=== PATIENT | male | born 1940 | race Caucasian/White ===

== ENCOUNTER → 2017-05-09 | Outpatient (CLI) | payer MEDICARE ==
--- NOTE | 2017-05-09 14:34 | US ---
EXAMINATION TYPE: US duplex aorta DATE OF EXAM: 05/09/2017 COMPARISON: NONE CLINICAL HISTORY: I70.0 Atherosclerosis of aorta. Pt states told him he has atherosclerosis of hi s aorta/ no other complaints at this time EXAM MEASUREMENTS: Abdominal Aorta: Proximal: 2.5 x 2.4 cm Mid: 2.2 x 1.5 cm Distal: 2.1 x 2.2 cm Bifurcation: JULIAN: 1.3 x 1.1 cm PAVEL: 1.5 x 1.2 cm Ectatic aorta without evidence of AAA IMPRESSION: 1. Distal abdominal aorta appears mildly ectatic with a maximum AP diameter 2.1 cm.
== END | disposition home or self-care (01) ==
LOC: RADUSWWP 07:52
PROVIDERS: ATTEND Family Medicine
DX: I70.0 Atherosclerosis of aorta (principal)
CPT/HCPCS: 93979

== ENCOUNTER → 2017-05-15 | Outpatient (CLI) | payer MEDICARE ==
--- NOTE | 2017-05-15 15:37 | XR ---
EXAMINATION TYPE: XR chest 2V DATE OF EXAM: 05/15/2017 COMPARISON: 07/13/2009 HISTORY: Shortness of breath TECHNIQUE: Frontal and lateral views of the chest are obtained. FINDINGS: Scattered senescent parenchymal changes noted. No evidence for infiltrate. No evidence for atelectasis. Heart size is stable. Mediastinal structures are stable and grossly unremarkable. No evidence for hilar prominence. Degenerative changes dorsal spine. IMPRESSION: 1. No evidence for acute pulmonary disease.
== END | disposition home or self-care (01) ==
LOC: RADXRMAIN 15:19
PROVIDERS: ATTEND Physician Assistant
DX: J20.9 Acute bronchitis, unspecified (principal)
CPT/HCPCS: 71046

== ENCOUNTER 2017-09-21 12:11 | Inpatient (IN) | payer MEDICARE ==
--- NOTE | 2017-09-21 13:08 | ED ---
General Adult HPI - General Chief complaint: Shortness of Breath Stated complaint: SOB Source: patient Mode of arrival: ambulatory Limitations: no limitations - History of Present Illness Initial comments: Dictation was produced using [employer] dictation software. please excuse any grammatical, word or spelling errors. Chief Complaint: 77-year-old male with past medical history of insulin -dependent diabetes mellitus, hyperlipidemia presents with shortness of breath for 5 weeks. History of Present Illness: Patient states that he isn't having these symptoms for several weeks now. Today they had just arrived back from driving up [place] 2 hours away. He has been having exertional shortness of breath. He does also report symptoms are orthopnea. States that he's been sleeping with 2 pillows having difficulty with lying flat. Denies any lower extremity symptoms. No history of blood clots or other thromboembolic disease. It has any cardiac history. The ROS documented in this emergency department record has been reviewed and confirmed by me. Those systems with pertinent positive or negative responses have been documented in the HPI. All other systems are other negative and/or noncontributory. - Related Data Home Medications Medication Instructions Recorded Confirmed Atorvastatin Calcium [Lipitor] 10 mg PO DAILY 09/21/17 09/21/17 Gabapentin 800 mg PO QID 09/21/17 09/21/17 Glimepiride [Amaryl] 2 mg PO BID 09/21/17 09/21/17 Insulin Glargine,Hum.rec.anlog 70 unit SQ DAILY 09/21/17 09/21/17 [Lantus Solostar] Insulin Lispro [humaLOG Kwikpen] 20 units SQ DAILY PRN 09/21/17 09/21/17 Lansoprazole 30 mg PO DAILY 09/21/17 09/21/17 Naproxen Sodium [Aleve] 440 mg PO Q12HR PRN 09/21/17 09/21/17 Pioglitazone [Actos] 30 mg PO DAILY 09/21/17 09/21/17 Ramipril 2.5 mg PO DAILY 09/21/17 09/21/17 metFORMIN HCL [Glucophage] 850 mg PO TID 09/21/17 09/21/17 Allergies Allergy/AdvReac Type Severity Reaction Status Date / Time Sulfa (Sulfonamide Allergy Unknown Verified 09/21/17 13:13 Antibiotics) Childhood Review of Systems ROS Statement: Those systems with pertinent positive or pertinent negative responses have been documented in the HPI. ROS Other: All systems not noted in ROS Statement are negative. Past Medical History Past Medical History: Diabetes Mellitus History of Any Multi-Drug Resistant Organisms: None Reported Past Surgical History: Appendectomy, Joint Replacement Additional Past Surgical History / Comment(s): shoulder replaced, sinus surgery Past Psychological History: No Psychological Hx Reported Smoking Status: Never smoker Past Alcohol Use History: None Reported Past Drug Use History: None Reported General Exam - General Exam Comments Initial Comments: PHYSICAL EXAM: General Impression: Alert and oriented x3, not in acute distress HEENT: Normocephalic atraumatic, extra-ocular movements intact, pupils equal and reactive to light bilaterally, mucous membranes moist. Cardiovascular: Heart regular rate and rhythm, S1&S2 audible, no murmurs, rubs or gallops Chest: Diminished lung sounds in the right lung base, rest of lung lynn are clear Abdomen: Bowel sounds present, abdomen soft, non-tender, non-distended, no organomegaly Musculoskeletal: Pulses present and equal in all extremities, no peripheral edema Motor: Power 5/5 bilaterally, no focal deficits noted Neurological: CN II-XII grossly intact, no focal motor or sensory deficits noted Skin: Intact with no visualized rashes Psych: Normal affect and mood Limitations: no limitations Course Vital Signs 09/21/17 12:14 Temperature 98.1 F Pulse Rate 88 Respiratory 18 Rate Blood Pressure 145/74 O2 Sat by Pulse 98 Oximetry Medical Decision Making - Medical Decision Making ED course: 77-year-old male presents with acute onset shortness of breath. Vital signs upon arrival are within acceptable limits. Patient is insulin- dependent diabetic. Low clinical suspicion of pulmonary emboli at this time given no risk factors and benign lower extremity physical exam. Patient's symptoms are more concerning for congestive heart failureLaboratory evaluation obtained. Hemoglobin is 11.8 no old hemoglobin for comparison. Cardiac panel is unremarkable. Metabolic panel shows mild hyperglycemia 179. He does have history of diabetes. Chest x-ray obtained showing moderate right pleural effusion with right basilar airspace disease likely atelectasis. Patient has been having these symptoms for several weeks now. Doubt that his symptoms reflect pneumonia however we will give him one dose of antibiotics today. We will have patient admitted to observation. We will put pulmonology on consult. At this point it is unclear what produced patient's pleural effusion EKG interpretation: Ventricular rate 83, normal sinus rhythm, TN interval 140, care is 86, QTC 451. No TN prolongation, no QTC prolongation, no ST or T-wave changes noted. EKG compared to 2009 showing no changes. Overall, this EKG is unremarkable - Lab Data Result diagrams: 09/21/17 13:20 09/21/17 13:20 Lab Results 09/21/17 09/21/17 09/21/17 Range/Units 13:20 13:20 13:20 WBC 7.0 (3.8-10.6) k/uL RBC 4.15 L (4.30-5.90) m/uL Hgb 11.8 L (13.0-17.5) gm/dL Hct 35.8 L (39.0-53.0) % MCV 86.4 (80.0-100.0) fL MCH 28.4 (25.0-35.0) pg MCHC 32.9 (31.0-37.0) g/dL RDW 14.0 (11.5-15.5) % Plt Count 322 (150-450) k/uL Neutrophils % 75 % Lymphocytes % 12 % Monocytes % 6 % Eosinophils % 4 % Basophils % 0 % Neutrophils # 5.3 (1.3-7.7) k/uL Lymphocytes # 0.9 L (1.0-4.8) k/uL Monocytes # 0.5 (0-1.0) k/uL Eosinophils # 0.3 (0-0.7) k/uL Basophils # 0.0 (0-0.2) k/uL PT (9.0-12.0) sec INR (<1.2) APTT (22.0-30.0) sec Sodium 140 (137-145) mmol/L Potassium 5.0 (3.5-5.1) mmol/L Chloride 104 (98-107) mmol/L Carbon Dioxide 25 (22-30) mmol/L Anion Gap 11 mmol/L BUN 30 H (9-20) mg/dL Creatinine 1.16 (0.66-1.25) mg/dL Est GFR (CKD-EPI)AfAm 71 (>60 ml/min/1.73 sqM) Est GFR (CKD-EPI)NonAf 62 (>60 ml/min/1.73 sqM) Glucose 179 H (74-99) mg/dL Calcium 8.8 (8.4-10.2) mg/dL Total Bilirubin 0.5 (0.2-1.3) mg/dL AST 21 (17-59) U/L ALT 22 (21-72) U/L Alkaline Phosphatase 103 (38-126) U/L Total Creatine Kinase 60 (55-170) U/L CK-MB (CK-2) 0.7 (0.0-2.4) ng/mL CK-MB (CK-2) Rel Index 1.2 Troponin I <0.012 (0.000-0.034) ng/mL NT-Pro-B Natriuret Pep pg/mL Total Protein 7.3 (6.3-8.2) g/dL Albumin 4.2 (3.5-5.0) g/dL 09/21/17 09/21/17 Range/Units 13:20 13:20 WBC (3.8-10.6) k/uL RBC (4.30-5.90) m/uL Hgb (13.0-17.5) gm/dL Hct (39.0-53.0) % MCV (80.0-100.0) fL MCH (25.0-35.0) pg MCHC (31.0-37.0) g/dL RDW (11.5-15.5) % Plt Count (150-450) k/uL Neutrophils % % Lymphocytes % % Monocytes % % Eosinophils % % Basophils % % Neutrophils # (1.3-7.7) k/uL Lymphocytes # (1.0-4.8) k/uL Monocytes # (0-1.0) k/uL Eosinophils # (0-0.7) k/uL Basophils # (0-0.2) k/uL PT 9.4 (9.0-12.0) sec INR 0.9 (<1.2) APTT 31.0 H (22.0-30.0) sec Sodium (137-145) mmol/L Potassium (3.5-5.1) mmol/L Chloride (98-107) mmol/L Carbon Dioxide (22-30) mmol/L Anion Gap mmol/L BUN (9-20) mg/dL Creatinine (0.66-1.25) mg/dL Est GFR (CKD-EPI)AfAm (>60 ml/min/1.73 sqM) Est GFR (CKD-EPI)NonAf (>60 ml/min/1.73 sqM) Glucose (74-99) mg/dL Calcium (8.4-10.2) mg/dL Total Bilirubin (0.2-1.3) mg/dL AST (17-59) U/L ALT (21-72) U/L Alkaline Phosphatase (38-126) U/L Total Creatine Kinase (55-170) U/L CK-MB (CK-2) (0.0-2.4) ng/mL CK-MB (CK-2) Rel Index Troponin I (0.000-0.034) ng/mL NT-Pro-B Natriuret Pep 304 pg/mL Total Protein (6.3-8.2) g/dL Albumin (3.5-5.0) g/dL Disposition Clinical Impression: Pleural effusion Disposition: ADMITTED IP TO THIS HOSP Is patient prescribed a controlled substance at d/c from ED?: No Referrals: Devin Ruiz MD [Primary Care Provider] - 1-2 days Time of Disposition: 14:19
[2017-09-21 13:29] LABS: Basophils % (A) 0 %; Eosinophils # (A) 0.3 k/uL (0-0.7); Eosinophils % (A) 4 %; HCT 35.8 % (39.0-53.0); HGB 11.8 gm/dL (13.0-17.5); Lymphocytes # (A) 0.9 k/uL (1.0-4.8); Lymphocytes % (A) 12 %; MCH 28.4 pg (25.0-35.0); MCHC 32.9 g/dL (31.0-37.0); MCV 86.4 fL (80.0-100.0); Monocytes # (A) 0.5 k/uL (0-1.0); Monocytes % (A) 6 %; Neutrophils # (A) 5.3 k/uL (1.3-7.7); Neutrophils % (A) 75 %; Platelet Count 322 k/uL (150-450); RBC 4.15 m/uL (4.30-5.90)
[2017-09-21 13:41] LABS: Albumin 4.2 g/dL (3.5-5.0); Calcium 8.8 mg/dL (8.4-10.2); Total Bilirubin 0.5 mg/dL (0.2-1.3); Total Protein 7.3 g/dL (6.3-8.2)
[2017-09-21 13:44] LABS: INR 0.9 (<1.2); Prothrombin Time 9.4 sec (9.0-12.0)
--- NOTE | 2017-09-21 13:47 | XR ---
EXAMINATION TYPE: XR chest 2V DATE OF EXAM: 09/21/2017 COMPARISON: 05/15/2017 HISTORY: Shortness of breath TECHNIQUE: Frontal and lateral views of the chest are obtained. FINDINGS: There is a new moderate layering right pleural effusion with associated right basilar airs pace disease. Remainder the lungs are clear. Cardiomediastinal silhouette is within normal limits. Os seous structures are demineralized with chronic fracture deformity of the right midhumerus again note d and mild multilevel degenerative changes of the thoracic spine. IMPRESSION: New moderate right pleural effusion and right basilar airspace disease, likely atelectas is.
[2017-09-21 13:54] LABS: Creatine Kinase 60 U/L (55-170)
[2017-09-21 14:06] LABS: Creatine Kinase MB 0.7 ng/mL (0.0-2.4); Troponin I <0.012 ng/mL (0.000-0.034)
[2017-09-21] MEDS ORDERED: AZITHROMYCIN 500 MG in SODIUM CHLORIDE 0.9% 250 ML IVPB STA (14:20)
[2017-09-21] MEDS ORDERED: NALOXONE 0.4 MG/ML 1 ML VIAL IV PRN (14:21)
[2017-09-21] MEDS ORDERED: cefTRIAXone IN SWFI 1,000 MG/10 ML SYRINGE IVP STA (14:34)
[2017-09-21 14:44] LABS: Glucose,Whole Blood 141 mg/dL (75-99)
[2017-09-21 17:28] LABS: Glucose,Whole Blood 158 mg/dL (75-99)
[2017-09-21 20:35] LABS: Glucose,Whole Blood 172 mg/dL (75-99)
[2017-09-21] MEDS ORDERED: NAPROXEN 250 MG TAB PO PRN (23:04)
--- NOTE | 2017-09-21 23:09 | P.HPIM ---
History of Present Illness H&P Date: 09/21/17 Chief Complaint: Shortness of breath Patient is a 77-year-old male with a known history of hyperlipidemia and diabetes type 2 came to ER with complaints of worsening shortness of breath for the past 4-5 weeks. Patient says that [place] and has been having exertional shortness of breath. Otherwise no complaints of chest pain. No fever no chills. No cough or sputum production. No recent illnesses or sick contacts at home. Patient does have orthopnea. No complaints of dizziness or lightheadedness. Patient otherwise denied any leg swelling. No nausea vomiting or diarrhea. Denied any weight loss or loss of appetite. No history of cardiac problems in the past. Chest x-ray showed new moderate right pleural effusion and right basilar airspace disease. Likely atelectasis BNP not elevated. Troponin 1 negative. Other laboratory data reviewed Review of Systems Constitutional: Patient denies any fever or chills . No generalized weakness or weight loss. Abdomen: Patient denied nausea vomiting and diarrhea and abdominal pain. Cardiovascular: Patient denies any chest pain no palpitations. Patient does have exertional short of breath Respiratory: patient denied any cough is from production. No shortness of breath Neurologic: Patient denied any numbness or tingling headache. Musculoskeletal: Patient denies any complaints of joint swelling or deformity. Skin: Negative Psychiatric: Negative Endocrine: No heat or cold intolerance. No recent weight gain. Genitourinary: No dysuria or hematuria. All other 14 point ROS negative except the above Past Medical History Past Medical History: Diabetes Mellitus, GERD/Reflux, Hyperlipidemia, Hypertension Additional Past Medical History / Comment(s): neuropathy, past gout, lt knee bruise from past fall, "see's a retina specialist" History of Any Multi-Drug Resistant Organisms: None Reported Past Surgical History: Ablation, Adenoidectomy, Appendectomy, Joint Replacement , Tonsillectomy Additional Past Surgical History / Comment(s): rt shoulder replaced, sinus surgery, lt hand finger sx d/t work injury, cataracts Past Anesthesia/Blood Transfusion Reactions: No Reported Reaction Smoking Status: Never smoker - Past Family History Mother Family Medical History: No Reported History Additional Family Medical History / Comment(s): from natural causes Father Family Medical History: Cancer Additional Family Medical History / Comment(s): pancreatic cancer Medications and Allergies Home Medications Medication Instructions Recorded Confirmed Type Atorvastatin Calcium [Lipitor] 10 mg PO DAILY 09/21/17 09/21/17 History Gabapentin 800 mg PO QID 09/21/17 09/21/17 History Glimepiride [Amaryl] 2 mg PO BID 09/21/17 09/21/17 History Insulin Glargine,Hum.rec.anlog 70 unit SQ DAILY 09/21/17 09/21/17 History [Lantus Solostar] Insulin Lispro [humaLOG Kwikpen] 0 units SQ ACHS PRN 09/21/17 09/21/17 History Lansoprazole 30 mg PO DAILY 09/21/17 09/21/17 History Naproxen Sodium [Aleve] 440 mg PO Q12HR PRN 09/21/17 09/21/17 History Pioglitazone [Actos] 30 mg PO DAILY 09/21/17 09/21/17 History Ramipril 2.5 mg PO DAILY 09/21/17 09/21/17 History metFORMIN HCL [Glucophage] 850 mg PO TID 09/21/17 09/21/17 History Allergies Allergy/AdvReac Type Severity Reaction Status Date / Time Sulfa (Sulfonamide Allergy Unknown Verified 09/21/17 13:13 Antibiotics) Childhood Physical Exam Vitals: Vital Signs Temp Pulse Resp BP Pulse Ox 09/21/17 14:44 81 16 154/76 97 09/21/17 12:14 98.1 F 88 18 145/74 98 Intake and Output 09/21/17 09/21/17 09/21/17 06:59 14:59 22:59 Other: Weight 95.254 kg PHYSICAL EXAMINATION: Patient is lying in the bed comfortably, no acute distress, awake alert and oriented.. HEENT: Normocephalic. Neck is supple. Pupils reactive. Nostrils clear. Oral cavity is moist. Ears reveal no drainage. Neck reveals no JVD, carotid bruits, or thyromegaly. CHEST EXAMINATION: Trachea is central. Symmetrical expansion. Basilar diminished air entry and otherwise no wheezing or labored breathing. CARDIAC: Normal S1, S2 with no gallops. No murmurs ABDOMEN: Soft. Bowel sounds normal. No organomegaly. No abdominal bruits. Extremities: reveal no edema. No clubbing or cyanosis Neurologically awake, alert, oriented x3 with well-coordinated movements. No focal deficits noted Skin: No rash or skin lesions. Psychiatric: Coperative. Nonsuicidal Musculoskeletal: No joint swelling or deformity. Normal range of motion. Results CBC & Chem 7: 09/21/17 13:20 09/21/17 13:20 Labs: Abnormal Lab Results - Last 24 Hours (Table) 09/21/17 09/21/17 09/21/17 Range/Units 13:20 13:20 13:20 RBC 4.15 L (4.30-5.90) m/uL Hgb 11.8 L (13.0-17.5) gm/dL Hct 35.8 L (39.0-53.0) % Lymphocytes # 0.9 L (1.0-4.8) k/uL APTT 31.0 H (22.0-30.0) sec BUN 30 H (9-20) mg/dL Glucose 179 H (74-99) mg/dL POC Glucose (mg/dL) (75-99) mg/dL 09/21/17 Range/Units 14:43 RBC (4.30-5.90) m/uL Hgb (13.0-17.5) gm/dL Hct (39.0-53.0) % Lymphocytes # (1.0-4.8) k/uL APTT (22.0-30.0) sec BUN (9-20) mg/dL Glucose (74-99) mg/dL POC Glucose (mg/dL) 141 H (75-99) mg/dL Thrombosis Risk Factor Assmnt - DVT/VTE Prophylaxis DVT/VTE Prophylaxis: Pharmacologic Prophylaxis ordered - Choose All That Apply Each Factor Represents 1 point: Obesity (BMI >25) Other Risk Factors: No Each Risk Factor Represents 3 Points: Age 75 years or older Other congenital or acquired thrombophilia - If yes, enter type in comment: No Thrombosis Risk Factor Assessment Total Risk Factor Score: 4 Thrombosis Risk Factor Assessment Level: Moderate Risk Assessment and Plan Assessment: Exertional shortness of breath due to moderate right pleural effusion. Etiology unknown at this time. Diabetes type 2 Hyperlipidemia DVT prophylaxis Plan: Patient had chest x-ray showed moderate right pleural effusion and atelectasis. Patient was given a dose of antibiotics in the ER. will get US-CHEST AND pulmonary was consulted. Patient will need thoracentesis and fluid analysis. Further recommendations based on the clinical course. Continue with home insulin dose along with sliding scale and follow up closely. Time with Patient: Greater than 30
[2017-09-22 06:57] LABS: Glucose,Whole Blood 73 mg/dL (75-99)
[2017-09-22] MEDS: INSULIN DETEMIR 100 UNIT/ML 10 ML VIAL SQ SCH ×2 (08:39→13:37)
[2017-09-22] MEDS: LISINOPRIL 10 MG TAB PO SCH (08:43)
[2017-09-22] MEDS: ATORVASTATIN 10 MG TAB PO SCH (08:43)
[2017-09-22] MEDS: PANTOPRAZOLE 40 MG TABLET PO SCH (08:43)
[2017-09-22] MEDS: GABAPENTIN 400 MG CAP PO SCH ×4 (08:43→21:43)
--- NOTE | 2017-09-22 09:00 | US ---
EXAMINATION TYPE: US chest DATE OF EXAM: 09/22/2017 COMPARISON: NONE CLINICAL HISTORY: Pleural effusion right. right pleural effusion TECHNIQUE: Targeted ultrasound of the posterior lower right hemithorax EXAM MEASUREMENTS: Right Pleural Effusion pocket size: 10.1 cm Right skin surface to fluid distance: 3.3 cm Right side marked for possible thoracentesis outside the dept. Pulmonologists are able to review the images in the patient?s EMR. IMPRESSIONS: RIGHT-SIDED PLEURAL EFFUSION.
[2017-09-22] MEDS ORDERED: RX INFO: IV CONTRAST WAS GIVEN 1 EACH MISC MISCELLANE PRN (10:15)
--- NOTE | 2017-09-22 10:51 | P.CNPUL ---
History of Present Illness Consult date: 09/22/17 Reason for consult: dyspnea, pneumonia, pleural effusion, abnormal CXR/CT Chief complaint: Shortness of breath History of present illness: Pulmonary consult dated 09/22/2017 77-year-old male who presents to the emergency department on September 21 with complaints of shortness of breath for 5 weeks. The patient does have a history of diabetes mellitus and hyperlipidemia and recently had a "lung infection" that was treated by his family doctor. The patient apparently received antibiotics and steroids at that time but really has not improved. The patient states that he has shortness of breath particularly with exertion. He does have chronic cough. He's been having difficulty laying flat at nighttime sleeping and does require 2 pillows to sleep comfortably. The patient is coughing but not producing any phlegm. There are no fevers or chills. He just never has completely recovered from the infection 5-6 weeks ago. He came into the emergency department and was evaluated and was found to have a right-sided pleural effusion. We attempted thoracentesis but were not able to significantly remove any fluid. We question whether or not the fluid is complex with loculations or septations. We did remove a small amount of fluid which was sent to laboratory for analysis. He may need a surgical procedure if the fluid is more organized. It may suggest a parapneumonic effusion from a recent pneumonia. The patient is a nonsmoker. His medical problems include hyperlipidemia and diabetes as well as hypertension. Review of Systems A 14 point review of system is positive for shortness of breath chest congestion cough minimal phlegm production and just not feeling back to normal. He denies any chest pain or chest discomfort. Not coughing up any blood. Past Medical History Past Medical History: Diabetes Mellitus, GERD/Reflux, Hyperlipidemia, Hypertension Additional Past Medical History / Comment(s): neuropathy, past gout, lt knee bruise from past fall, "see's a retina specialist" History of Any Multi-Drug Resistant Organisms: None Reported Past Surgical History: Ablation, Adenoidectomy, Appendectomy, Joint Replacement , Tonsillectomy Additional Past Surgical History / Comment(s): rt shoulder replaced, sinus surgery, lt hand finger sx d/t work injury, cataracts Past Anesthesia/Blood Transfusion Reactions: No Reported Reaction Smoking Status: Never smoker - Past Family History Mother Family Medical History: No Reported History Additional Family Medical History / Comment(s): from natural causes Father Family Medical History: Cancer Additional Family Medical History / Comment(s): pancreatic cancer Medications and Allergies Home Medications Medication Instructions Recorded Confirmed Type Atorvastatin Calcium [Lipitor] 10 mg PO DAILY 09/21/17 09/21/17 History Gabapentin 800 mg PO QID 09/21/17 09/21/17 History Glimepiride [Amaryl] 2 mg PO BID 09/21/17 09/21/17 History Insulin Glargine,Hum.rec.anlog 70 unit SQ DAILY 09/21/17 09/21/17 History [Lantus Solostar] Insulin Lispro [humaLOG Kwikpen] 0 units SQ ACHS PRN 09/21/17 09/21/17 History Lansoprazole 30 mg PO DAILY 09/21/17 09/21/17 History Naproxen Sodium [Aleve] 440 mg PO Q12HR PRN 09/21/17 09/21/17 History Pioglitazone [Actos] 30 mg PO DAILY 09/21/17 09/21/17 History Ramipril 2.5 mg PO DAILY 09/21/17 09/21/17 History metFORMIN HCL [Glucophage] 850 mg PO TID 09/21/17 09/21/17 History Allergies Allergy/AdvReac Type Severity Reaction Status Date / Time Sulfa (Sulfonamide Allergy Unknown Verified 09/21/17 13:13 Antibiotics) Childhood Physical Exam Osteopathic Statement: *. No significant issues noted on an osteopathic structural exam other than those noted in the History and Physical/Consult. Vitals: Vital Signs Temp Pulse Pulse Resp BP BP Pulse Ox 09/22/17 05:00 97.8 F 85 16 140/75 91 L 09/22/17 00:00 16 09/21/17 22:25 97.8 F 73 16 141/72 93 L 09/21/17 16:00 97.6 F 84 18 154/93 96 09/21/17 14:44 81 16 154/76 97 09/21/17 12:14 98.1 F 88 18 145/74 98 Intake and Output 09/21/17 09/22/17 09/22/17 22:59 06:59 14:59 Intake Total 1770 590 Balance 1770 590 Intake: Oral 1770 590 Other: # Voids 2 2 No acute distress, oriented 3. HEENT examination is grossly unremarkable. Mucous membranes are moist. No oral lesions. Neck supple. Full range of motion. No adenopathy thyromegaly or neck vein distention. Cardiovascular examination reveals regular rhythm rate. S1-S2 normal. No S3 or S4. No discernible murmur noted. Lungs reveal diminished breath sounds on the right. Dullness on percussion on the right side. No wheezes or crackles. Abdomen soft bowel sounds are heard. No masses or tenderness. Extremities are intact. No cyanosis clubbing or edema. Skin is without rash or lesion. Neurologic examination is brief but nonfocal. Results - Laboratory Findings CBC and BMP: 09/21/17 13:20 09/21/17 13:20 PT/INR, D-dimer PT 9.4 sec (9.0-12.0) 09/21/17 13:20 INR 0.9 (<1.2) 09/21/17 13:20 Abnormal lab findings: Abnormal Labs 09/21/17 09/21/17 09/21/17 13:20 13:20 13:20 RBC 4.15 L Hgb 11.8 L Hct 35.8 L Lymphocytes # 0.9 L APTT 31.0 H BUN 30 H Glucose 179 H POC Glucose (mg/dL) 09/21/17 09/21/17 09/21/17 14:43 17:20 20:33 RBC Hgb Hct Lymphocytes # APTT BUN Glucose POC Glucose (mg/dL) 141 H 158 H 172 H 09/22/17 06:56 RBC Hgb Hct Lymphocytes # APTT BUN Glucose POC Glucose (mg/dL) 73 L - Diagnostic Findings Chest x-ray: report reviewed, image reviewed (Chest x-ray, labs and medications are reviewed.) Assessment and Plan Assessment: Assessment Right-sided pleural effusion, new onset, which may relate to recent pulmonary infection or something more ominous such as malignancy. Attempted thoracentesis , was not successful and a computed tomography scan of the chest was ordered with contrast. History of diabetes mellitus History of hypertension History of hyperlipidemia Lifelong nonsmoking Plan: Plan dated 09/22/2017 The patient will have a CAT scan of the chest with contrast ordered. Pending that, additional recommendations and suggestions are forthcoming. The patient may have a complex pleural effusion on the right which may benefit from video- assisted thoracoscopic treatment. Some fluid was sent for analysis to laboratory. It was sent for cytology and some microbiology. Pending the CAT scan, additional recommendations and suggestions will be made. Time with Patient: Greater than 30
--- NOTE | 2017-09-22 11:01 | XR ---
EXAMINATION TYPE: XR chest 1V portable DATE OF EXAM: 09/22/2017 HISTORY: post thoracentesis right. REFERENCE: Previous study dated 09/21/2017. FINDINGS: There is a moderate right-sided pleural effusion, unchanged from previous. There is a quest ionable small pneumothorax on the right. There is pleural scarring in the right apex. Heart size is o bscured. IMPRESSION: 1. MODERATE RIGHT-SIDED PLEURAL EFFUSION. 2. I CANNOT EXCLUDE A TINY RIGHT APICAL PNEUMOTHORAX.
[2017-09-22 11:16] LABS: Basophils % (A) 0 %; Eosinophils # (A) 0.2 k/uL (0-0.7); Eosinophils % (A) 3 %; HCT 35.7 % (39.0-53.0); HGB 11.6 gm/dL (13.0-17.5); Lymphocytes # (A) 0.7 k/uL (1.0-4.8); Lymphocytes % (A) 10 %; MCH 28.2 pg (25.0-35.0); MCHC 32.5 g/dL (31.0-37.0); MCV 86.6 fL (80.0-100.0); Mean Platelet Volume 6.8; Monocytes # (A) 0.4 k/uL (0-1.0); Monocytes % (A) 5 %; Neutrophils # (A) 5.7 k/uL (1.3-7.7); Neutrophils % (A) 81 %; Platelet Count 339 k/uL (150-450); RBC 4.12 m/uL (4.30-5.90); RDW 13.9 % (11.5-15.5)
[2017-09-22 11:19] LABS: Albumin 3.9 g/dL (3.5-5.0); Total Bilirubin 0.5 mg/dL (0.2-1.3); Total Protein 7.1 g/dL (6.3-8.2)
[2017-09-22 11:33] LABS: Glucose,Whole Blood 264 mg/dL (75-99)
--- NOTE | 2017-09-22 12:17 | PN ---
PROGRESS NOTE PROCEDURE: Right-sided thoracentesis. PREOP DIAGNOSIS: Right pleural effusion. POSTOP DIAGNOSIS: Right pleural effusion. DESCRIPTION OF PROCEDURE: There was informed consent. There was universal timeout. The operators were Dr. Montejo and Dr. Johnson. The right posterior chest was marked by ultrasound. INDICATION: Pleural effusion. A time-out was completed verifying correct patient, procedure, site, positioning , and implant (s) or special equipment if applicable. Ultrasound guidance was used and appropriate fluid pocket was identified and marked. Patient was positioned, prepped and draped in usual sterile fashion. Lidocaine was used to anesthetize the area. A Thoracentesis catheter was introduced into the pleural space and fluid was removed. Blood loss was none. A chest x-ray was ordered to evaluate for pneumothorax. Total Fluid Removed: Small amount. Color of Fluid: Bloody. Maybe purulent. Fluid was sent for appropriate laboratory tests. Patient tolerated the procedure well and there were no complications. A small amount of fluid was removed from the right pleural space. It was mostly bloody and maybe purulent. It appeared free flow initially but then became very slow and its ability to come out of the pleural space. We only got a small amount out which will be sent to the laboratory for analysis. The patient tolerated the procedure well. We did order a chest x-ray to rule out pneumothorax and also ordered a CT scan to determine whether not the fluid was more complex septated and/or loculated. There was no immediate complication. MMODL / IJN: [id number] /
--- NOTE | 2017-09-22 12:19 | CT ---
EXAMINATION TYPE: CT chest w con DATE OF EXAM: 09/22/2017 COMPARISON: None. HISTORY: Shortness of breath and cough CT DLP: 577.5 mGycm Automated exposure control for dose reduction was used. CONTRAST: CT scan of the chest is performed with IV Contrast, patient injected with 100 mL of Isovue 300. FINDINGS: There is a large right-sided pleural effusion with concomitant atelectasis of the right beau g. There is apical scarring present bilaterally. There is no significant axillary, mediastinal or hilar adenopathy. There is no pericardial fluid. The heart is not enlarged. Within the abdomen, the liver and spleen are normal. The gallbladder is contracted. Both adrenal glands are normal. There is a nonobstructing 1.2 cm calculus in the lower pole of the left kidney. Visualized portions o f the right kidney are unremarkable. There is a tiny focus of calcification in the tail of pancreas. The pancreas is otherwise unremarkabl e. There is hypertrophic spondylosis within the spine. IMPRESSION: 1. LARGE RIGHT-SIDED EFFUSION WITH CONCOMITANT ATELECTASIS OF THE RIGHT LUNG. 2. NONOBSTRUCTING LEFT-SIDED NEPHROLITHIASIS. 3. TINY FOCUS OF CALCIFICATION WITHIN THE TAIL OF PANCREAS IS NONSPECIFIC AND MAY BE SECONDARY TO CHR ONIC CALCIFIC PANCREATITIS.
[2017-09-22 12:50] LABS: Appearance,BF Bloody; Color,BF Red
[2017-09-22 13:07] LABS: Nucleated Cells, Body Fluid 640 /uL; RBC, Body Fluid 82400 /uL
[2017-09-22 13:10] LABS: Mononuclear WBC,Body Fluid 71 %; Polynuclear WBC,Body Fluid 27 %; Total Cells Counted,Body Fluid 100
[2017-09-22 17:00] LABS: Total Protein, Body Fluid 4900 mg/dL
[2017-09-22 17:13] LABS: Glucose,Whole Blood 241 mg/dL (75-99)
[2017-09-22] MEDS: INSULIN ASPART 100 UNIT/ML 1 ML 10 ML VIAL SQ SCH (17:42)
[2017-09-22 20:19] LABS: Glucose,Whole Blood 198 mg/dL (75-99)
[2017-09-22] MEDS: MELATONIN 5 MG TABLET PO SCH (22:20)
[2017-09-23 06:54] LABS: Glucose,Whole Blood 128 mg/dL (75-99)
[2017-09-23] MEDS: INSULIN ASPART 100 UNIT/ML 1 ML 10 ML VIAL SQ SCH ×3 (07:54→17:35)
[2017-09-23] MEDS: GABAPENTIN 400 MG CAP PO SCH ×4 (07:56→21:10)
[2017-09-23] MEDS: PANTOPRAZOLE 40 MG TABLET PO SCH (07:56)
[2017-09-23] MEDS: LISINOPRIL 10 MG TAB PO SCH (07:56)
[2017-09-23] MEDS: INSULIN DETEMIR 100 UNIT/ML 10 ML VIAL SQ SCH (07:57)
[2017-09-23] MEDS: ATORVASTATIN 10 MG TAB PO SCH (07:57)
[2017-09-23 11:14] LABS: Glucose,Whole Blood 269 mg/dL (75-99)
--- NOTE | 2017-09-23 11:34 | P.PN ---
Subjective Progress Note Date: 09/23/17 Principal diagnosis: Right-sided pleural effusion Progress note dated 09/23/2017 77-year-old male seen yesterday for right-sided pleural effusion which is new onset. The patient had a recent pulmonary infection and we think that maybe this relates to that issue. He also could have something much more ominous such as malignancy. I attempted twice to drain the right chest. Unfortunately although I can get into the pleural fluid, I could only withdraws small amount of material. This was sent to laboratory for analysis. I did ask interventional radiology to do do an ultrasound-guided thoracentesis. The patient also has a history of diabetes mellitus hypertension hyperlipidemia and is a lifelong nonsmoker. Not critically short of breath. Not requiring any supplemental oxygen. No chest pain or chest discomfort. Objective - Vital Signs Vital signs: Vital Signs Temp 97.8 F 09/23/17 05:00 Pulse 78 09/23/17 05:00 Resp 16 09/23/17 05:00 BP 112/63 09/23/17 05:00 Pulse Ox 93 L 09/23/17 05:00 Intake & Output 09/22/17 09/23/17 09/23/17 18:59 06:59 18:59 Intake Total 500 1540 Balance 500 1540 Intake: Oral 500 1540 Other: Voiding Method Toilet Toilet # Voids 1 - Exam No acute distress, oriented 3. No supplemental oxygen noted. HEENT examination is grossly unremarkable. Mucous membranes are moist. No oral lesions. Neck supple. Full range of motion. No adenopathy thyromegaly or neck vein distention. Cardiovascular examination reveals regular rhythm rate. S1-S2 normal. No S3 or S4. No discernible murmur noted. Lungs reveal severely diminished breath sounds at the right base. There is some dullness at the right base. A few scattered rhonchi noted throughout both lungs. No crackles or wheezes. Abdomen soft bowel sounds are heard. No masses or tenderness. Extremities are intact. No cyanosis clubbing or edema. Skin is without rash or lesion. Neurologic examination is brief but nonfocal. - Labs CBC & Chem 7: 09/22/17 10:38 09/22/17 10:38 Labs: Abnormal Lab Results - Last 24 Hours (Table) 09/22/17 09/22/17 09/22/17 Range/Units 11:32 17:11 20:17 POC Glucose (mg/dL) 264 H 241 H 198 H (75-99) mg/dL 09/23/17 09/23/17 Range/Units 06:53 11:13 POC Glucose (mg/dL) 128 H 269 H (75-99) mg/dL Microbiology - Last 24 Hours (Table) 09/22/17 10:15 Gram Stain - Preliminary Pleural Fluid Body Fluid Culture - Preliminary Assessment and Plan Assessment: Assessment Right-sided pleural effusion, new onset, which may relate to recent pulmonary infection or something more ominous such as malignancy. Attempted thoracentesis , was not successful and a computed tomography scan of the chest was ordered with contrast. History of diabetes mellitus History of hypertension History of hyperlipidemia Lifelong nonsmoking Plan: Plan dated 09/22/2017 The patient will have a CAT scan of the chest with contrast ordered. Pending that, additional recommendations and suggestions are forthcoming. The patient may have a complex pleural effusion on the right which may benefit from video- assisted thoracoscopic treatment. Some fluid was sent for analysis to laboratory. It was sent for cytology and some microbiology. Pending the CAT scan, additional recommendations and suggestions will be made. Plan dated 09/23/2017 I've asked interventional radiology to do an ultrasound-guided thoracentesis. I attempted to thoracentesis yesterday and although I couldn't get into the fluid I could not withdrawal very much at all. The fluid that was sent for analysis was red and bloody. It had 82,000 red blood cells. Most of the cells were mononuclear cells. It was a exudate. The LDH was 361 and the protein was 4.9 g. Additional recommendations and suggestions are forthcoming. Prognosis is guarded. The patient is not having any respiratory distress at this time. Time with Patient: Less than 30
[2017-09-23 16:41] LABS: Glucose,Whole Blood 249 mg/dL (75-99)
[2017-09-23 19:53] LABS: Glucose,Whole Blood 234 mg/dL (75-99)
[2017-09-23] MEDS: MELATONIN 5 MG TABLET PO SCH (21:10)
--- NOTE | 2017-09-24 01:46 | P.PN ---
Subjective Progress Note Date: 09/22/17 Principal diagnosis: Right-sided new onset pleural effusion Patient is a 77-year-old male with a known history of hyperlipidemia and diabetes type 2 came to ER with complaints of worsening shortness of breath for the past 4-5 weeks. Patient says that he [place] and has been having exertional shortness of breath. Otherwise no complaints of chest pain. No fever no chills. No cough or sputum production. No recent illnesses or sick contacts at home. Patient does have orthopnea. No complaints of dizziness or lightheadedness. Patient otherwise denied any leg swelling. No nausea vomiting or diarrhea. Denied any weight loss or loss of appetite. No history of cardiac problems in the past. Chest x-ray showed new moderate right pleural effusion and right basilar airspace disease. Likely atelectasis BNP not elevated. Troponin 1 negative. Other laboratory data reviewed 09/22/2017 Patient denied any complains of chest pain or worsening shortness of breath. Patient was seen by pulmonary and bedside thoracentesis was attempted and small amount of fluid was aspirated. Patient most likely has loculated effusion. Recommends CT-guided thoracentesis. Fluid analysis was sent. No other acute overnight issues. All other review of systems negative except the above Current medications reviewed( Objective - Vital Signs Vital signs: Vital Signs Temp 97.8 F 09/22/17 05:00 Pulse 85 09/22/17 05:00 Resp 16 09/22/17 05:00 BP 140/75 09/22/17 05:00 Pulse Ox 91 L 09/22/17 05:00 Intake & Output 09/21/17 09/22/17 09/22/17 18:59 06:59 18:59 Intake Total 2360 Balance 2360 Weight 95.254 kg Intake: Oral 2360 Other: # Voids 2 - Exam PHYSICAL EXAMINATION: Patient is lying in the bed comfortably, no acute distress, awake alert and oriented.. HEENT: Normocephalic. Neck is supple. Pupils reactive. Nostrils clear. Oral cavity is moist. Ears reveal no drainage. Neck reveals no JVD, carotid bruits, or thyromegaly. CHEST EXAMINATION: Trachea is central. Symmetrical expansion. Basilar diminished air entry and otherwise no wheezing or labored breathing. CARDIAC: Normal S1, S2 with no gallops. No murmurs ABDOMEN: Soft. Bowel sounds normal. No organomegaly. No abdominal bruits. Extremities: reveal no edema. No clubbing or cyanosis Neurologically awake, alert, oriented x3 with well-coordinated movements. No focal deficits noted Skin: No rash or skin lesions. Psychiatric: Coperative. Nonsuicidal Musculoskeletal: No joint swelling or deformity. Normal range of motion. - Labs CBC & Chem 7: 09/22/17 10:38 09/22/17 10:38 Labs: Abnormal Lab Results - Last 24 Hours (Table) 09/21/17 09/21/17 09/21/17 Range/Units 13:20 13:20 13:20 RBC 4.15 L (4.30-5.90) m/uL Hgb 11.8 L (13.0-17.5) gm/dL Hct 35.8 L (39.0-53.0) % Lymphocytes # 0.9 L (1.0-4.8) k/uL APTT 31.0 H (22.0-30.0) sec BUN 30 H (9-20) mg/dL Glucose 179 H (74-99) mg/dL POC Glucose (mg/dL) (75-99) mg/dL 09/21/17 09/21/17 09/21/17 Range/Units 14:43 17:20 20:33 RBC (4.30-5.90) m/uL Hgb (13.0-17.5) gm/dL Hct (39.0-53.0) % Lymphocytes # (1.0-4.8) k/uL APTT (22.0-30.0) sec BUN (9-20) mg/dL Glucose (74-99) mg/dL POC Glucose (mg/dL) 141 H 158 H 172 H (75-99) mg/dL 09/22/17 09/22/17 09/22/17 Range/Units 06:56 10:38 10:38 RBC 4.12 L (4.30-5.90) m/uL Hgb 11.6 L (13.0-17.5) gm/dL Hct 35.7 L (39.0-53.0) % Lymphocytes # 0.7 L (1.0-4.8) k/uL APTT (22.0-30.0) sec BUN 25 H (9-20) mg/dL Glucose 267 H (74-99) mg/dL POC Glucose (mg/dL) 73 L (75-99) mg/dL 09/22/17 Range/Units 11:32 RBC (4.30-5.90) m/uL Hgb (13.0-17.5) gm/dL Hct (39.0-53.0) % Lymphocytes # (1.0-4.8) k/uL APTT (22.0-30.0) sec BUN (9-20) mg/dL Glucose (74-99) mg/dL POC Glucose (mg/dL) 264 H (75-99) mg/dL Assessment and Plan Assessment: Exertional shortness of breath due to moderate right pleural effusion. Etiology unknown at this time. Diabetes type 2 Hyperlipidemia DVT prophylaxis Plan: Patient had chest x-ray showed moderate right pleural effusion and atelectasis. Patient was given a dose of antibiotics in the ER. US-CHEST was done AND pulmonary was consulted. Patient will need thoracentesis and fluid analysis. Further recommendations based on the clinical course. Continue with home insulin dose along with sliding scale and follow up closely.
--- NOTE | 2017-09-24 01:47 | P.PN ---
Subjective Progress Note Date: 09/23/17 Principal diagnosis: Right-sided new onset pleural effusion Patient is a 77-year-old male with a known history of hyperlipidemia and diabetes type 2 came to ER with complaints of worsening shortness of breath for the past 4-5 weeks. Patient says that he arrived back from driving up [place] 2 hours away and has been having exertional shortness of breath. Otherwise no complaints of chest pain. No fever no chills. No cough or sputum production. No recent illnesses or sick contacts at home. Patient does have orthopnea. No complaints of dizziness or lightheadedness. Patient otherwise denied any leg swelling. No nausea vomiting or diarrhea. Denied any weight loss or loss of appetite. No history of cardiac problems in the past. Chest x-ray showed new moderate right pleural effusion and right basilar airspace disease. Likely atelectasis BNP not elevated. Troponin 1 negative. Other laboratory data reviewed 09/22/2017 Patient denied any complains of chest pain or worsening shortness of breath. Patient was seen by pulmonary and bedside thoracentesis was attempted and small amount of fluid was aspirated. Patient most likely has loculated effusion. Recommends CT-guided thoracentesis. Fluid analysis was sent. No other acute overnight issues. 09/23/2017 Patient is scheduled for CT-guided thoracentesis tomorrow. Otherwise no acute overnight issues. No chest pain no worsening shortness of breath. No nausea vomiting or abdominal pain. All other review of systems negative except the above Current medications reviewed( Objective - Vital Signs Vital signs: Vital Signs Temp 98.4 F 09/23/17 14:25 Pulse 89 09/23/17 16:00 Resp 20 09/23/17 16:00 BP 115/66 09/23/17 14:25 Pulse Ox 92 L 09/23/17 14:25 Intake & Output 09/23/17 09/23/17 09/24/17 06:59 18:59 06:59 Intake Total 1540 500 Balance 1540 500 Intake: Oral 1540 500 Other: Voiding Method Toilet Toilet # Voids 1 - Exam PHYSICAL EXAMINATION: Patient is lying in the bed comfortably, no acute distress, awake alert and oriented.. HEENT: Normocephalic. Neck is supple. Pupils reactive. Nostrils clear. Oral cavity is moist. Ears reveal no drainage. Neck reveals no JVD, carotid bruits, or thyromegaly. CHEST EXAMINATION: Trachea is central. Symmetrical expansion. Basilar diminished air entry and otherwise no wheezing or labored breathing. CARDIAC: Normal S1, S2 with no gallops. No murmurs ABDOMEN: Soft. Bowel sounds normal. No organomegaly. No abdominal bruits. Extremities: reveal no edema. No clubbing or cyanosis Neurologically awake, alert, oriented x3 with well-coordinated movements. No focal deficits noted Skin: No rash or skin lesions. Psychiatric: Coperative. Nonsuicidal Musculoskeletal: No joint swelling or deformity. Normal range of motion. - Labs CBC & Chem 7: 09/22/17 10:38 09/22/17 10:38 Labs: Abnormal Lab Results - Last 24 Hours (Table) 09/22/17 09/23/17 09/23/17 Range/Units 20:17 06:53 11:13 POC Glucose (mg/dL) 198 H 128 H 269 H (75-99) mg/dL 09/23/17 Range/Units 16:40 POC Glucose (mg/dL) 249 H (75-99) mg/dL Microbiology - Last 24 Hours (Table) 09/22/17 10:15 Gram Stain - Preliminary Pleural Fluid Body Fluid Culture - Preliminary Assessment and Plan Assessment: Exertional shortness of breath due to moderate right pleural effusion. Etiology unknown at this time. Diabetes type 2 Hyperlipidemia DVT prophylaxis Plan: Patient had chest x-ray showed moderate right pleural effusion and atelectasis. Patient was given a dose of antibiotics in the ER. US-CHEST was done AND pulmonary was consulted. Patient will need thoracentesis and fluid analysis. Further recommendations based on the clinical course. Continue with home insulin dose along with sliding scale and follow up closely. Time with Patient: Greater than 30
[2017-09-24 06:54] LABS: Glucose,Whole Blood 161 mg/dL (75-99)
[2017-09-24] MEDS: INSULIN ASPART 100 UNIT/ML 1 ML 10 ML VIAL SQ SCH ×2 (07:36→12:29)
[2017-09-24] MEDS: GABAPENTIN 400 MG CAP PO SCH ×2 (07:50→12:31)
[2017-09-24] MEDS: ATORVASTATIN 10 MG TAB PO SCH (07:51)
[2017-09-24] MEDS: PANTOPRAZOLE 40 MG TABLET PO SCH (07:51)
[2017-09-24] MEDS: LISINOPRIL 10 MG TAB PO SCH (07:51)
--- NOTE | 2017-09-24 11:55 | US ---
EXAMINATION TYPE: US thoracentesis DATE OF EXAM: 09/24/2017 COMPARISON: NONE HISTORY: Pleural effusion. FINDINGS: Maximal barrier technique was utilized. The skin overlying a suitable pocket of fluid was localized and the overlying skin prepped and draped. Lidocaine was used for local anesthesia. Ultras ound was used with sterile technique. A 5 [place] catheter over guide needle was advanced into the pl eural fluid collection using ultrasound guidance and the catheter advanced, needle removed. Approxim ately 1.5 liter(s) of serous sanguinous fluid was removed. Catheter was withdrawn and hemostasis ach ieved. There is no immediate complication. The patient discharged in stable condition without compl ication. IMPRESSION: STATUS POST ULTRASOUND GUIDED THORACENTESIS, POST PROCEDURE CHEST X-RAY PENDING. THIS CT OCEDURE WAS PERFORMED BY THE UNDERSIGNED. Specimen obtained for laboratory analysis.
--- NOTE | 2017-09-24 11:57 | XR ---
EXAMINATION TYPE: XR chest 1V DATE OF EXAM: 09/24/2017 COMPARISON: Prior chest x-ray 09/22/2017 HISTORY: Status post right thoracentesis TECHNIQUE: Single frontal view of the chest is obtained. FINDINGS: There is persistent blunting of the right costophrenic angle, obscured right hemidiaphragm . No evident pneumothorax. Heart size is stable. IMPRESSION: No evident complication status post thoracentesis.
[2017-09-24 12:38] LABS: Glucose,Whole Blood 138 mg/dL (75-99)
--- NOTE | 2017-09-24 13:04 | P.PN ---
Subjective Patient resting in bed family at bedside. Patient is post thoracentesis 1.5 L. Chest x-ray showing no pneumothorax Objective - Vital Signs Vital signs: Vital Signs Temp 97.3 F L 09/24/17 07:00 Pulse 86 09/24/17 11:30 Resp 20 09/24/17 11:30 BP 122/69 09/24/17 11:30 Pulse Ox 95 09/24/17 11:30 Intake & Output 09/23/17 09/24/17 09/24/17 18:59 06:59 18:59 Intake Total 500 590 Balance 500 590 Intake: Oral 500 590 Other: Voiding Method Toilet Toilet Toilet # Voids 1 - Constitutional General appearance: Present: mild distress - EENT Eyes: Present: PERRLA Ears: bilateral: normal - Neck Neck: Present: normal ROM - Respiratory Respiratory: right: diminished - Cardiovascular Rhythm: regular - Gastrointestinal General gastrointestinal: Present: soft - Integumentary Integumentary: Present: normal - Neurologic Neurologic: Present: CNII-XII intact - Musculoskeletal Musculoskeletal: Present: gait normal - Psychiatric Psychiatric: Present: A&O x's 3, appropriate affect, intact judgment & insight - Labs CBC & Chem 7: 09/22/17 10:38 09/22/17 10:38 Labs: Abnormal Lab Results - Last 24 Hours (Table) 09/23/17 09/23/17 09/24/17 Range/Units 16:40 19:51 06:51 POC Glucose (mg/dL) 249 H 234 H 161 H (75-99) mg/dL 09/24/17 Range/Units 12:26 POC Glucose (mg/dL) 138 H (75-99) mg/dL - Imaging and Cardiology Chest x-ray: report reviewed CT scan - chest: report reviewed Assessment and Plan Plan: Assessment Right pleural effusion etiology unknown Diabetes type 2 Hyperlipidemia Post thoracentesis 1.5 L Plan Continue consultation with Dr. Montejo
[2017-09-24 15:39] VITALS: BP 124/60; PULSE 80; RESP 16; TEMP 98.9
--- NOTE | 2017-09-25 12:14 | P.DS ---
Providers Date of admission: 09/23/17 20:39 Expected date of discharge: 09/24/17 Attending physician: Devin Ruiz Consults: 09/21/17 14:22 Consult Physician Routine Consulting Provider: Jose Montejo Consult Reason/Comments: pleural effusion Do you want consulting provider notified?: Yes Primary care physician: Devin Ruiz Hospital Course: 77-year-old male was admitted to the emergency room with complaints of increasing shortness breath. Patient had been treated with family physician in outpatient setting for bronchitis. Patient found a right pleural effusion. Patient had thoracentesis with 1.5 L of fluid. Pathology is pending patient is improved and released for discharge per pulmonology Assessment Right pleural effusion etiology unknown pending pathology Diabetes type 2 Hyperlipidemia Post thoracentesis 1.5 L Plan Follow-up with family physician and pulmonology Plan - Discharge Summary Discharge Rx Participant: No New Discharge Prescriptions: New Melatonin 5 mg PO HS tablet Continue Naproxen Sodium [Aleve] 440 mg PO Q12HR PRN PRN Reason: Pain Gabapentin 800 mg PO QID Atorvastatin Calcium [Lipitor] 10 mg PO DAILY metFORMIN HCL [Glucophage] 850 mg PO TID Pioglitazone [Actos] 30 mg PO DAILY Glimepiride [Amaryl] 2 mg PO BID Ramipril 2.5 mg PO DAILY Lansoprazole 30 mg PO DAILY Insulin Glargine,Hum.rec.anlog [Lantus Solostar] 70 unit SQ DAILY Insulin Lispro [humaLOG Kwikpen] 0 units SQ ACHS PRN PRN Reason: HYPERGLYCEMIA Discharge Medication List Atorvastatin Calcium [Lipitor] 10 mg PO DAILY 09/21/17 [History] Gabapentin 800 mg PO QID 09/21/17 [History] Glimepiride [Amaryl] 2 mg PO BID 09/21/17 [History] Insulin Glargine,Hum.rec.anlog [Lantus Solostar] 70 unit SQ DAILY 09/21/17 [ History] Insulin Lispro [humaLOG Kwikpen] 0 units SQ ACHS PRN 09/21/17 [History] Lansoprazole 30 mg PO DAILY 09/21/17 [History] Naproxen Sodium [Aleve] 440 mg PO Q12HR PRN 09/21/17 [History] Pioglitazone [Actos] 30 mg PO DAILY 09/21/17 [History] Ramipril 2.5 mg PO DAILY 09/21/17 [History] metFORMIN HCL [Glucophage] 850 mg PO TID 09/21/17 [History] Melatonin 5 mg PO HS tablet 09/24/17 [Rx] Follow up Appointment(s)/Referral(s): Devin Ruiz MD [Primary Care Provider] - 10/01/17 9:00 am Jose Montejo DO [Doctor of Osteopathic Medicine] - 1 Week (office is closed , patient will have to call and schedule appt.) Patient Instructions/Handouts: Thoracentesis (DC), Pleural Effusion (DC) Discharge Disposition: HOME SELF-CARE
== END 2017-09-24 16:59 | disposition home or self-care (01) | DRG 187 ==
LOC: EC 12:11 → 5MS5E 14:21 → OBSVTOIN 09-23 20:39
PROVIDERS: ADMIT Family Medicine; ATTEND Family Medicine
PROC: 0W993ZX Drainage of Right Pleural Cavity, Percutaneous Approach, Diagnostic (ICD-10-PCS; 2017-09-22)
PROC: 0W993ZX Drainage of Right Pleural Cavity, Percutaneous Approach, Diagnostic (ICD-10-PCS; principal; 2017-09-24)
DX: J90 Pleural effusion, not elsewhere classified (principal); J98.11 Atelectasis; E11.40 Type 2 diabetes mellitus with diabetic neuropathy, unspecified; E11.65 Type 2 diabetes mellitus with hyperglycemia; E78.5 Hyperlipidemia, unspecified; K21.9 Gastro-esophageal reflux disease without esophagitis; I10 Essential (primary) hypertension; Z79.4 Long term (current) use of insulin; Z79.899 Other long term (current) drug therapy; Z96.611 Presence of right artificial shoulder joint; Z87.39 Personal history of other diseases of the musculoskeletal system and connective tissue; Z90.49 Acquired absence of other specified parts of digestive tract; Z87.01 Personal history of pneumonia (recurrent); Z98.42 Cataract extraction status, left eye; Z98.41 Cataract extraction status, right eye; Z88.2 Allergy status to sulfonamides; Z80.0 Family history of malignant neoplasm of digestive organs
CPT/HCPCS: 32555; 36415; 71045; 71046; 71260; 76604; 80053; 82550; 82553; 83615; 83880; 84157; 84484; 85025; 85610; 85730; 87070; 87205; 88108; 88305; 89050; 93005; 96374; 99285

== ENCOUNTER 2017-10-03 11:07 | Inpatient (IN) | payer MEDICARE ==
[2017-10-03] MEDS ORDERED: NAPROXEN 250 MG TAB PO PRN (13:07)
[2017-10-03 13:30] LABS: Basophils % (A) 0 %; Eosinophils # (A) 0.2 k/uL (0-0.7); Eosinophils % (A) 2 %; HGB 10.9 gm/dL (13.0-17.5); Hypochromasia Slight; Lymphocytes # (A) 0.8 k/uL (1.0-4.8); Lymphocytes % (A) 10 %; MCH 27.7 pg (25.0-35.0); MCV 89.2 fL (80.0-100.0); Mean Platelet Volume 6.5; Monocytes # (A) 0.5 k/uL (0-1.0); Monocytes % (A) 6 %; Neutrophils # (A) 6.3 k/uL (1.3-7.7); Neutrophils % (A) 80 %; Platelet Count 342 k/uL (150-450); RBC 3.93 m/uL (4.30-5.90); RDW 13.8 % (11.5-15.5); WBC 7.9 k/uL (3.8-10.6)
[2017-10-03 13:44] LABS: Calcium 9.1 mg/dL (8.4-10.2); Potassium 5.5 mmol/L (3.5-5.1); Total Bilirubin 0.4 mg/dL (0.2-1.3); Total Protein 7.2 g/dL (6.3-8.2)
--- NOTE | 2017-10-03 14:16 | XR ---
EXAMINATION TYPE: XR chest 2V DATE OF EXAM: 10/03/2017 COMPARISON: 09/24/2017 INDICATION: 09/24/2017 TECHNIQUE: Frontal and lateral views of the chest are obtained. FINDINGS: The heart size is normal. The pulmonary vasculature is normal. Small to moderate right pleural effusion is present.. IMPRESSION: 1. Stable small to moderate right pleural effusion
--- NOTE | 2017-10-03 14:54 | P.GSCN ---
<Elizabeth Miller - Last Filed: 10/03/17 14:32> History of Present Illness Consult date: 10/03/17 Reason for Consult: Elevated CA 19 History of present illness: 77-year-old male was a direct admission from PCPs office. Patient stated that he was being seen in the office follow-up visit for persistent shortness of breath patient stated his symptoms initially started 2 weeks ago when he noted that he was experiencing increased shortness of breath with activity or at rest. Chest x-ray was obtained pleural effusions were noted he was admitted to the hospital at that time did undergo a thoracentesis on the right which removed 1.5 L of fluid by interventional radiology patient was discharged on September 24 patient stated he continues to be persistently short of breath feels like there is more fluid on the right lung. Did review the pathology report from the pleural effusion was negative for cells diagnostic of malignancy Additionally patient reports about 6 weeks ago he was treated by the PCP for what they thought was bronchitis was given an antibiotic and oral steroids that there was still no significant improvement in how he felt . Patient is adamant that he has not been experiencing any abdominal pain no unintentional weight loss no nausea no vomiting and no decrease in appetite did note the patient's CA 199 was elevated 2360. CA AG 6.1. Patient is verbalizing being concerned that he has pancreatic cancer his father from pancreatic cancer even though he had "no symptoms" Past medical history diabetes, hyperlipidemia hypertension esophageal reflux Past surgical history cataract, appendectomy as a child no other surgical procedures Patient states he is a lifelong nonsmoker rare use of alcohol Review of Systems Essentially unremarkable except as mentioned in the present illness Past Medical History Past Medical History: Diabetes Mellitus, GERD/Reflux, Hyperlipidemia, Hypertension Additional Past Medical History / Comment(s): neuropathy, past gout, lt knee bruise from past fall, "see's a retina specialist" History of Any Multi-Drug Resistant Organisms: None Reported Past Surgical History: Ablation, Adenoidectomy, Appendectomy, Joint Replacement , Tonsillectomy Additional Past Surgical History / Comment(s): rt shoulder replaced, sinus surgery, lt hand finger sx d/t work injury, cataracts Past Anesthesia/Blood Transfusion Reactions: No Reported Reaction Smoking Status: Never smoker - Past Family History Mother Family Medical History: No Reported History Additional Family Medical History / Comment(s): from natural causes Father Family Medical History: Cancer Additional Family Medical History / Comment(s): pancreatic cancer Medications and Allergies Home Medications Medication Instructions Recorded Confirmed Type Atorvastatin Calcium [Lipitor] 10 mg PO DAILY 09/21/17 10/03/17 History Gabapentin 800 mg PO TID 09/21/17 10/03/17 History Glimepiride [Amaryl] 2 mg PO BID 09/21/17 10/03/17 History Insulin Glargine,Hum.rec.anlog 70 unit SQ DAILY 09/21/17 10/03/17 History [Lantus Solostar] Insulin Lispro [humaLOG Kwikpen] See Protocol SQ ACHS 09/21/17 10/03/17 History Lansoprazole 30 mg PO DAILY 09/21/17 10/03/17 History Naproxen Sodium [Aleve] 440 mg PO Q12HR PRN 09/21/17 10/03/17 History Pioglitazone [Actos] 30 mg PO DAILY 09/21/17 10/03/17 History Ramipril 2.5 mg PO DAILY 09/21/17 10/03/17 History metFORMIN HCL [Glucophage] 850 mg PO TID 09/21/17 10/03/17 History Melatonin 5 mg PO HS tablet 09/24/17 10/03/17 Rx Latanoprost [Xalatan 0.005%] 1 drop BOTH EYES HS 10/03/17 10/03/17 History Allergies Allergy/AdvReac Type Severity Reaction Status Date / Time Sulfa (Sulfonamide Allergy Unknown Verified 10/03/17 12:51 Antibiotics) Childhood Surgical - Exam GENERAL APPEARANCE: 77-year-old male patient is alert, oriented, in no acute distress. VITAL SIGNS: Reviewed HEENT: Head is normocephalic and atraumatic. Pupils are equal and reactive. The nares are patent. Oropharynx is clear without lesions. NECK: Supple without lymphadenopathy. Traches midline. HEART: S1, S2. Regular rate and rhythm. Denying chest pain no murmur LUNGS: No crackles or wheezes are heard. Posterior diminished at the bases right greater than the left ABDOMEN: Soft, nontender, nondistended with good bowel sounds. No peritoneal signs. No palpable organomegaly or masses. Reports no nausea no vomiting no abdominal pain EXTREMITIES: Normal skin color and turgor. No cyanosis, rash, ulceration, clubbing or edema. Radial pedal pulses are 2/4 bilaterally. NEUROLOGICAL: No focal deficits. Strength and sensation are grossly intact. Results - Labs 10/03/17 13:10 10/03/17 13:10 Abnormal Lab Results - Last 24 Hours (Table) 10/03/17 10/03/17 Range/Units 13:10 13:10 RBC 3.93 L (4.30-5.90) m/uL Hgb 10.9 L (13.0-17.5) gm/dL Hct 35.0 L (39.0-53.0) % Lymphocytes # 0.8 L (1.0-4.8) k/uL Potassium 5.5 H (3.5-5.1) mmol/L BUN 29 H (9-20) mg/dL Glucose 66 L (74-99) mg/dL Diabetes panel 10/03/17 Range/Units 13:10 Sodium 137 (137-145) mmol/L Potassium 5.5 H (3.5-5.1) mmol/L Chloride 101 (98-107) mmol/L Carbon Dioxide 26 (22-30) mmol/L BUN 29 H (9-20) mg/dL Creatinine 1.20 (0.66-1.25) mg/dL Glucose 66 L (74-99) mg/dL Calcium 9.1 (8.4-10.2) mg/dL AST 19 (17-59) U/L ALT 25 (21-72) U/L Alkaline Phosphatase 87 (38-126) U/L Total Protein 7.2 (6.3-8.2) g/dL Albumin 4.0 (3.5-5.0) g/dL Calcium panel 10/03/17 Range/Units 13:10 Calcium 9.1 (8.4-10.2) mg/dL Albumin 4.0 (3.5-5.0) g/dL Pituitary panel 10/03/17 Range/Units 13:10 Sodium 137 (137-145) mmol/L Potassium 5.5 H (3.5-5.1) mmol/L Chloride 101 (98-107) mmol/L Carbon Dioxide 26 (22-30) mmol/L BUN 29 H (9-20) mg/dL Creatinine 1.20 (0.66-1.25) mg/dL Glucose 66 L (74-99) mg/dL Calcium 9.1 (8.4-10.2) mg/dL Adrenal panel 10/03/17 Range/Units 13:10 Sodium 137 (137-145) mmol/L Potassium 5.5 H (3.5-5.1) mmol/L Chloride 101 (98-107) mmol/L Carbon Dioxide 26 (22-30) mmol/L BUN 29 H (9-20) mg/dL Creatinine 1.20 (0.66-1.25) mg/dL Glucose 66 L (74-99) mg/dL Calcium 9.1 (8.4-10.2) mg/dL Total Bilirubin 0.4 (0.2-1.3) mg/dL AST 19 (17-59) U/L ALT 25 (21-72) U/L Alkaline Phosphatase 87 (38-126) U/L Total Protein 7.2 (6.3-8.2) g/dL Albumin 4.0 (3.5-5.0) g/dL Assessment and Plan Assessment: Impression Shortness of breath present on admission suspect due to right pleural effusion Present on admission elevated CA 199 2360 Type 2 diabetes insulin requiring Lifelong nonsmoker Hypertension Hyperlipidemia Thoracentesis 09/24/2017 1.5 L removed pathology report indicates cells not diagnostic for malignancy Chest x-ray on admission [id number] right pleural effusion Plan Follow up on the MRI of the abdomen currently pending No evidence of an acute surgical abdomen at this time We'll follow with you with further recommendations Defer to the attending for further workup Right pleural effusion to be followed by pulmonary Echocardiogram pending Surgical consultation note dictated for Dr. Walton The above impression and plan of care have been discussed and directed by signing physician. Elizabeth Miller nurse practitioner acting as scribe for signing physician. <Pauline Walton - Last Filed: 10/03/17 20:38> Surgical - Exam Vital Signs Temp Pulse Resp BP Pulse Ox 97.8 F 88 16 125/64 93 L 10/03/17 13:00 10/03/17 13:00 10/03/17 13:00 10/03/17 13:00 10/03/17 13:00 Results - Labs 10/03/17 13:10 10/03/17 13:10 Abnormal Lab Results - Last 24 Hours (Table) 10/03/17 10/03/1710/03/18 Range/Units 13:10 13:10 17:06 RBC 3.93 L (4.30-5.90) m/uL Hgb 10.9 L (13.0-17.5) gm/dL Hct 35.0 L (39.0-53.0) % Lymphocytes # 0.8 L (1.0-4.8) k/uL Potassium 5.5 H (3.5-5.1) mmol/L BUN 29 H (9-20) mg/dL Glucose 66 L (74-99) mg/dL POC Glucose (mg/dL) 109 H (75-99) mg/dL 10/03/17 Range/Units 20:29 RBC (4.30-5.90) m/uL Hgb (13.0-17.5) gm/dL Hct (39.0-53.0) % Lymphocytes # (1.0-4.8) k/uL Potassium (3.5-5.1) mmol/L BUN (9-20) mg/dL Glucose (74-99) mg/dL POC Glucose (mg/dL) 109 H (75-99) mg/dL Diabetes panel 10/03/17 10/03/17 Range/Units 13:07 13:10 Sodium 137 (137-145) mmol/L Potassium 5.5 H (3.5-5.1) mmol/L Chloride 101 (98-107) mmol/L Carbon Dioxide 26 (22-30) mmol/L BUN 29 H (9-20) mg/dL Creatinine 1.20 (0.66-1.25) mg/dL Glucose 66 L (74-99) mg/dL Calcium 9.1 (8.4-10.2) mg/dL AST 19 (17-59) U/L ALT 25 (21-72) U/L Alkaline Phosphatase 87 (38-126) U/L Total Protein 7.2 (6.3-8.2) g/dL Albumin 4.0 (3.5-5.0) g/dL Triglycerides 123 (<150) mg/dL HDL Cholesterol 40 (40-60) mg/dL Calcium panel 10/03/17 Range/Units 13:10 Calcium 9.1 (8.4-10.2) mg/dL Albumin 4.0 (3.5-5.0) g/dL Pituitary panel 10/03/17 Range/Units 13:10 Sodium 137 (137-145) mmol/L Potassium 5.5 H (3.5-5.1) mmol/L Chloride 101 (98-107) mmol/L Carbon Dioxide 26 (22-30) mmol/L BUN 29 H (9-20) mg/dL Creatinine 1.20 (0.66-1.25) mg/dL Glucose 66 L (74-99) mg/dL Calcium 9.1 (8.4-10.2) mg/dL Adrenal panel 10/03/17 Range/Units 13:10 Sodium 137 (137-145) mmol/L Potassium 5.5 H (3.5-5.1) mmol/L Chloride 101 (98-107) mmol/L Carbon Dioxide 26 (22-30) mmol/L BUN 29 H (9-20) mg/dL Creatinine 1.20 (0.66-1.25) mg/dL Glucose 66 L (74-99) mg/dL Calcium 9.1 (8.4-10.2) mg/dL Total Bilirubin 0.4 (0.2-1.3) mg/dL AST 19 (17-59) U/L ALT 25 (21-72) U/L Alkaline Phosphatase 87 (38-126) U/L Total Protein 7.2 (6.3-8.2) g/dL Albumin 4.0 (3.5-5.0) g/dL
[2017-10-03 15:02] LABS: Amylase 53 U/L (30-110); Cholesterol 133 mg/dL (<200); HDL Cholesterol 40 mg/dL (40-60); LDL Cholesterol,Calculated 68 mg/dL (0-99); Lipase 52 U/L (23-300); Triglycerides 123 mg/dL (<150)
--- NOTE | 2017-10-03 15:09 | US ---
EXAMINATION TYPE: US chest DATE OF EXAM: 10/03/2017 COMPARISON: US 09/24/17, XRay 10/03/17 CLINICAL HISTORY: Markings for thoracentesis by pulmonary staff. TECHNIQUE: Targeted ultrasound of the posterior lower EXAM MEASUREMENTS: Right Pleural Effusion pocket size: 7.4 cm Right skin surface to fluid distance: 2.4 cm Right side marked for possible thoracentesis outside the dept. Pulmonologists are able to review the images in the patient?s EMR. IMPRESSIONS: Pleural effusion as noted.
--- NOTE | 2017-10-03 15:41 | XR ---
EXAMINATION TYPE: XR chest 1V portable DATE OF EXAM: 10/03/2017 HISTORY: Status post right-sided thoracentesis. COMPARISON: 10/03/2017 TECHNIQUE: Single view of the chest is submitted. FINDINGS: There is right-sided pneumothorax noted estimated at 20%. No evidence for mediastinal shift at this t annita. Diminution in right basilar effusion. Demonstrated are scattered senescent parenchymal change. There is no evidence for focal infiltrate. The heart is stable. Hilar and mediastinal structures are within normal limits. Degenerative changes are seen of the dorsal spine. IMPRESSION: 1. Right-sided pneumothorax estimated at 20%. A [place] critical message alert has been initiated for Louann Lenz via the [employer] Results System on 10/03/2017 3:39 PM. This message alert has been sent to Louann Lenz via the prefe rences provided by the clinician for the receipt of Radiology Critical Findings. Message ID [id number].
--- NOTE | 2017-10-03 15:57 | P.CNPUL ---
History of Present Illness Consult date: 10/03/17 Requesting physician: Devin Ruiz Reason for consult: pleural effusion Chief complaint: Shortness of breath History of present illness: This is a 77-year-old white male with history of hypertension, hyperlipidemia, type 2 diabetes, patient was admitted to the hospital about 2 weeks ago with right-sided pleural effusion, underwent diagnostic right-sided thoracentesis by interventional radiology, the fluid was exudative in nature, and was negative for malignancy. The differential diagnoses for his fluid was either malignant pleural effusion or possibly parapneumonic pleural effusion. Patient was supposed to have follow-up with Dr. Montejo tomorrow, however the patient has been complaining of increased shortness of breath since he left the hospital. Symptoms of dyspnea on exertion. Intermittent episodes of cough, but no fever, no chills, no hemoptysis, and no chest pain. Patient was seen by his primary care physician, and follow-up chest x-ray today showed moderate right-sided pleural effusion basically the same size as it was on his last admission. Considering the effusion, I was asked to see him on consultation. Since then the patient had abnormal pancreatic cancer marker, his CA 199 was elevated. And MRI of the abdomen was ordered. Results of which are pending. Patient describes some weight loss, slightly poor appetite, no nausea no vomiting no abdominal pain, no melena, no hematemesis, no dysuria and no frequency no urgency. After I evaluated the patient, I performed a ultrasound-guided right- sided thoracentesis, I was able to drain over 1600 mL of serosanguineous fluid, the fluid was sent for different diagnostic studies. Follow-up chest x-ray showed what looked like pneumothorax but I believe it is mostly a trapped lung, and failure of the lung to fully expand after the fluid removed. Hence I chose to observe the patient, and repeat chest x-ray later this evening and tomorrow. No need to dorado for chest tube insertion at this point. Patient felt better after the thoracentesis, he had some vague chest pain immediately after the thoracentesis, but he settled down and his O2 saturation was 94% on room air his blood pressure was stable, and the patient was noted to be in no form of distress. The fluid which I drained was sent again for cytology and different diagnostic studies. Considering the fluid is serosanguineous, the differential diagnoses is again malignancy and/or parapneumonic effusion secondary to recent pneumonia. However considering his elevated marker for pancreatic cancer, malignancy is considered very likely in the differential diagnosis. And the fact that the pleural effusion reaccumulated within a short period of time, malignancy is more likely in the differential. Review of Systems 14 point review of systems were obtained, please refer to pertinent positives in HPI otherwise remaining systems are negative. Past Medical History Past Medical History: Diabetes Mellitus, GERD/Reflux, Hyperlipidemia, Hypertension Additional Past Medical History / Comment(s): neuropathy, past gout, lt knee bruise from past fall, "see's a retina specialist" History of Any Multi-Drug Resistant Organisms: None Reported Past Surgical History: Ablation, Adenoidectomy, Appendectomy, Joint Replacement , Tonsillectomy Additional Past Surgical History / Comment(s): rt shoulder replaced, sinus surgery, lt hand finger sx d/t work injury, cataracts Past Anesthesia/Blood Transfusion Reactions: No Reported Reaction Smoking Status: Never smoker - Past Family History Mother Family Medical History: No Reported History Additional Family Medical History / Comment(s): from natural causes Father Family Medical History: Cancer Additional Family Medical History / Comment(s): pancreatic cancer Medications and Allergies Home Medications Medication Instructions Recorded Confirmed Type Atorvastatin Calcium [Lipitor] 10 mg PO DAILY 09/21/17 10/03/17 History Gabapentin 800 mg PO TID 09/21/17 10/03/17 History Glimepiride [Amaryl] 2 mg PO BID 09/21/17 10/03/17 History Insulin Glargine,Hum.rec.anlog 70 unit SQ DAILY 09/21/17 10/03/17 History [Lantus Solostar] Insulin Lispro [humaLOG Kwikpen] See Protocol SQ ACHS 09/21/17 10/03/17 History Lansoprazole 30 mg PO DAILY 09/21/17 10/03/17 History Naproxen Sodium [Aleve] 440 mg PO Q12HR PRN 09/21/17 10/03/17 History Pioglitazone [Actos] 30 mg PO DAILY 09/21/17 10/03/17 History Ramipril 2.5 mg PO DAILY 09/21/17 10/03/17 History metFORMIN HCL [Glucophage] 850 mg PO TID 09/21/17 10/03/17 History Melatonin 5 mg PO HS tablet 09/24/17 10/03/17 Rx Latanoprost [Xalatan 0.005%] 1 drop BOTH EYES HS 10/03/17 10/03/17 History Allergies Allergy/AdvReac Type Severity Reaction Status Date / Time Sulfa (Sulfonamide Allergy Unknown Verified 10/03/17 12:51 Antibiotics) Childhood Physical Exam Vitals: Intake and Output 10/03/17 10/03/17 10/03/17 06:59 14:59 22:59 Other: Voiding Method Toilet # Voids 2 Weight 93.44 kg Physical Exam: Revealed a 77-year-old white male in no distress. However he looks chronically ill. Head: Atraumatic normocephalic. HEENT:[Neck is supple.] [No neck masses.] [No thyromegaly.] [No JVD.] Chest: [Diminished breath sounds and dullness at the right base, no crackles, no rhonchi, no wheezes.] Cardiac Exam: [Normal S1 and S2, no S3 gallop, no murmur.] Abdomen: [Soft, nontender, no megaly, no rebound, no guarding, normal bowel sounds.] Extremities: [No clubbing, no edema, no cyanosis.] Neurological Exam: [No focal neurologic deficit.] Lymphatics: No lymphadenopathy. Psychiatric: Normal mood affect and mental status examination. Results - Laboratory Findings CBC and BMP: 10/03/17 13:10 10/03/17 13:10 Abnormal lab findings: Abnormal Labs 10/03/17 10/03/17 13:10 13:10 RBC 3.93 L Hgb 10.9 L Hct 35.0 L Lymphocytes # 0.8 L Potassium 5.5 H BUN 29 H Glucose 66 L - Diagnostic Findings Chest x-ray: image reviewed (Chest x-ray showed moderate right-sided pleural effusion similar to the appearance of the chest x-ray on the last presentation.) Additional studies: Ultrasound of the chest was reviewed good sized right-sided pleural effusion was noted. Assessment and Plan Assessment: Impression: 1 recurrent right-sided exudative serosanguineous right-sided pleural effusion, differential diagnoses includes malignant pleural effusion and parapneumonic pleural effusion. However considering the elevated marker for pancreatic cancer , this is most likely malignant however tissue diagnosis is pending. 2 Status post right sided thoracentesis, postoperative day #0 3 postoperative small pneumothorax most likely secondary to trapped lung and failure of the right lung to expand. 4 elevated CA 199, suspicious for pancreatic cancer, workup is pending. 5 multiple comorbidities including type 2 diabetes, hypertension, hyperlipidemia , and history of thoracentesis done on 09/24/2017. Recommendation: Continue present treatment plan, repeat chest x-ray in the next a few hours, repeat chest x-ray in a.m. Await the report on the MRI of the abdomen, await the cytology from the pleural effusion which was drained today, if nondiagnostic and we have no clear-cut explanation of his pleural effusion, may have to consider pleural biopsy./Thoracoscopy. We'll continue to follow. Time with Patient: Greater than 30
[2017-10-03 16:21] LABS: Appearance,BF Bloody; Color,BF Red; Nucleated Cells, Body Fluid 500 /uL; RBC, Body Fluid 93000 /uL
[2017-10-03 16:33] LABS: Mononuclear WBC,Body Fluid 64 %; Polynuclear WBC,Body Fluid 35 %; Total Cells Counted,Body Fluid 100
--- NOTE | 2017-10-03 16:39 | PCN ---
PROCEDURE NOTE OPERATIVE REPORT: Right-sided thoracentesis. PREOPERATIVE DIAGNOSIS: Recurrent right pleural effusion. POSTOPERATIVE DIAGNOSIS: Recurrent right pleural effusion. ANESTHESIA: Used 4 mL of 1% lidocaine. PROCEDURE: Patient was placed at a sitting upright position, the area below the right scapula was prepared in a sterile fashion and drapes were applied. The area localized with ultrasound guidance and it correlated to the level of the 9th intercostal space and tip of the scapula. The area was locally anesthetized with lidocaine. Then, a 26-gauge needle was inserted at the same site, advanced into the pleural space until the fluid was localized with the needle. Then a small tiny incision was made, and a 8-Turkmen catheter with the needle were inserted into the same site and advanced into the pleural space and fluid was obtained. Then the needle was pulled out of the catheter, and the catheter was advanced into the pleural space. The freely flowing fluid was removed, roughly 1600 mL of serosanguineous fluid was removed from the right pleural space. At the end of the procedure, the patient was complaining of significant pain and discomfort. Hence the catheter was pulled out of the pleural space, and there was evidence of loculated air noted in the right the posterior aspect of the lung, and I felt this was either pneumothorax or a trapped lung. I felt this was mostly a trapped lung, post thoracentesis of a complicated pleural effusion. The procedure was well tolerated, and the plan is to monitor his trapped lung with followup chest x-ray in the next couple of hours, and repeat chest x-ray in a.m. JOMAR / BHARGAVIN: [id number] /
[2017-10-03 17:08] LABS: Glucose,Whole Blood 109 mg/dL (75-99)
[2017-10-03] MEDS: GABAPENTIN 400 MG CAP PO SCH ×2 (17:37→20:38)
[2017-10-03] MEDS: metFORMIN 850 MG TAB PO SCH ×2 (17:37→20:39)
[2017-10-03] MEDS: INSULIN ASPART 100 UNIT/ML 1 ML 10 ML VIAL SQ SCH ×2 (17:37→20:39)
[2017-10-03] MEDS: GLIMEPIRIDE 2 MG TAB PO SCH (17:39)
--- NOTE | 2017-10-03 18:16 | XR ---
EXAMINATION TYPE: XR chest 1V portable DATE OF EXAM: 10/03/2017 COMPARISON: Today at 3:00 PM HISTORY: Follow-up pneumothorax TECHNIQUE: Single frontal view of the chest is obtained. FINDINGS: There is an approximate 50% right pneumothorax. This appears increased slightly compared t o exam earlier today 3 hours ago. Trachea is midline. There is no heart failure. Heart size is normal. IMPRESSION: Increased right pneumothorax and atelectasis on the right side compared to last exam. No evidence of tension.
[2017-10-03 20:30] LABS: Glucose,Whole Blood 109 mg/dL (75-99)
[2017-10-03] MEDS: MELATONIN 5 MG TABLET PO SCH (20:39)
--- NOTE | 2017-10-03 20:40 | P.PN ---
Progress Note - Text Progress Note Date: 10/03/17 Patient seen and evaluated. He reports spontaneous abdominal site ascites 2 weeks ago. He's had at least 2 separate paracentesis. He denies any abdominal pain and my assessment. Clinical records demonstrate elevated markers for possible pancreatic neoplasm. Final report of abdominal MRI not available. PLAN: 1. Consultation to gastroenterology recommended for further workup. 2. No acute surgical intervention at this time.
[2017-10-03 20:57] LABS: Hepatitis A Antibody IgM Non-Reactive (Non-Reactive); Hepatitis B Core IgM Non-Reactive (Non-Reactive)
[2017-10-03] MEDS: LATANOPROST 0.005% OPHTH DROPS 2.5 ML BTL BOTH EYES SCH (21:08)
[2017-10-03] MEDS: LORATADINE 10 MG TAB PO SCH (21:34)
--- NOTE | 2017-10-03 23:07 | MR ---
MR abdomen HISTORY: Mass and pancreas, calcium deposits Multiplanar multisequence pre and postcontrast imaging obtained through the abdomen, patient received 9 cc Gadavist IV Correlation to CT chest 09/22/[address] are not seen definitively on MR within the pancreas. Pancreas appears somewh at atrophic. There is no evident pancreatic mass. No dilated pancreatic or biliary ducts. The liver shows no mass. Gallbladder, adrenal glands, spleen are normal. There is no hydronephrosis w ithin the kidneys. There is a sizable right pleural effusion and associated atelectasis. There may be a duodenal diverticulum. Cystic signal is present at the head of the pancreas within the duodenum as well as a punctate calcification at the head of the pancreas seen on CT. Following contrast administration no abnormal enhancement within the pancreas. 2 enhancing foci are p resent within the lateral aspect of the inferior right lobe of the liver peripherally and immediately following contrast administration, there is early washout. Lesions measure only approximately 9 mm o n axial image 63 of series 701, 8 mm on axial image 54 and possibly on axial image 76 within the righ t lobe measuring 1 cm. There is a large amount of motion on the exam. IMPRESSION: Indeterminate enhancing foci within the liver, findings could be vascular however entitie s such as a site of carcinoma not excluded, short interval follow-up and correlation recommended. Nick cifications associated with the pancreas are minimal as seen on CT, consider chronic pancreatitis. La rge right pleural effusion and associated atelectasis, follow-up is recommended.
[2017-10-03 23:43] LABS: Hemoglobin A1C 7.7 % (4.0-6.0)
--- NOTE | 2017-10-03 23:55 | P.CONS ---
History of Present Illness - Reason for Consult Consult date: 10/03/17 Pancreatic mass Requesting physician: Pauline Walton - Chief Complaint Shortness of breath - History of Present Illness The patient is a 77-year-old male with a past medical history of diabetes mellitus, hypertension and alcohol abuse who presents from his primary care physician's office with complaints of shortness of breath. The patient reports worsening shortness of breath both at rest and on exertion prior to presentation. In addition he notes worsening lower knee extremity edema. On admission to the hospital the patient had a thoracentesis with 1.5 L of fluid removed. He otherwise denies any nausea vomiting chills or fevers. He denies any past history of tobacco abuse or prior pancreatitis. He has a significant history of alcohol abuse with over 10 years consumed per day for over 15 years. The patient had a hemoglobin of 10.9 on presentation. He denies any prior endoscopic evaluation with EGD or colonoscopy. He denies being told of scarring of his liver or cirrhosis previously. He had an elevated CA 19 9 on admission of 2360. He denies any hematemesis, melena or hematochezia and reports no change in his bowel habits with one bowel movement every other day. Past endoscopic history: Denies any prior endoscopic history. Review of Systems REVIEW OF SYSTEMS: CARDIOPULMONARY: Denies chest pain but did note shortness of breath on presentation. GENITOURINARY: No dysuria or hematuria. MUSCULOSKELETAL: No weakness reported. SKIN: Denies any new rashes or lesions, jaundice or pallor. PSYCHIATRIC: Denies any depression or anxiety. NEUROLOGY: Denies headache, denies any new focal deficits. EARS: No tinnitus, discharge or new hearing loss. NOSE: No discharge or congestion. EYES: No pain in eyes or change in vision. CONSTITUTIONAL: No recent weight loss. No fever, chills, night sweats. Past Medical History Past Medical History: Diabetes Mellitus, GERD/Reflux, Hyperlipidemia, Hypertension Additional Past Medical History / Comment(s): neuropathy, past gout, lt knee bruise from past fall, "see's a retina specialist" History of Any Multi-Drug Resistant Organisms: None Reported Past Surgical History: Ablation, Adenoidectomy, Appendectomy, Joint Replacement , Tonsillectomy Additional Past Surgical History / Comment(s): rt shoulder replaced, sinus surgery, lt hand finger sx d/t work injury, cataracts Past Anesthesia/Blood Transfusion Reactions: No Reported Reaction Smoking Status: Never smoker - Past Family History Mother Family Medical History: No Reported History Additional Family Medical History / Comment(s): from natural causes Father Family Medical History: Cancer Additional Family Medical History / Comment(s): pancreatic cancer Medications and Allergies Home Medications Medication Instructions Recorded Confirmed Type Atorvastatin Calcium [Lipitor] 10 mg PO DAILY 09/21/17 10/03/17 History Gabapentin 800 mg PO TID 09/21/17 10/03/17 History Glimepiride [Amaryl] 2 mg PO BID 09/21/17 10/03/17 History Insulin Glargine,Hum.rec.anlog 70 unit SQ DAILY 09/21/17 10/03/17 History [Lantus Solostar] Insulin Lispro [humaLOG Kwikpen] See Protocol SQ ACHS 09/21/17 10/03/17 History Lansoprazole 30 mg PO DAILY 09/21/17 10/03/17 History Naproxen Sodium [Aleve] 440 mg PO Q12HR PRN 09/21/17 10/03/17 History Pioglitazone [Actos] 30 mg PO DAILY 09/21/17 10/03/17 History Ramipril 2.5 mg PO DAILY 09/21/17 10/03/17 History metFORMIN HCL [Glucophage] 850 mg PO TID 09/21/17 10/03/17 History Melatonin 5 mg PO HS tablet 09/24/17 10/03/17 Rx Latanoprost [Xalatan 0.005%] 1 drop BOTH EYES HS 10/03/17 10/03/17 History Allergies Allergy/AdvReac Type Severity Reaction Status Date / Time Sulfa (Sulfonamide Allergy Unknown Verified 10/03/17 12:51 Antibiotics) Childhood Physical Exam Vitals: Vital Signs Temp Pulse Resp BP Pulse Ox 10/03/17 20:50 98.8 F 95 18 142/67 92 L 10/03/17 13:00 97.8 F 88 16 125/64 93 L Intake and Output 10/03/17 10/03/17 10/04/17 14:59 22:59 06:59 Output Total 1650 Balance -1650 Output: Other 1650 Other: Voiding Method Toilet Toilet # Voids 2 Weight 93.44 kg On physical examination, patient appears comfortable in no apparent distress. HEAD: Normocephalic, atraumatic. EYES: No scleral icterus. No conjunctival injection. MOUTH: No lesions, tongue midline. NECK: Trachea midline, no gross abnormalities. CHEST: Clear to auscultation with no wheezing or rhonchi appreciated. HEART: Regular rate and rhythm. ABDOMEN: Soft, obese. Bowel sounds are positive. No organomegaly. No guarding or rigidity. The patient does have a slightly distended abdomen with a positive fluid wave. EXTREMITIES: Significant for 1+ bilateral lower extremity edema. SKIN: No rashes, no jaundice. NEUROLOGIC: Alert and oriented x3. No focal deficits. Results CBC & Chem 7: 10/03/17 13:10 10/03/17 13:10 Labs: Abnormal Lab Results - Last 24 Hours (Table) 10/03/17 10/03/17 10/03/17 Range/Units 13:10 13:10 17:06 RBC 3.93 L (4.30-5.90) m/uL Hgb 10.9 L (13.0-17.5) gm/dL Hct 35.0 L (39.0-53.0) % Lymphocytes # 0.8 L (1.0-4.8) k/uL Potassium 5.5 H (3.5-5.1) mmol/L BUN 29 H (9-20) mg/dL Glucose 66 L (74-99) mg/dL POC Glucose (mg/dL) 109 H (75-99) mg/dL 10/03/17 Range/Units 20:29 RBC (4.30-5.90) m/uL Hgb (13.0-17.5) gm/dL Hct (39.0-53.0) % Lymphocytes # (1.0-4.8) k/uL Potassium (3.5-5.1) mmol/L BUN (9-20) mg/dL Glucose (74-99) mg/dL POC Glucose (mg/dL) 109 H (75-99) mg/dL MRI - abdomen: report reviewed (The patient had 2 indeterminant foci of the right lobe of the liver noted on MRI with short follow-up of these foci recommended. Changes suggestive of chronic pancreatitis also noted.) Assessment and Plan (1) Alcohol abuse Narrative/Plan: Long-standing history of alcohol abuse. Current Visit: Yes Status: Acute Code(s): F10.10 - ALCOHOL ABUSE, UNCOMPLICATED SNOMED Code(s): 54837887 (2) Pleural effusion Narrative/Plan: Pleural effusion setting of foci seen in the liver and atrophic illness with concern for underlying malignancy. Await studies from thoracentesis. Current Visit: No Status: Acute Code(s): J90 - PLEURAL EFFUSION, NOT ELSEWHERE CLASSIFIED SNOMED Code(s): 26894944 Plan: Supportive care Low-sodium diet Monitor liver enzymes Alcohol abstinence Will start Lasix for diuresis Given findings of MRI repeat scan in short-term follow-up with repeat imaging or targeted biopsy is recommended Evidence of chronic pancreatitis with atrophy of the pancreas seen on MRI without discrete mass noted, concern is for pancreatic malignancy EUS as an outpatient can be considered Thank you for allowing us to participate in the care of this patient we will continue to follow.
[2017-10-04 02:45] LABS: Total Protein, Body Fluid 4370 mg/dL
[2017-10-04 07:01] LABS: Glucose,Whole Blood 64 mg/dL (75-99)
[2017-10-04 07:20] LABS: Glucose,Whole Blood 70 mg/dL (75-99)
[2017-10-04] MEDS: ATORVASTATIN 10 MG TAB PO SCH (07:55)
[2017-10-04] MEDS: GABAPENTIN 400 MG CAP PO SCH ×3 (07:55→21:56)
[2017-10-04] MEDS: PIOGLITAZONE 30 MG TAB PO SCH (07:55)
[2017-10-04] MEDS: PANTOPRAZOLE 40 MG TABLET PO SCH (07:55)
[2017-10-04] MEDS: GLIMEPIRIDE 2 MG TAB PO SCH ×2 (07:55→18:14)
[2017-10-04] MEDS: metFORMIN 850 MG TAB PO SCH ×3 (07:55→21:56)
[2017-10-04] MEDS: FUROSEMIDE 40 MG TAB PO SCH (07:55)
[2017-10-04] MEDS: INSULIN ASPART 100 UNIT/ML 1 ML 10 ML VIAL SQ SCH ×4 (07:56→21:51)
--- NOTE | 2017-10-04 09:28 | XR ---
EXAMINATION TYPE: XR chest 1V portable DATE OF EXAM: 10/04/2017 Comparison: 10/03/2017 Clinical History: 77-year-old male Follow-up on pleural effusion and trapped lung Findings: Heart normal size. Aorta and pulmonary vasculature within normal limits. Mild interstitial prominence . Redemonstrated right-sided hydropneumothorax. The pneumothorax is moderate and increased slightly i n size with the pleural margin measuring 3.5 cm at the base versus 2.6 cm, previously, and 2.0 cm per ipherally versus 1.1 cm, previously. Impression: 1. Right-sided hydropneumothorax redemonstrated. 2. The pneumothorax is moderate in size estimated at 40% and increased slightly in the interval. No r adiographic signs of tension at this time.
--- NOTE | 2017-10-04 10:41 | P.GSCN ---
<Jacki Granado - Last Filed: 10/04/17 10:33> History of Present Illness Consult date: 10/04/17 Reason for Consult: . Pneumothorax, pleural effusion, surgical management Requesting physician: Louann Lenz History of present illness: This is a 77-year-old gentleman who follows with Dr. Devin Ruiz on an outpatient basis. He is a previous medical history of hypertension, hyperlipidemia, diabetes, and neuropathy. He was admitted to the hospital a couple of weeks ago with significant shortness of breath, was discovered to have a right-sided pleural effusion, and had a thoracentesis completed by interventional radiology with drainage of 1500 mL bloody fluid which was exudative in nature and negative for malignancy. He returned home and felt better for a short amount of time but when he followed up with his primary care physician he was noted to have increased shortness of breath again. Chest x- ray completed demonstrated recurrent right sided pleural effusion. Of note he has an elevated CA 1919. Dr. Lenz performed a thoracentesis yesterday with removal of 1600 mL bloody fluid. Post procedure the patient did have a basilar pneumothorax, on chest x-ray this morning the pneumothorax has extended into the lateral wall. Dr. Hoang from cardiothoracic surgery was consulted for surgical management. Review of Systems Review of systems was completed and is negative except as noted. - Constitutional Reports poor appetite, Reports weight loss - Respiratory Reports dyspnea Past Medical History Past Medical History: Diabetes Mellitus, GERD/Reflux, Hyperlipidemia, Hypertension Additional Past Medical History / Comment(s): neuropathy, past gout, lt knee bruise from past fall, "see's a retina specialist" History of Any Multi-Drug Resistant Organisms: None Reported Past Surgical History: Ablation, Adenoidectomy, Appendectomy, Joint Replacement , Tonsillectomy Additional Past Surgical History / Comment(s): rt shoulder replaced, sinus surgery, lt hand finger sx d/t work injury, cataracts Past Anesthesia/Blood Transfusion Reactions: No Reported Reaction Past Psychological History: No Psychological Hx Reported Smoking Status: Never smoker Past Alcohol Use History: Rare Past Drug Use History: None Reported - Past Family History Mother Family Medical History: No Reported History Additional Family Medical History / Comment(s): from natural causes Father Family Medical History: Cancer Additional Family Medical History / Comment(s): pancreatic cancer Medications and Allergies Home Medications Medication Instructions Recorded Confirmed Type Atorvastatin Calcium [Lipitor] 10 mg PO DAILY 09/21/17 10/03/17 History Gabapentin 800 mg PO TID 09/21/17 10/03/17 History Glimepiride [Amaryl] 2 mg PO BID 09/21/17 10/03/17 History Insulin Glargine,Hum.rec.anlog 70 unit SQ DAILY 09/21/17 10/03/17 History [Lantus Solostar] Insulin Lispro [humaLOG Kwikpen] See Protocol SQ ACHS 09/21/17 10/03/17 History Lansoprazole 30 mg PO DAILY 09/21/17 10/03/17 History Naproxen Sodium [Aleve] 440 mg PO Q12HR PRN 09/21/17 10/03/17 History Pioglitazone [Actos] 30 mg PO DAILY 09/21/17 10/03/17 History Ramipril 2.5 mg PO DAILY 09/21/17 10/03/17 History metFORMIN HCL [Glucophage] 850 mg PO TID 09/21/17 10/03/17 History Melatonin 5 mg PO HS tablet 09/24/17 10/03/17 Rx Latanoprost [Xalatan 0.005%] 1 drop BOTH EYES HS 10/03/17 10/03/17 History Allergies Allergy/AdvReac Type Severity Reaction Status Date / Time Sulfa (Sulfonamide Allergy Unknown Verified 10/03/17 12:51 Antibiotics) Childhood Surgical - Exam Vital Signs Temp Pulse Resp BP Pulse Ox 97.8 F 88 16 125/64 93 L 10/03/17 13:00 10/03/17 13:00 10/03/17 13:00 10/03/17 13:00 10/03/17 13:00 - General well developed, well nourished, no distress, no pain, chronically ill - Eyes PERRL, normal ocular movement - ENT no hearing loss - Neck no masses, no bruits, trachea midline - Respiratory Lungs sounds diminished bilaterally, right greater than left. Respirations even , nonlabored. Currently on room air with oxygen saturation 97%. - Cardiovascular S1, S2 present. Regular rate and rhythm. Palpable peripheral pulses bilaterally. No edema present. No calf pain or tenderness noted. - Abdomen Abdomen: soft, non tender, bowel sounds - Genitourinary Deferred - Rectum Deferred - Integumentary no rash, no growths - Neurologic normal coordination, normal sensation - Musculoskeletal normal gait, normal posture - Psychiatric oriented to time, oriented to person, oriented to place, speech is normal, memory intact Results - Labs 10/03/17 13:10 10/03/17 13:10 Abnormal Lab Results - Last 24 Hours (Table) 10/03/17 10/03/17 10/03/17 Range/Units 13:10 13:10 13:50 RBC 3.93 L (4.30-5.90) m/uL Hgb 10.9 L (13.0-17.5) gm/dL Hct 35.0 L (39.0-53.0) % Lymphocytes # 0.8 L (1.0-4.8) k/uL Potassium 5.5 H (3.5-5.1) mmol/L BUN 29 H (9-20) mg/dL Glucose 66 L (74-99) mg/dL POC Glucose (mg/dL) (75-99) mg/dL Hemoglobin A1c 7.7 H (4.0-6.0) % 10/03/17 10/03/17 10/04/17 Range/Units 17:06 20:29 07:00 RBC (4.30-5.90) m/uL Hgb (13.0-17.5) gm/dL Hct (39.0-53.0) % Lymphocytes # (1.0-4.8) k/uL Potassium (3.5-5.1) mmol/L BUN (9-20) mg/dL Glucose (74-99) mg/dL POC Glucose (mg/dL) 109 H 109 H 64 L (75-99) mg/dL Hemoglobin A1c (4.0-6.0) % 10/04/17 Range/Units 07:19 RBC (4.30-5.90) m/uL Hgb (13.0-17.5) gm/dL Hct (39.0-53.0) % Lymphocytes # (1.0-4.8) k/uL Potassium (3.5-5.1) mmol/L BUN (9-20) mg/dL Glucose (74-99) mg/dL POC Glucose (mg/dL) 70 L (75-99) mg/dL Hemoglobin A1c (4.0-6.0) % Diabetes panel 10/03/17 10/03/17 10/03/17 Range/Units 13:07 13:10 13:50 Sodium 137 (137-145) mmol/L Potassium 5.5 H (3.5-5.1) mmol/L Chloride 101 (98-107) mmol/L Carbon Dioxide 26 (22-30) mmol/L BUN 29 H (9-20) mg/dL Creatinine 1.20 (0.66-1.25) mg/dL Glucose 66 L (74-99) mg/dL Hemoglobin A1c 7.7 H (4.0-6.0) % Calcium 9.1 (8.4-10.2) mg/dL AST 19 (17-59) U/L ALT 25 (21-72) U/L Alkaline Phosphatase 87 (38-126) U/L Total Protein 7.2 (6.3-8.2) g/dL Albumin 4.0 (3.5-5.0) g/dL Triglycerides 123 (<150) mg/dL HDL Cholesterol 40 (40-60) mg/dL Calcium panel 10/03/17 Range/Units 13:10 Calcium 9.1 (8.4-10.2) mg/dL Albumin 4.0 (3.5-5.0) g/dL Pituitary panel 10/03/17 Range/Units 13:10 Sodium 137 (137-145) mmol/L Potassium 5.5 H (3.5-5.1) mmol/L Chloride 101 (98-107) mmol/L Carbon Dioxide 26 (22-30) mmol/L BUN 29 H (9-20) mg/dL Creatinine 1.20 (0.66-1.25) mg/dL Glucose 66 L (74-99) mg/dL Calcium 9.1 (8.4-10.2) mg/dL Adrenal panel 10/03/17 Range/Units 13:10 Sodium 137 (137-145) mmol/L Potassium 5.5 H (3.5-5.1) mmol/L Chloride 101 (98-107) mmol/L Carbon Dioxide 26 (22-30) mmol/L BUN 29 H (9-20) mg/dL Creatinine 1.20 (0.66-1.25) mg/dL Glucose 66 L (74-99) mg/dL Calcium 9.1 (8.4-10.2) mg/dL Total Bilirubin 0.4 (0.2-1.3) mg/dL AST 19 (17-59) U/L ALT 25 (21-72) U/L Alkaline Phosphatase 87 (38-126) U/L Total Protein 7.2 (6.3-8.2) g/dL Albumin 4.0 (3.5-5.0) g/dL - Imaging Chest x-ray: report reviewed, image reviewed CT scan - chest: report reviewed, image reviewed Assessment and Plan (1) Hypertension Current Visit: Yes Status: Chronic Code(s): I10 - ESSENTIAL (PRIMARY) HYPERTENSION SNOMED Code(s): 41747288 (2) Hyperlipidemia Current Visit: Yes Status: Chronic Code(s): E78.5 - HYPERLIPIDEMIA, UNSPECIFIED SNOMED Code(s): 10070347 (3) Diabetes Current Visit: Yes Status: Chronic Code(s): E11.9 - TYPE 2 DIABETES MELLITUS WITHOUT COMPLICATIONS SNOMED Code(s): 19780815 (4) Neuropathy Current Visit: Yes Status: Chronic Code(s): G62.9 - POLYNEUROPATHY, UNSPECIFIED SNOMED Code(s): 398215574 (5) Pleural effusion Current Visit: Yes Status: Acute Code(s): J90 - PLEURAL EFFUSION, NOT ELSEWHERE CLASSIFIED SNOMED Code(s): 93602505 Plan: The patient was seen and examined at the bedside with Dr. Hoang. Chart/ diagnostics including computed tomography scan and chest x-ray were reviewed with Dr. Hoang and Dr. Lenz. Our recommendation is for right video-assisted thoracoscopy with placement of Pleurx catheter. This was discussed at length with the patient and his , all risks and benefits were explained, and the patient and his are agreeable to surgery. The patient was placed on the OR schedule for this afternoon at 3 PM as the patient did have breakfast and needs to be nothing by mouth for 6 hours. Medical management per primary care services. More recommendations to follow. Thank you Dr. Lenz for this consult. We look forward to working with you in the care of your patient. Time with Patient: Greater than 30 <Maximus Hoang - Last Filed: 10/04/17 16:52> Surgical - Exam Vital Signs Temp Pulse Resp BP Pulse Ox 97.8 F 88 16 125/64 93 L 10/03/17 13:00 10/03/17 13:00 10/03/17 13:00 10/03/17 13:00 10/03/17 13:00 Results - Labs 10/03/17 13:10 10/04/17 13:57 Abnormal Lab Results - Last 24 Hours (Table) 10/03/17 10/03/17 10/03/17 Range/Units 13:50 17:06 20:29 POC Glucose (mg/dL) 109 H 109 H (75-99) mg/dL Hemoglobin A1c 7.7 H (4.0-6.0) % 10/04/17 10/04/17 10/04/17 Range/Units 07:00 07:19 11:47 POC Glucose (mg/dL) 64 L 70 L 143 H (75-99) mg/dL Hemoglobin A1c (4.0-6.0) % Diabetes panel 10/03/17 10/04/17 Range/Units 13:50 13:57 Potassium 5.0 (3.5-5.1) mmol/L Hemoglobin A1c 7.7 H (4.0-6.0) % Pituitary panel 10/04/17 Range/Units 13:57 Potassium 5.0 (3.5-5.1) mmol/L Adrenal panel 10/04/17 Range/Units 13:57 Potassium 5.0 (3.5-5.1) mmol/L Assessment and Plan Assessment: 77-year-old male presents to the emergency room with shortness of breath. He is noted to have a large pleural effusion. He was previously tapped for a pleural effusion on the ipsilateral side on the right 10 days earlier. This was a bloody effusion at that time. He underwent a repeat thoracentesis left chest evening again of a large amount of bloody fluid. Initial x-ray demonstrated a small basilar pneumothorax. Repeat chest x-ray this morning showed a 40% pneumothorax. Case was discussed with pulmonology and it was decided to proceed with thoracoscopy and placement of a Pleurx catheter.
[2017-10-04] MEDS ORDERED: METOCLOPRAMIDE 5 MG/ML 2 ML VIAL IVP STA (11:36)
[2017-10-04 11:48] LABS: Glucose,Whole Blood 143 mg/dL (75-99)
[2017-10-04] MEDS: INSULIN DETEMIR 100 UNIT/ML 10 ML VIAL SQ SCH (11:50)
[2017-10-04] MEDS ORDERED: FAMOTIDINE 20 MG/2 ML VIAL IV ONE (12:10)
--- NOTE | 2017-10-04 12:16 | P.HPIM ---
History of Present Illness 77-year-old male presented to family physician office with complaints of increasing shortness of breath. Had recent admission with pleural effusion. On CAT scan at last admission that showed some calcification to the pancreas. Patient's father of pancreatic cancer. MRI of the abdomen was ordered. Concerned is CA 19-9 2360. Patient is to be evaluated by surgery and pulmonology Review of Systems Respiratory: Reports cough, Reports dyspnea Gastrointestinal: Reports loss of appetite Past Medical History Past Medical History: Diabetes Mellitus, GERD/Reflux, Hyperlipidemia, Hypertension Additional Past Medical History / Comment(s): neuropathy, past gout, lt knee bruise from past fall, "see's a retina specialist" History of Any Multi-Drug Resistant Organisms: None Reported Past Surgical History: Ablation, Adenoidectomy, Appendectomy, Joint Replacement , Tonsillectomy Additional Past Surgical History / Comment(s): rt shoulder replaced, sinus surgery, lt hand finger sx d/t work injury, cataracts Past Anesthesia/Blood Transfusion Reactions: No Reported Reaction Past Psychological History: No Psychological Hx Reported Smoking Status: Never smoker Past Alcohol Use History: Rare Past Drug Use History: None Reported - Past Family History Mother Family Medical History: No Reported History Additional Family Medical History / Comment(s): from natural causes Father Family Medical History: Cancer Additional Family Medical History / Comment(s): pancreatic cancer Medications and Allergies Home Medications Medication Instructions Recorded Confirmed Type Atorvastatin Calcium [Lipitor] 10 mg PO DAILY 09/21/17 10/03/17 History Gabapentin 800 mg PO TID 09/21/17 10/03/17 History Glimepiride [Amaryl] 2 mg PO BID 09/21/17 10/03/17 History Insulin Glargine,Hum.rec.anlog 70 unit SQ DAILY 09/21/17 10/03/17 History [Lantus Solostar] Insulin Lispro [humaLOG Kwikpen] See Protocol SQ ACHS 09/21/17 10/03/17 History Lansoprazole 30 mg PO DAILY 09/21/17 10/03/17 History Naproxen Sodium [Aleve] 440 mg PO Q12HR PRN 09/21/17 10/03/17 History Pioglitazone [Actos] 30 mg PO DAILY 09/21/17 10/03/17 History Ramipril 2.5 mg PO DAILY 09/21/17 10/03/17 History metFORMIN HCL [Glucophage] 850 mg PO TID 09/21/17 10/03/17 History Melatonin 5 mg PO HS tablet 09/24/17 10/03/17 Rx Latanoprost [Xalatan 0.005%] 1 drop BOTH EYES HS 10/03/17 10/03/17 History Allergies Allergy/AdvReac Type Severity Reaction Status Date / Time Sulfa (Sulfonamide Allergy Unknown Verified 10/03/17 12:51 Antibiotics) Childhood Physical Exam Vitals: Vital Signs Temp Pulse Resp BP Pulse Ox 10/04/17 07:55 74 18 10/04/17 05:00 98.5 F 74 18 125/67 97 10/04/17 00:00 95 18 10/03/17 20:50 98.8 F 95 18 142/67 92 L 10/03/17 13:00 97.8 F 88 16 125/64 93 L Intake and Output 10/03/17 10/04/17 10/04/17 22:59 06:59 14:59 Output Total 1650 Balance -1650 Output: Other 1650 Other: Voiding Method Toilet Toilet Toilet # Voids 1 - Constitutional General appearance: mild distress - EENT Eyes: PERRLA Ears: bilateral: normal - Neck Neck: normal ROM - Respiratory Respiratory: right: diminished, rales, left: CTA - Cardiovascular Rhythm: regular - Gastrointestinal General gastrointestinal: soft - Integumentary Integumentary: normal - Neurologic Neurologic: CNII-XII intact - Musculoskeletal Musculoskeletal: gait normal - Psychiatric Psychiatric: A&O x's 3, appropriate affect, intact judgment & insight Results CBC & Chem 7: 10/03/17 13:10 10/03/17 13:10 Labs: Abnormal Lab Results - Last 24 Hours (Table) 10/03/17 10/03/17 10/03/17 Range/Units 13:10 13:10 13:50 RBC 3.93 L (4.30-5.90) m/uL Hgb 10.9 L (13.0-17.5) gm/dL Hct 35.0 L (39.0-53.0) % Lymphocytes # 0.8 L (1.0-4.8) k/uL Potassium 5.5 H (3.5-5.1) mmol/L BUN 29 H (9-20) mg/dL Glucose 66 L (74-99) mg/dL POC Glucose (mg/dL) (75-99) mg/dL Hemoglobin A1c 7.7 H (4.0-6.0) % 10/03/17 10/03/17 10/04/17 Range/Units 17:06 20:29 07:00 RBC (4.30-5.90) m/uL Hgb (13.0-17.5) gm/dL Hct (39.0-53.0) % Lymphocytes # (1.0-4.8) k/uL Potassium (3.5-5.1) mmol/L BUN (9-20) mg/dL Glucose (74-99) mg/dL POC Glucose (mg/dL) 109 H 109 H 64 L (75-99) mg/dL Hemoglobin A1c (4.0-6.0) % 10/04/17 10/04/17 Range/Units 07:19 11:47 RBC (4.30-5.90) m/uL Hgb (13.0-17.5) gm/dL Hct (39.0-53.0) % Lymphocytes # (1.0-4.8) k/uL Potassium (3.5-5.1) mmol/L BUN (9-20) mg/dL Glucose (74-99) mg/dL POC Glucose (mg/dL) 70 L 143 H (75-99) mg/dL Hemoglobin A1c (4.0-6.0) % Chest x-ray: report reviewed CT scan - chest: report reviewed MRI - abdomen: report reviewed Thrombosis Risk Factor Assmnt - DVT/VTE Prophylaxis DVT/VTE Prophylaxis: Mechanical Prophylaxis ordered - Choose All That Apply Any of the Below Risk Factors Present?: Yes Each Factor Represents 1 point: Serious lung disease incl. pneumonia (< 1month) Other Risk Factors: Yes Each Risk Factor Represents 3 Points: Age 75 years or older Other congenital or acquired thrombophilia - If yes, enter type in comment: No Thrombosis Risk Factor Assessment Total Risk Factor Score: 4 Thrombosis Risk Factor Assessment Level: Moderate Risk Assessment and Plan Plan: Assessment Right-sided pleural effusion recurrent Diabetes type 2 Hyperlipidemia History of GERD Hypertension CA-19-9 elevated 2360 Pancreatic mass Plan Consultation with the surgery Dr. Walton Consultation with Dr. Montejo regarding pleural effusion
--- NOTE | 2017-10-04 12:19 | P.PN ---
Subjective Patient resting in bed. Had the thoracentesis with pneumothorax. Plan is for Pleurx catheter this afternoon. Patient had consultation with surgery gastroenterology regarding pancreatic mass. Not surgical candidate at this time. We will consult oncology regarding elevated 199 Objective - Vital Signs Vital signs: Vital Signs Temp 98.5 F 10/04/17 05:00 Pulse 74 10/04/17 07:55 Resp 18 10/04/17 07:55 BP 125/67 10/04/17 05:00 Pulse Ox 97 10/04/17 05:00 Intake & Output 10/03/17 10/04/17 10/04/17 18:59 06:59 18:59 Output Total 1650 Balance -1650 Weight 93.44 kg Output: Other 1650 Other: Voiding Method Toilet Toilet Toilet # Voids 2 1 - Constitutional General appearance: Present: obese - EENT Eyes: Present: PERRLA Ears: bilateral: normal - Neck Neck: Present: normal ROM - Respiratory Respiratory: right: diminished, rales, left: CTA - Cardiovascular Rhythm: regular - Gastrointestinal General gastrointestinal: Present: soft - Integumentary Integumentary: Present: normal - Neurologic Neurologic: Present: CNII-XII intact - Musculoskeletal Musculoskeletal: Present: gait normal - Psychiatric Psychiatric: Present: A&O x's 3, appropriate affect, intact judgment & insight - Labs CBC & Chem 7: 10/03/17 13:10 10/03/17 13:10 Labs: Abnormal Lab Results - Last 24 Hours (Table) 10/03/17 10/03/17 10/03/17 Range/Units 13:10 13:10 13:50 RBC 3.93 L (4.30-5.90) m/uL Hgb 10.9 L (13.0-17.5) gm/dL Hct 35.0 L (39.0-53.0) % Lymphocytes # 0.8 L (1.0-4.8) k/uL Potassium 5.5 H (3.5-5.1) mmol/L BUN 29 H (9-20) mg/dL Glucose 66 L (74-99) mg/dL POC Glucose (mg/dL) (75-99) mg/dL Hemoglobin A1c 7.7 H (4.0-6.0) % 10/03/17 10/03/17 10/04/17 Range/Units 17:06 20:29 07:00 RBC (4.30-5.90) m/uL Hgb (13.0-17.5) gm/dL Hct (39.0-53.0) % Lymphocytes # (1.0-4.8) k/uL Potassium (3.5-5.1) mmol/L BUN (9-20) mg/dL Glucose (74-99) mg/dL POC Glucose (mg/dL) 109 H 109 H 64 L (75-99) mg/dL Hemoglobin A1c (4.0-6.0) % 10/04/17 10/04/17 Range/Units 07:19 11:47 RBC (4.30-5.90) m/uL Hgb (13.0-17.5) gm/dL Hct (39.0-53.0) % Lymphocytes # (1.0-4.8) k/uL Potassium (3.5-5.1) mmol/L BUN (9-20) mg/dL Glucose (74-99) mg/dL POC Glucose (mg/dL) 70 L 143 H (75-99) mg/dL Hemoglobin A1c (4.0-6.0) % - Imaging and Cardiology Chest x-ray: report reviewed Assessment and Plan Plan: Assessment Right-sided pleural effusion recurrent Pancreatic mass Elevated CA 199 2360 Hyperlipidemia GERD Hypertension Plan She has requested consultation with oncology Continue consultation with the surgery and pulmonology Pleurx catheter this afternoon
--- NOTE | 2017-10-04 12:37 | P.PN ---
<Glendy Millerwilber Peace - Last Filed: 10/04/17 12:30> Subjective Progress Note Date: 10/04/17 77-year-old sitting up in bed at bedside patient continues to deny any abdominal pain no nausea vomiting. MRI of the abdomen report reviewed no evidence of pancreatic mass hepatitis panel negative labs pending Patient did undergo a right side thoracentesis yesterday with 1600 ml return. Pathology pending. Patient had a recent paracentesis on the right 2 weeks prior pathology report showed cells showed no evidence of malignancy Objective - Vital Signs Vital signs: Vital Signs Temp 98.5 F 10/04/17 05:00 Pulse 74 10/04/17 07:55 Resp 18 10/04/17 07:55 BP 125/67 10/04/17 05:00 Pulse Ox 97 10/04/17 05:00 Intake & Output 10/03/17 10/04/17 10/04/17 18:59 06:59 18:59 Output Total 1650 Balance -1650 Weight 93.44 kg Output: Other 1650 Other: Voiding Method Toilet Toilet Toilet # Voids 2 1 - Exam Physical exam 77-year-old resting comfortably in bed appears in no acute distress Lungs diminished right lung base otherwise adequate air movement on the left patient states feels less short of breath sats 97 room air Heart S1-S2 audible regular Abdomen soft nondistended nontender no abdominal pain no nausea no vomiting and tolerating a diet Extremities no edema - Labs CBC & Chem 7: 10/03/17 13:10 10/03/17 13:10 Labs: Abnormal Lab Results - Last 24 Hours (Table) 10/03/17 10/03/17 10/03/17 Range/Units 13:10 13:10 13:50 RBC 3.93 L (4.30-5.90) m/uL Hgb 10.9 L (13.0-17.5) gm/dL Hct 35.0 L (39.0-53.0) % Lymphocytes # 0.8 L (1.0-4.8) k/uL Potassium 5.5 H (3.5-5.1) mmol/L BUN 29 H (9-20) mg/dL Glucose 66 L (74-99) mg/dL POC Glucose (mg/dL) (75-99) mg/dL Hemoglobin A1c 7.7 H (4.0-6.0) % 10/03/17 10/03/17 10/04/17 Range/Units 17:06 20:29 07:00 RBC (4.30-5.90) m/uL Hgb (13.0-17.5) gm/dL Hct (39.0-53.0) % Lymphocytes # (1.0-4.8) k/uL Potassium (3.5-5.1) mmol/L BUN (9-20) mg/dL Glucose (74-99) mg/dL POC Glucose (mg/dL) 109 H 109 H 64 L (75-99) mg/dL Hemoglobin A1c (4.0-6.0) % 10/04/17 10/04/17 Range/Units 07:19 11:47 RBC (4.30-5.90) m/uL Hgb (13.0-17.5) gm/dL Hct (39.0-53.0) % Lymphocytes # (1.0-4.8) k/uL Potassium (3.5-5.1) mmol/L BUN (9-20) mg/dL Glucose (74-99) mg/dL POC Glucose (mg/dL) 70 L 143 H (75-99) mg/dL Hemoglobin A1c (4.0-6.0) % Assessment and Plan Assessment: Impression Shortness of breath present on admission suspect due to right pleural effusion Present on admission elevated CA 199 2360 Type 2 diabetes insulin requiring Lifelong nonsmoker Hypertension Hyperlipidemia Thoracentesis 09/24/2017 1.5 L removed pathology report indicates cells not diagnostic for malignancy Chest x-ray on admission [id number] right pleural effusion Plan Status post thoracentesis in the right October 03 with 1600 ml obtained No evidence of an acute surgical abdomen at this time No surgical intervention at this time We'll follow with you with further recommendations Defer to the attending for further workup Right pleural effusion to be followed by pulmonary Recommend gastroenterology for further workup Consider oncology eval for the elevated CA-19-9 The above impression and plan of care have been discussed and directed by signing physician. Elizabeth Miller nurse practitioner acting as scribe for signing physician. <Pauline Walton - Last Filed: 10/04/17 16:12> Objective - Vital Signs Vital signs: Vital Signs Temp 98.2 F 10/04/17 14:28 Pulse 94 10/04/17 14:28 Resp 16 10/04/17 14:28 BP 139/100 10/04/17 14:28 Pulse Ox 94 L 10/04/17 14:28 Intake & Output 10/03/17 10/04/17 10/04/17 18:59 06:59 18:59 Intake Total 150 Output Total 1650 Balance -1650 150 Weight 93.44 kg Intake: IV 100 Intake, IV Titration 50 Amount ceFAZolin 2 gm In Sodium 50 Chloride 0.9% 50 ml @ 100 mls/hr IVPB ONCE ONE Rx# :[id number] Output: Other 1650 Other: Voiding Method Toilet Toilet Toilet # Voids 2 1 - Labs CBC & Chem 7: 10/03/17 13:10 10/04/17 13:57 Labs: Abnormal Lab Results - Last 24 Hours (Table) 10/03/17 10/03/17 10/03/17 Range/Units 13:50 17:06 20:29 POC Glucose (mg/dL) 109 H 109 H (75-99) mg/dL Hemoglobin A1c 7.7 H (4.0-6.0) % 10/04/17 10/04/17 10/04/17 Range/Units 07:00 07:19 11:47 POC Glucose (mg/dL) 64 L 70 L 143 H (75-99) mg/dL Hemoglobin A1c (4.0-6.0) %
[2017-10-04] MEDS ORDERED: ceFAZolin IN SWFI 2 GM/20 ML SYRINGE IVP ONE (14:00)
--- NOTE | 2017-10-04 14:35 | P.PN ---
Subjective Progress Note Date: 10/04/17 Principal diagnosis: Recurrent right-sided pleural effusion, status post thoracentesis, pneumothorax This is a 77-year-old white male with history of hypertension, hyperlipidemia, type 2 diabetes, patient was admitted to the hospital about 2 weeks ago with right-sided pleural effusion, underwent diagnostic right-sided thoracentesis by interventional radiology, the fluid was exudative in nature, and was negative for malignancy. The differential diagnoses for his fluid was either malignant pleural effusion or possibly parapneumonic pleural effusion. Patient was supposed to have follow-up with Dr. Montejo tomorrow, however the patient has been complaining of increased shortness of breath since he left the hospital. Symptoms of dyspnea on exertion. Intermittent episodes of cough, but no fever, no chills, no hemoptysis, and no chest pain. Patient was seen by his primary care physician, and follow-up chest x-ray today showed moderate right-sided pleural effusion basically the same size as it was on his last admission. Considering the effusion, I was asked to see him on consultation. Since then the patient had abnormal pancreatic cancer marker, his CA 199 was elevated. And MRI of the abdomen was ordered. Results of which are pending. Patient describes some weight loss, slightly poor appetite, no nausea no vomiting no abdominal pain, no melena, no hematemesis, no dysuria and no frequency no urgency. After I evaluated the patient, I performed a ultrasound-guided right- sided thoracentesis, I was able to drain over 1600 mL of serosanguineous fluid, the fluid was sent for different diagnostic studies. Follow-up chest x-ray showed what looked like pneumothorax but I believe it is mostly a trapped lung, and failure of the lung to fully expand after the fluid removed. Hence I chose to observe the patient, and repeat chest x-ray later this evening and tomorrow. No need to dorado for chest tube insertion at this point. Patient felt better after the thoracentesis, he had some vague chest pain immediately after the thoracentesis, but he settled down and his O2 saturation was 94% on room air his blood pressure was stable, and the patient was noted to be in no form of distress. The fluid which I drained was sent again for cytology and different diagnostic studies. Considering the fluid is serosanguineous, the differential diagnoses is again malignancy and/or parapneumonic effusion secondary to recent pneumonia. However considering his elevated marker for pancreatic cancer, malignancy is considered very likely in the differential diagnosis. And the fact that the pleural effusion reaccumulated within a short period of time, malignancy is more likely in the differential. The patient is seen again today 10/04/2017 in follow-up. He is awake and alert in no acute distress. He denies any worsening shortness of breath, cough or congestion. He is maintaining good O2 saturations in the 90s on room air. He does have some ongoing right-sided chest discomfort. He did undergo a right- sided thoracentesis by Dr. Lenz yesterday with 1600 ML's of cloudy serosanguineous fluid returned. Follow-up chest x-rays did reveal a right- sided hydropneumothorax estimated at 40%. No signs of tension. Cardiothoracic surgeons were consulted and the plan is for a right sided video-assisted thoracoscopy with placement of Pleurx catheter later this afternoon. Objective - Vital Signs Vital signs: Vital Signs Temp 98.5 F 10/04/17 05:00 Pulse 74 10/04/17 07:55 Resp 18 10/04/17 07:55 BP 125/67 10/04/17 05:00 Pulse Ox 97 10/04/17 05:00 Intake & Output 10/03/17 10/04/17 10/04/17 18:59 06:59 18:59 Output Total 1650 Balance -1650 Weight 93.44 kg Output: Other 1650 Other: Voiding Method Toilet Toilet Toilet # Voids 2 1 - Exam GENERAL EXAM: Alert, active, comfortable in no apparent distress. HEAD: Normocephalic. EYES: Normal reaction of pupils, equal size. NOSE: Clear with pink turbinates. THROAT: No erythema or exudates. NECK: No masses, no JVD. CHEST: No chest wall deformity. Right-sided chest discomfort. LUNGS: Equal air entry with crackles in the right posterior base. Diminished. CVS: S1 and S2 normal with no audible murmur, regular rhythm. ABDOMEN: No hepatosplenomegaly, normal bowel sounds, no guarding or rigidity. SPINE: No scoliosis or deformity SKIN: No rashes CENTRAL NERVOUS SYSTEM: No focal deficits, tone is normal in all 4 extremities. EXTREMITIES: There is no peripheral edema. No clubbing, no cyanosis. Peripheral pulses are intact. - Labs CBC & Chem 7: 10/03/17 13:10 10/04/17 13:57 Labs: Abnormal Lab Results - Last 24 Hours (Table) 10/03/17 10/03/17 10/03/17 Range/Units 13:50 17:06 20:29 POC Glucose (mg/dL) 109 H 109 H (75-99) mg/dL Hemoglobin A1c 7.7 H (4.0-6.0) % 10/04/17 10/04/17 10/04/17 Range/Units 07:00 07:19 11:47 POC Glucose (mg/dL) 64 L 70 L 143 H (75-99) mg/dL Hemoglobin A1c (4.0-6.0) % Assessment and Plan Assessment: Impression: 1 recurrent right-sided exudative serosanguineous pleural effusion, differential diagnoses includes malignant pleural effusion and parapneumonic pleural effusion. However considering the elevated marker for pancreatic cancer , this is most likely malignant however tissue diagnosis is pending. 2 Status post right sided thoracentesis, postoperative day #1 3 postoperative small pneumothorax most likely secondary to trapped lung and failure of the right lung to expand. The plan is for right-sided video- assisted thoracoscopy with Pleurx catheter placement today. 4 elevated CA 199, suspicious for pancreatic cancer, workup is pending. MRI of the abdomen revealed calcifications associated with pancreas, consider chronic pancreatitis. 5 multiple comorbidities including type 2 diabetes, hypertension, hyperlipidemia , and history of thoracentesis done on 09/24/2017. Plan: The patient was seen and evaluated by Dr. Lenz. Chest x-ray was reviewed. He did have a discussion with Dr. Hoang regarding the trapped lung. The plan is for right-sided video-assisted thoracoscopy with pleura biopsy and placement of a Pleurx catheter today. The patient and his are agreeable to the plan. We will continue to follow and make further recommendations based on his clinical status. I, the cosigning physician, performed a history & physical examination of the patient. Lungs sounds with crackles in the right posterior base, diminished. Maintaining good O2 saturations in the 90s on room air. I discussed the assessment and plan of care with my nurse practitioner, Jessica Johnson. I attest to the above note as dictated by her.
[2017-10-04] MEDS ORDERED: LACTATED RINGERS 1,000 ML IV ONE (14:49)
[2017-10-04 15:03] LABS: Glucose,Whole Blood 98 mg/dL (75-99)
[2017-10-04] MEDS ORDERED: GLYCOPYRROLATE 0.2 MG/ML 2 ML VIAL ONE (15:24)
[2017-10-04] MEDS ORDERED: LIDOCAINE 1% INJ 10MG/ML (20 ML MDV) ONE (15:24)
[2017-10-04] MEDS ORDERED: MIDAZOLAM 2 MG/2 ML VIAL ONE (15:24)
[2017-10-04] MEDS ORDERED: PROPOFOL 10 MG/ML 20 ML VIAL IV ONE (15:24)
[2017-10-04] MEDS ORDERED: fentaNYL (PF) 50 MCG/ML 2 ML AMP ONE (15:24)
[2017-10-04] MEDS ORDERED: SUCCINYLCHOLINE CHLORIDE 100 MG/5 ML SYR IV ONE (15:24)
[2017-10-04] MEDS ORDERED: ROCURONIUM BROMIDE 10 MG/ML 10 ML VIAL IV ONE (15:24)
[2017-10-04] MEDS ORDERED: NEOSTIGMINE 1 MG/ML 10 ML VIAL ONE (15:24)
[2017-10-04] MEDS ORDERED: ROPIVACAINE 5 MG/ML 30 ML VIAL MISCELLANE ONE (15:50)
[2017-10-04] MEDS ORDERED: ACETAMINOPHEN TAB 325 MG TAB PO PRN (16:44)
--- NOTE | 2017-10-04 16:50 | P.OP ---
Date of Procedure: 10/04/17 Preoperative Diagnosis: Recurrent right hemothorax status post thoracentesis, increasing right pneumothorax Postoperative Diagnosis: Same Procedure(s) Performed: Right thoracoscopy, partial decortication right lung, biopsy right lower lobe, biopsy right pleura, placement of right Pleurx catheter. Implants: Right Pleurx catheter Anesthesia: KEYUR Surgeon: Maximus Hoang Estimated Blood Loss (ml): 10 IV fluids (ml): 800 Pathology: other (Right pleural content, right lower lobe wedge biopsy, right pleural biopsy) Condition: stable Disposition: PACU Indications for Procedure: 77-year-old male who presented to the emergency room last night with shortness of breath. He had had a thoracentesis for a right hemothorax 10 days ago. Chest x-ray demonstrated recurrent right pleural effusion. He was again tapped for dark bloody pleural effusion last evening. There was a small residual basal pneumothorax on initial chest x-ray. Repeat chest x-ray this morning demonstrated markedly increased approximately 40% pneumothorax. Case was discussed at length with pulmonology. Was decided to proceed with thoracoscopy for possible diagnosis as well as placement of a Pleurx catheter for recurrent bloody effusion. Operative Findings: On entering the chest cavity there was substantial old blood clot present. There was a large amount of fibrinous material in the right pleural space as well. Portion of this was removed and sent for pathology and labeled right pleural content. Adhesions within the pleural space were taken down bluntly. Some of these were fairly dense. There was an inflammatory covering over the lung partially trapping it. This was removed to the best of my ability. There was a large amount of blood staining the pleura posteriorly on the right lower lobe. A biopsy of this region was obtained. The parietal pleura appeared somewhat thickened and injected. Biopsy of this was also obtained. On completion of the procedure the lung was reinflated under thoracoscopic vision and appeared to inflate reasonably well. Description of Procedure: The patient was brought to the operating room, placed supine on the operating table, anesthetized and intubated with a double-lumen endotracheal tube. Tube was positioned with fiberoptic bronchoscopy. No endobronchial lesions were noted. Tube was secured and the patient was turned in the left lateral decubitus position. The right chest was sterilely prepped and draped. 2 one- inch incisions were made in the lower portion of the chest in the anterior and midaxillary line. The pleural space was entered and explored. Findings are noted above. Fibrinous exudate was removed. Blood clot was removed. Adhesions were taken down as best as possible. Some of these were fairly dense and calcified and clearly old. Others were fairly fibrinous and fresh. The fibrinous ones were much easier to take down and the old ones. There was a large area of bloody pleural staining over the posterior lateral portion of the right lower lobe. A wedge biopsy was obtained here using multiple firings of an Endo SAMANTHA medium thick stapler. Biopsy of the posterior parietal pleura was obtained. Both of these biopsies were split and a portion sent for culture and the majority sent for pathology. Routine acid-fast and fungal cultures were all obtained of each. There had been a couple of 100 mL of bloody fluid present in the pleural cavity and this of been suctioned free. Pleurx catheter was next brought up onto the field. An incision was made at the costal verge anteriorly and the catheter was brought under the skin and subcutaneous tissue and then after tunneling for a distance it was brought between the ribs and into the pleural space. The catheter was advanced until the cuff disappeared just under the skin at the exit site. The catheter was then positioned with its tip toward the apex lying in the posterior gutter. Good hemostasis was now verified and the lung was inflated. An appeared to take place. Video thoracoscope was removed. Rib blocks were performed at the level of the incisions with long-acting anesthetic agent. Incisions were then closed with layers of Vicryl suture. Skin glue was applied to the 2 incisions and a drain sponge was placed around the Pleurx catheter and it was connected to a Pleur- evac. Patient was turned supine and extubated and transferred to recovery in stable condition.
[2017-10-04] MEDS: HYDROmorphone 1 MG/ML 1 ML SYRINGE IVP ONE ×4 (16:53→17:30)
[2017-10-04 17:24] LABS: Glucose,Whole Blood 106 mg/dL (75-99)
--- NOTE | 2017-10-04 17:46 | XR ---
EXAMINATION TYPE: XR chest 1V portable DATE OF EXAM: 10/04/2017 COMPARISON: Today HISTORY: Chest tube placement TECHNIQUE: Single frontal view of the chest is obtained. FINDINGS: There is a right-sided chest tube that appears in good position with the tip along the rig ht mid thoracic spine. There is a small right-sided pneumothorax. This is less than 10%. Trachea is m idline. There is no heart failure. Left lung is clear of consolidation. There is atelectasis in the r ight lower lobe. IMPRESSION: Right pneumothorax and right lower lobe atelectasis. Pneumothorax is significantly less than exam this morning at 9:00 AM. Bilateral apical pleural scarring noted.
[2017-10-04] MEDS: KETOROLAC 30 MG/ML 1 ML VIAL IVP SCH ×2 (18:14→23:55)
[2017-10-04 20:21] LABS: Glucose,Whole Blood 134 mg/dL (75-99)
[2017-10-04] MEDS: ACETAMINOPHEN TAB 325 MG TAB PO PRN (21:55)
[2017-10-04] MEDS: MELATONIN 5 MG TABLET PO SCH (21:56)
[2017-10-04] MEDS: LORATADINE 10 MG TAB PO SCH (21:56)
[2017-10-04] MEDS: LATANOPROST 0.005% OPHTH DROPS 2.5 ML BTL BOTH EYES SCH (21:56)
[2017-10-05] MEDS: KETOROLAC 30 MG/ML 1 ML VIAL IVP SCH ×3 (05:57→19:49)
[2017-10-05] MEDS ORDERED: FLUTICASONE 50MCG/SPRAY NASAL 16GM EA NOSTRIL PRN (06:07)
[2017-10-05] MEDS ORDERED: ONDANSETRON 4 MG/2 ML VIAL IVP PRN (06:07)
[2017-10-05 07:10] LABS: Glucose,Whole Blood 187 mg/dL (75-99)
[2017-10-05 07:15] LABS: HCT 31.3 % (39.0-53.0); HGB 9.9 gm/dL (13.0-17.5); MCH 27.7 pg (25.0-35.0); MCHC 31.6 g/dL (31.0-37.0); MCV 87.5 fL (80.0-100.0); Mean Platelet Volume 6.8; Platelet Count 321 k/uL (150-450); RBC 3.58 m/uL (4.30-5.90); RDW 13.6 % (11.5-15.5); WBC 8.3 k/uL (3.8-10.6)
[2017-10-05 07:27] LABS: Calcium 8.2 mg/dL (8.4-10.2); Potassium 5.4 mmol/L (3.5-5.1)
[2017-10-05] MEDS: INSULIN ASPART 100 UNIT/ML 1 ML 10 ML VIAL SQ SCH ×4 (07:53→22:40)
[2017-10-05] MEDS: PANTOPRAZOLE 40 MG TABLET PO SCH (07:55)
[2017-10-05] MEDS: GLIMEPIRIDE 2 MG TAB PO SCH ×2 (07:55→17:44)
[2017-10-05] MEDS: GABAPENTIN 400 MG CAP PO SCH ×3 (10:04→22:14)
[2017-10-05] MEDS: PIOGLITAZONE 30 MG TAB PO SCH (10:05)
[2017-10-05] MEDS: ATORVASTATIN 10 MG TAB PO SCH (10:05)
[2017-10-05] MEDS: FUROSEMIDE 40 MG TAB PO SCH (10:05)
[2017-10-05] MEDS: metFORMIN 850 MG TAB PO SCH ×2 (10:06→17:43)
[2017-10-05] MEDS: INSULIN DETEMIR 100 UNIT/ML 10 ML VIAL SQ SCH (10:06)
[2017-10-05 11:26] LABS: Glucose,Whole Blood 149 mg/dL (75-99)
--- NOTE | 2017-10-05 11:30 | P.PN ---
Progress Note - Text Progress Note Date: 10/05/17 77-year-old seen events noted patient is status post right thoracoscopy, partial decortication right lung, biopsy right lower lobe, biopsy right pleura, placement of right Pleurx catheter. Attending is to report no abdominal pain surgical eval was requested for an elevated CA-19-9 no evidence of an acute surgical abdomen we'll sign off and re -eval as needed The above impression and plan of care have been discussed and directed by signing physician. Elizabeth Miller nurse practitioner acting as scribe for signing physician.
[2017-10-05] MEDS ORDERED: FAMOTIDINE 20 MG/2 ML VIAL IV ONE (11:33)
--- NOTE | 2017-10-05 12:09 | XR ---
EXAMINATION TYPE: XR chest 2V DATE OF EXAM: 10/05/2017 COMPARISON: October 04, 2017 HISTORY: Shortness of breath TECHNIQUE: Frontal and lateral views of the chest are obtained. FINDINGS: Right-sided chest tube is again noted to be in place. Right basilar hydropneumothorax evident. Right apical pneumothorax persists. The left lung is hyperinflated with scattered senescent parenchymal kahlil nge. Heart size is stable. Mediastinal structures are stable and grossly unremarkable. No evidence for hilar prominence. Degenerative changes dorsal spine. IMPRESSION: 1. Right-sided hydropneumothorax. Chest tube is in place.
--- NOTE | 2017-10-05 12:43 | P.PN ---
Subjective Progress Note Date: 10/05/17 Principal diagnosis: Recurrent right hemothorax status post thoracentesis, increasing right pneumothorax. Previous medical history of hypertension, hyperlipidemia, diabetes, neuropathy. POD #1 right thoracoscopy, partial decortication right lung, I hep C right lower lobe, biopsy right pleura, placement of right Pleurx catheter. Patient's currently sitting up in bed in no acute distress. Does complain of some pain to his surgical site. Denies shortness of breath. His is at the bedside with many questions regarding removal of pleural fluid, all questions answered to the best of my ability. Objective - Vital Signs Vital signs: Vital Signs Temp 97.9 F 10/05/17 12:27 Pulse 90 10/05/17 12:27 Resp 18 10/05/17 12:27 BP 131/69 10/05/17 12:27 Pulse Ox 94 L 10/05/17 12:27 Intake & Output 10/04/17 10/05/17 10/05/17 18:59 06:59 18:59 Intake Total 650 300 Output Total 40 786 Balance 610 -486 Intake: IV 600 Intake, IV Titration 50 300 Amount Lactated Ringers 1,000 ml 300 @ 0 mls/hr IV .[facility] Rx#:[id number] ceFAZolin 2 gm In Sodium 50 Chloride 0.9% 50 ml @ 100 mls/hr IVPB ONCE ONE Rx# :[id number] Output: Drainage 36 Right Chest 36 Urine 750 Straight 750 Pleural Fluid 35 Estimated Blood Loss 5 Other: Voiding Method Toilet Toilet # Voids 0 - Constitutional General appearance: Present: cooperative, no acute distress, obese - Respiratory Details: Lungs sounds diminished and coursed bilaterally. Respirations even, nonlabored. Currently on 2 L nasal cannula with oxygen saturation 98%. Right Pleurx catheter present connected to [facility] on waterseal, 36 mL serosanguineous drainage overnight, 140 mL since surgery, no air leak present. - Cardiovascular Details: S1, S2 present. Regular rate and rhythm. Palpable peripheral pulses bilaterally. No edema present. No calf pain or tenderness noted. - Gastrointestinal Gastrointestinal Comment(s): Abdomen soft, nontender, nondistended. Active bowel sounds 4 quadrants. Tolerating diet. - Genitourinary Genitourinary Comment(s): Continues to void clear, yellow urine. - Integumentary Integumentary Comment(s): Skin is warm and dry with evidence of good perfusion. - Neurologic Neurologic: Present: CNII-XII intact - Musculoskeletal Musculoskeletal: Present: gait normal, strength equal bilaterally - Psychiatric Psychiatric: Present: A&O x's 3, appropriate affect, intact judgment & insight - Allied health notes Allied health notes reviewed: nursing - Labs CBC & Chem 7: 10/05/17 06:50 10/05/17 06:50 Labs: Abnormal Lab Results - Last 24 Hours (Table) 10/04/17 10/04/17 10/05/17 Range/Units 17:21 20:19 06:50 RBC 3.58 L (4.30-5.90) m/uL Hgb 9.9 L (13.0-17.5) gm/dL Hct 31.3 L (39.0-53.0) % Sodium (137-145) mmol/L Potassium (3.5-5.1) mmol/L Chloride (98-107) mmol/L BUN (9-20) mg/dL Creatinine (0.66-1.25) mg/dL Glucose (74-99) mg/dL POC Glucose (mg/dL) 106 H 134 H (75-99) mg/dL Calcium (8.4-10.2) mg/dL 10/05/17 10/05/17 10/05/17 Range/Units 06:50 07:09 11:24 RBC (4.30-5.90) m/uL Hgb (13.0-17.5) gm/dL Hct (39.0-53.0) % Sodium 136 L (137-145) mmol/L Potassium 5.4 H (3.5-5.1) mmol/L Chloride 97 L (98-107) mmol/L BUN 33 H (9-20) mg/dL Creatinine 1.40 H (0.66-1.25) mg/dL Glucose 163 H (74-99) mg/dL POC Glucose (mg/dL) 187 H 149 H (75-99) mg/dL Calcium 8.2 L (8.4-10.2) mg/dL Microbiology - Last 24 Hours (Table) 10/04/17 16:16 Fungal Culture - Preliminary Pleural Fluid 10/04/17 16:16 Acid Fast Bacilli Culture - Preliminary Pleural Fluid 10/04/17 16:16 Fungal Culture - Preliminary Pleural Fluid 10/04/17 16:16 Acid Fast Bacilli Culture - Preliminary Pleural Fluid - Imaging and Cardiology Chest x-ray: report reviewed, image reviewed Assessment and Plan (1) Hypertension Current Visit: Yes Status: Chronic Code(s): I10 - ESSENTIAL (PRIMARY) HYPERTENSION SNOMED Code(s): 97914096 (2) Hyperlipidemia Current Visit: Yes Status: Chronic Code(s): E78.5 - HYPERLIPIDEMIA, UNSPECIFIED SNOMED Code(s): 04039014 (3) Diabetes Current Visit: Yes Status: Chronic Code(s): E11.9 - TYPE 2 DIABETES MELLITUS WITHOUT COMPLICATIONS SNOMED Code(s): 38957081 (4) Neuropathy Current Visit: Yes Status: Chronic Code(s): G62.9 - POLYNEUROPATHY, UNSPECIFIED SNOMED Code(s): 843664550 (5) Pleural effusion Current Visit: Yes Status: Acute Code(s): J90 - PLEURAL EFFUSION, NOT ELSEWHERE CLASSIFIED SNOMED Code(s): 69711101 Plan: 1. Keep Pleurx catheter connected to [facility] on [facility]se[facility] while patient is in the hospital. 2. Will cap and cover Pleurx when patient is discharged. 3. Wean O2 as tolerated. Encourage incentive spirometry use 10 times every hour while awake. 4. Medical management per primary care services. 5. Pain control per current medication regimen. 6. Patient may be discharged to home with home care for Pleurx catheter drainage from our standpoint when okay with other consultants. Please let us know when the plan is for discharge so we may cap and cover his Pleurx catheter. Time with Patient: Greater than 30
[2017-10-05 13:19] LABS: Reticulocyte % 1.8 % (0.5-2.0)
[2017-10-05 16:11] VITALS: RESP 16
--- NOTE | 2017-10-05 16:37 | P.PN ---
Subjective Progress Note Date: 10/05/17 Principal diagnosis: Recurrent right-sided pleural effusion, status post thoracentesis, pneumothorax This is a 77-year-old white male with history of hypertension, hyperlipidemia, type 2 diabetes, patient was admitted to the hospital about 2 weeks ago with right-sided pleural effusion, underwent diagnostic right-sided thoracentesis by interventional radiology, the fluid was exudative in nature, and was negative for malignancy. The differential diagnoses for his fluid was either malignant pleural effusion or possibly parapneumonic pleural effusion. Patient was supposed to have follow-up with Dr. Montejo tomorrow, however the patient has been complaining of increased shortness of breath since he left the hospital. Symptoms of dyspnea on exertion. Intermittent episodes of cough, but no fever, no chills, no hemoptysis, and no chest pain. Patient was seen by his primary care physician, and follow-up chest x-ray today showed moderate right-sided pleural effusion basically the same size as it was on his last admission. Considering the effusion, I was asked to see him on consultation. Since then the patient had abnormal pancreatic cancer marker, his CA 199 was elevated. And MRI of the abdomen was ordered. Results of which are pending. Patient describes some weight loss, slightly poor appetite, no nausea no vomiting no abdominal pain, no melena, no hematemesis, no dysuria and no frequency no urgency. After I evaluated the patient, I performed a ultrasound-guided right- sided thoracentesis, I was able to drain over 1600 mL of serosanguineous fluid, the fluid was sent for different diagnostic studies. Follow-up chest x-ray showed what looked like pneumothorax but I believe it is mostly a trapped lung, and failure of the lung to fully expand after the fluid removed. Hence I chose to observe the patient, and repeat chest x-ray later this evening and tomorrow. No need to dorado for chest tube insertion at this point. Patient felt better after the thoracentesis, he had some vague chest pain immediately after the thoracentesis, but he settled down and his O2 saturation was 94% on room air his blood pressure was stable, and the patient was noted to be in no form of distress. The fluid which I drained was sent again for cytology and different diagnostic studies. Considering the fluid is serosanguineous, the differential diagnoses is again malignancy and/or parapneumonic effusion secondary to recent pneumonia. However considering his elevated marker for pancreatic cancer, malignancy is considered very likely in the differential diagnosis. And the fact that the pleural effusion reaccumulated within a short period of time, malignancy is more likely in the differential. The patient is seen again today 10/04/2017 in follow-up. He is awake and alert in no acute distress. He denies any worsening shortness of breath, cough or congestion. He is maintaining good O2 saturations in the 90s on room air. He does have some ongoing right-sided chest discomfort. He did undergo a right- sided thoracentesis by Dr. Lenz yesterday with 1600 ML's of cloudy serosanguineous fluid returned. Follow-up chest x-rays did reveal a right- sided hydropneumothorax estimated at 40%. No signs of tension. Cardiothoracic surgeons were consulted and the plan is for a right sided video-assisted thoracoscopy with placement of Pleurx catheter later this afternoon. The patient is seen again today 10/05/2017 in follow-up on the regular medical floor. He is currently sitting up in bed. He is awake and alert in no acute distress. He continues to maintain good O2 saturations in the 90s on room air. He's been afebrile. Hemodynamically stable. He did undergo a right-sided thoracoscopy with partial decortication and biopsies of the right pleura and subsequent placement of a right Pleurx catheter. Currently to [facility]. Chest x-ray does show right-sided hydropneumothorax. Pathology is pending. Cultures are pending. Objective - Vital Signs Vital signs: Vital Signs Temp 98.8 F 10/05/17 16:10 Pulse 90 10/05/17 16:10 Resp 16 10/05/17 16:10 BP 121/66 10/05/17 16:10 Pulse Ox 94 L 10/05/17 12:27 Intake & Output 10/04/17 10/05/17 10/05/17 18:59 06:59 18:59 Intake Total 650 300 500 Output Total 40 786 Balance 610 -486 500 Intake: IV 600 Intake, IV Titration 50 300 Amount Lactated Ringers 1,000 ml 300 @ 0 mls/hr IV .[facility] Rx#:[id number] ceFAZolin 2 gm In Sodium 50 Chloride 0.9% 50 ml @ 100 mls/hr IVPB ONCE ONE Rx# :[id number] Oral 500 Output: Drainage 36 Right Chest 36 Urine 750 Straight 750 Pleural Fluid 35 Estimated Blood Loss 5 Other: Voiding Method Toilet Toilet # Voids 0 - Exam GENERAL EXAM: Alert, active, comfortable in no apparent distress. HEAD: Normocephalic. EYES: Normal reaction of pupils, equal size. NOSE: Clear with pink turbinates. THROAT: No erythema or exudates. NECK: No masses, no JVD. CHEST: No chest wall deformity. Right-sided Pleurx catheter in place. LUNGS: Equal air entry with crackles in the right posterior base. Diminished. CVS: S1 and S2 normal with no audible murmur, regular rhythm. ABDOMEN: No hepatosplenomegaly, normal bowel sounds, no guarding or rigidity. SPINE: No scoliosis or deformity SKIN: No rashes CENTRAL NERVOUS SYSTEM: No focal deficits, tone is normal in all 4 extremities. EXTREMITIES: There is no peripheral edema. No clubbing, no cyanosis. Peripheral pulses are intact. - Labs CBC & Chem 7: 10/05/17 06:50 10/05/17 06:50 Labs: Abnormal Lab Results - Last 24 Hours (Table) 10/04/17 10/04/17 10/05/17 Range/Units 17:21 20:19 06:50 RBC 3.58 L (4.30-5.90) m/uL Hgb 9.9 L (13.0-17.5) gm/dL Hct 31.3 L (39.0-53.0) % Sodium (137-145) mmol/L Potassium (3.5-5.1) mmol/L Chloride (98-107) mmol/L BUN (9-20) mg/dL Creatinine (0.66-1.25) mg/dL Glucose (74-99) mg/dL POC Glucose (mg/dL) 106 H 134 H (75-99) mg/dL Calcium (8.4-10.2) mg/dL 10/05/17 10/05/17 10/05/17 Range/Units 06:50 07:09 11:24 RBC (4.30-5.90) m/uL Hgb (13.0-17.5) gm/dL Hct (39.0-53.0) % Sodium 136 L (137-145) mmol/L Potassium 5.4 H (3.5-5.1) mmol/L Chloride 97 L (98-107) mmol/L BUN 33 H (9-20) mg/dL Creatinine 1.40 H (0.66-1.25) mg/dL Glucose 163 H (74-99) mg/dL POC Glucose (mg/dL) 187 H 149 H (75-99) mg/dL Calcium 8.2 L (8.4-10.2) mg/dL Microbiology - Last 24 Hours (Table) 10/04/17 16:16 Fungal Culture - Preliminary Pleural Fluid 10/04/17 16:16 Acid Fast Bacilli Culture - Preliminary Pleural Fluid 10/04/17 16:16 Fungal Culture - Preliminary Pleural Fluid 10/04/17 16:16 Acid Fast Bacilli Culture - Preliminary Pleural Fluid Assessment and Plan Assessment: Impression: 1 recurrent right-sided exudative serosanguineous pleural effusion, differential diagnoses includes malignant pleural effusion and parapneumonic pleural effusion. However considering the elevated marker for pancreatic cancer , this is most likely malignant however tissue diagnosis is pending. Status post right-sided thoracoscopy with decortication and biopsies. Postoperative day #1. 2 Status post right sided thoracentesis, postoperative day #2 3 elevated CA 199, suspicious for pancreatic cancer, workup is pending. MRI of the abdomen revealed calcifications associated with pancreas, consider chronic pancreatitis. 4 multiple comorbidities including type 2 diabetes, hypertension, hyperlipidemia , and history of thoracentesis done on 09/24/2017. Plan: The patient was seen and evaluated by Dr. Lenz. Chest x-ray was reviewed. Pleurx catheter in place. Pathology is pending. We will continue to follow and make further recommendations based on his clinical status. I, the cosigning physician, performed a history & physical examination of the patient. Lungs sounds with crackles in the right posterior base, diminished. Maintaining good O2 saturations in the 90s on room air. I discussed the assessment and plan of care with my nurse practitioner, Jessica Johnson. I attest to the above note as dictated by her.
[2017-10-05 17:06] LABS: Glucose,Whole Blood 155 mg/dL (75-99)
[2017-10-05] MEDS ORDERED: traMADol 50 MG TAB PO PRN (19:09)
--- NOTE | 2017-10-05 19:09 | P.PN ---
Subjective Progress Note Date: 10/05/17 Progress note being dictated for Dr. Garcia. Interval history: This is a 78-year-old gentleman admitted with recurrent right- sided pleural effusion, status post thoracentesis, pneumothorax. Underwent right-sided thoracoscopy, partial decortication ,biopsies obtained and placement of right Pleurx catheter. Surgical site discomfort. Tolerated procedure well. Chest x-ray reports right-sided hydropneumothorax, chest tube in place. Cultures/pathology pending. Worsening renal function. Hyperkalemic. Objective - Vital Signs Vital signs: Vital Signs Temp 98.8 F 10/05/17 16:10 Pulse 90 10/05/17 16:10 Resp 16 10/05/17 16:10 BP 121/66 10/05/17 16:10 Pulse Ox 94 L 10/05/17 12:27 Intake & Output 10/04/17 10/05/17 10/05/17 18:59 06:59 18:59 Intake Total 650 300 500 Output Total 40 786 Balance 610 -486 500 Intake: IV 600 Intake, IV Titration 50 300 Amount Lactated Ringers 1,000 ml 300 @ 0 mls/hr IV .[facility] Rx#:[id number] ceFAZolin 2 gm In Sodium 50 Chloride 0.9% 50 ml @ 100 mls/hr IVPB ONCE ONE Rx# :[id number] Oral 500 Output: Drainage 36 Right Chest 36 Urine 750 Straight 750 Pleural Fluid 35 Estimated Blood Loss 5 Other: Voiding Method Toilet Toilet Toilet # Voids 0 - Exam PHYSICAL EXAM: VITAL SIGNS: As above GENERAL: Sitting up in bed, no acute distress HEENT: Conjunctivae normal. eyes normal. Oral mucosa moist NECK: No JVD. No thyroid enlargement. No LNs CARDIOVASCULAR: S1, S2 muffled. No murmur RESPIRATION: Breath sounds diminished in the bases, right basilar crackles. Right sided Pleurx catheter present. ABDOMEN: Soft, nontender . No guarding. no masses palpable. No ascites, No hepatosplenomegaly.Bowel sounds heard. LEGS: No edema. no swelling PSYCHIATRY: Alert and oriented -3, mood and affect normal. NERVOUS SYSTEM: Cranial N 2-12 grossly normal. Moves all 4 limbs. Diffuse weakness No focal deficits. No sensory deficit. Skin: no ulcer no rash - Labs CBC & Chem 7: 10/05/17 06:50 10/05/17 06:50 Labs: Abnormal Lab Results - Last 24 Hours (Table) 10/04/17 10/05/17 10/05/17 Range/Units 20:19 06:50 06:50 RBC 3.58 L (4.30-5.90) m/uL Hgb 9.9 L (13.0-17.5) gm/dL Hct 31.3 L (39.0-53.0) % Sodium 136 L (137-145) mmol/L Potassium 5.4 H (3.5-5.1) mmol/L Chloride 97 L (98-107) mmol/L BUN 33 H (9-20) mg/dL Creatinine 1.40 H (0.66-1.25) mg/dL Glucose 163 H (74-99) mg/dL POC Glucose (mg/dL) 134 H (75-99) mg/dL Calcium 8.2 L (8.4-10.2) mg/dL 10/05/17 10/05/17 10/05/17 Range/Units 07:09 11:24 17:04 RBC (4.30-5.90) m/uL Hgb (13.0-17.5) gm/dL Hct (39.0-53.0) % Sodium (137-145) mmol/L Potassium (3.5-5.1) mmol/L Chloride (98-107) mmol/L BUN (9-20) mg/dL Creatinine (0.66-1.25) mg/dL Glucose (74-99) mg/dL POC Glucose (mg/dL) 187 H 149 H 155 H (75-99) mg/dL Calcium (8.4-10.2) mg/dL Microbiology - Last 24 Hours (Table) 10/04/17 16:16 Fungal Culture - Preliminary Pleural Fluid 10/04/17 16:16 Acid Fast Bacilli Culture - Preliminary Pleural Fluid 10/04/17 16:16 Fungal Culture - Preliminary Pleural Fluid 10/04/17 16:16 Acid Fast Bacilli Culture - Preliminary Pleural Fluid Assessment and Plan Assessment: 1 recurrent right-sided exudative serosanguineous pleural effusion, differential diagnoses includes malignant pleural effusion and parapneumonic pleural effusion. Considering the elevated marker for pancreatic cancer, suspect malignant, tissue diagnosis pending. Status post right-sided thoracoscopy with decortication and biopsies. 2 Status post right sided thoracentesis,history of thoracentesis done on 2017. 3 elevated CA 199, suspicious for pancreatic cancer, workup is pending. MRI of the abdomen revealed calcifications associated with pancreas, consider chronic pancreatitis. 4.diabetes mellitus type 2 5. Hypertension 6. Hyperlipidemia 7. Neuropathy 8. Acute renal failure, medication induced. Nephrotoxic agents discontinued. Plan: Continue on current medication regime ,monitoring and symptomatic treatment. Aggressive pulmonary toileting with incentive spirometer reinforced. Discharge planning in progress for today, case management arranging home care , pulmonary clearance pending. Patient now complaining of urinary retention, bladder scan ordered. Close monitoring of electrolytes and renal function with repeat labs ordered for a.m. nephrotoxic agents, Lasix discontinued. The impression and plan of care has been dictated as directed. : I performed a history and examination of this patient, discussed the same with the dictator. I agree with the dictator's note ,documented as a scribe. Any additional findings or plans will be noted.
[2017-10-05] MEDS: ACETAMINOPHEN TAB 325 MG TAB PO PRN (19:59)
[2017-10-05] MEDS: TAMSULOSIN 0.4 MG CAP.ER.24H PO SCH (20:00)
--- NOTE | 2017-10-05 20:23 | P.CONS ---
History of Present Illness - Reason for Consult Consult date: 10/05/17 Increased Ca19-9 Requesting physician: Yani Cheng - Chief Complaint Shortness of Breath - History of Present Illness Mr. Hand is a 77-year-old male patient who originally was evaluated by his primary care physician for complaints of persistent and increasing shortness of breath. He was recently hospitalized with pleural effusion, at that time he was evaluated by pulmonology and a thoracentesis was unsuccessful, although fluid was sent for review and negative malignant cells. CT Chest revealed Large Right side pleural effusion, calcifications pancreatic tail. After his hospitalization earlier this month the shortness of breath persisted so he was sent for further evaluation. Cardiothoracic surgery evaluated and a Right thoracoscopy with biopsy right lower lobe and pleura was obtained, this is currently pending. 10/03/17 1600ml of pleural fluids was aspirated. He has a known history of ETOH abuse, although is a lifelong non-smoker. Familial cancers include father who from pancreatic carcinoma. CA19-9 was elevated at 2360.4. An MRI of the abdomen was completed and reviewed and re- demonstrated focal calcifications at tail of pancreas and interdeterminate enhancing lesion in liver He does admit to some weight loss, slightly poor appetite, unable to provide exact amount of weight loss. He denies nausea, vomiting, abdominal pain, diarrhea, bloody stools. Review of Systems A 14 point review of systems assessed and completed and all negative except HPI. Past Medical History Past Medical History: Diabetes Mellitus, GERD/Reflux, Hyperlipidemia, Hypertension Additional Past Medical History / Comment(s): neuropathy, past gout, lt knee bruise from past fall, "see's a retina specialist" History of Any Multi-Drug Resistant Organisms: None Reported Past Surgical History: Ablation, Adenoidectomy, Appendectomy, Joint Replacement , Tonsillectomy Additional Past Surgical History / Comment(s): rt shoulder replaced, sinus surgery, lt hand finger sx d/t work injury, cataracts Past Anesthesia/Blood Transfusion Reactions: No Reported Reaction Past Psychological History: No Psychological Hx Reported Smoking Status: Never smoker Past Alcohol Use History: Rare Past Drug Use History: None Reported - Past Family History Mother Family Medical History: No Reported History Additional Family Medical History / Comment(s): from natural causes Father Family Medical History: Cancer Additional Family Medical History / Comment(s): pancreatic cancer Medications and Allergies Home Medications Medication Instructions Recorded Confirmed Type Atorvastatin Calcium [Lipitor] 10 mg PO DAILY 09/21/17 10/03/17 History Gabapentin 800 mg PO TID 09/21/17 10/03/17 History Glimepiride [Amaryl] 2 mg PO BID 09/21/17 10/03/17 History Insulin Glargine,Hum.rec.anlog 70 unit SQ DAILY 09/21/17 10/03/17 History [Lantus Solostar] Insulin Lispro [humaLOG Kwikpen] See Protocol SQ ACHS 09/21/17 10/03/17 History Lansoprazole 30 mg PO DAILY 09/21/17 10/03/17 History Naproxen Sodium [Aleve] 440 mg PO Q12HR PRN 09/21/17 10/03/17 History Pioglitazone [Actos] 30 mg PO DAILY 09/21/17 10/03/17 History Ramipril 2.5 mg PO DAILY 09/21/17 10/03/17 History metFORMIN HCL [Glucophage] 850 mg PO TID 09/21/17 10/03/17 History Melatonin 5 mg PO HS tablet 09/24/17 10/03/17 Rx Latanoprost [Xalatan 0.005%] 1 drop BOTH EYES HS 10/03/17 10/03/17 History Allergies Allergy/AdvReac Type Severity Reaction Status Date / Time Sulfa (Sulfonamide Allergy Unknown Verified 10/03/17 12:51 Antibiotics) Childhood Physical Exam Vitals: Vital Signs Temp Pulse Pulse Resp BP BP Pulse Ox 10/05/17 12:27 97.9 F 90 18 131/69 94 L 10/05/17 08:15 97.9 F 92 16 123/65 94 L 10/04/17 21:00 97.4 F L 85 18 143/68 98 10/04/17 18:21 94 96 H 152/84 96 10/04/17 17:45 97.1 F L 94 16 154/74 98 10/04/17 17:18 98 16 145/76 100 10/04/17 17:03 101 H 18 156/78 100 10/04/17 16:48 110 H 20 175/87 96 10/04/17 16:33 97.6 F 105 H 16 173/85 96 10/04/17 14:28 98.2 F 94 16 139/100 94 L Intake and Output 10/04/17 10/05/17 10/05/17 22:59 06:59 14:59 Intake Total 800 Output Total 40 786 Balance 760 -786 Intake: IV 500 Intake, IV Titration 300 Amount Lactated Ringers 1,000 ml 300 @ 0 mls/hr IV .[employer] ONE Rx#:[id number] Output: Drainage 36 Right Chest 36 Urine 750 Straight 750 Pleural Fluid 35 Estimated Blood Loss 5 Other: Voiding Method Toilet # Voids 0 GENERAL EXAM: Alert, active,no apparent distress. HEAD: NC, NT EYES: Normal reaction of pupils, equal size. NECK: supple, midline CHEST: No chest wall deformity. Right-sided chest discomfort. LUNGS: Equal air entry with crackles in the right posterior base. Diminished. CVS: S1 and S2 normal with no audible murmur, regular rhythm. ABDOMEN: No hepatosplenomegaly, normal bowel sounds, no guarding or rigidity. SKIN: No rashes EXTREMITIES: There is no peripheral edema. Results CBC & Chem 7: 10/05/17 06:50 10/05/17 06:50 Labs: Abnormal Lab Results - Last 24 Hours (Table) 10/04/17 10/04/17 10/05/17 Range/Units 17:21 20:19 06:50 RBC 3.58 L (4.30-5.90) m/uL Hgb 9.9 L (13.0-17.5) gm/dL Hct 31.3 L (39.0-53.0) % Sodium (137-145) mmol/L Potassium (3.5-5.1) mmol/L Chloride (98-107) mmol/L BUN (9-20) mg/dL Creatinine (0.66-1.25) mg/dL Glucose (74-99) mg/dL POC Glucose (mg/dL) 106 H 134 H (75-99) mg/dL Calcium (8.4-10.2) mg/dL 10/05/17 10/05/17 10/05/17 Range/Units 06:50 07:09 11:24 RBC (4.30-5.90) m/uL Hgb (13.0-17.5) gm/dL Hct (39.0-53.0) % Sodium 136 L (137-145) mmol/L Potassium 5.4 H (3.5-5.1) mmol/L Chloride 97 L (98-107) mmol/L BUN 33 H (9-20) mg/dL Creatinine 1.40 H (0.66-1.25) mg/dL Glucose 163 H (74-99) mg/dL POC Glucose (mg/dL) 187 H 149 H (75-99) mg/dL Calcium 8.2 L (8.4-10.2) mg/dL Microbiology - Last 24 Hours (Table) 10/04/17 16:16 Fungal Culture - Preliminary Pleural Fluid 10/04/17 16:16 Acid Fast Bacilli Culture - Preliminary Pleural Fluid 10/04/17 16:16 Fungal Culture - Preliminary Pleural Fluid 10/04/17 16:16 Acid Fast Bacilli Culture - Preliminary Pleural Fluid CT scan - chest: report reviewed MRI - abdomen: report reviewed Assessment and Plan Plan: Assessment and Recommendations: 1. Recurrent Right Pleural Effusion: - Status Post Thoracotomy with pleurex drain placement - Biopsy from RLL and Pleura are currently Pending, await results 2. Elevated Ca-19, Chronic appearing pancreatitis with foci calcifications on pancreas tail - Await Pathology to result from thoracotomy, if non-diagnostic further evaluation and tissue biopsy maybe resonable via MRCP versus EUS although CA19- 9 is nonspecific and sensistive test. would likely consider rechecking after acute inflammation and further imaging of abdomen prior to invasive procedures towards what appears to be calcifications or chronic pancreatitis. - Discuss with GI if non-diagnstic results are found - CT Abdomen and Pelvis for Full Staging (Await recovery of creatinine, mildly elevated), prior MRI abdomen and CT Chest was reviewed 3. Normocytic Anemia - Likely secondary to chronic disease (liver decompensation from number 3), malignancy, versus other - Will order anemia work-up.
--- NOTE | 2017-10-05 20:41 | P.PN ---
Subjective Progress Note Date: 10/05/17 Principal diagnosis: Recurrent pleural effusion, elevated CA 19-9 Status post Pleur-X placement and thoracostomy with biopsy. The patient is reporting feeling poor overall. Objective - Vital Signs Vital signs: Vital Signs Temp 100.4 F H 10/05/17 20:02 Pulse 96 10/05/17 20:02 Resp 16 10/05/17 20:02 BP 124/69 10/05/17 20:02 Pulse Ox 94 L 10/05/17 20:02 Intake & Output 10/05/17 10/05/17 10/06/17 06:59 18:59 06:59 Intake Total 300 500 Output Total 786 100 Balance -486 500 -100 Intake: Intake, IV Titration 300 Amount Lactated Ringers 1,000 ml 300 @ 0 mls/hr IV .[employer] ONE Rx#:[id number] Oral 500 Output: Drainage 36 Right Chest 36 Urine 750 100 Straight 750 Other: Voiding Method Toilet Toilet # Voids 0 - Exam On physical examination, patient appears in no apparent distress. HEAD: Normocephalic, atraumatic. EYES: No scleral icterus. No conjunctival injection. MOUTH: No lesions, tongue midline. NECK: Trachea midline, no gross abnormalities. CHEST: Chest tube placement. HEART: Regular rate and rhythm. EXTREMITIES: No pedal edema. SKIN: No rashes, no jaundice. - Labs CBC & Chem 7: 10/05/17 06:50 10/05/17 06:50 Labs: Abnormal Lab Results - Last 24 Hours (Table) 10/05/17 10/05/17 10/05/17 Range/Units 06:50 06:50 07:09 RBC 3.58 L (4.30-5.90) m/uL Hgb 9.9 L (13.0-17.5) gm/dL Hct 31.3 L (39.0-53.0) % Sodium 136 L (137-145) mmol/L Potassium 5.4 H (3.5-5.1) mmol/L Chloride 97 L (98-107) mmol/L BUN 33 H (9-20) mg/dL Creatinine 1.40 H (0.66-1.25) mg/dL Glucose 163 H (74-99) mg/dL POC Glucose (mg/dL) 187 H (75-99) mg/dL Calcium 8.2 L (8.4-10.2) mg/dL 10/05/17 10/05/17 Range/Units 11:24 17:04 RBC (4.30-5.90) m/uL Hgb (13.0-17.5) gm/dL Hct (39.0-53.0) % Sodium (137-145) mmol/L Potassium (3.5-5.1) mmol/L Chloride (98-107) mmol/L BUN (9-20) mg/dL Creatinine (0.66-1.25) mg/dL Glucose (74-99) mg/dL POC Glucose (mg/dL) 149 H 155 H (75-99) mg/dL Calcium (8.4-10.2) mg/dL Microbiology - Last 24 Hours (Table) 10/04/17 16:16 Acid Fast Bacilli Smear - Final Pleural Fluid Acid Fast Bacilli Culture - Preliminary 10/04/17 16:16 Acid Fast Bacilli Smear - Final Pleural Fluid Acid Fast Bacilli Culture - Preliminary 10/04/17 16:16 Fungal Culture - Preliminary Pleural Fluid 10/04/17 16:16 Fungal Culture - Preliminary Pleural Fluid Assessment and Plan (1) Pleural effusion Narrative/Plan: Pleural effusion setting of foci seen in the liver and atrophic illness with concern for underlying malignancy. Await studies from thoracentesis. Current Visit: Yes Status: Acute Code(s): J90 - PLEURAL EFFUSION, NOT ELSEWHERE CLASSIFIED SNOMED Code(s): 13048563 (2) Elevated CA 19-9 level Narrative/Plan: Non specific. No distinct pancreatic mass seen on imaging. Current Visit: Yes Status: Acute Code(s): R97.8 - OTHER ABNORMAL TUMOR MARKERS SNOMED Code(s): 139013127 Plan: Supportive care Status post lung biopsy and Pleur X catheter placement Given findings of MRI a repeat scan in short-term follow-up with repeat imaging or targeted biopsy is recommended. The oncology service has been consulted and they plan on CT with contrast of the chest/abdomen/pelvis when kidney injury improves Evidence of chronic pancreatitis with atrophy of the pancreas seen on MRI without discrete mass noted, if concern is for pancreatic malignancy EUS as an outpatient can be considered. We'll follow results of future computed tomography scan Thank you for allowing us to participate in the care of this patient we will continue to follow.
[2017-10-05 20:42] LABS: Glucose,Whole Blood 95 mg/dL (75-99)
[2017-10-05 20:51] LABS: Folate, Serum 23.6 ng/mL; Iron Saturation 6.36 (15.00-50.00); Protein, Total 6.6 g/dL (6.2-8.2)
[2017-10-05] MEDS: LATANOPROST 0.005% OPHTH DROPS 2.5 ML BTL BOTH EYES SCH (22:12)
[2017-10-05] MEDS: LORATADINE 10 MG TAB PO SCH (22:12)
[2017-10-05] MEDS: MELATONIN 5 MG TABLET PO SCH (22:13)
[2017-10-06 06:24] VITALS: BP 129/61; PULSE 90; TEMP 98.2
[2017-10-06 06:58] LABS: Glucose,Whole Blood 59 mg/dL (75-99)
[2017-10-06] MEDS: INSULIN ASPART 100 UNIT/ML 1 ML 10 ML VIAL SQ SCH ×2 (07:16→12:44)
[2017-10-06 07:19] LABS: Basophils % (A) 0 %; Eosinophils # (A) 0.2 k/uL (0-0.7); Eosinophils % (A) 3 %; HCT 30.7 % (39.0-53.0); HGB 10.1 gm/dL (13.0-17.5); Lymphocytes # (A) 0.8 k/uL (1.0-4.8); Lymphocytes % (A) 11 %; MCH 28.6 pg (25.0-35.0); MCV 86.6 fL (80.0-100.0); Mean Platelet Volume 6.5; Monocytes # (A) 0.5 k/uL (0-1.0); Monocytes % (A) 6 %; Neutrophils # (A) 5.9 k/uL (1.3-7.7); Neutrophils % (A) 78 %; Platelet Count 319 k/uL (150-450); RBC 3.55 m/uL (4.30-5.90); RDW 13.6 % (11.5-15.5); WBC 7.6 k/uL (3.8-10.6)
[2017-10-06 07:56] LABS: Glucose,Whole Blood 104 mg/dL (75-99)
[2017-10-06] MEDS: PANTOPRAZOLE 40 MG TABLET PO SCH (08:01)
[2017-10-06] MEDS: GLIMEPIRIDE 2 MG TAB PO SCH (08:01)
[2017-10-06] MEDS: GABAPENTIN 400 MG CAP PO SCH (08:02)
[2017-10-06] MEDS: ATORVASTATIN 10 MG TAB PO SCH (08:02)
[2017-10-06] MEDS: TAMSULOSIN 0.4 MG CAP.ER.24H PO SCH (08:02)
[2017-10-06] MEDS: INSULIN DETEMIR 100 UNIT/ML 10 ML VIAL SQ SCH (08:04)
[2017-10-06 08:16] LABS: Calcium 8.4 mg/dL (8.4-10.2); Potassium 4.3 mmol/L (3.5-5.1)
--- NOTE | 2017-10-06 09:57 | PN ---
PROGRESS NOTE DATE OF SERVICE: October 06, 2017 REQUESTING PHYSICIAN: The patient is a 77-year-old pleasant white male admitted to hospital with shortness of breath and right recurrent pleural effusion as well as elevated CA 99 around 1999. The patient was evaluated by Dr. Garcia and is status post thoracoscopy with partial decortication of the right lung, biopsy of the right lobe of the right lower lobe, biopsy of the right pleura and placement of right PleurX catheter by Dr. Hoang on October 04, 2017. Currently, he has some drainage from the right lung. Overall, he is feeling much better. Biopsies from these are still pending at the time of this dictation. We were evaluated for elevated CA [address] of the abdomen done recently showed evidence of atrophic appearing pancreas with calcifications in the tail of the pancreas with no obvious mass noted. The patient has no prior history of pancreatic pancreatitis or family history of pancreatic malignancy. PHYSICAL EXAMINATION: He appears comfortable. No apparent distress. VITAL SIGNS: Stable. Blood pressure is 121/66, pulse rate 90, temperature 98.9. HEENT examination unremarkable. Conjunctivae pink. Sclerae anicteric. Oral cavity no lesions. Neck no jugular venous distention or lymph node enlargement. Chest was clear to auscultation. HEART: Regular rate and rhythm. ABDOMEN: Soft. Bowel sounds are positive. No organomegaly. Extremities: No pedal edema. His Johnson catheter in place and right sided PleurX catheter on the right side. LABS: From today WBC 7.6, hemoglobin 10.5, platelets are normal. Basic metabolic panel is within normal limits. BUN is 37, creatinine 1.45. IMPRESSION: 1. Recurrent right-sided pleural effusion. As mentioned above, he is status post right thoracoscopy with partial decortication, biopsy of the right lower lobe and PleurX catheter placement 2 days ago. Biopsies which are still pending at the time of this dictation. 2. Elevated CA 99 level in this patient who is otherwise asymptomatic and does not have any abdominal symptoms. Recent imaging studies and CT scan showed no pancreatic mass. However, there was some calcifications in the pancreas. Clinically does not have any evidence of pancreatitis. RECOMMENDATIONS: 1. Continue with symptomatic and supportive care. 2. We will await biopsy results from recent thoracoscopy/lung biopsy. 3. I had a lengthy discussion with the patient as well as the family at the bedside and if there the pathology is negative, with no other conclusive answers, we will proceed with further investigation of the pancreas with endoscopic ultrasound on an outpatient basis. At this time, we will continue to follow him closely during his hospital stay. Thank you for this consultation. JOMAR / JAYNE: [id number] /
--- NOTE | 2017-10-06 10:39 | P.PN ---
Subjective Progress Note Date: 10/06/17 Principal diagnosis: Recurrent right hemothorax status post thoracentesis, increasing right pneumothorax. Previous medical history of hypertension, hyperlipidemia, diabetes, neuropathy. POD #2 right thoracoscopy, partial decortication right lung, biopsy right lower lobe, biopsy right pleura, placement of right Pleurx catheter. Patient is lying in bed with his elevated. He is in no acute distress. He is complaining of feeling like he has lack of energy. Denies any complaints of pain or shortness of breath. Encouraged patient to start ambulating in the hallway with assistance. Discussed her of the Pleurx catheter with the patient and his . Questions answered to the best of my ability. Objective - Vital Signs Vital signs: Vital Signs Temp 98.2 F 10/06/17 05:00 Pulse 90 10/06/17 05:00 Resp 16 10/06/17 05:00 BP 129/61 10/06/17 05:00 Pulse Ox 91 L 10/06/17 05:00 Intake & Output 10/05/17 10/06/17 10/06/17 18:59 06:59 18:59 Intake Total 500 100 Output Total 730 Balance 500 -630 Intake: Oral 500 100 Output: Drainage 30 Right Chest 30 Urine 700 Straight 600 Other: Voiding Method Toilet Toilet # Voids 0 - Constitutional General appearance: Present: cooperative, no acute distress - Respiratory Details: Lung sounds are essentially clear throughout, diminished to his right lower lobe. Respirations are symmetrical and nonlabored. Oxygen saturation are 92% on room air. He is achieving 1000 mL on his incentive spirometry. Right chest Pleurx catheter in place to bedside Floral drainage system. Draining thin serosanguineous drainage. 200 mL output in the last 24 hours. No air leak present. He remains on water seal. - Cardiovascular Details: Regular rhythm and rate. S1 and S2 present, negative for S3, gallop or murmur. No edema present. - Gastrointestinal Gastrointestinal Comment(s): Abdomen is soft, nontender and nondistended. Active bowel sounds to all 4 abdominal quadrants. Tolerating oral intake. - Genitourinary Genitourinary Comment(s): Johnson catheter for accurate I&O. Draining clear veronica urine. - Integumentary Integumentary Comment(s): Skin is warm and dry. No clubbing or cyanosis present. Right chest incisions clean dry and approximated. No drainage or redness present. Pleurx catheter dressing clean dry and intact. - Neurologic Neurologic: Present: CNII-XII intact - Musculoskeletal Musculoskeletal: Present: gait normal, strength equal bilaterally - Psychiatric Psychiatric: Present: A&O x's 3, appropriate affect, intact judgment & insight - Labs CBC & Chem 7: 10/06/17 06:52 10/06/17 06:52 Labs: Abnormal Lab Results - Last 24 Hours (Table) 10/05/17 10/05/17 10/05/17 Range/Units 06:50 11:24 17:04 RBC (4.30-5.90) m/uL Hgb (13.0-17.5) gm/dL Hct (39.0-53.0) % Lymphocytes # (1.0-4.8) k/uL Sodium (137-145) mmol/L BUN (9-20) mg/dL Creatinine (0.66-1.25) mg/dL Glucose (74-99) mg/dL POC Glucose (mg/dL) 149 H 155 H (75-99) mg/dL Iron 18 L (65-175) ug/dL Iron Saturation 6.36 L (15.00-50.00) 10/06/17 10/06/17 10/06/17 Range/Units 06:52 06:52 06:56 RBC 3.55 L (4.30-5.90) m/uL Hgb 10.1 L (13.0-17.5) gm/dL Hct 30.7 L (39.0-53.0) % Lymphocytes # 0.8 L (1.0-4.8) k/uL Sodium 136 L (137-145) mmol/L BUN 37 H (9-20) mg/dL Creatinine 1.45 H (0.66-1.25) mg/dL Glucose 46 L* (74-99) mg/dL POC Glucose (mg/dL) 59 L (75-99) mg/dL Iron (65-175) ug/dL Iron Saturation (15.00-50.00) 10/06/17 Range/Units 07:52 RBC (4.30-5.90) m/uL Hgb (13.0-17.5) gm/dL Hct (39.0-53.0) % Lymphocytes # (1.0-4.8) k/uL Sodium (137-145) mmol/L BUN (9-20) mg/dL Creatinine (0.66-1.25) mg/dL Glucose (74-99) mg/dL POC Glucose (mg/dL) 104 H (75-99) mg/dL Iron (65-175) ug/dL Iron Saturation (15.00-50.00) Microbiology - Last 24 Hours (Table) 10/04/17 16:16 Acid Fast Bacilli Smear - Final Pleural Fluid Acid Fast Bacilli Culture - Preliminary 10/04/17 16:16 Acid Fast Bacilli Smear - Final Pleural Fluid Acid Fast Bacilli Culture - Preliminary Assessment and Plan (1) Pleural effusion Current Visit: Yes Status: Acute Code(s): J90 - PLEURAL EFFUSION, NOT ELSEWHERE CLASSIFIED SNOMED Code(s): 59800699 (2) Diabetes Current Visit: Yes Status: Chronic Code(s): E11.9 - TYPE 2 DIABETES MELLITUS WITHOUT COMPLICATIONS SNOMED Code(s): 32491415 (3) Hyperlipidemia Current Visit: Yes Status: Chronic Code(s): E78.5 - HYPERLIPIDEMIA, UNSPECIFIED SNOMED Code(s): 24318780 (4) Hypertension Current Visit: Yes Status: Chronic Code(s): I10 - ESSENTIAL (PRIMARY) HYPERTENSION SNOMED Code(s): 40504938 (5) Neuropathy Current Visit: Yes Status: Chronic Code(s): G62.9 - POLYNEUROPATHY, UNSPECIFIED SNOMED Code(s): 270975151 Plan: 1. Keep Pleurx catheter connected to [facility] on [address] while patient is in the hospital. 2. Will cap and cover Pleurx when the patient is discharged home. 3. Wean O2 as tolerated. Encourage incentive spirometry use 10 times every hour while awake. 4. Medical management per primary care services. 5. Pain control per current pain medication regimen. 6. The patient may be discharged to home with home care for Pleurx catheter drainage kit from cardiothoracic surgery standpoint when okay with other consultants and primary care. Please let us know when the plan is for discharge so we may cap and cover his Pleurx catheter. 7. Encourage increasing activity, sitting up to bedside chair for all meals and ambulate in the hallway as tolerated. 8. More recommendations to follow based on patient's clinical course. Time with Patient: Greater than 30
--- NOTE | 2017-10-06 11:41 | P.PN ---
Subjective Progress Note Date: 10/06/17 Principal diagnosis: Recurrent right-sided pleural effusion, status post thoracentesis, pneumothorax This is a 77-year-old white male with history of hypertension, hyperlipidemia, type 2 diabetes, patient was admitted to the hospital about 2 weeks ago with right-sided pleural effusion, underwent diagnostic right-sided thoracentesis by interventional radiology, the fluid was exudative in nature, and was negative for malignancy. The differential diagnoses for his fluid was either malignant pleural effusion or possibly parapneumonic pleural effusion. Patient was supposed to have follow-up with Dr. Montejo tomorrow, however the patient has been complaining of increased shortness of breath since he left the hospital. Symptoms of dyspnea on exertion. Intermittent episodes of cough, but no fever, no chills, no hemoptysis, and no chest pain. Patient was seen by his primary care physician, and follow-up chest x-ray today showed moderate right-sided pleural effusion basically the same size as it was on his last admission. Considering the effusion, I was asked to see him on consultation. Since then the patient had abnormal pancreatic cancer marker, his CA 199 was elevated. And MRI of the abdomen was ordered. Results of which are pending. Patient describes some weight loss, slightly poor appetite, no nausea no vomiting no abdominal pain, no melena, no hematemesis, no dysuria and no frequency no urgency. After I evaluated the patient, I performed a ultrasound-guided right- sided thoracentesis, I was able to drain over 1600 mL of serosanguineous fluid, the fluid was sent for different diagnostic studies. Follow-up chest x-ray showed what looked like pneumothorax but I believe it is mostly a trapped lung, and failure of the lung to fully expand after the fluid removed. Hence I chose to observe the patient, and repeat chest x-ray later this evening and tomorrow. No need to dorado for chest tube insertion at this point. Patient felt better after the thoracentesis, he had some vague chest pain immediately after the thoracentesis, but he settled down and his O2 saturation was 94% on room air his blood pressure was stable, and the patient was noted to be in no form of distress. The fluid which I drained was sent again for cytology and different diagnostic studies. Considering the fluid is serosanguineous, the differential diagnoses is again malignancy and/or parapneumonic effusion secondary to recent pneumonia. However considering his elevated marker for pancreatic cancer, malignancy is considered very likely in the differential diagnosis. And the fact that the pleural effusion reaccumulated within a short period of time, malignancy is more likely in the differential. The patient is seen again today 10/04/2017 in follow-up. He is awake and alert in no acute distress. He denies any worsening shortness of breath, cough or congestion. He is maintaining good O2 saturations in the 90s on room air. He does have some ongoing right-sided chest discomfort. He did undergo a right- sided thoracentesis by Dr. Lenz yesterday with 1600 ML's of cloudy serosanguineous fluid returned. Follow-up chest x-rays did reveal a right- sided hydropneumothorax estimated at 40%. No signs of tension. Cardiothoracic surgeons were consulted and the plan is for a right sided video-assisted thoracoscopy with placement of Pleurx catheter later this afternoon. The patient is seen again today 10/05/2017 in follow-up on the regular medical floor. He is currently sitting up in bed. He is awake and alert in no acute distress. He continues to maintain good O2 saturations in the 90s on room air. He's been afebrile. Hemodynamically stable. He did undergo a right-sided thoracoscopy with partial decortication and biopsies of the right pleura and subsequent placement of a right Pleurx catheter. Currently to [facility]. Chest x-ray does show right-sided hydropneumothorax. Pathology is pending. Cultures are pending. Patient is seen again today 10/06/2017 in follow-up on the regular medical floor. He is awake and alert in no acute distress. He denies any worsening shortness of breath, cough or congestion. His pain is adequately controlled. He continues to maintain O2 saturations in the 90s on room air. He did have a spiking temperature 100.4 last evening. Currently afebrile. Cultures and pathology are still pending. Chest x-ray reviewed. White count 7.6. Hemoglobin 10.1. Creatinine 1.45. Objective - Vital Signs Vital signs: Vital Signs Temp 98.2 F 10/06/17 05:00 Pulse 90 10/06/17 05:00 Resp 16 10/06/17 08:00 BP 129/61 10/06/17 05:00 Pulse Ox 91 L 10/06/17 05:00 Intake & Output 10/05/17 10/06/17 10/06/17 18:59 06:59 18:59 Intake Total 500 100 240 Output Total 730 Balance 500 -630 240 Weight 93.44 kg Intake: Oral 500 100 240 Output: Drainage 30 Right Chest 30 Urine 700 Straight 600 Other: Voiding Method Toilet Toilet Toilet # Voids 0 - Exam GENERAL EXAM: Alert, comfortable in no apparent distress. HEAD: Normocephalic. EYES: Normal reaction of pupils, equal size. NOSE: Clear with pink turbinates. THROAT: No erythema or exudates. NECK: No masses, no JVD. CHEST: No chest wall deformity. Right-sided Pleurx catheter in place. LUNGS: Equal air entry with crackles in the right posterior base. Diminished. CVS: S1 and S2 normal with no audible murmur, regular rhythm. ABDOMEN: No hepatosplenomegaly, normal bowel sounds, no guarding or rigidity. SPINE: No scoliosis or deformity SKIN: No rashes CENTRAL NERVOUS SYSTEM: No focal deficits, tone is normal in all 4 extremities. EXTREMITIES: There is no peripheral edema. No clubbing, no cyanosis. Peripheral pulses are intact. - Labs CBC & Chem 7: 10/06/17 06:52 10/06/17 06:52 Labs: Abnormal Lab Results - Last 24 Hours (Table) 10/05/17 10/05/17 10/06/17 Range/Units 06:50 17:04 06:52 RBC 3.55 L (4.30-5.90) m/uL Hgb 10.1 L (13.0-17.5) gm/dL Hct 30.7 L (39.0-53.0) % Lymphocytes # 0.8 L (1.0-4.8) k/uL Sodium (137-145) mmol/L BUN (9-20) mg/dL Creatinine (0.66-1.25) mg/dL Glucose (74-99) mg/dL POC Glucose (mg/dL) 155 H (75-99) mg/dL Iron 18 L (65-175) ug/dL Iron Saturation 6.36 L (15.00-50.00) 10/06/17 10/06/17 10/06/17 Range/Units 06:52 06:56 07:52 RBC (4.30-5.90) m/uL Hgb (13.0-17.5) gm/dL Hct (39.0-53.0) % Lymphocytes # (1.0-4.8) k/uL Sodium 136 L (137-145) mmol/L BUN 37 H (9-20) mg/dL Creatinine 1.45 H (0.66-1.25) mg/dL Glucose 46 L* (74-99) mg/dL POC Glucose (mg/dL) 59 L 104 H (75-99) mg/dL Iron (65-175) ug/dL Iron Saturation (15.00-50.00) Microbiology - Last 24 Hours (Table) 10/04/17 16:16 Acid Fast Bacilli Smear - Final Pleural Fluid Acid Fast Bacilli Culture - Preliminary 10/04/17 16:16 Acid Fast Bacilli Smear - Final Pleural Fluid Acid Fast Bacilli Culture - Preliminary Assessment and Plan Assessment: Impression: 1 recurrent right-sided exudative serosanguineous pleural effusion, differential diagnoses includes malignant pleural effusion and parapneumonic pleural effusion. However considering the elevated marker for pancreatic cancer , this is most likely malignant however tissue diagnosis is pending. Status post right-sided thoracoscopy with decortication and biopsies. Postoperative day #2. 2 Status post right sided thoracentesis, postoperative day #3 3 elevated CA 199, suspicious for pancreatic cancer, workup is pending. MRI of the abdomen revealed calcifications associated with pancreas, consider chronic pancreatitis. 4 multiple comorbidities including type 2 diabetes, hypertension, hyperlipidemia , and history of thoracentesis done on 09/24/2017. Plan: The patient was seen and evaluated by Dr. Lenz. Chest x-ray was reviewed. Pleurx catheter in place. Pathology is pending. We'll increase his activity as tolerated. We will continue to follow and make further recommendations based on his clinical status. I, the cosigning physician, performed a history & physical examination of the patient. Lungs sounds with crackles in the right posterior base, diminished. Maintaining good O2 saturations in the 90s on room air. I discussed the assessment and plan of care with my nurse practitioner, Jessica Johnson. I attest to the above note as dictated by her.
[2017-10-06 11:46] LABS: Glucose,Whole Blood 224 mg/dL (75-99)
--- NOTE | 2017-10-06 12:23 | P.DS ---
Providers Date of admission: 10/03/17 12:04 Attending physician: Devin Ruiz Consults: 10/03/17 13:03 Consult Physician Urgent Consulting Provider: Jose Montejo Consult Reason/Comments: pleural effusion Do you want consulting provider notified?: Yes 10/03/17 13:04 Consult Physician Urgent Consulting Provider: Pauline Walton Consult Reason/Comments: pancreatic mass elevated 19-9 Do you want consulting provider notified?: Yes 10/03/17 13:28 Consult Physician Routine Consulting Provider: Mariano Perez Consult Reason/Comments: Pancreatic Mass Do you want consulting provider notified?: Yes 10/04/17 12:20 Consult Physician Urgent Consulting Provider: Tam Dotson Consult Reason/Comments: CA 19-9 elevated recurrent pleural effusion Family hx pancreatic cancer Do you want consulting provider notified?: Yes 10/04/17 16:41 Consult Physician Routine Consulting Provider: Maximus Hoang Consult Reason/Comments: left pleural effusion Do you want consulting provider notified?: Already Contacted Primary care physician: Devin Ruiz Hospital Course: 78-year-old gentleman admitted with recurrent right-sided pleural effusion, status post thoracentesis, pneumothorax. Underwent right-sided thoracoscopy, partial decortication ,biopsies obtained and placement of right Pleurx catheter. Surgical site discomfort. Tolerated procedure well. . Cultures/ pathology pending. Worsening renal function. Hyperkalemic. Because of worsening renal function I'm discontinuing Lasix. Lasix is not beneficial patient will the be discharged with the Pleurx catheter. Patient has urinary retention last night because of which patient was started on tamsulosin patient will follow with neurology as an outpatient Johnson catheter will remain in place. Home care will follow-up with the patient. Patient was hypoglycemic here. Because of poor renal function hyperglycemia I'm discontinued all oral hyperglycemic agents patient will continue with a lesser dose of Lantus at 60 units patient was on 70 units and will continue with sliding scale insulin. Patient will need close follow-up with the pulmonology, oncology, urology, [facility] thoracic surgery and primary care physician PHYSICAL EXAM: VITAL SIGNS: As above GENERAL: Sitting up in bed, no acute distress HEENT: Conjunctivae normal. eyes normal. Oral mucosa moist NECK: No JVD. No thyroid enlargement. No LNs CARDIOVASCULAR: S1, S2 muffled. No murmur RESPIRATION: Breath sounds diminished in the bases, right basilar crackles. Right sided Pleurx catheter present. ABDOMEN: Soft, nontender . No guarding. no masses palpable. No ascites, No hepatosplenomegaly.Bowel sounds heard. LEGS: No edema. no swelling PSYCHIATRY: Alert and oriented -3, mood and affect normal. NERVOUS SYSTEM: Cranial N 2-12 grossly normal. Moves all 4 limbs. Diffuse weakness No focal deficits. No sensory deficit. Skin: no ulcer no rash Assessment and Plan Assessment: 1 recurrent right-sided exudative serosanguineous pleural effusion, differential diagnoses includes malignant pleural effusion and parapneumonic pleural effusion. Etiology of recurrent pleural effusion is not clear. Pathology of the biopsies pending. Previous pleural fluid analysis did not reveal any cancerous autism. Patient did have elevated CA-19-9 but the MRI did not show any significant abnormality believed to be secondary to chronic pancreatitis. Please refer to documentation from oncology and gastroenterology. 2 Status post right sided thoracentesis,history of thoracentesis done on 2017. 3 elevated CA 199 4.diabetes mellitus type 2 5. Hypertension 6. Hyperlipidemia 7. Neuropathy 8. Acute renal failure, medication induced. Nephrotoxic agents discontinued. Plan - Discharge Summary Discharge Rx Participant: No New Discharge Prescriptions: New Acetaminophen Tab [Tylenol] 650 mg PO Q4HR PRN tab PRN Reason: Fever And/ Or Pain Tamsulosin [Flomax] 0.4 mg PO PC-BRKFST #30 cap.er.24h Continue Atorvastatin Calcium [Lipitor] 10 mg PO DAILY Lansoprazole 30 mg PO DAILY Insulin Lispro [humaLOG Kwikpen] See Protocol SQ ACHS Melatonin 5 mg PO HS tablet Latanoprost [Xalatan 0.005%] 1 drop BOTH EYES HS Changed Gabapentin 400 mg PO TID #0 Insulin Glargine,Hum.rec.anlog [Lantus Solostar] 60 unit SQ DAILY #0 Discontinued Naproxen Sodium [Aleve] 440 mg PO Q12HR PRN PRN Reason: Pain metFORMIN HCL [Glucophage] 850 mg PO TID Pioglitazone [Actos] 30 mg PO DAILY Glimepiride [Amaryl] 2 mg PO BID Ramipril 2.5 mg PO DAILY Discharge Medication List Atorvastatin Calcium [Lipitor] 10 mg PO DAILY 09/21/17 [History] Insulin Lispro [humaLOG Kwikpen] See Protocol SQ ACHS 09/21/17 [History] Lansoprazole 30 mg PO DAILY 09/21/17 [History] Melatonin 5 mg PO HS tablet 09/24/17 [Rx] Latanoprost [Xalatan 0.005%] 1 drop BOTH EYES HS 10/03/17 [History] Acetaminophen Tab [Tylenol] 650 mg PO Q4HR PRN tab 10/06/17 [Rx] Gabapentin 400 mg PO TID #0 10/06/17 [Rx] Insulin Glargine,Hum.rec.anlog [Lantus Solostar] 60 unit SQ DAILY #0 10/06/17 [ Rx] Tamsulosin [Flomax] 0.4 mg PO PC-BRKFST #30 cap.er.24h 10/06/17 [Rx] Follow up Appointment(s)/Referral(s): Devin Ruiz MD [Primary Care Provider] - 3 Days Louann Lenz MD [STAFF PHYSICIAN] - 1 Week Tam Dotson MD [STAFF PHYSICIAN] - 1 Week Troy Tavares MD [STAFF PHYSICIAN] - 3 Days Maximus Hoang MD [STAFF PHYSICIAN] - As Needed Activity/Diet/Wound Care/Special Instructions: PleurX catheter: 1. Drain every other day, or PRN for shortness of breath. Home care to drain with teaching patient/family technique. 2. Do not drain more than 1 liter of fluid daily. 3. Patient may shower. 4. Please call cardiothoracic surgery office @ or fax to office @ amounts drained each week to determine timing of removal of catheter. 5. Please call surgery office if PleurX catheter site appears infected ( increased redness, purulent drainage, fever > 101F). Discharge Disposition: HOME WITH HOME HEALTH SERVICES
--- NOTE | 2017-10-06 12:36 | XR ---
EXAMINATION TYPE: XR chest 1V portable DATE OF EXAM: 10/06/2017 Comparison: 10/05/2017 Clinical History: 77-year-old male Right chest Pleurx catheter Findings: Right-sided chest tube remains in place. Trace residual right apical pneumothorax noted, decreased fr om prior. Continued moderate right pleural effusion, similar to slightly increased. Trace left pleura l effusion appears increased. Impression: 1. Right-sided chest tube in place. Trace right apical pneumothorax remains. 2. Moderate right pleural effusion with adjacent atelectasis and/or consolidative changes show slight increase 3. Suggestion of a new trace left effusion.
[2017-10-09 13:53] LABS: Albumin 3.14 g/dL (3.80-4.90)
--- NOTE | 2017-10-11 17:29 | P.PN ---
Subjective Progress Note Date: 10/06/17 Principal diagnosis: Pleural effusion and concern for underlying pancreatic malignancy patient seen and examined in follow-up this am, no acute complaints overnight, he would like to go home Objective - Vital Signs Vital signs: Vital Signs Temp 98.2 F 10/06/17 05:00 Pulse 90 10/06/17 05:00 Resp 16 10/06/17 08:00 BP 129/61 10/06/17 05:00 Pulse Ox 91 L 10/06/17 05:00 - Exam GENERAL EXAM: Alert, active,no apparent distress. HEAD: NC, NT EYES: Normal reaction of pupils, equal size. NECK: supple, midline CHEST: No chest wall deformity. Right-sided chest discomfort. LUNGS: Equal air entry with crackles in the right posterior base. Diminished. CVS: S1 and S2 normal with no audible murmur, regular rhythm. ABDOMEN: No hepatosplenomegaly, normal bowel sounds, no guarding or rigidity. SKIN: No rashes EXTREMITIES: There is no peripheral edema. - Labs CBC & Chem 7: 10/06/17 06:52 10/06/17 06:52 Assessment and Plan Plan: Assessment and Recommendations: 1. Recurrent Right Pleural Effusion: - Status Post Thoracotomy with pleurex drain placement - Biopsy from RLL and Pleura are currently Pending, await results 2. Elevated Ca-19, Chronic appearing pancreatitis with foci calcifications on pancreas tail - Await Pathology to result from thoracotomy, if non-diagnostic further evaluation and tissue biopsy maybe resonable via MRCP versus EUS although CA19- 9 is nonspecific and sensistive test. would likely consider rechecking after acute inflammation and further imaging of abdomen prior to invasive procedures towards what appears to be calcifications or chronic pancreatitis. - Discuss with GI if non-diagnstic results are found - CT Abdomen and Pelvis for Full Staging (Await recovery of creatinine, mildly elevated), prior MRI abdomen and CT Chest was reviewed 3. Normocytic Anemia - Likely secondary to chronic disease (liver decompensation from number 3), malignancy, versus other - Will order anemia work-up. Oncology Plan: Insignificant findings for underlying pancreatic carcinoma. He will have a CT scan or PET scan as outpatient for full staging if malignancy is found in pending pathology. A follow-up will be made for patient. - Follow-up with dr Dotson Tentantively on 10/17/17
--- NOTE | 2017-10-12 09:34 | CDI ---
Last Revision, January 2017 Documentation Clarification Form Date: 10/12/17 From: Viridiana Day Phone: If you have a question regarding this query, please contact Ruth Thompson at [phone] between 8am and 5pm. Admit Date: 10/03/2017 12:04:00 PM Patient Name: Lisandro Hand Visit Number: [id number] Discharge Date: 10/06/17 ATTENTION: The Clinical Documentation Specialists (CDI) and [facility] Coding Staff appreciate your assistance in clarifying documentation. Please respond to the clarification below the line at the bottom and electronically sign. The CDI & [facility] Coding staff will review the response and follow-up if needed. Please note: Queries are made part of the Legal Health Record. If you have any questions, please contact the author of this message via ITS. Meghan Figueroa MD The pathology report has been added to the chart. Findings include: A. 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 B. Lung, Right Lower Lobe, Wedge Biopsy: Metastatic adenocarcinoma consistent with primary upper GI versus pancreatobiliary tract origin C. Right Pleura, Biopsy: Metastatic adenocarcinoma consistent with primary upper GI versus pancreatobiliary tract origin. Patient history/risk factors: Patient was admitted with complaints of increasing shortness of breath. Patient was found to have right sided pleural effusion recurrent with a differential diagnosis of malignant pleural effusion and parapneumonic pleural effusion. Clinical Indicators: Cough and dyspnea Lab findings: Elevated CA 19-9 at 2360.4 Radiology findings: Chest x-ray: Pleural effusion. CT Chest from recent hospitalization: calcifications pancreatic tail. Treatment: Right sided thoracentesis. In your professional opinion, can you please document a diagnosis that corresponds with the above findings? Other, please specify Unable to determine Reason for to documentation as the pathology results came after my documentation I will not make any changes. GINA
== END 2017-10-06 14:36 | disposition home health service (06) | DRG 164 ==
LOC: RADMRIMAIN 11:07 → 5MS5E 12:04
PROVIDERS: ADMIT Family Medicine; ATTEND Family Medicine
PROC: 0W993ZX Drainage of Right Pleural Cavity, Percutaneous Approach, Diagnostic (ICD-10-PCS; 2017-10-03)
PROC: 0BCN4ZZ Extirpation of Matter from Right Pleura, Percutaneous Endoscopic Approach (ICD-10-PCS; 2017-10-04)
PROC: 0BCF4ZZ Extirpation of Matter from Right Lower Lung Lobe, Percutaneous Endoscopic Approach (ICD-10-PCS; principal; 2017-10-04 09:30)
PROC: 0W9940Z Drainage of Right Pleural Cavity with Drainage Device, Percutaneous Endoscopic Approach (ICD-10-PCS; 2017-10-04 09:30)
DX: C78.01 Secondary malignant neoplasm of right lung (principal); K86.1 Other chronic pancreatitis; N17.9 Acute kidney failure, unspecified; J94.8 Other specified pleural conditions; J93.9 Pneumothorax, unspecified; C80.1 Malignant (primary) neoplasm, unspecified; E11.40 Type 2 diabetes mellitus with diabetic neuropathy, unspecified; E11.649 Type 2 diabetes mellitus with hypoglycemia without coma; E78.5 Hyperlipidemia, unspecified; E87.5 Hyperkalemia; F10.10 Alcohol abuse, uncomplicated; I10 Essential (primary) hypertension; K21.9 Gastro-esophageal reflux disease without esophagitis; R33.9 Retention of urine, unspecified; F17.200 Nicotine dependence, unspecified, uncomplicated; D63.8 Anemia in other chronic diseases classified elsewhere; E66.9 Obesity, unspecified; Z68.27 Body mass index [BMI] 27.0-27.9, adult; Z88.2 Allergy status to sulfonamides; Z79.4 Long term (current) use of insulin; Z79.899 Other long term (current) drug therapy; Z96.611 Presence of right artificial shoulder joint; Z87.01 Personal history of pneumonia (recurrent); Z98.42 Cataract extraction status, left eye; Z98.41 Cataract extraction status, right eye; Z96.1 Presence of intraocular lens; Z90.49 Acquired absence of other specified parts of digestive tract; Z80.0 Family history of malignant neoplasm of digestive organs
CPT/HCPCS: 71045; 71046; 74183; 76604; 80048; 80053; 80061; 80074; 82105; 82150; 82378; 82728; 82746; 82784; 83036; 83540; 83550; 83615; 83690; 83883; 83921; 84132; 84157; 84165; 85025; 85027; 85045; 86301; 86334; 86850; 86900; 86901; 87102; 87116; 87206; 88108; 88305; 88307; 88341; 88342; 89050

== ENCOUNTER → 2017-10-10 | Outpatient (CLI) | payer MEDICARE ==
--- NOTE | 2017-10-10 11:39 | ECHOF ---
Referral Reason:J90 Pleural effusion MEASUREMENTS -------- HEIGHT: 182.9 cm WEIGHT: 93.4 kg BP: IVSd: 1.3 cm (0.6 - 1.1) LVIDd: 3.7 cm (3.9 - 5.3) LVPWd: 1.1 cm (0.6 - 1.1) IVSs: 1.5 cm LVIDs: 3.4 cm LVPWs: 1.1 cm LA Diam: 3.1 cm (2.7 - 3.8) Ao Diam: 3.3 cm (2.0 - 3.7) AV Cusp: 1.8 cm (1.5 - 2.6) LA Diam: 3.7 cm (2.7 - 3.8) MV E Pa: 0.69 m/s MV A Pa: 0.98 m/s MV E/A Ratio: 0.70 RAP: 5.00 mmHg RVSP: 18.70 mmHg FINDINGS -------- Sinus rhythm. This was a technically adequate study. The left ventricular size is normal. There is mild concentric left ventricular hypertrophy. Overa ll left ventricular systolic function is normal with, an EF between 55 - 60 %. The right ventricle is normal in size. The left atrial size is normal. The right atrial size is normal. There is mild aortic valve sclerosis. There is no evidence of aortic regurgitation. Mild mitral annular calcification present. Mild mitral regurgitation is present. Mild tricuspid regurgitation present. There is no evidence of pulmonary hypertension. The right v entricular systolic pressure, as measured by Doppler, is 18.70mmHg. There is no pulmonic regurgitation present. The aortic root size is normal. There is no pericardial effusion. CONCLUSIONS -------- 1. The left ventricular size is normal. 2. There is mild concentric left ventricular hypertrophy. 3. Overall left ventricular systolic function is normal with, an EF between 55 - 60 %. 4. The right ventricle is normal in size. 5. The left atrial size is normal. 6. The right atrial size is normal. 7. There is mild aortic valve sclerosis. 8. Mild mitral annular calcification present. 9. Mild mitral regurgitation is present. 10. Mild tricuspid regurgitation present. 11. There is no evidence of pulmonary hypertension. 12. The right ventricular systolic pressure, as measured by Doppler, is 18.70mmHg. 13. There is no pulmonic regurgitation present. 14. The aortic root size is normal. 15. There is no pericardial effusion. VENEER LATHE OPERATOR: Senait Mary RDCS
== END | disposition home or self-care (01) ==
LOC: RADECHMAIN 10:21
PROVIDERS: ATTEND Family Medicine
DX: I08.3 Combined rheumatic disorders of mitral, aortic and tricuspid valves (principal)
CPT/HCPCS: 93306

== ENCOUNTER 2017-10-25 05:55 | Inpatient (IN) | payer MEDICARE ==
[2017-10-25] MEDS ORDERED: ACETAMINOPHEN TAB 500 MG TAB PO STA (06:20)
--- NOTE | 2017-10-25 06:35 | ED ---
General Adult HPI - General Source: patient Mode of arrival: ambulatory Limitations: no limitations <Ruddy Sarmiento - Last Filed: 10/25/17 07:35> <Jose Mike - Last Filed: 10/25/17 08:28> - General Chief complaint: Upper Respiratory Infection Stated complaint: nausea, cancer pt Time Seen by Provider: 10/25/17 06:08 - History of Present Illness Initial comments: Is a 77-year-old male who presents to the emergency department for cough and generalized malaise. The patient is a cancer patient. Was diagnosed with what the patient describes as stage IV pancreatic cancer. He just had a MediPort placed recently however has not had it used to are accessed yet. The patient has not began any chemotherapy. He also has recurrent right-sided pleural effusions and has a Pleurx catheter. He states the last time he drained this was a couple of days ago. The effusion is always bloody appearing and appeared bloody the time that they drained a couple of days ago. The patient states that he has had a cough and feels like his breathing is "gurgling". He states he has generalized body aches. He has coughed so hard that he has vomited up bile. The patient denies any nausea or vomiting aside from the cough. No diarrhea. No blood in the stool. No rashes. No other acute complaints. (Ruddy Sarmiento) - Related Data Home Medications Medication Instructions Recorded Confirmed Atorvastatin Calcium [Lipitor] 10 mg PO DAILY 09/21/17 10/25/17 Insulin Lispro [humaLOG Kwikpen] See Protocol SQ ACHS 09/21/17 10/25/17 Lansoprazole 30 mg PO DAILY 09/21/17 10/25/17 Latanoprost [Xalatan 0.005%] 1 drop BOTH EYES HS 10/03/17 10/25/17 Previous Rx's Medication Instructions Recorded Melatonin 5 mg PO HS tablet 09/24/17 Acetaminophen Tab [Tylenol] 650 mg PO Q4HR PRN tab 10/06/17 Gabapentin 400 mg PO TID #0 10/06/17 Insulin Glargine,Hum.rec.anlog 60 unit SQ DAILY #0 10/06/17 [Lantus Solostar] Tamsulosin [Flomax] 0.4 mg PO PC-BRKFST #30 cap.er.24h 10/06/17 Allergies Allergy/AdvReac Type Severity Reaction Status Date / Time adhesive tape Allergy BLISTERS Verified 10/25/17 07:56 Sulfa (Sulfonamide Allergy Unknown Verified 10/25/17 07:56 Antibiotics) Childhood Review of Systems ROS Other: All systems not noted in ROS Statement are negative. <Ruddy Sarmiento - Last Filed: 10/25/17 07:35> ROS Other: All systems not noted in ROS Statement are negative. <Jose Mike - Last Filed: 10/25/17 08:28> ROS Statement: Those systems with pertinent positive or pertinent negative responses have been documented in the HPI. Past Medical History Past Medical History: Cancer, Diabetes Mellitus, GERD/Reflux, Hyperlipidemia Additional Past Medical History / Comment(s): neuropathy, past gout, "see's a retina specialist", History of Any Multi-Drug Resistant Organisms: None Reported Past Surgical History: Adenoidectomy, Appendectomy, Joint Replacement, Tonsillectomy Additional Past Surgical History / Comment(s): rt shoulder replaced, sinus surgery, cataracts, pleural drain, chemo port, Past Anesthesia/Blood Transfusion Reactions: No Reported Reaction Past Psychological History: No Psychological Hx Reported Smoking Status: Never smoker Past Alcohol Use History: Rare Past Drug Use History: None Reported - Past Family History Mother Family Medical History: No Reported History Additional Family Medical History / Comment(s): from natural causes Father Family Medical History: Cancer Additional Family Medical History / Comment(s): pancreatic cancer <Ruddy Sarmiento - Last Filed: 10/25/17 07:35> General Exam Limitations: no limitations <Ruddy Sarmiento - Last Filed: 10/25/17 07:35> <Jose Mike - Last Filed: 10/25/17 08:28> - General Exam Comments Initial Comments: Constitutional: Awake alert appears uncomfortable Head: Normocephalic atraumatic Eyes: no conjunctival injection No scleral icterus EOMI Neck: No JVD Supple Heart: Regular rate rhythm normal S1-S2 no murmurs Lungs: Clear to auscultation bilaterally No wheezing basilar rales Abdomen: Soft nondistended nontender Extremities: Non edematous DP pulses intact Radial pulses intact Neuro: A&Ox3 No focal neurologic deficits Psych: Appropriate mood and affect ] (Ruddy Sarmiento) Course <Ruddy Sarmiento - Last Filed: 10/25/17 07:35> <Jose Mike - Last Filed: 10/25/17 08:28> Vital Signs 10/25/17 10/25/17 05:58 07:36 Temperature 100.8 F H 101.9 F H Pulse Rate 110 H 93 Respiratory 18 18 Rate Blood Pressure 144/71 152/81 O2 Sat by Pulse 90 L 97 Oximetry - Reevaluation(s) Reevaluation #1: 10/25/17 08:15 I did discuss findings with the patient family patient will be admitted for continued IV antibiotics and evaluation by pulmonary medicine. Case to be discussed with the hospitalist covering Dr. Ruiz (Jose Mike) Reevaluation #2: 10/25/17 08:16 Patient is seen respond to fluids so the initial lactic acid was within normal limits. CBC is also demonstrating no elevated white count. (Jose Mike) EKG Findings - EKG Comments: EKG Findings:: EKG showing sinus tachycardia with a rate of 101. No abnormal ST segment changes or T-wave inversions. QTC is 420. Other intervals normal. No ectopy. <Ruddy Sarmiento - Last Filed: 10/25/17 07:35> Medical Decision Making - Lab Data Result diagrams: 10/25/17 06:30 10/25/17 06:30 <Ruddy Sarmiento - Last Filed: 10/25/17 07:35> - Lab Data Result diagrams: 10/25/17 06:30 10/25/17 06:30 - Radiology Data Radiology results: report reviewed (Kody and report or is some evidence of chronic changes atelectasis small pleural effusion suspected right lower lobe infiltrate is considered), image reviewed <Jose Mike - Last Filed: 10/25/17 08:28> - Medical Decision Making Patient's care transitioned to Dr. Mike at 7:35 AM (Ruddy Sarmiento) - Lab Data Lab Results 10/25/17 10/25/17 10/25/17 Range/Units 06:30 06:30 06:30 WBC 6.0 (3.8-10.6) k/uL RBC 3.70 L (4.30-5.90) m/uL Hgb 10.2 L (13.0-17.5) gm/dL Hct 31.9 L (39.0-53.0) % MCV 86.2 (80.0-100.0) fL MCH 27.6 (25.0-35.0) pg MCHC 32.0 (31.0-37.0) g/dL RDW 14.4 (11.5-15.5) % Plt Count 300 (150-450) k/uL Neutrophils % 81 % Lymphocytes % 6 % Monocytes % 6 % Eosinophils % 4 % Basophils % 0 % Neutrophils # 4.9 (1.3-7.7) k/uL Lymphocytes # 0.4 L (1.0-4.8) k/uL Monocytes # 0.4 (0-1.0) k/uL Eosinophils # 0.2 (0-0.7) k/uL Basophils # 0.0 (0-0.2) k/uL Hypochromasia Slight PT (9.0-12.0) sec INR (<1.2) APTT (22.0-30.0) sec Sodium 140 (137-145) mmol/L Potassium 4.5 (3.5-5.1) mmol/L Chloride 104 (98-107) mmol/L Carbon Dioxide 24 (22-30) mmol/L Anion Gap 12 mmol/L BUN 15 (9-20) mg/dL Creatinine 0.88 (0.66-1.25) mg/dL Est GFR (CKD-EPI)AfAm >90 (>60 ml/min/1.73 sqM) Est GFR (CKD-EPI)NonAf 84 (>60 ml/min/1.73 sqM) Glucose 222 H (74-99) mg/dL Plasma Lactic Acid Lucho (0.7-2.0) mmol/L Calcium 8.5 (8.4-10.2) mg/dL Total Bilirubin 0.4 (0.2-1.3) mg/dL AST 21 (17-59) U/L ALT 17 L (21-72) U/L Alkaline Phosphatase 96 (38-126) U/L Total Creatine Kinase 42 L (55-170) U/L CK-MB (CK-2) 0.5 (0.0-2.4) ng/mL CK-MB (CK-2) Rel Index 1.2 Troponin I 0.013 (0.000-0.034) ng/mL Total Protein 6.5 (6.3-8.2) g/dL Albumin 3.4 L (3.5-5.0) g/dL Influenza Type A RNA (Not Detectd) Influenza Type B (PCR) (Not Detectd) 10/25/17 10/25/17 10/25/17 Range/Units 06:30 06:30 06:47 WBC (3.8-10.6) k/uL RBC (4.30-5.90) m/uL Hgb (13.0-17.5) gm/dL Hct (39.0-53.0) % MCV (80.0-100.0) fL MCH (25.0-35.0) pg MCHC (31.0-37.0) g/dL RDW (11.5-15.5) % Plt Count (150-450) k/uL Neutrophils % % Lymphocytes % % Monocytes % % Eosinophils % % Basophils % % Neutrophils # (1.3-7.7) k/uL Lymphocytes # (1.0-4.8) k/uL Monocytes # (0-1.0) k/uL Eosinophils # (0-0.7) k/uL Basophils # (0-0.2) k/uL Hypochromasia PT 10.4 (9.0-12.0) sec INR 1.1 (<1.2) APTT 28.9 (22.0-30.0) sec Sodium (137-145) mmol/L Potassium (3.5-5.1) mmol/L Chloride (98-107) mmol/L Carbon Dioxide (22-30) mmol/L Anion Gap mmol/L BUN (9-20) mg/dL Creatinine (0.66-1.25) mg/dL Est GFR (CKD-EPI)AfAm (>60 ml/min/1.73 sqM) Est GFR (CKD-EPI)NonAf (>60 ml/min/1.73 sqM) Glucose (74-99) mg/dL Plasma Lactic Acid Lucho 1.3 (0.7-2.0) mmol/L Calcium (8.4-10.2) mg/dL Total Bilirubin (0.2-1.3) mg/dL AST (17-59) U/L ALT (21-72) U/L Alkaline Phosphatase (38-126) U/L Total Creatine Kinase (55-170) U/L CK-MB (CK-2) (0.0-2.4) ng/mL CK-MB (CK-2) Rel Index Troponin I (0.000-0.034) ng/mL Total Protein (6.3-8.2) g/dL Albumin (3.5-5.0) g/dL Influenza Type A RNA Not Detected (Not Detectd) Influenza Type B (PCR) Not Detected (Not Detectd) Disposition <Ruddy Sarmiento - Last Filed: 10/25/17 07:35> <Jose Mike - Last Filed: 10/25/17 08:28> Clinical Impression: Pneumonia, Dehydration, Febrile illness, acute Disposition: ADMITTED IP TO THIS HOSP Condition: Stable Referrals: Devin Ruiz MD [Primary Care Provider] - 1-2 days
[2017-10-25 06:56] LABS: Basophils % (A) 0 %; Eosinophils # (A) 0.2 k/uL (0-0.7); Eosinophils % (A) 4 %; HCT 31.9 % (39.0-53.0); HGB 10.2 gm/dL (13.0-17.5); Hypochromasia Slight; Lymphocytes # (A) 0.4 k/uL (1.0-4.8); Lymphocytes % (A) 6 %; MCH 27.6 pg (25.0-35.0); MCV 86.2 fL (80.0-100.0); Mean Platelet Volume 6.8; Monocytes # (A) 0.4 k/uL (0-1.0); Monocytes % (A) 6 %; Neutrophils # (A) 4.9 k/uL (1.3-7.7); Neutrophils % (A) 81 %; Platelet Count 300 k/uL (150-450); RDW 14.4 % (11.5-15.5)
[2017-10-25 07:07] LABS: INR 1.1 (<1.2); Partial Thromboplastin Time 28.9 sec (22.0-30.0); Prothrombin Time 10.4 sec (9.0-12.0)
[2017-10-25] MEDS ORDERED: VANCOMYCIN IV PER PHARMACY 1 EACH MISC MISCELLANE PRN (07:09)
[2017-10-25] MEDS ORDERED: PIPERACILLIN-TAZOBACTAM 3.375 GM in DEXTROSE/WATER 1 50ML.BAG IVPB STA (07:09)
[2017-10-25] MEDS ORDERED: VANCOMYCIN 1,500 MG in SODIUM CHLORIDE 0.9% 250 ML IVPB STA (07:11)
[2017-10-25 07:15] LABS: ALT 17 U/L (21-72); AST 21 U/L (17-59); Albumin 3.4 g/dL (3.5-5.0); Alkaline Phosphatase 96 U/L (38-126); Anion Gap 12 mmol/L; Blood Urea Nitrogen 15 mg/dL (9-20); Calcium 8.5 mg/dL (8.4-10.2); Carbon Dioxide 24 mmol/L (22-30); Chloride 104 mmol/L (98-107); Glucose 222 mg/dL (74-99); Potassium 4.5 mmol/L (3.5-5.1); Sodium 140 mmol/L (137-145); Total Bilirubin 0.4 mg/dL (0.2-1.3); Total Protein 6.5 g/dL (6.3-8.2)
--- NOTE | 2017-10-25 07:18 | XR ---
EXAMINATION TYPE: XR chest 2V DATE OF EXAM: 10/25/2017 COMPARISON: Chest x-ray October 06, 2017. HISTORY: New onset fever, recent port insertion for cancer unknown origin. TECHNIQUE: Frontal and lateral views of the chest are obtained. FINDINGS: Osseous structures remain somewhat demineralized. Old fracture deformity right mid clavicl e is redemonstrated. Suspect old fracture deformity right lateral ribs. There is persistent right bas ilar chest tube extending superiorly and medially. There is background cardiomegaly. There is chronic parenchymal change with right apical and lateral pleural thickening. Bibasilar opacity remains prese nt with some improved aeration right lung base noted since prior. No pneumothorax is seen bilaterally . On lateral view there is confirmation of suspected small right pleural effusion. IMPRESSION: Redemonstration of chronic parenchymal change and cardiomegaly with small right pleural effusion and right lung pleural thickening with right greater than left bibasilar atelectasis and/or infiltrate. Some improved aeration right lung base noted since prior.
[2017-10-25] MEDS: SODIUM CHLORIDE 0.9% 1,000 ML IV SCH ×2 (07:23→18:02)
[2017-10-25] MEDS: SODIUM CHLORIDE 0.9% 500 ML IV SCH ×2 (07:24→07:25)
[2017-10-25 07:45] LABS: Creatine Kinase MB 0.5 ng/mL (0.0-2.4); Troponin I 0.013 ng/mL (0.000-0.034)
[2017-10-25] MEDS ORDERED: PNEUMONIA PROTOCOL UTILIZED 1 EACH MISC PO PRN (08:28)
[2017-10-25 08:35] LABS: Appearance,Urine Clear (Clear); Bilirubin,Urine Negative (Negative); Blood,Urine Negative (Negative); Color,Urine Yellow; Glucose,Urine (UA) 3+ (Negative); Ketones,Urine Negative (Negative); Leukocyte Esterase,Urine Negative (Negative); Nitrite,Urine Negative (Negative); PH, Urine 5.5 (5.0-8.0); Protein,Urine Trace (Negative); Specific Gravity,Urine 1.016 (1.001-1.035); Urobilinogen,Urine <2.0 mg/dL (<2.0)
[2017-10-25] MEDS ORDERED: GABAPENTIN 400 MG CAP PO SCH (09:00)
[2017-10-25] MEDS ORDERED: INSULIN DETEMIR 100 UNIT/ML 10 ML VIAL SQ SCH (09:00)
[2017-10-25] MEDS: PANTOPRAZOLE 40 MG TABLET PO SCH ×2 (10:45→10:57)
[2017-10-25] MEDS: IPRATROPIUM-ALBUTEROL 3 ML NEB INHALATION SCH ×4 (10:56→21:44)
[2017-10-25] MEDS: ATORVASTATIN 10 MG TAB PO SCH (10:56)
[2017-10-25 11:03] LABS: Glucose,Whole Blood 188 mg/dL (75-99)
[2017-10-25] MEDS ORDERED: LEVOFLOXACIN 500MG-D5W PMX 500 MG in DEXTROSE/WATER 1 100ML.BAG IVPB SCH (12:00)
[2017-10-25 12:04] LABS: Glucose,Whole Blood 202 mg/dL (75-99)
[2017-10-25] MEDS: INSULIN ASPART 100 UNIT/ML 1 ML 10 ML VIAL SQ SCH ×3 (12:10→20:33)
[2017-10-25] MEDS: ALPRAZolam 0.5 MG TAB PO PRN (13:41)
[2017-10-25] MEDS: ACETAMINOPHEN TAB 325 MG TAB PO PRN (13:46)
[2017-10-25] MEDS ORDERED: ONDANSETRON 4 MG/2 ML VIAL IVP STA (13:57)
[2017-10-25] MEDS ORDERED: IBUPROFEN 600 MG TAB PO STA (15:28)
--- NOTE | 2017-10-25 15:52 | P.HPIM ---
History of Present Illness Patient came in with complaints of cough without any significant sputum production fever chills generalized malaise and patient was recently discharged from the hospital after he was treated for recurrent pleural effusion patient biopsy from the right sided thorax is consistent with adenocarcinoma patient received a chemo port recently blood cultures were obtained chest x-ray showed increased infiltrate patient was started on broad-spectrum antibiotics vancomycin and Zosyn. Patient was also started on levofloxacin which was discontinued. UVA and no significant abnormality. I'm unable to examine the Pleurx catheter site. Review of Systems REVIEW OF SYSTEMS: CONSTITUTIONAL: As mentioned above HEENT: No recent visual problems or hearing problems. Denied any sore throat. CARDIOVASCULAR: No chest pain, orthopnea, PND, no palpitations, no syncope. PULMONARY: no hemoptysis. GASTROINTESTINAL: No diarrhea, no nausea, no vomiting, no abdominal pain. Normoactive bowel sounds. NEUROLOGICAL: No headaches, no weakness, no numbness. HEMATOLOGICAL: Denies any bleeding or petechiae. GENITOURINARY: Denies any burning micturition, frequency, or urgency. MUSCULOSKELETAL/RHEUMATOLOGICAL: Denies any joint pain, swelling, or any muscle pain. ENDOCRINE: Denies any polyuria or polydipsia. The rest of the 14-point review of systems is negative. 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 History of Any Multi-Drug Resistant Organisms: None Reported Past Surgical History: Adenoidectomy, Appendectomy, Joint Replacement, Orthopedic Surgery, Tonsillectomy Additional Past Surgical History / Comment(s): R thrascopy with partial decortication with pleural bx and wedge resection/bx/pleurx cath, thoracentesis , mediport, total R shoulder arthroplasty, sinus surgery, bilateral cataract removals with lens implants, L hand finger injury with surgery. Past Anesthesia/Blood Transfusion Reactions: No Reported Reaction Smoking Status: Never smoker - Past Family History Mother Family Medical History: No Reported History Additional Family Medical History / Comment(s): Mother from natural causes at the age of 92yrs. Father Family Medical History: Cancer Additional Family Medical History / Comment(s): Father of pancreatic cancer at the age of 82 yrs. Medications and Allergies Home Medications Medication Instructions Recorded Confirmed Type Atorvastatin Calcium [Lipitor] 10 mg PO DAILY 09/21/17 10/25/17 History Insulin Lispro [humaLOG Kwikpen] See Protocol SQ ACHS 09/21/17 10/25/17 History Lansoprazole 30 mg PO DAILY 09/21/17 10/25/17 History Latanoprost [Xalatan 0.005%] 1 drop BOTH EYES HS 10/03/17 10/25/17 History Acetaminophen Tab [Tylenol] 650 mg PO Q4HR PRN tab 10/06/17 10/25/17 Rx Gabapentin 400 mg PO TID #0 10/06/17 10/25/17 Rx Tamsulosin [Flomax] 0.4 mg PO PC-BRKFST #30 cap.er.24h 10/06/17 10/25/17 Rx Insulin Glargine,Hum.rec.anlog 66 units SQ DAILY 10/25/17 10/25/17 History [Lantus Solostar] Allergies Allergy/AdvReac Type Severity Reaction Status Date / Time adhesive tape Allergy BLISTERS Verified 10/25/17 07:56 Sulfa (Sulfonamide Allergy Unknown Verified 10/25/17 07:56 Antibiotics) Childhood Physical Exam Vitals: Vital Signs Temp Pulse Resp BP Pulse Ox 10/25/17 15:35 94 10/25/17 15:23 103.3 F H 95 18 127/71 95 10/25/17 13:43 101.5 F H 118 H 18 92 L 10/25/17 11:09 80 10/25/17 10:56 80 10/25/17 10:31 99.1 F 84 18 143/67 96 10/25/17 07:36 101.9 F H 93 18 152/81 97 10/25/17 05:58 100.8 F H 110 H 18 144/71 90 L Intake and Output 10/25/17 10/25/17 10/25/17 06:59 14:59 22:59 Other: Weight 90.265 kg PHYSICAL EXAMINATION: GENERAL: The patient is alert and oriented x3, not in any acute distress. Well developed, well nourished. HEENT: Pupils are round and equally reacting to light. EOMI. No scleral icterus. No conjunctival pallor. Normocephalic, atraumatic. No pharyngeal erythema. No thyromegaly. CARDIOVASCULAR: S1 and S2 present. No murmurs, rubs, or gallops. PULMONARY: Crackles of the right lung bases fairly good air entry into bilateral lung lynn. Pleurx catheter site was not examined by me ABDOMEN: Soft, nontender, nondistended, normoactive bowel sounds. No palpable organomegaly. MUSCULOSKELETAL: No joint swelling or deformity. EXTREMITIES: No cyanosis, clubbing, or pedal edema. NEUROLOGICAL: Gross neurological examination did not reveal any focal deficits. SKIN: No rashes. Results CBC & Chem 7: 10/25/17 06:30 10/25/17 06:30 Labs: Abnormal Lab Results - Last 24 Hours (Table) 10/25/17 10/25/17 10/25/17 Range/Units 06:30 06:30 06:30 RBC 3.70 L (4.30-5.90) m/uL Hgb 10.2 L (13.0-17.5) gm/dL Hct 31.9 L (39.0-53.0) % Lymphocytes # 0.4 L (1.0-4.8) k/uL Glucose 222 H (74-99) mg/dL POC Glucose (mg/dL) (75-99) mg/dL ALT 17 L (21-72) U/L Total Creatine Kinase 42 L (55-170) U/L Albumin 3.4 L (3.5-5.0) g/dL Urine Protein (Negative) Urine Glucose (UA) (Negative) 10/25/17 10/25/17 10/25/17 Range/Units 08:10 10:42 12:01 RBC (4.30-5.90) m/uL Hgb (13.0-17.5) gm/dL Hct (39.0-53.0) % Lymphocytes # (1.0-4.8) k/uL Glucose (74-99) mg/dL POC Glucose (mg/dL) 188 H 202 H (75-99) mg/dL ALT (21-72) U/L Total Creatine Kinase (55-170) U/L Albumin (3.5-5.0) g/dL Urine Protein Trace H (Negative) Urine Glucose (UA) 3+ H (Negative) Thrombosis Risk Factor Assmnt - Choose All That Apply Any of the Below Risk Factors Present?: Yes Each Factor Represents 1 point: Serious lung disease incl. pneumonia (< 1month) Other Risk Factors: Yes Each Risk Factor Represents 2 Points: Malignancy Other congenital or acquired thrombophilia - If yes, enter type in comment: No Thrombosis Risk Factor Assessment Total Risk Factor Score: 3 Thrombosis Risk Factor Assessment Level: Moderate Risk Assessment and Plan Plan: -Sepsis possible source being right lower lobe pneumonia patient had a recent chemo port placed patient is started on chemotherapy. Blood cultures will be obtained patient will be continued on above-mentioned broad-spectrum antibiotics. Infectious disease was consulted. -Adenocarcinoma with unknown primary: Oncology will be consulted. -Type 2 diabetes mellitus next -Hypertension -Hyperlipidemia -Diabetic peripheral neuropathy For above-mentioned chronic medical problems patient will be resumed and continued on appropriate home medications.
[2017-10-25] MEDS ORDERED: IPRATROPIUM-ALBUTEROL 3 ML NEB INHALATION PRN (15:53)
[2017-10-25 16:11] LABS: Basophils % (A) 1 %; Eosinophils # (A) 0.1 k/uL (0-0.7); Eosinophils % (A) 1 %; HGB 9.2 gm/dL (13.0-17.5); Hypochromasia Moderate; Lymphocytes # (A) 0.5 k/uL (1.0-4.8); Lymphocytes % (A) 10 %; MCH 27.9 pg (25.0-35.0); MCHC 31.7 g/dL (31.0-37.0); Mean Platelet Volume 7.6; Monocytes # (A) 0.4 k/uL (0-1.0); Monocytes % (A) 7 %; Neutrophils # (A) 4.4 k/uL (1.3-7.7); Neutrophils % (A) 80 %; Platelet Count 245 k/uL (150-450); RBC 3.29 m/uL (4.30-5.90); WBC 5.5 k/uL (3.8-10.6)
[2017-10-25 16:21] LABS: Anion Gap 7 mmol/L; Blood Urea Nitrogen 13 mg/dL (9-20); Calcium 7.9 mg/dL (8.4-10.2); Carbon Dioxide 26 mmol/L (22-30); Chloride 105 mmol/L (98-107); Glucose 184 mg/dL (74-99); Potassium 4.6 mmol/L (3.5-5.1); Sodium 138 mmol/L (137-145)
[2017-10-25 17:00] LABS: Glucose,Whole Blood 188 mg/dL (75-99)
--- NOTE | 2017-10-25 17:28 | P.CNPUL ---
History of Present Illness Consult date: 10/25/17 Requesting physician: Meghan Garcia Reason for consult: dyspnea, cough, pneumonia, pleural effusion, abnormal CXR/CT Chief complaint: Fever, cough, congestion, generalized malaise History of present illness: This is 77-year-old white male patient of Dr. Ruiz, who presented to the emergency department on 10/25/2017 at 6:00 in the morning for evaluation of cough, generalized malaise, fever, chills. Patient was recently diagnosed with stage IV pancreatic cancer. Past medical history includes diabetes mellitus, GERD/reflux, hyperlipidemia, hypertension, no chronic lung disease. He is known to us from his previous hospitalization for evaluation of recurrent right-sided pleural effusion. Patient initially had a right-sided thoracentesis by interventional radiology with drainage of 1500 mL of bloody fluid, in the fluid was found to be exudative in nature, and negative for malignancy. After the initial thoracentesis patient had rapid reaccumulation of the right-sided pleural effusion, and underwent right-sided thoracentesis by Dr. Jefferson on 10/04 with drainage of 1600 mL of serosanguineous fluid. Patient did have postprocedural basilar pneumothorax, cardiothoracic surgery performed a VATS/ decortication and Pleurx catheter placement.Pathology results of the pleural fluid indicated metastatic adenocarcinoma consistent with primary upper GI versus pancreatobiliary tract origin. Pancreatic cancer marker was elevated. MRI of the abdomen was completed, and showed focal calcifications at tail of pancreas and indeterminate lesion in the liver. Patient states he had evaluation by Dr. Hills. He supposed to go over the results of the workup with Dr. Dotson in the office today, on 10/25/2017, he had a MediPort put in in his right upper chest on Sunday on 10/23/2017. However he became increasingly more congested, coughing up brownish colored sputum, short of breath, spiking fevers. Chest x-ray was completed, which showed chronic parenchymal changes, cardiomegaly with small right pleural effusion and right lung pleural thickening with right greater than left basilar atelectasis/infiltrate. EKG showed sinus tachycardia with a rate of 101 BPM. Patient has been febrile in the emergency room, with a T-max of 103.3F. He was started on a combination of cefepime and vancomycin, blood culture, sputum culture and urine culture have been ordered. Last time he drain his Pleurx catheter was on Sunday, 2 days ago, with drainage of 100 mL of bloody pleural fluid. He is resting on the gurney, with his at the bedside, and he is febrile. Diffusely congested, patient has congested cough, production of brown colored sputum. Review of Systems All systems: negative Constitutional: Reports anorexia, Reports fever, Reports malaise, Denies chills Eyes: denies blurred vision, denies pain Ears, nose, mouth and throat: Denies headache, Denies sore throat Cardiovascular: Denies chest pain, Denies shortness of breath Respiratory: Denies cough Gastrointestinal: Denies abdominal pain, Denies diarrhea, Denies nausea, Denies vomiting Musculoskeletal: Denies myalgias Integumentary: Denies pruritus, Denies rash Neurological: Denies numbness, Denies weakness Psychiatric: Denies anxiety, Denies depression Endocrine: Denies fatigue, Denies weight change Past Medical History Past Medical History: Cancer, Diabetes Mellitus, GERD/Reflux, Hyperlipidemia Additional Past Medical History / Comment(s): Pt recently admitted to [facility] on with recurrent R pleural effusion with thoracentesis.R thorascopy with partial decortication and pleural/lower lobe wedge biopsies-results of metastatic adenocarcinoma with primary GE vs pancreatobiliary tract origin-pt states they don't know primary source yet, recent urinary retention and acute renal failure, R sided pleurx cath, IDDM type II-had recent hypoglycemia so insulin decreased but now pt states blood sugars have been running high again, neuropathy bilateral feet, L eye retinopathy-sees a specialist, past R clavicle fracture. History of Any Multi-Drug Resistant Organisms: None Reported Past Surgical History: Adenoidectomy, Appendectomy, Joint Replacement, Orthopedic Surgery, Tonsillectomy Additional Past Surgical History / Comment(s): R thrascopy with partial decortication with pleural bx and wedge resection/bx/pleurx cath, thoracentesis , mediport, total R shoulder arthroplasty, sinus surgery, bilateral cataract removals with lens implants, L hand finger injury with surgery. Past Anesthesia/Blood Transfusion Reactions: No Reported Reaction Smoking Status: Never smoker - Past Family History Mother Family Medical History: No Reported History Additional Family Medical History / Comment(s): Mother from natural causes at the age of 92yrs. Father Family Medical History: Cancer Additional Family Medical History / Comment(s): Father of pancreatic cancer at the age of 82 yrs. Medications and Allergies Home Medications Medication Instructions Recorded Confirmed Type Atorvastatin Calcium [Lipitor] 10 mg PO DAILY 09/21/17 10/25/17 History Insulin Lispro [humaLOG Kwikpen] See Protocol SQ ACHS 09/21/17 10/25/17 History Lansoprazole 30 mg PO DAILY 09/21/17 10/25/17 History Latanoprost [Xalatan 0.005%] 1 drop BOTH EYES HS 10/03/17 10/25/17 History Acetaminophen Tab [Tylenol] 650 mg PO Q4HR PRN tab 10/06/17 10/25/17 Rx Gabapentin 400 mg PO TID #0 10/06/17 10/25/17 Rx Tamsulosin [Flomax] 0.4 mg PO PC-BRKFST #30 cap.er.24h 10/06/17 10/25/17 Rx Insulin Glargine,Hum.rec.anlog 66 units SQ DAILY 10/25/17 10/25/17 History [Lantus Solostar] Allergies Allergy/AdvReac Type Severity Reaction Status Date / Time adhesive tape Allergy BLISTERS Verified 10/25/17 07:56 Sulfa (Sulfonamide Allergy Unknown Verified 10/25/17 07:56 Antibiotics) Childhood Physical Exam Vitals: Vital Signs Temp Pulse Resp BP Pulse Ox 10/25/17 13:43 101.5 F H 118 H 18 92 L 10/25/17 11:09 80 10/25/17 10:56 80 10/25/17 10:31 99.1 F 84 18 143/67 96 10/25/17 07:36 101.9 F H 93 18 152/81 97 10/25/17 05:58 100.8 F H 110 H 18 144/71 90 L Intake and Output 10/25/17 10/25/17 10/25/17 06:59 14:59 22:59 Other: Weight 90.265 kg GENERAL EXAM: Fatigued, 77-year-old white male, resting in the ER, on the gurney, febrile HEAD: Normocephalic/atraumatic. EYES: Normal reaction of pupils, equal size. Conjunctiva pink, sclera white. NOSE: Clear with pink turbinates. THROAT: No erythema or exudates. NECK: No masses, no JVD, no thyroid enlargement, no adenopathy. CHEST: No chest wall deformity. Symmetrical expansion. Patient has a right upper chest MediPort, right anterior lower chest Pleurx catheter, covered with the dressing LUNGS: Diffuse rhonchi, frequent just a cough, at times productive of brownish sputum CVS: Regular rate and rhythm, normal S1 and S2, no gallops, no murmurs, no rubs ABDOMEN: Soft, nontender. No hepatosplenomegaly, normal bowel sounds, no guarding or rigidity. EXTREMITIES: No clubbing, no edema, no cyanosis, 2+ pulses and upper and lower extremities. MUSCULOSKELETAL: Muscle strength and tone normal. SPINE: No scoliosis or deformity SKIN: No rashes CENTRAL NERVOUS SYSTEM: Lethargic, but easily arousable, no focal deficits, tone is normal in all 4 extremities. PSYCHIATRIC: Alert and oriented -3. Appropriate affect. Intact judgment and insight. Results - Laboratory Findings CBC and BMP: 10/25/17 15:58 10/25/17 15:58 PT/INR, D-dimer PT 10.4 sec (9.0-12.0) 10/25/17 06:30 INR 1.1 (<1.2) 10/25/17 06:30 Abnormal lab findings: Abnormal Labs 10/25/17 10/25/17 10/25/17 06:30 06:30 06:30 RBC 3.70 L Hgb 10.2 L Hct 31.9 L Lymphocytes # 0.4 L Glucose 222 H POC Glucose (mg/dL) ALT 17 L Total Creatine Kinase 42 L Albumin 3.4 L Urine Protein Urine Glucose (UA) 10/25/17 10/25/17 10/25/17 08:10 10:42 12:01 RBC Hgb Hct Lymphocytes # Glucose POC Glucose (mg/dL) 188 H 202 H ALT Total Creatine Kinase Albumin Urine Protein Trace H Urine Glucose (UA) 3+ H - Diagnostic Findings Chest x-ray: report reviewed, image reviewed Assessment and Plan Plan: Assessment: #1. Acute hypoxemic respiratory failure secondary to a right lower lobe pneumonia, possibly healthcare acquired. Chest x-ray showed chronic parenchymal changes, cardiomegaly, small right pleural effusion, right lung pleural thickening and infiltrate/atelectasis, cannot rule out possibility of pneumonia, especially in the setting of febrile illness, chest congestion, sputum production #2. Recent hospitalization for recurrent right-sided pleural effusion, patient underwent 2 thoracentesis, followed by VATS/decortication for basilar pneumothorax, pleural fluid cytology was positive for metastatic adenocarcinoma consistent with primary upper GI, versus pancreatobiliary tract origin #3. Metastatic adenocarcinoma of pancreas, patient is undergoing outpatient evaluation by medical oncology. #4. Chronic anemia #5. Diabetes mellitus type 2 #6. Hypertention, hyperlipidemia Plan: Continue current antibiotic coverage, blood, sputum and urine cultures have been ordered and sent. Continue IV fluids with 0.9 normal saline at a rate of 100 ML per hour. GI DVT prophylaxis. We'll repeat blood work this afternoon. Infectious disease service, medical oncology has been consulted. Repeat chest x -ray in the morning. Patient continues to be febrile, IV Tylenol for fevers over 101. I performed a history & physical examination of the patient and discussed their management with my nurse practitioner, Marii Franco. I reviewed the nurse practitioner's note and agree with the documented findings and plan of care. Lung sounds are diffuse rhonchi. The findings and the impression was discussed with the patient. I attest to the documentation by the nurse practitioner. Time with Patient: Greater than 30
[2017-10-25] MEDS: PIPERACILLIN-TAZOBACTAM 3.375 GM in DEXTROSE/WATER 1 50ML.BAG IVPB SCH ×2 (17:58→23:31)
[2017-10-25] MEDS: GABAPENTIN 400 MG CAP PO SCH ×2 (17:59→22:27)
[2017-10-25] MEDS: ENOXAPARIN 40 MG/0.4 ML SYRINGE SQ SCH (17:59)
[2017-10-25 19:35] LABS: Hemoglobin A1C 8.3 % (4.0-6.0)
[2017-10-25] MEDS: VANCOMYCIN 1,500 MG in SODIUM CHLORIDE 0.9% 250 ML IVPB SCH (20:30)
[2017-10-25] MEDS: MELATONIN 5 MG TABLET PO SCH (20:33)
[2017-10-25 20:35] LABS: Glucose,Whole Blood 145 mg/dL (75-99)
[2017-10-25] MEDS: LATANOPROST 0.005% OPHTH DROPS 2.5 ML BTL BOTH EYES SCH (20:57)
--- NOTE | 2017-10-25 23:42 | CONS ---
CONSULTATION DATE OF SERVICE: 10/25/2017. REASON FOR CONSULTATION: Sepsis and antibiotic recommendation. HISTORY OF PRESENT ILLNESS: The patient is a 77-year-old male with recent diagnosis of stage IV pancreatic cancer. The patient has recently needed hospitalization for evaluation of recurrent right-sided pleural effusion fluid. The patient did right-sided pleural effusion drained by Interventional Radiology with removal of 1500 mL of bloody fluid that was negative for . After admission and thoracentesis the patient did have reaccumulation of the right-sided pleural effusion, for which the patient underwent thoracentesis by on October 05 with drainage of 1600 mL of serosanguineous fluid. Subsequently the patient developed a pneumothorax for which the patient has been evaluated by CT surgery and did have a VATS procedure done with PleurX catheter placement. Biopsy of the pleural fluid indicated metastatic adenocarcinoma. The patient recently did have a MediPort placed by Dr. Hills, however, the patient has not yet started having chemotherapy. The patient has been brought into the ER with chief complaint of increasing shortness of breath. He did have a cough productive of some brownish sputum. No significant . The patient did have some right-sided chest pain, more of a dull aching pain, 3 to 4/10 with no radiation. Has been spiking a fever as high as 103.4 at home. With these symptoms, the patient presented to the [facility] ER. The patient was evaluated by the ER physician. The patient did have a fever of 101.9 to 103.3. He had a heart rate of 110 and O2 sats of 90% on room air when he presented. His white count was not significantly elevated. The patient did have blood and sputum cultures, currently pending. He did have a chest x-ray obtained, it did show redemonstration of chronic parenchymal changes and cardiomegaly with slight right pleural effusion and right lung pleural thickening with right greater than left basilar atelectasis or infiltrate. The patient has been started on broad-spectrum antibiotic in the form of vancomycin, Pharmacy to dose, and Zosyn. Infectious Disease was consulted for further recommendation regarding antibiotic therapy. REVIEW OF SYSTEMS: CONSTITUTIONAL: Positive for weakness along with the fever as mentioned above. EYES: No complaints. ENT: No complaints. RESPIRATORY: As per HPI. CARDIOVASCULAR: No complaints. GENITOURINARY: No complaints. GASTROINTESTINAL: No complaints. MUSCULOSKELETAL: No complaints. PSYCHOLOGICAL: No complaints. ENDOCRINE: No complaints. NEUROLOGIC: No complaints. PAST MEDICAL HISTORY: Significant for recent diagnosis of metastatic adenocarcinoma with malignant pleural effusion status post thoracenteses with past history of hyperlipidemia and diabetes mellitus with degenerative joint disease. PAST SURGICAL HISTORY: Adenoidectomy, appendectomy, joint replacement, tonsillectomy, thoracentesis, with pleural biopsy. SOCIAL HISTORY: No history of smoking, drinking, or drug use. FAMILY HISTORY: Mother from natural causes age of 92. Father with history of pancreatic cancer at age of 82. ALLERGIES: ADHESIVE TAPE and SULFA. MEDICATIONS: Currently include the patient is on: 1. Tylenol. 2. DuoNeb. 3. Xanax. 4. Lipitor. 5. Lovenox. 6. Neurontin. 7. NovoLog. 8. Levemir. 9. . 10.Protonix. 11.Zosyn. 12.Flomax. 13.Vancomycin pharmacy to dose. EXAMINATION: Blood pressure 109/57 with a pulse of 82, temperature 98.2, T-max 103, he is 94% on 2 L nasal cannula. GENERAL DESCRIPTION: An elderly male, lying in bed in no distress. No tachypnea or accessory muscle of respiration use. HEENT: Shows pallor. No scleral icterus. Oral mucosa is dry. No pharyngeal erythema or thrush. NECK: Trachea central. No thyromegaly. LUNGS: Unlabored breathing. Clear to auscultation with coarse crackles at the bases. No wheeze. HEART: S1, S2. Tachycardic. ABDOMEN: Soft, no tenderness. No guarding or rigidity. EXTREMITIES: No edema. SKIN: No rash. NEUROLOGIC: The patient is awake, alert, oriented. Affect normal. LABS: Hemoglobin 9.2 with white count of 5.5, BUN of 13, creatinine . has been normal. Urine is negative. Influenza serology was negative. Chest x-ray report as mentioned above. IMPRESSION/PLAN: The patient was admitted to the hospital with sepsis. The patient did have fever. The patient did have tachycardia. Source is likely pulmonary. This patient who did have a recent malignant pleural effusion, status post thoracocentesis with VATS procedure. The patient has been recently in the hospital with concern for likely resistant gram- positive as well as gram-negative pathogen such as MRSA and Pseudomonas aeruginosa. PLAN: 1. Blood culture has been obtained and should be followed. 2. Obtain sputum for Gram stain culture and sensitivity. 3. May benefit from CT of the chest to make sure no evidence of any loculated fluid. 4. Vancomycin, pharmacy to dose. Target of 15, while watching his kidney function closely. 5. Zosyn 3.375 g every 8 hours. 6. We will follow up on clinical condition and further adjust medication if needed. Thank you for this consultation. Will follow this patient along with you. MMODL / IJN: [id number] /
[2017-10-26] MEDS: IPRATROPIUM-ALBUTEROL 3 ML NEB INHALATION SCH ×7 (00:05→23:57)
[2017-10-26] MEDS: ALPRAZolam 0.5 MG TAB PO PRN ×2 (01:28→11:50)
[2017-10-26] MEDS: guaiFENesin-Coden 100-10MG/5ML 10 ML CUP PO PRN ×2 (01:35→09:20)
[2017-10-26 02:22] LABS: HCT 27.5 % (39.0-53.0); HGB 8.7 gm/dL (13.0-17.5); Hypochromasia Moderate; MCH 27.8 pg (25.0-35.0); MCHC 31.6 g/dL (31.0-37.0); Platelet Count 251 k/uL (150-450); RBC 3.13 m/uL (4.30-5.90); RDW 14.3 % (11.5-15.5); WBC 5.5 k/uL (3.8-10.6)
[2017-10-26 02:33] LABS: Anion Gap 6 mmol/L; Blood Urea Nitrogen 14 mg/dL (9-20); Calcium 7.8 mg/dL (8.4-10.2); Carbon Dioxide 25 mmol/L (22-30); Chloride 107 mmol/L (98-107); Glucose 104 mg/dL (74-99); Potassium 4.4 mmol/L (3.5-5.1); Sodium 138 mmol/L (137-145)
[2017-10-26] MEDS: SODIUM CHLORIDE 0.9% 1,000 ML IV SCH ×2 (05:11→14:24)
[2017-10-26] MEDS: VANCOMYCIN 1,500 MG in SODIUM CHLORIDE 0.9% 250 ML IVPB SCH ×2 (05:11→17:13)
[2017-10-26] MEDS: ACETAMINOPHEN TAB 325 MG TAB PO PRN ×2 (05:11→14:57)
[2017-10-26 07:16] LABS: Glucose,Whole Blood 92 mg/dL (75-99)
[2017-10-26] MEDS: INSULIN ASPART 100 UNIT/ML 1 ML 10 ML VIAL SQ SCH ×4 (08:09→21:19)
[2017-10-26] MEDS: TAMSULOSIN 0.4 MG CAP.ER.24H PO SCH (08:20)
[2017-10-26] MEDS: GABAPENTIN 400 MG CAP PO SCH ×3 (08:20→21:19)
[2017-10-26] MEDS: ATORVASTATIN 10 MG TAB PO SCH (08:20)
[2017-10-26] MEDS: PANTOPRAZOLE 40 MG TABLET PO SCH (08:21)
[2017-10-26] MEDS: PIPERACILLIN-TAZOBACTAM 3.375 GM in DEXTROSE/WATER 1 50ML.BAG IVPB SCH ×2 (08:23→15:31)
[2017-10-26] MEDS: INSULIN DETEMIR 100 UNIT/ML 10 ML VIAL SQ SCH (08:51)
[2017-10-26] MEDS: ENOXAPARIN 40 MG/0.4 ML SYRINGE SQ SCH (08:52)
[2017-10-26 09:41] VITALS: BMI 26.2
[2017-10-26 12:24] LABS: Glucose,Whole Blood 115 mg/dL (75-99)
--- NOTE | 2017-10-26 13:35 | P.CONS ---
History of Present Illness - Reason for Consult Consult date: 10/26/17 Adenocarcinoma Requesting physician: Meghan Garcia - Chief Complaint Pneumonia - History of Present Illness Mr Hand is a pleasant white male, initially seen in consult at [facility] on 10/05/17. At baseline the patient had well-controlled medical problems and good performance status. He had presented to his primary care physician with increasing shortness of breath, over about 2-3 months. Imaging revealed a right pleural effusion for which she was hospitalized and had a thoracentesis done earlier in 09/22. The fluid appeared to be exudative and was suspicious, clinically, but cytology was negative. CT scan of the chest at that time revealed calcifications in the pancreatic tail in addition to the right-sided pleural effusion. the patient developed recurrent shortness of breath with a fairly short period of time after his procedure due to which he was readmitted. He had repeat thoracentesis, with drainage of about 1600 mL of serosanguineous fluid. He then developed pneumothorax with the possibility of Lung. The patient was evaluated by cardiac thoracic surgery and underwent right thoracoscopy with partial decortication of the right lung, biopsy of the right lower lobe and right pleura as well as placement of right Pleurx catheter on 10/04/17. His labs had shown elevated CA 199 at 2360.4. He had an MRI of the abdomen on 10/03/17, that showed a right pleural effusion. There was no abnormal enhancement in the pancreas, which appeared atrophic. 2 enhancing foci were seen in the lateral inferior right lobe of the liver measuring 9 mm and 8 mm which could not be classified further. Minimal calcifications were seen within the pancreas. The patient improved after chest tube placement and was then discharged. The repeat cytology on the pleural fluid was again negative. However pathology from the lung biopsy and pleural biopsy was consistent with adenocarcinoma of upper GI or pancreatobiliary primary. He was seen for his first office visit on 10/17/17. The pt is being seen for a new diagnosis of adenocarcinoma of upper GI/ pancreatobiliary origin, which is metastatic to the right lung and right pleura. The patient's symptoms are improved since placement of the Pleurx catheter. As noted, his baseline medical problems are reasonably well controlled and he had a good performance status prior to developing symptoms from the pleural effusion. - The pathology, and implications were discussed in detail with him and his . They were advised that regardless of the specific primary site, his presentation represents stage IV disease, which is not curable. The objective of treatment would be prolongation of life and palliation of symptoms. - At this time a pancreaticobiliary primary is somewhat more likely, given the high CA 19-9 levels. however the tumor markers are nondiagnostic. Direct imaging of the liver and pancreas did not show an obvious primary. He was referred to Dr. Hills who performed EGD without any obvious findings and underwent MP PLacement. Plan after discharge will likely consist of Gemzar and Abraxane in the first line. We are awaiting MSI testing to result. He now presents to hospital with increased SOB Review of Systems A 14 point review of system assessed and completed and all negative except HPI Past Medical History Past Medical History: Cancer, Diabetes Mellitus, GERD/Reflux, Hyperlipidemia Additional Past Medical History / Comment(s): Pt recently admitted to [facility] on with recurrent R pleural effusion with thoracentesis.R thorascopy with partial decortication and pleural/lower lobe wedge biopsies-results of metastatic adenocarcinoma with primary GE vs pancreatobiliary tract origin-pt states they don't know primary source yet, recent urinary retention and acute renal failure, R sided pleurx cath, IDDM type II-had recent hypoglycemia so insulin decreased but now pt states blood sugars have been running high again, neuropathy bilateral feet, L eye retinopathy-sees a specialist, past R clavicle fracture. History of Any Multi-Drug Resistant Organisms: None Reported Past Surgical History: Adenoidectomy, Appendectomy, Joint Replacement, Orthopedic Surgery, Tonsillectomy Additional Past Surgical History / Comment(s): R thrascopy with partial decortication with pleural bx and wedge resection/bx/pleurx cath, thoracentesis , mediport, total R shoulder arthroplasty, sinus surgery, bilateral cataract removals with lens implants, L hand finger injury with surgery. Past Anesthesia/Blood Transfusion Reactions: No Reported Reaction Smoking Status: Never smoker - Past Family History Mother Family Medical History: No Reported History Additional Family Medical History / Comment(s): Mother from natural causes at the age of 92yrs. Father Family Medical History: Cancer Additional Family Medical History / Comment(s): Father of pancreatic cancer at the age of 82 yrs. Medications and Allergies Home Medications Medication Instructions Recorded Confirmed Type Atorvastatin Calcium [Lipitor] 10 mg PO DAILY 09/21/17 10/25/17 History Insulin Lispro [humaLOG Kwikpen] See Protocol SQ ACHS 09/21/17 10/25/17 History Lansoprazole 30 mg PO DAILY 09/21/17 10/25/17 History Latanoprost [Xalatan 0.005%] 1 drop BOTH EYES HS 10/03/17 10/25/17 History Acetaminophen Tab [Tylenol] 650 mg PO Q4HR PRN tab 10/06/17 10/25/17 Rx Gabapentin 400 mg PO TID #0 10/06/17 10/25/17 Rx Tamsulosin [Flomax] 0.4 mg PO PC-BRKFST #30 cap.er.24h 10/06/17 10/25/17 Rx Insulin Glargine,Hum.rec.anlog 66 units SQ DAILY 10/25/17 10/25/17 History [Lantus Solostar] ALPRAZolam [Xanax] 0.5 mg PO BID PRN 10/26/17 10/26/17 History Allergies Allergy/AdvReac Type Severity Reaction Status Date / Time adhesive tape Allergy BLISTERS Verified 10/25/17 07:56 Sulfa (Sulfonamide Allergy Unknown Verified 10/25/17 07:56 Antibiotics) Childhood Physical Exam Vitals: Vital Signs Temp Pulse Pulse Resp BP BP Pulse Ox 10/26/17 11:44 82 10/26/17 11:27 84 10/26/17 08:15 98.9 F 10/26/17 08:14 20 10/26/17 07:24 88 10/26/17 07:13 101.2 F H 84 81 24 111/68 100 10/26/17 05:49 98.3 F 10/26/17 05:10 102.1 F H 10/26/17 01:35 80 10/26/17 01:30 101.2 F H 110 H 22 160/80 95 10/26/17 01:21 76 10/26/17 00:00 98.9 F 92 123/58 92 L 10/25/17 21:54 80 10/25/17 21:44 76 93 L 10/25/17 20:00 98.2 F 62 16 109/57 94 L 10/25/17 16:25 99.8 F H 96 14 115/61 94 L 10/25/17 15:46 90 10/25/17 15:35 94 10/25/17 15:23 103.3 F H 95 18 127/71 95 10/25/17 13:43 101.5 F H 118 H 18 92 L Intake and Output 10/25/17 10/26/17 10/26/17 22:59 06:59 14:59 Intake Total 1125 900 125 Output Total 1275 Balance 1125 900 -1150 Intake: Intake, IV Titration 1050 800 Amount Sodium Chloride 0.9% 1, 800 800 000 ml @ 100 mls/hr IV . Q10H LUCY Rx#:[id number] Vancomycin 1,500 mg In 250 Sodium Chloride 0.9% 250 ml @ 125 mls/hr IVPB ONCE STA Rx#:[id number] Oral 75 125 Other 100 Output: Chest Tube Drainage 450 Pleural Catheter 450 Urine 825 Other: # Voids 3 3 Weight 90.265 kg GENERAL: Alert and Oriented, NAD HEENT: Neck Supple, trachea midline, Non-icterus sclera CARDIOVASCULAR: RRR, S1 and S2 present. No murmurs, rubs, or gallops. PULMONARY: Mild increased effort with some noted crackles over the right lung bases Puerx cath drsing CDI ABDOMEN: Soft, nontender, EXTREMITIES: No cyanosis, clubbing, or pedal edema. NEUROLOGICAL: No focal deficits. SKIN: Dry, No rashes. Results CBC & Chem 7: 10/26/17 02:01 10/26/17 02:01 Labs: Abnormal Lab Results - Last 24 Hours (Table) 10/25/17 10/25/17 10/25/17 Range/Units 06:30 15:58 15:58 RBC 3.29 L (4.30-5.90) m/uL Hgb 9.2 L (13.0-17.5) gm/dL Hct 29.0 L (39.0-53.0) % Lymphocytes # 0.5 L (1.0-4.8) k/uL Glucose 184 H (74-99) mg/dL POC Glucose (mg/dL) (75-99) mg/dL Hemoglobin A1c 8.3 H (4.0-6.0) % Calcium 7.9 L (8.4-10.2) mg/dL 10/25/17 10/25/17 10/26/17 Range/Units 16:59 20:32 02:01 RBC 3.13 L (4.30-5.90) m/uL Hgb 8.7 L (13.0-17.5) gm/dL Hct 27.5 L (39.0-53.0) % Lymphocytes # (1.0-4.8) k/uL Glucose (74-99) mg/dL POC Glucose (mg/dL) 188 H 145 H (75-99) mg/dL Hemoglobin A1c (4.0-6.0) % Calcium (8.4-10.2) mg/dL 10/26/17 10/26/17 Range/Units 02:01 12:21 RBC (4.30-5.90) m/uL Hgb (13.0-17.5) gm/dL Hct (39.0-53.0) % Lymphocytes # (1.0-4.8) k/uL Glucose 104 H (74-99) mg/dL POC Glucose (mg/dL) 115 H (75-99) mg/dL Hemoglobin A1c (4.0-6.0) % Calcium 7.8 L (8.4-10.2) mg/dL Microbiology - Last 24 Hours (Table) 10/25/17 06:30 Blood Culture - Preliminary Blood No Growth after 24 hours 10/25/17 17:00 Gram Stain - Preliminary Sputum Sputum Culture - Preliminary 10/25/17 08:10 Urine Culture - Preliminary Urine,Clean Catch Chest x-ray: report reviewed CT scan - chest: report reviewed MRI - abdomen: report reviewed Assessment and Plan Plan: 1. 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 Normocytic Anemia: - COmponent of iron deficiency on previous admission - Recheck Retic, LDH, Iron studies - No intervention needed at this time, Transfuse less than 7 - Recent EGD 3. RLL Pneumonia: IV abx per ID and Primary Team
--- NOTE | 2017-10-26 15:36 | P.PN ---
Subjective Progress Note Date: 10/26/17 Principal diagnosis: Acute hypoxemic respiratory failure secondary to right lower lobe pneumonia, possibly healthcare acquired. 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 Ruiz, who presented to the emergency department on 10/25/2017 at 6:00 in the morning for evaluation of cough, generalized malaise, fever, chills. Patient was recently diagnosed with stage IV pancreatic cancer. Past medical history includes diabetes mellitus, GERD/reflux, hyperlipidemia, hypertension, no chronic lung disease. He is known to us from his previous hospitalization for evaluation of recurrent right-sided pleural effusion. Patient initially had a right-sided thoracentesis by interventional radiology with drainage of 1500 mL of bloody fluid, in the fluid was found to be exudative in nature, and negative for malignancy. After the initial thoracentesis patient had rapid reaccumulation of the right-sided pleural effusion, and underwent right-sided thoracentesis by Dr. Jefferson on 10/04 with drainage of 1600 mL of serosanguineous fluid. Patient did have postprocedural basilar pneumothorax, cardiothoracic surgery performed a VATS/ decortication and Pleurx catheter placement.Pathology results of the pleural fluid indicated metastatic adenocarcinoma consistent with primary upper GI versus pancreatobiliary tract origin. Pancreatic cancer marker was elevated. MRI of the abdomen was completed, and showed focal calcifications at tail of pancreas and indeterminate lesion in the liver. Patient states he had evaluation by Dr. Hills. He supposed to go over the results of the workup with Dr. Dotson in the office today, on 10/25/2017, he had a MediPort put in in his right upper chest on Sunday on 10/23/2017. However he became increasingly more congested, coughing up brownish colored sputum, short of breath, spiking fevers. Chest x-ray was completed, which showed chronic parenchymal changes, cardiomegaly with small right pleural effusion and right lung pleural thickening with right greater than left basilar atelectasis/infiltrate. EKG showed sinus tachycardia with a rate of 101 BPM. Patient has been febrile in the emergency room, with a T-max of 103.3F. He was started on a combination of cefepime and vancomycin, blood culture, sputum culture and urine culture have been ordered. Last time he drain his Pleurx catheter was on Sunday, 2 days ago, with drainage of 100 mL of bloody pleural fluid. He is resting on the gurney, with his at the bedside, and he is febrile. Diffusely congested, patient has congested cough, production of brown colored sputum. On 10/26/2017 patient seen in follow-up on the surgical floor. Patient continues to be intermittently febrile, T-max of 102.1F. Through the night he was placed on the nonrebreather mask, he was in mild to moderate amount of respiratory distress, congested, he was given a dose of oral Lasix, breathing treatments, this morning he is fairly comfortable, not bringing up as much sputum, a bit less congested. Pleurx catheter was drained, with 450 ML of dark bloody pleural fluid, as was sent for cultures. Currently he is on 6 L per high flow nasal cannula, his O2 sat is anywhere from 93-96%. Blood culture showed no growth at the 24 hours, urine and sputum cultures are pending. Patient remains on antibiotic coverage including Zosyn and vancomycin. This morning's labs were reviewed, WBC is 5.5, hemoglobin is 8.7, electrodes and renal profile are within normal limits, plasma lactic acid is 1.4. Patient is given IV fluids of 0.9 normal saline at a rate of 100 ML per hour. Objective - Vital Signs Vital signs: Vital Signs Temp 101.5 F H 10/26/17 14:42 Pulse 90 10/26/17 14:42 Resp 15 10/26/17 14:42 BP 115/57 10/26/17 14:42 Pulse Ox 96 10/26/17 15:07 Intake & Output 10/25/17 10/26/17 10/26/17 18:59 06:59 18:59 Intake Total 75 1950 612 Output Total 1395 Balance 75 1950 -783 Weight 90.265 kg Intake: IV 250 Sodium Chloride 0.9% 1, 250 000 ml @ 100 mls/hr IV . Q10H LUCY Rx#:[id number] Intake, IV Titration 1850 Amount Sodium Chloride 0.9% 1, 1600 000 ml @ 100 mls/hr IV . Q10H LUCY Rx#:[id number] Vancomycin 1,500 mg In 250 Sodium Chloride 0.9% 250 ml @ 125 mls/hr IVPB ONCE STA Rx#:[id number] Oral 75 362 Other 100 Output: Chest Tube Drainage 450 Pleural Catheter 450 Urine 945 Other: # Voids 3 - Exam GENERAL EXAM: Fatigued, 77-year-old white male, resting in the ER, on the gurney , febrile HEAD: Normocephalic/atraumatic. EYES: Normal reaction of pupils, equal size. Conjunctiva pink, sclera white. NOSE: Clear with pink turbinates. THROAT: No erythema or exudates. NECK: No masses, no JVD, no thyroid enlargement, no adenopathy. CHEST: No chest wall deformity. Symmetrical expansion. Patient has a right upper chest MediPort, right anterior lower chest Pleurx catheter, covered with the dressing LUNGS: Diffuse rhonchi, frequent just a cough, at times productive of brownish sputum CVS: Regular rate and rhythm, normal S1 and S2, no gallops, no murmurs, no rubs ABDOMEN: Soft, nontender. No hepatosplenomegaly, normal bowel sounds, no guarding or rigidity. EXTREMITIES: No clubbing, no edema, no cyanosis, 2+ pulses and upper and lower extremities. MUSCULOSKELETAL: Muscle strength and tone normal. SPINE: No scoliosis or deformity SKIN: No rashes CENTRAL NERVOUS SYSTEM: Lethargic, but easily arousable, no focal deficits, tone is normal in all 4 extremities. PSYCHIATRIC: Alert and oriented -3. Appropriate affect. Intact judgment and insight. - Labs CBC & Chem 7: 10/26/17 02:01 10/26/17 02:01 Labs: Abnormal Lab Results - Last 24 Hours (Table) 10/25/17 10/25/17 10/25/17 Range/Units 06:30 15:58 15:58 RBC 3.29 L (4.30-5.90) m/uL Hgb 9.2 L (13.0-17.5) gm/dL Hct 29.0 L (39.0-53.0) % Lymphocytes # 0.5 L (1.0-4.8) k/uL Glucose 184 H (74-99) mg/dL POC Glucose (mg/dL) (75-99) mg/dL Hemoglobin A1c 8.3 H (4.0-6.0) % Calcium 7.9 L (8.4-10.2) mg/dL 10/25/17 10/25/17 10/26/17 Range/Units 16:59 20:32 02:01 RBC 3.13 L (4.30-5.90) m/uL Hgb 8.7 L (13.0-17.5) gm/dL Hct 27.5 L (39.0-53.0) % Lymphocytes # (1.0-4.8) k/uL Glucose (74-99) mg/dL POC Glucose (mg/dL) 188 H 145 H (75-99) mg/dL Hemoglobin A1c (4.0-6.0) % Calcium (8.4-10.2) mg/dL 10/26/17 10/26/17 Range/Units 02:01 12:21 RBC (4.30-5.90) m/uL Hgb (13.0-17.5) gm/dL Hct (39.0-53.0) % Lymphocytes # (1.0-4.8) k/uL Glucose 104 H (74-99) mg/dL POC Glucose (mg/dL) 115 H (75-99) mg/dL Hemoglobin A1c (4.0-6.0) % Calcium 7.8 L (8.4-10.2) mg/dL Microbiology - Last 24 Hours (Table) 10/25/17 06:30 Blood Culture - Preliminary Blood No Growth after 24 hours 10/25/17 17:00 Gram Stain - Preliminary Sputum Sputum Culture - Preliminary 10/25/17 08:10 Urine Culture - Preliminary Urine,Clean Catch Assessment and Plan Plan: Assessment: #1. Acute hypoxemic respiratory failure secondary to a right lower lobe pneumonia, possibly healthcare acquired. Chest x-ray showed chronic parenchymal changes, cardiomegaly, small right pleural effusion, right lung pleural thickening and infiltrate/atelectasis, cannot rule out possibility of pneumonia, especially in the setting of febrile illness, chest congestion, sputum production #2. Recent hospitalization for recurrent right-sided pleural effusion, patient underwent 2 thoracentesis, followed by VATS/decortication for basilar pneumothorax, pleural fluid cytology was positive for metastatic adenocarcinoma consistent with primary upper GI, versus pancreatobiliary tract origin #3. Metastatic adenocarcinoma of pancreas, patient is undergoing outpatient evaluation by medical oncology. #4. Chronic anemia #5. Diabetes mellitus type 2 #6. Hypertention, hyperlipidemia Plan: Right Pleurix catheter was drained with the 450 ML of dark bloody pleural fluid , this was sent for cultures. Continue current antibiotic coverage, continue nebulized bronchodilators, patient continues to be intermittently febrile. Congested, may need BiPAP support at night. Sputum and urine cultures pending. Repeat chest x-ray in the morning. We'll continue to follow I performed a history & physical examination of the patient and discussed their management with my nurse practitioner, Marii Franco. I reviewed the nurse practitioner's note and agree with the documented findings and plan of care. Lung sounds are diffuse rhonchi. The findings and the impression was discussed with the patient. I attest to the documentation by the nurse practitioner. Time with Patient: Less than 30
--- NOTE | 2017-10-26 15:51 | P.PN ---
Subjective Progress Note Date: 10/26/17 Progress note being dictated for Dr. Garcia. Interval history:Patient came in with complaints of cough without any significant sputum production fever chills generalized malaise and patient was recently discharged from the hospital after he was treated for recurrent pleural effusion patient biopsy from the right sided thorax is consistent with adenocarcinoma patient received a chemo port recently blood cultures were obtained chest x-ray showed increased infiltrate patient was started on broad- spectrum antibiotics vancomycin and Zosyn. Patient was also started on levofloxacin which was discontinued. UVA and no significant abnormality. I'm unable to examine the Pleurx catheter site. Review of Systems REVIEW OF SYSTEMS: CONSTITUTIONAL: As mentioned above HEENT: No recent visual problems or hearing problems. Denied any sore throat. CARDIOVASCULAR: No chest pain, orthopnea, PND, no palpitations, no syncope. PULMONARY: no hemoptysis. GASTROINTESTINAL: No diarrhea, no nausea, no vomiting, no abdominal pain. Normoactive bowel sounds. NEUROLOGICAL: No headaches, no weakness, no numbness. HEMATOLOGICAL: Denies any bleeding or petechiae. GENITOURINARY: Denies any burning micturition, frequency, or urgency. MUSCULOSKELETAL/RHEUMATOLOGICAL: Denies any joint pain, swelling, or any muscle pain. ENDOCRINE: Denies any polyuria or polydipsia. The rest of the 14-point review of systems is negative. 10/26/2017 developed respiratory distress during the night, requiring nonrebreather. Received a dose of Lasix . Weaned to 6 L nasal cannula, maintaining O2 sats in the 90s currently . Maintained on vancomycin, Zosyn .T- max 102.1, preliminary blood cultures no growth, urine and sputum pending. Pleurx catheter drained approximately 450 MLS dark bloody pleural fluid, cultured. Tired appearing, currently no cough. Objective - Vital Signs Vital signs: Vital Signs Temp 98.9 F 10/26/17 08:15 Pulse 88 10/26/17 07:24 Resp 20 10/26/17 08:14 BP 111/68 10/26/17 07:13 Pulse Ox 100 10/26/17 07:13 Intake & Output 10/25/17 10/26/17 10/26/17 18:59 06:59 18:59 Intake Total 75 1950 125 Output Total 725 Balance 75 1950 -600 Weight 90.265 kg Intake: Intake, IV Titration 1850 Amount Sodium Chloride 0.9% 1, 1600 000 ml @ 100 mls/hr IV . Q10H LUCY Rx#:[id number] Vancomycin 1,500 mg In 250 Sodium Chloride 0.9% 250 ml @ 125 mls/hr IVPB ONCE STA Rx#:[id number] Oral 75 125 Other 100 Output: Chest Tube Drainage 450 Pleural Catheter 450 Urine 275 Other: # Voids 3 - Exam GENERAL: The patient is alert and oriented x3, not in any acute distress, fatigued. HEENT: tired appearing Pupils are round and equally reacting to light. EOMI. No scleral icterus. No conjunctival pallor. Normocephalic, atraumatic. CARDIOVASCULAR: S1 and S2 present. No murmurs, rubs, or gallops. PULMONARY: Scattered rhonchi with fine Crackles of the right lung bases fairly good air entry into bilateral lung lynn. Right chest Pleurx catheter present. ABDOMEN: Soft, nontender, nondistended, normoactive bowel sounds. No palpable organomegaly. MUSCULOSKELETAL: No joint swelling or deformity. EXTREMITIES: No cyanosis, clubbing, or pedal edema. NEUROLOGICAL: Gross neurological examination did not reveal any focal deficits. SKIN: No rashes. - Labs CBC & Chem 7: 10/26/17 02:01 10/26/17 02:01 Labs: Abnormal Lab Results - Last 24 Hours (Table) 10/25/17 10/25/17 10/25/17 Range/Units 06:30 10:42 12:01 RBC (4.30-5.90) m/uL Hgb (13.0-17.5) gm/dL Hct (39.0-53.0) % Lymphocytes # (1.0-4.8) k/uL Glucose (74-99) mg/dL POC Glucose (mg/dL) 188 H 202 H (75-99) mg/dL Hemoglobin A1c 8.3 H (4.0-6.0) % Calcium (8.4-10.2) mg/dL 10/25/17 10/25/17 10/25/17 Range/Units 15:58 15:58 16:59 RBC 3.29 L (4.30-5.90) m/uL Hgb 9.2 L (13.0-17.5) gm/dL Hct 29.0 L (39.0-53.0) % Lymphocytes # 0.5 L (1.0-4.8) k/uL Glucose 184 H (74-99) mg/dL POC Glucose (mg/dL) 188 H (75-99) mg/dL Hemoglobin A1c (4.0-6.0) % Calcium 7.9 L (8.4-10.2) mg/dL 10/25/17 10/26/17 10/26/17 Range/Units 20:32 02:01 02:01 RBC 3.13 L (4.30-5.90) m/uL Hgb 8.7 L (13.0-17.5) gm/dL Hct 27.5 L (39.0-53.0) % Lymphocytes # (1.0-4.8) k/uL Glucose 104 H (74-99) mg/dL POC Glucose (mg/dL) 145 H (75-99) mg/dL Hemoglobin A1c (4.0-6.0) % Calcium 7.8 L (8.4-10.2) mg/dL Microbiology - Last 24 Hours (Table) 10/25/17 06:30 Blood Culture - Preliminary Blood No Growth after 24 hours 10/25/17 17:00 Gram Stain - Preliminary Sputum Sputum Culture - Preliminary 10/25/17 08:10 Urine Culture - Preliminary Urine,Clean Catch Assessment and Plan Assessment: -Sepsis possible source being right lower lobe pneumonia, possibly gram- negative ,recent chemo port placed patient is started on chemotherapy. Recent malignant pleural effusion, status post thoracentesis with VATS. -Acute hypoxic respiratory failure secondary to the above, status post nonrebreather -Adenocarcinoma with unknown primary: Oncology consulted. -Type 2 diabetes mellitus -Hypertension -Hyperlipidemia -Diabetic peripheral neuropathy Plan: Continue on current medication regime ,monitoring and symptomatic treatment. Antibiotics as per infectious disease. Evaluated by oncology with recommendations noted .Aggressive pulmonary toileting with incentive spirometer reinforced. Follow cultures closely. BiPAP recommended if further respiratory distress as per pulmonary. The impression and plan of care has been dictated as directed. : I performed a history and examination of this patient, discussed the same with the dictator. I agree with the dictator's note ,documented as a scribe. Any additional findings or plans will be noted.
--- NOTE | 2017-10-26 15:58 | PN ---
PROGRESS NOTE DATE OF SERVICE: 10/26/2017. REASON FOR FOLLOWUP: Pneumonia. INTERVAL HISTORY: The patient continued to have a fever and with a fever this morning of 101.2 and after he was 98.9. The patient seemed to be slightly lethargic. The did mention that he was given some cough syrup with codeine in it. He seemed to be continuing to have some cough not bringing up any sputum though. No chest pain. No nausea, no vomiting. No abdominal pain or any diarrhea. EXAMINATION: Blood pressure 115/57 with a pulse of 90, temperature of 101.5. He is 93% on 6 L nasal cannula. General description is an elderly male up in the bed in no distress. RESPIRATORY SYSTEM: Unlabored breathing with decreased breath sounds at the bases. No wheeze. HEART: S1, S2. Regular rate and rhythm. ABDOMEN: Soft, no tenderness. EXTREMITIES: No edema of the feet. LABS: Hemoglobin is 8.7, white count 5.5, BUN of 14, creatinine 0.92. Electrolytes have been normal. Sputum culture currently pending. Blood culture so far negative. DIAGNOSTIC IMPRESSION AND PLAN: Patient admitted to the hospital with sepsis, source likely pneumonia with concern for possible nosocomial pathogen. In view of the patient's recent admission to the hospital and multiple surgeries involving multiple thoracentesis right side, the patient at this time covered with vancomycin and Zosyn. That will be continued. Repeat CT of the chest. Will follow up on the cultures, adjusting further and watching his kidney function closely. Continue supportive care. MMODL / IJN: [id number] /
[2017-10-26 17:03] LABS: Glucose,Whole Blood 160 mg/dL (75-99)
[2017-10-26 21:12] LABS: Glucose,Whole Blood 173 mg/dL (75-99)
[2017-10-26] MEDS: LATANOPROST 0.005% OPHTH DROPS 2.5 ML BTL BOTH EYES SCH (21:19)
[2017-10-26] MEDS: MELATONIN 5 MG TABLET PO SCH (21:19)
[2017-10-27] MEDS: guaiFENesin-Coden 100-10MG/5ML 10 ML CUP PO PRN ×2 (00:08→21:22)
[2017-10-27] MEDS: ALPRAZolam 0.5 MG TAB PO PRN ×2 (00:08→21:22)
[2017-10-27] MEDS: PIPERACILLIN-TAZOBACTAM 3.375 GM in DEXTROSE/WATER 1 50ML.BAG IVPB SCH ×4 (00:08→23:14)
[2017-10-27] MEDS: ACETAMINOPHEN TAB 325 MG TAB PO PRN ×2 (00:39→13:17)
[2017-10-27] MEDS: IPRATROPIUM-ALBUTEROL 3 ML NEB INHALATION SCH ×6 (03:45→23:12)
[2017-10-27] MEDS ORDERED: VANCOMYCIN TROUGH DUE 1 EACH MISC MISCELLANE ONE (05:00)
[2017-10-27 05:13] LABS: Reticulocyte % 1.9 % (0.5-2.0)
[2017-10-27 05:30] LABS: Calcium 7.8 mg/dL (8.4-10.2); Potassium 4.2 mmol/L (3.5-5.1)
[2017-10-27 06:42] LABS: Glucose,Whole Blood 148 mg/dL (75-99)
--- NOTE | 2017-10-27 07:24 | XR ---
EXAMINATION TYPE: XR chest 2V DATE OF EXAM: 10/27/2017 HISTORY: follow up pneumonia. REFERENCE: Previous study dated 10/25/2017. FINDINGS: A MediPort is in place via a right internal jugular approach. Its tip is in the superior ve na cava. There is a worsening right-sided effusion with concomitant right basilar airspace disease. Heart size is obscured. The left lung appears clear. IMPRESSION: 1. WORSENING RIGHT-SIDED EFFUSION. 2. WORSENING RIGHT-SIDED AIRSPACE DISEASE.
[2017-10-27] MEDS: INSULIN ASPART 100 UNIT/ML 1 ML 10 ML VIAL SQ SCH ×4 (08:58→20:43)
[2017-10-27] MEDS: TAMSULOSIN 0.4 MG CAP.ER.24H PO SCH (10:04)
[2017-10-27] MEDS: ATORVASTATIN 10 MG TAB PO SCH (10:04)
[2017-10-27] MEDS: PANTOPRAZOLE 40 MG TABLET PO SCH (10:05)
[2017-10-27] MEDS: HEPARIN SODIUM,PORCINE 5,000 UNIT/ML 1 ML VIAL SQ SCH ×3 (10:05→23:14)
[2017-10-27] MEDS: INSULIN DETEMIR 100 UNIT/ML 10 ML VIAL SQ SCH (10:05)
[2017-10-27] MEDS: GABAPENTIN 400 MG CAP PO SCH ×3 (10:19→21:22)
[2017-10-27 11:10] LABS: Iron Saturation 4.17 (15.00-50.00)
[2017-10-27 11:27] LABS: Glucose,Whole Blood 322 mg/dL (75-99)
--- NOTE | 2017-10-27 12:03 | P.PN ---
Subjective Patient with adenocarcinoma unknown primary multiple pleural effusions Pleurx catheter in place came in with sepsis possibly pulmonary being the source can be pneumonia and the pleural effusion contributing to that. Patient is feeling much better today. About 4 50 mL of pleural fluid was removed yesterday. Patient remains on broad-spectrum antibiotics vancomycin and Zosyn pleural fluid cultures are pending. Decision regarding a CAT scan and more flow pleural fluid drainage As per pulmonary repeat CAT scan is showing significant amount of pleural fluid. There is a concern of loculations. Constitutional: Denied any fatigue denied any fever. Cardio vascular: denied any chest pain, palpitations Gastrointestinal denied any nausea vomiting Pulmonary: Denied any shortness of breath cough Neurologic denied any new focal deficits Objective - Vital Signs Vital signs: Vital Signs Temp 98.6 F 10/27/17 07:30 Pulse 100 10/27/17 08:10 Resp 16 10/27/17 07:30 BP 121/69 10/27/17 07:30 Pulse Ox 99 10/27/17 07:30 Intake & Output 10/26/17 10/27/17 10/27/17 18:59 06:59 18:59 Intake Total 812 1900 237 Output Total 1395 Balance -583 1900 237 Weight 90.265 kg Intake: IV 250 800 Sodium Chloride 0.9% 1, 250 800 000 ml @ 100 mls/hr IV . Q10H LUCY Rx#:[id number] Intake, IV Titration 350 Amount Piperacillin-Tazobactam 3 100 .375 gm In Dextrose/Water 1 50ml.bag @ 12.5 mls/hr IVPB Q8HR LUCY Rx#: [id number] Vancomycin 1,500 mg In 250 Sodium Chloride 0.9% 250 ml @ 125 mls/hr IVPB Q12H LUCY Rx#:[id number] Oral 562 750 237 Output: Chest Tube Drainage 450 Pleural Catheter 450 Urine 945 Other: # Voids 2 - Exam GENERAL: The patient is alert and oriented x3, not in any acute distress, fatigued. HEENT: tired appearing Pupils are round and equally reacting to light. EOMI. No scleral icterus. No conjunctival pallor. Normocephalic, atraumatic. CARDIOVASCULAR: S1 and S2 present. No murmurs, rubs, or gallops. PULMONARY: Scattered rhonchi with fine Crackles of the right lung bases fairly good air entry into bilateral lung lynn. Right chest Pleurx catheter present. ABDOMEN: Soft, nontender, nondistended, normoactive bowel sounds. No palpable organomegaly. MUSCULOSKELETAL: No joint swelling or deformity. EXTREMITIES: No cyanosis, clubbing, or pedal edema. NEUROLOGICAL: Gross neurological examination did not reveal any focal deficits. SKIN: No rashes. - Labs CBC & Chem 7: 10/26/17 02:01 10/27/17 04:46 Labs: Abnormal Lab Results - Last 24 Hours (Table) 10/26/17 10/26/17 10/26/17 Range/Units 12:21 17:01 21:11 Creatinine (0.66-1.25) mg/dL Glucose (74-99) mg/dL POC Glucose (mg/dL) 115 H 160 H 173 H (75-99) mg/dL Calcium (8.4-10.2) mg/dL Iron (65-175) ug/dL TIBC (228-460) ug/dL Iron Saturation (15.00-50.00) 10/27/17 10/27/17 10/27/17 Range/Units 04:46 04:46 06:40 Creatinine 1.34 H (0.66-1.25) mg/dL Glucose 140 H (74-99) mg/dL POC Glucose (mg/dL) 148 H (75-99) mg/dL Calcium 7.8 L (8.4-10.2) mg/dL Iron 8 L (65-175) ug/dL TIBC 192 L (228-460) ug/dL Iron Saturation 4.17 L (15.00-50.00) 10/27/17 Range/Units 11:26 Creatinine (0.66-1.25) mg/dL Glucose (74-99) mg/dL POC Glucose (mg/dL) 322 H (75-99) mg/dL Calcium (8.4-10.2) mg/dL Iron (65-175) ug/dL TIBC (228-460) ug/dL Iron Saturation (15.00-50.00) Microbiology - Last 24 Hours (Table) 10/26/17 09:37 Gram Stain - Preliminary Pleural Fluid Body Fluid Culture - Preliminary 10/25/17 06:30 Blood Culture - Preliminary Blood No Growth after 48 hours 10/25/17 08:10 Urine Culture - Final Urine,Clean Catch Assessment and Plan Plan: -Sepsis possible source being right lower lobe pneumonia patient had a recent chemo port placed patient is started on chemotherapy. Blood cultures will be obtained patient will be continued on above-mentioned broad-spectrum antibiotics. As was source of infection is pleural fluid or pneumonia patient is Zosyn and vancomycin pleural fluid cultures are pending. Pulmonary and infectious disease is following the patient patient may need pleural fluid drainage today as well -Adenocarcinoma with unknown primary: -Type 2 diabetes mellitus next -Hypertension -Hyperlipidemia -Diabetic peripheral neuropathy For above-mentioned chronic medical problems patient will be resumed and continued on appropriate home medications.
[2017-10-27] MEDS: VANCOMYCIN 1,500 MG in SODIUM CHLORIDE 0.9% 250 ML IVPB SCH (12:22)
[2017-10-27] MEDS: VANCOMYCIN 1,250 MG in SODIUM CHLORIDE 0.9% 250 ML IVPB SCH (12:59)
--- NOTE | 2017-10-27 14:11 | P.PN ---
Subjective Progress Note Date: 10/27/17 Principal diagnosis: Acute hypoxemic respiratory failure secondary to right lower lobe pneumonia, suspect healthcare acquired. This is 77-year-old white male patient of Dr. Ruiz, who presented to the emergency department on 10/25/2017 at 6:00 in the morning for evaluation of cough, generalized malaise, fever, chills. Patient was recently diagnosed with stage IV pancreatic cancer. Past medical history includes diabetes mellitus, GERD/reflux, hyperlipidemia, hypertension, no chronic lung disease. He is known to us from his previous hospitalization for evaluation of recurrent right-sided pleural effusion. Patient initially had a right-sided thoracentesis by interventional radiology with drainage of 1500 mL of bloody fluid, in the fluid was found to be exudative in nature, and negative for malignancy. After the initial thoracentesis patient had rapid reaccumulation of the right-sided pleural effusion, and underwent right-sided thoracentesis by Dr. Jefferson on 10/04 with drainage of 1600 mL of serosanguineous fluid. Patient did have postprocedural basilar pneumothorax, cardiothoracic surgery performed a VATS/ decortication and Pleurx catheter placement.Pathology results of the pleural fluid indicated metastatic adenocarcinoma consistent with primary upper GI versus pancreatobiliary tract origin. Pancreatic cancer marker was elevated. MRI of the abdomen was completed, and showed focal calcifications at tail of pancreas and indeterminate lesion in the liver. Patient states he had evaluation by Dr. Hills. He supposed to go over the results of the workup with Dr. Dotson in the office today, on 10/25/2017, he had a MediPort put in in his right upper chest on Sunday on 10/23/2017. However he became increasingly more congested, coughing up brownish colored sputum, short of breath, spiking fevers. Chest x-ray was completed, which showed chronic parenchymal changes, cardiomegaly with small right pleural effusion and right lung pleural thickening with right greater than left basilar atelectasis/infiltrate. EKG showed sinus tachycardia with a rate of 101 BPM. Patient has been febrile in the emergency room, with a T-max of 103.3F. He was started on a combination of cefepime and vancomycin, blood culture, sputum culture and urine culture have been ordered. Last time he drain his Pleurx catheter was on Sunday, 2 days ago, with drainage of 100 mL of bloody pleural fluid. He is resting on the gurney, with his at the bedside, and he is febrile. Diffusely congested, patient has congested cough, production of brown colored sputum. On 10/26/2017 patient seen in follow-up on the surgical floor. Patient continues to be intermittently febrile, T-max of 102.1F. Through the night he was placed on the nonrebreather mask, he was in mild to moderate amount of respiratory distress, congested, he was given a dose of oral Lasix, breathing treatments, this morning he is fairly comfortable, not bringing up as much sputum, a bit less congested. Pleurx catheter was drained, with 450 ML of dark bloody pleural fluid, as was sent for cultures. Currently he is on 6 L per high flow nasal cannula, his O2 sat is anywhere from 93-96%. Blood culture showed no growth at the 24 hours, urine and sputum cultures are pending. Patient remains on antibiotic coverage including Zosyn and vancomycin. This morning's labs were reviewed, WBC is 5.5, hemoglobin is 8.7, electrodes and renal profile are within normal limits, plasma lactic acid is 1.4. Patient is given IV fluids of 0.9 normal saline at a rate of 100 ML per hour. The patient is seen again today 07/27 2017 in follow-up on the surgical floor. He is currently sitting up in a chair at the bedside. He is awake and alert in no acute distress. He is doing quite a bit better today as compared to yesterday. Alert and oriented 3. His maintaining good O2 saturations in the upper 90s on 5 L/m per nasal cannula. Currently afebrile. Hemodynamically stable. Cultures are pending. Creatinine 1.34. He is continued on bronchodilators along with antibiotics in the form of vancomycin and Zosyn. Chest x-ray shows increased right-sided pleural effusion. Pleurx catheter remains in place. Left lung clear. Objective - Vital Signs Vital signs: Vital Signs Temp 98.6 F 10/27/17 07:30 Pulse 102 H 10/27/17 12:33 Resp 16 10/27/17 07:30 BP 121/69 10/27/17 07:30 Pulse Ox 99 10/27/17 07:30 Intake & Output 10/26/17 10/27/17 10/27/17 18:59 06:59 18:59 Intake Total 812 1900 237 Output Total 1395 Balance -583 1900 237 Weight 90.265 kg Intake: IV 250 800 Sodium Chloride 0.9% 1, 250 800 000 ml @ 100 mls/hr IV . Q10H [facility] Rx#:[id number] Intake, IV Titration 350 Amount Piperacillin-Tazobactam 3 100 .375 gm In Dextrose/Water 1 50ml.bag @ 12.5 mls/hr IVPB Q8HR [facility]UC[facility] Rx#: [id number] Vancomycin 1,500 mg In 250 Sodium Chloride 0.9% 250 ml @ 125 mls/hr IVPB Q12H [facility] Rx#:[id number] Oral 562 750 237 Output: Chest Tube Drainage 450 Pleural Catheter 450 Urine 945 Other: # Voids 2 - Exam GENERAL EXAM: 77-year-old white male, sitting up in a chair at the bedside. Awake and alert. HEAD: Normocephalic/atraumatic. EYES: Normal reaction of pupils, equal size. Conjunctiva pink, sclera white. NOSE: Clear with pink turbinates. THROAT: No erythema or exudates. NECK: No masses, no JVD, no thyroid enlargement, no adenopathy. CHEST: No chest wall deformity. Symmetrical expansion. Patient has a right upper chest MediPort, right anterior lower chest Pleurx catheter, covered with the dressing LUNGS: Left lung is clear. Right lung diminished in posterior base. CVS: Regular rate and rhythm, normal S1 and S2, no gallops, no murmurs, no rubs ABDOMEN: Soft, nontender. No hepatosplenomegaly, normal bowel sounds, no guarding or rigidity. EXTREMITIES: No clubbing, no edema, no cyanosis, 2+ pulses and upper and lower extremities. MUSCULOSKELETAL: Muscle strength and tone normal. SPINE: No scoliosis or deformity SKIN: No rashes CENTRAL NERVOUS SYSTEM: No focal deficits, tone is normal in all 4 extremities. PSYCHIATRIC: Alert and oriented -3. Appropriate affect. Intact judgment and insight. - Labs CBC & Chem 7: 10/26/17 02:01 10/27/17 04:46 Labs: Abnormal Lab Results - Last 24 Hours (Table) 10/26/17 10/26/17 10/27/17 Range/Units 17:01 21:11 04:46 Creatinine 1.34 H (0.66-1.25) mg/dL Glucose 140 H (74-99) mg/dL POC Glucose (mg/dL) 160 H 173 H (75-99) mg/dL Calcium 7.8 L (8.4-10.2) mg/dL Iron (65-175) ug/dL TIBC (228-460) ug/dL Iron Saturation (15.00-50.00) 10/27/17 10/27/17 10/27/17 Range/Units 04:46 06:40 11:26 Creatinine (0.66-1.25) mg/dL Glucose (74-99) mg/dL POC Glucose (mg/dL) 148 H 322 H (75-99) mg/dL Calcium (8.4-10.2) mg/dL Iron 8 L (65-175) ug/dL TIBC 192 L (228-460) ug/dL Iron Saturation 4.17 L (15.00-50.00) Microbiology - Last 24 Hours (Table) 10/26/17 09:37 Gram Stain - Preliminary Pleural Fluid Body Fluid Culture - Preliminary 10/25/17 06:30 Blood Culture - Preliminary Blood No Growth after 48 hours 10/25/17 08:10 Urine Culture - Final Urine,Clean Catch Assessment and Plan Assessment: Assessment: #1. Acute hypoxemic respiratory failure secondary to a right lower lobe pneumonia, possibly healthcare acquired. Chest x-ray showed chronic parenchymal changes, cardiomegaly, small right pleural effusion, right lung pleural thickening and infiltrate/atelectasis, cannot rule out possibility of pneumonia, especially in the setting of febrile illness, chest congestion, sputum production #2. Recent hospitalization for recurrent right-sided pleural effusion, patient underwent 2 thoracentesis, followed by VATS/decortication for basilar pneumothorax, pleural fluid cytology was positive for metastatic adenocarcinoma consistent with primary upper GI, versus pancreatobiliary tract origin #3. Metastatic adenocarcinoma of pancreas, patient is undergoing outpatient evaluation by medical oncology. #4. Chronic anemia #5. Diabetes mellitus type 2 #6. Hypertention, hyperlipidemia Plan: The patient was seen and evaluated by Dr. Lenz. Chest x-ray and labs were reviewed. We'll continue with intermittent draining of the right lung fluid via the Pleurx catheter as needed. We'll continue with bronchodilators and antibiotics. We'll increase his activity as tolerated. We'll continue to follow and make further recommendations based on his clinical status. I, the cosigning physician, performed a history & physical examination of the patient. Lungs sounds are clear on the left diminished in the right base, crackles. Maintaining good O2 saturations in the 90s on 5 L/m per nasal cannula. I discussed the assessment and plan of care with my nurse practitioner , Jessica Johnson. I attest to the above note as dictated by her.
[2017-10-27 17:02] LABS: Glucose,Whole Blood 241 mg/dL (75-99)
[2017-10-27 20:40] LABS: Glucose,Whole Blood 302 mg/dL (75-99)
[2017-10-27] MEDS: MELATONIN 5 MG TABLET PO SCH (21:22)
[2017-10-27] MEDS: LATANOPROST 0.005% OPHTH DROPS 2.5 ML BTL BOTH EYES SCH (21:22)
[2017-10-28] MEDS: VANCOMYCIN 1,250 MG in SODIUM CHLORIDE 0.9% 250 ML IVPB SCH ×2 (03:56→20:45)
[2017-10-28] MEDS: guaiFENesin-Coden 100-10MG/5ML 10 ML CUP PO PRN ×2 (03:56→21:14)
[2017-10-28] MEDS: IPRATROPIUM-ALBUTEROL 3 ML NEB INHALATION SCH ×5 (04:38→19:25)
[2017-10-28 06:49] LABS: Glucose,Whole Blood 156 mg/dL (75-99)
[2017-10-28] MEDS: INSULIN ASPART 100 UNIT/ML 1 ML 10 ML VIAL SQ SCH ×4 (07:50→20:46)
[2017-10-28 07:54] LABS: HCT 25.6 % (39.0-53.0); Hypochromasia Moderate; MCH 27.8 pg (25.0-35.0); MCHC 31.3 g/dL (31.0-37.0); MCV 88.8 fL (80.0-100.0); Mean Platelet Volume 6.7; Platelet Count 231 k/uL (150-450); RBC 2.88 m/uL (4.30-5.90); RDW 14.4 % (11.5-15.5); WBC 5.4 k/uL (3.8-10.6)
[2017-10-28 08:49] LABS: Calcium 7.7 mg/dL (8.4-10.2); Potassium 4.3 mmol/L (3.5-5.1)
[2017-10-28] MEDS: PIPERACILLIN-TAZOBACTAM 3.375 GM in DEXTROSE/WATER 1 50ML.BAG IVPB SCH ×3 (09:43→23:59)
[2017-10-28] MEDS: HEPARIN SODIUM,PORCINE 5,000 UNIT/ML 1 ML VIAL SQ SCH ×3 (09:47→23:59)
[2017-10-28] MEDS: GABAPENTIN 400 MG CAP PO SCH ×3 (09:47→21:15)
[2017-10-28] MEDS: PANTOPRAZOLE 40 MG TABLET PO SCH (09:48)
[2017-10-28] MEDS: TAMSULOSIN 0.4 MG CAP.ER.24H PO SCH (09:48)
[2017-10-28] MEDS: ATORVASTATIN 10 MG TAB PO SCH (09:48)
[2017-10-28] MEDS: INSULIN DETEMIR 100 UNIT/ML 10 ML VIAL SQ SCH (09:48)
[2017-10-28 11:46] LABS: Glucose,Whole Blood 193 mg/dL (75-99)
--- NOTE | 2017-10-28 12:27 | XR ---
EXAMINATION TYPE: XR chest 2V DATE OF EXAM: 10/28/2017 HISTORY: Pneumonia. REFERENCE: Previous study dated 10/27/2017. FINDINGS: There is a MediPort in place via a right internal jugular approach. Its tip is in the super ior vena cava. There continues be right basilar airspace disease. There is a right-sided effusion. The left lung jeff ears clear. The heart is enlarged. IMPRESSION: NO SIGNIFICANT INTERVAL CHANGE IN THE APPEARANCE OF THE CHEST.
--- NOTE | 2017-10-28 13:12 | P.PN ---
Subjective Progress Note Date: 10/28/17 Principal diagnosis: Acute hypoxemic respiratory failure secondary to right lower lobe pneumonia, possibly healthcare acquired. 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 Ruiz, who presented to the emergency department on 10/25/2017 at 6:00 in the morning for evaluation of cough, generalized malaise, fever, chills. Patient was recently diagnosed with stage IV pancreatic cancer. Past medical history includes diabetes mellitus, GERD/reflux, hyperlipidemia, hypertension, no chronic lung disease. He is known to us from his previous hospitalization for evaluation of recurrent right-sided pleural effusion. Patient initially had a right-sided thoracentesis by interventional radiology with drainage of 1500 mL of bloody fluid, in the fluid was found to be exudative in nature, and negative for malignancy. After the initial thoracentesis patient had rapid reaccumulation of the right-sided pleural effusion, and underwent right-sided thoracentesis by Dr. Jefferson on 10/04 with drainage of 1600 mL of serosanguineous fluid. Patient did have postprocedural basilar pneumothorax, cardiothoracic surgery performed a VATS/ decortication and Pleurx catheter placement.Pathology results of the pleural fluid indicated metastatic adenocarcinoma consistent with primary upper GI versus pancreatobiliary tract origin. Pancreatic cancer marker was elevated. MRI of the abdomen was completed, and showed focal calcifications at tail of pancreas and indeterminate lesion in the liver. Patient states he had evaluation by Dr. Hills. He supposed to go over the results of the workup with Dr. Dotson in the office today, on 10/25/2017, he had a MediPort put in in his right upper chest on Sunday on 10/23/2017. However he became increasingly more congested, coughing up brownish colored sputum, short of breath, spiking fevers. Chest x-ray was completed, which showed chronic parenchymal changes, cardiomegaly with small right pleural effusion and right lung pleural thickening with right greater than left basilar atelectasis/infiltrate. EKG showed sinus tachycardia with a rate of 101 BPM. Patient has been febrile in the emergency room, with a T-max of 103.3F. He was started on a combination of cefepime and vancomycin, blood culture, sputum culture and urine culture have been ordered. Last time he drain his Pleurx catheter was on Sunday, 2 days ago, with drainage of 100 mL of bloody pleural fluid. He is resting on the gurney, with his at the bedside, and he is febrile. Diffusely congested, patient has congested cough, production of brown colored sputum. On 10/26/2017 patient seen in follow-up on the surgical floor. Patient continues to be intermittently febrile, T-max of 102.1F. Through the night he was placed on the nonrebreather mask, he was in mild to moderate amount of respiratory distress, congested, he was given a dose of oral Lasix, breathing treatments, this morning he is fairly comfortable, not bringing up as much sputum, a bit less congested. Pleurx catheter was drained, with 450 ML of dark bloody pleural fluid, as was sent for cultures. Currently he is on 6 L per high flow nasal cannula, his O2 sat is anywhere from 93-96%. Blood culture showed no growth at the 24 hours, urine and sputum cultures are pending. Patient remains on antibiotic coverage including Zosyn and vancomycin. This morning's labs were reviewed, WBC is 5.5, hemoglobin is 8.7, electrodes and renal profile are within normal limits, plasma lactic acid is 1.4. Patient is given IV fluids of 0.9 normal saline at a rate of 100 ML per hour. On 10/28/2017 patient is seen again in follow-up on 3 E. surgical floor. Remains quite congested, has a loose congested cough, at times he able to bring up some sputum. Currently on 3 L per nasal cannula his pulse ox is 95%, afebrile, last episode of fever was on 10/27/2017 at midnight. Well since then , hemodynamically stable, yesterday's chest x-ray has been reviewed and showed worsening right-sided pleural effusion, we drained the patient's right Pleurx catheter, with 200 mL of pleural fluid. There is slight improvement in aeration of the left lung, and right lung is relatively the same. Pleural fluid cultures preliminary reports showed no growth after 48 hours, urine and blood cultures remain negative. Today's blood work was reviewed, WBC is 5.4, hemoglobin is 8.0, actually lites are within normal limits, renal profile is stable. Patient remains on a combination of Zosyn and vancomycin. Objective - Vital Signs Vital signs: Vital Signs Temp 98.4 F 10/28/17 07:16 Pulse 88 10/28/17 11:51 Resp 16 10/28/17 07:16 BP 114/61 10/28/17 07:16 Pulse Ox 95 10/28/17 07:16 Intake & Output 10/27/17 10/28/17 10/28/17 18:59 06:59 18:59 Intake Total 707 900 Output Total 200 Balance 707 700 Weight 90.265 kg Intake: Oral 707 900 Output: Chest Tube Drainage 200 Pleural Catheter 200 Other: Voiding Method Urinal # Voids 3 2 - Exam GENERAL EXAM: Fatigued, 77-year-old white male, resting in bed, in no acute distress. HEAD: Normocephalic/atraumatic. EYES: Normal reaction of pupils, equal size. Conjunctiva pink, sclera white. NOSE: Clear with pink turbinates. THROAT: No erythema or exudates. NECK: No masses, no JVD, no thyroid enlargement, no adenopathy. CHEST: No chest wall deformity. Symmetrical expansion. Patient has a right upper chest MediPort, right anterior lower chest Pleurx catheter, covered with the dressing LUNGS: Diffuse rhonchi, at times productive of brownish sputum CVS: Regular rate and rhythm, normal S1 and S2, no gallops, no murmurs, no rubs ABDOMEN: Soft, nontender. No hepatosplenomegaly, normal bowel sounds, no guarding or rigidity. EXTREMITIES: No clubbing, no edema, no cyanosis, 2+ pulses and upper and lower extremities. MUSCULOSKELETAL: Muscle strength and tone normal. SPINE: No scoliosis or deformity SKIN: No rashes CENTRAL NERVOUS SYSTEM: Lethargic, but easily arousable, no focal deficits, tone is normal in all 4 extremities. PSYCHIATRIC: Alert and oriented -3. Appropriate affect. Intact judgment and insight. - Labs CBC & Chem 7: 10/28/17 07:01 10/28/17 07:01 Labs: Abnormal Lab Results - Last 24 Hours (Table) 10/27/17 10/27/17 10/28/17 Range/Units 17:00 20:37 06:48 RBC (4.30-5.90) m/uL Hgb (13.0-17.5) gm/dL Hct (39.0-53.0) % Creatinine (0.66-1.25) mg/dL Glucose (74-99) mg/dL POC Glucose (mg/dL) 241 H 302 H 156 H (75-99) mg/dL Calcium (8.4-10.2) mg/dL 10/28/17 10/28/17 10/28/17 Range/Units 07:01 07:01 11:43 RBC 2.88 L (4.30-5.90) m/uL Hgb 8.0 L (13.0-17.5) gm/dL Hct 25.6 L (39.0-53.0) % Creatinine 1.36 H (0.66-1.25) mg/dL Glucose 151 H (74-99) mg/dL POC Glucose (mg/dL) 193 H (75-99) mg/dL Calcium 7.7 L (8.4-10.2) mg/dL Microbiology - Last 24 Hours (Table) 10/26/17 09:37 Gram Stain - Preliminary Pleural Fluid Body Fluid Culture - Preliminary 10/25/17 17:00 Gram Stain - Final Sputum Sputum Culture - Final 10/25/17 06:30 Blood Culture - Preliminary Blood No Growth after 72 hours Assessment and Plan Plan: Assessment: #1. Acute hypoxemic respiratory failure secondary to a right lower lobe pneumonia, possibly healthcare acquired. Chest x-ray showed chronic parenchymal changes, cardiomegaly, small right pleural effusion, right lung pleural thickening and infiltrate/atelectasis, cannot rule out possibility of pneumonia, especially in the setting of febrile illness, chest congestion, sputum production #2. Recent hospitalization for recurrent right-sided pleural effusion, patient underwent 2 thoracentesis, followed by VATS/decortication for basilar pneumothorax, pleural fluid cytology was positive for metastatic adenocarcinoma consistent with primary upper GI, versus pancreatobiliary tract origin #3. Metastatic adenocarcinoma of pancreas, patient is undergoing outpatient evaluation by medical oncology. #4. Chronic anemia #5. Diabetes mellitus type 2 #6. Hypertention, hyperlipidemia Plan: Right proximal catheter was drained with 200 mL of pleural fluid output. Pleural fluid cultures are negative for any growth after 48 hours, urine and blood cultures remain negative, continue with current antibiotic coverage, no febrile episodes in the last 24 hours, continue with nebulized bronchodilators, increase activity as tolerated, encourage deep breathing and coughing, patient remains diffusely congested, may have to consider bronchoscopy if he does not improve. I performed a history & physical examination of the patient and discussed their management with my nurse practitioner, Marii Franco. I reviewed the nurse practitioner's note and agree with the documented findings and plan of care. Lung sounds are diffuse rhonchi. The findings and the impression was discussed with the patient. I attest to the documentation by the nurse practitioner. Time with Patient: Less than 30
--- NOTE | 2017-10-28 14:28 | P.PN ---
Subjective Progress Note Date: 10/28/17 Principal diagnosis: Acute hypoxemic respiratory failure secondary to right lower lobe pneumonia 10/28/2017 patient remains quite congested, has a loose congested cough, at times he able to bring up some sputum. Currently on 3 L per nasal cannula his pulse ox is 95% , afebrile, last episode of fever was on 10/27/2017 at midnight; yesterday's chest x-ray has been reviewed and showed worsening right-sided pleural effusion , we drained the patient's right Pleurx catheter, with 200 mL of pleural fluid. There is slight improvement in aeration of the left lung, and right lung is relatively the same. Pleural fluid cultures preliminary reports showed no growth after 48 hours, urine and blood cultures remain negative. Today's blood work was reviewed, WBC is 5.4, hemoglobin is 8.0, actually lites are within normal limits, renal profile is stable. Patient remains on a combination of Zosyn and vancomycin. Objective - Vital Signs Vital signs: Vital Signs Temp 98.4 F 10/28/17 07:16 Pulse 88 10/28/17 11:51 Resp 16 10/28/17 07:16 BP 114/61 10/28/17 07:16 Pulse Ox 95 10/28/17 07:16 Intake & Output 10/27/17 10/28/17 10/28/17 18:59 06:59 18:59 Intake Total 707 1000 Output Total 200 Balance 707 800 Weight 90.265 kg Intake: Oral 707 1000 Output: Chest Tube Drainage 200 Pleural Catheter 200 Other: Voiding Method Urinal # Voids 3 2 - Exam - Constitutional General appearance: Present: average body habitus, cooperative, no acute distress - EENT Eyes: Present: anicteric sclerae, EOMI, PERRLA, normal appearance ENT: Present: hearing grossly normal, normal oropharynx Ears: bilateral: normal - Neck Neck: Present: normal ROM. Absent: lymphadenopathy, rigidity, thyromegaly Carotids: negative: bruit present Thyroid: bilateral: normal size, negative: enlarged, nodule - Respiratory Respiratory: bilateral: CTA, negative: rales, rhonchi, wheezing - Cardiovascular Rhythm: regular Heart sounds: normal: S1, S2 Abnormal Heart Sounds: Absent: systolic murmur, diastolic murmur - Gastrointestinal General gastrointestinal: Present: normal bowel sounds, soft. Absent: distended , organomegaly, tenderness - Genitourinary Genitourinary Comment(s): deferred - Integumentary Integumentary: Present: normal turgor. Absent: jaundiced, rash, ulcer - Neurologic Neurologic: Present: CNII-XII intact. Absent: focal deficits - Musculoskeletal Musculoskeletal: Present: gait normal, strength equal bilaterally - Psychiatric Psychiatric: Present: A&O x's 3, appropriate affect, intact judgment & insight - Labs CBC & Chem 7: 10/28/17 07:01 10/28/17 07:01 Labs: Abnormal Lab Results - Last 24 Hours (Table) 10/27/17 10/27/17 10/28/17 Range/Units 17:00 20:37 06:48 RBC (4.30-5.90) m/uL Hgb (13.0-17.5) gm/dL Hct (39.0-53.0) % Creatinine (0.66-1.25) mg/dL Glucose (74-99) mg/dL POC Glucose (mg/dL) 241 H 302 H 156 H (75-99) mg/dL Calcium (8.4-10.2) mg/dL 10/28/17 10/28/17 10/28/17 Range/Units 07:01 07:01 11:43 RBC 2.88 L (4.30-5.90) m/uL Hgb 8.0 L (13.0-17.5) gm/dL Hct 25.6 L (39.0-53.0) % Creatinine 1.36 H (0.66-1.25) mg/dL Glucose 151 H (74-99) mg/dL POC Glucose (mg/dL) 193 H (75-99) mg/dL Calcium 7.7 L (8.4-10.2) mg/dL Microbiology - Last 24 Hours (Table) 10/26/17 09:37 Gram Stain - Preliminary Pleural Fluid Body Fluid Culture - Preliminary 10/25/17 17:00 Gram Stain - Final Sputum Sputum Culture - Final 10/25/17 06:30 Blood Culture - Preliminary Blood No Growth after 72 hours Assessment and Plan Assessment: 1. Acute hypoxemic respiratory failure secondary to a right lower lobe pneumonia, possibly healthcare acquired. - Chest x-ray showed chronic parenchymal changes, cardiomegaly, small right pleural effusion, right lung pleural thickening and infiltrate/atelectasis, cannot rule out possibility of pneumonia, especially in the setting of febrile illness, chest congestion, sputum production - Pulmonary recommending possibly bronchoscopy if no improvement 2. Right sided pleural effusion; patient underwent 2 thoracentesis, followed by VATS/decortication for basilar pneumothorax, pleural fluid cytology was positive for metastatic adenocarcinoma consistent with primary upper GI, versus pancreatobiliary tract origin 3. Metastatic adenocarcinoma of pancreas, patient is undergoing outpatient evaluation by medical oncology. 4. Chronic anemia; at baseline 3. Diabetes mellitus type 2 - Patient remains on Levemir 66 units subcu daily along with insulin aspart sliding scale 6. Hypertention; stable 7. Hyperlipidemia - Continue Lipitor 10 mg by mouth daily at bedtime 8. DVT prophylaxis; subcu heparin CODE STATUS; Time with Patient: Greater than 30
[2017-10-28 17:16] LABS: Glucose,Whole Blood 192 mg/dL (75-99)
[2017-10-28 20:29] LABS: Glucose,Whole Blood 170 mg/dL (75-99)
[2017-10-28] MEDS: MELATONIN 5 MG TABLET PO SCH (21:14)
[2017-10-28] MEDS: ALPRAZolam 0.5 MG TAB PO PRN (21:15)
[2017-10-28] MEDS: LATANOPROST 0.005% OPHTH DROPS 2.5 ML BTL BOTH EYES SCH (21:15)
[2017-10-29] MEDS: IPRATROPIUM-ALBUTEROL 3 ML NEB INHALATION SCH ×7 (00:11→23:18)
--- NOTE | 2017-10-29 00:48 | PN ---
PROGRESS NOTE DATE OF SERVICE: 10/28/2017. REASON FOR FOLLOWUP: Pneumonia. INTERVAL HISTORY: The patient is currently afebrile, he has been breathing comfortably. Denies significant chest pain. He did have some cough but not bringing up sputum. No nausea or vomiting, no diarrhea. EXAMINATION: Blood pressure 119/61 with a pulse of 90, temperature 99.1, he is 98% on 2 L nasal cannula. GENERAL DESCRIPTION: An elderly male up in the bed in no distress. RESPIRATORY SYSTEM: Unlabored breathing with decreased breath sounds at the base. No wheeze. HEART: S1, S2. Regular rate and rhythm. ABDOMEN: Soft. No tenderness. LABS: Hemoglobin 8, white count 5.4, BUN of 15, creatinine 1.36. Sputum culture has been negative. Pleural fluid culture so far negative. Blood culture negative. DIAGNOSTIC IMPRESSION AND PLAN: Patient admitted to the hospital with sepsis with concern for a nosocomial pneumonia. The patient feels better and has improved. Currently covered with Zosyn and vancomycin. Will continue while waiting for the culture to finalize. Continue supportive care. MMODL / IJN: [id number] /
[2017-10-29 06:58] LABS: Glucose,Whole Blood 86 mg/dL (75-99)
[2017-10-29 07:43] LABS: Basophils % (A) 1 %; Eosinophils # (A) 0.5 k/uL (0-0.7); Eosinophils % (A) 9 %; HCT 25.8 % (39.0-53.0); HGB 7.9 gm/dL (13.0-17.5); Hypochromasia Moderate; Lymphocytes # (A) 0.9 k/uL (1.0-4.8); Lymphocytes % (A) 17 %; MCH 26.6 pg (25.0-35.0); MCHC 30.7 g/dL (31.0-37.0); MCV 86.8 fL (80.0-100.0); Mean Platelet Volume 7.1; Monocytes # (A) 0.3 k/uL (0-1.0); Monocytes % (A) 5 %; Neutrophils # (A) 3.4 k/uL (1.3-7.7); Neutrophils % (A) 67 %; Platelet Count 238 k/uL (150-450); RBC 2.97 m/uL (4.30-5.90); RDW 14.4 % (11.5-15.5); WBC 5.1 k/uL (3.8-10.6)
[2017-10-29 08:17] LABS: Potassium 4.2 mmol/L (3.5-5.1)
[2017-10-29] MEDS: TAMSULOSIN 0.4 MG CAP.ER.24H PO SCH (08:43)
[2017-10-29] MEDS: GABAPENTIN 400 MG CAP PO SCH ×3 (08:43→20:50)
[2017-10-29] MEDS: PANTOPRAZOLE 40 MG TABLET PO SCH (08:43)
[2017-10-29] MEDS: HEPARIN SODIUM,PORCINE 5,000 UNIT/ML 1 ML VIAL SQ SCH ×3 (08:43→23:31)
[2017-10-29] MEDS: ATORVASTATIN 10 MG TAB PO SCH (08:43)
[2017-10-29] MEDS: PIPERACILLIN-TAZOBACTAM 3.375 GM in DEXTROSE/WATER 1 50ML.BAG IVPB SCH ×3 (08:44→23:30)
[2017-10-29] MEDS: INSULIN ASPART 100 UNIT/ML 1 ML 10 ML VIAL SQ SCH ×4 (09:50→20:49)
[2017-10-29] MEDS: INSULIN DETEMIR 100 UNIT/ML 10 ML VIAL SQ SCH (10:16)
--- NOTE | 2017-10-29 11:06 | P.PN ---
Subjective Patient sitting in wheelchair ready for transferred to [facility]. Patient states he feels some improvement lungs are clear Objective - Vital Signs Vital signs: Vital Signs Temp 98.7 F 10/29/17 07:00 Pulse 88 10/29/17 07:31 Resp 18 10/29/17 07:00 BP 131/72 10/29/17 07:00 Pulse Ox 98 10/29/17 00:00 Intake & Output 10/28/17 10/29/17 10/29/17 18:59 06:59 18:59 Intake Total 1000 100 200 Output Total 200 Balance 800 100 200 Weight 90.265 kg Intake: Oral 1000 100 200 Output: Chest Tube Drainage 200 Pleural Catheter 200 Other: Voiding Method Urinal # Voids 1 2 # Bowel Movements 1 1 - Constitutional General appearance: Present: mild distress - EENT Eyes: Present: PERRLA Ears: bilateral: normal - Neck Neck: Present: normal ROM - Respiratory Respiratory: right: diminished, left: CTA - Cardiovascular Rhythm: regular - Gastrointestinal General gastrointestinal: Present: soft - Integumentary Integumentary: Present: normal - Neurologic Neurologic: Present: CNII-XII intact - Musculoskeletal Musculoskeletal: Present: generalized weakness - Psychiatric Psychiatric: Present: A&O x's 3, appropriate affect, intact judgment & insight - Labs CBC & Chem 7: 10/29/17 06:34 10/29/17 06:34 Labs: Abnormal Lab Results - Last 24 Hours (Table) 10/28/17 10/28/17 10/28/17 Range/Units 11:43 17:12 20:27 RBC (4.30-5.90) m/uL Hgb (13.0-17.5) gm/dL Hct (39.0-53.0) % MCHC (31.0-37.0) g/dL Lymphocytes # (1.0-4.8) k/uL Creatinine (0.66-1.25) mg/dL POC Glucose (mg/dL) 193 H 192 H 170 H (75-99) mg/dL Calcium (8.4-10.2) mg/dL 10/29/17 10/29/17 Range/Units 06:34 06:34 RBC 2.97 L (4.30-5.90) m/uL Hgb 7.9 L (13.0-17.5) gm/dL Hct 25.8 L (39.0-53.0) % MCHC 30.7 L (31.0-37.0) g/dL Lymphocytes # 0.9 L (1.0-4.8) k/uL Creatinine 1.34 H (0.66-1.25) mg/dL POC Glucose (mg/dL) (75-99) mg/dL Calcium 8.0 L (8.4-10.2) mg/dL Microbiology - Last 24 Hours (Table) 10/25/17 06:30 Blood Culture - Preliminary Blood No Growth after 96 hours 10/26/17 09:37 Gram Stain - Preliminary Pleural Fluid Body Fluid Culture - Preliminary 10/25/17 17:00 Gram Stain - Final Sputum Sputum Culture - Final - Imaging and Cardiology Chest x-ray: report reviewed Assessment and Plan Plan: Assessment Acute hypoxic respiratory failure secondary to on pneumonia with sepsis Recurrent hospitalization for right-sided pleural effusion 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
[2017-10-29 11:25] LABS: Glucose,Whole Blood 194 mg/dL (75-99)
--- NOTE | 2017-10-29 11:44 | P.PN ---
Subjective Progress Note Date: 10/29/17 Principal diagnosis: New Pancreatobiliary Carcinoma with metastatic disease Seen and examined. Respiratory status improving. Objective - Vital Signs Vital signs: Vital Signs Temp 98.7 F 10/29/17 07:00 Pulse 88 10/29/17 07:31 Resp 18 10/29/17 07:00 BP 131/72 10/29/17 07:00 Pulse Ox 98 10/29/17 00:00 Intake & Output 10/28/17 10/29/17 10/29/17 18:59 06:59 18:59 Intake Total 1000 100 200 Output Total 200 Balance 800 100 200 Weight 90.265 kg Intake: Oral 1000 100 200 Output: Chest Tube Drainage 200 Pleural Catheter 200 Other: Voiding Method Urinal # Voids 1 2 # Bowel Movements 1 1 - Exam GENERAL: Alert and Oriented, NAD HEENT: Neck Supple, trachea midline, Non-icterus sclera CARDIOVASCULAR: RRR, S1 and S2 present. No murmurs, rubs, or gallops. PULMONARY: Mild increased effort with some noted crackles over the right lung bases Puerx cath drsing CDI ABDOMEN: Soft, nontender, EXTREMITIES: No cyanosis, clubbing, or pedal edema. NEUROLOGICAL: No focal deficits. SKIN: Dry, No rashes. - Labs CBC & Chem 7: 10/29/17 06:34 10/29/17 06:34 Labs: Abnormal Lab Results - Last 24 Hours (Table) 10/28/17 10/28/17 10/28/17 Range/Units 11:43 17:12 20:27 RBC (4.30-5.90) m/uL Hgb (13.0-17.5) gm/dL Hct (39.0-53.0) % MCHC (31.0-37.0) g/dL Lymphocytes # (1.0-4.8) k/uL Creatinine (0.66-1.25) mg/dL POC Glucose (mg/dL) 193 H 192 H 170 H (75-99) mg/dL Calcium (8.4-10.2) mg/dL 10/29/17 10/29/17 10/29/17 Range/Units 06:34 06:34 11:24 RBC 2.97 L (4.30-5.90) m/uL Hgb 7.9 L (13.0-17.5) gm/dL Hct 25.8 L (39.0-53.0) % MCHC 30.7 L (31.0-37.0) g/dL Lymphocytes # 0.9 L (1.0-4.8) k/uL Creatinine 1.34 H (0.66-1.25) mg/dL POC Glucose (mg/dL) 194 H (75-99) mg/dL Calcium 8.0 L (8.4-10.2) mg/dL Microbiology - Last 24 Hours (Table) 10/25/17 06:30 Blood Culture - Preliminary Blood No Growth after 96 hours 10/26/17 09:37 Gram Stain - Preliminary Pleural Fluid Body Fluid Culture - Preliminary 10/25/17 17:00 Gram Stain - Final Sputum Sputum Culture - Final Assessment and Plan Plan: 1. 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 Normocytic Anemia: - COmponent of iron deficiency on previous admission - Worsening Iron Deficiency today. Parental Iron Resonable with negative blood cultures, ordered x3 days - No intervention needed at this time, Transfuse less than 7 - Recent EGD. 3. RLL Pneumonia: IV abx per ID and Primary Team
[2017-10-29] MEDS: SODIUM FERRIC GLUCONAT-SUCROSE 125 MG in SODIUM CHLORIDE 0.9% 100 ML IVPB SCH (12:33)
--- NOTE | 2017-10-29 12:45 | P.PN ---
Subjective Progress Note Date: 10/29/17 Principal diagnosis: Acute hypoxemic respiratory failure secondary to right lower lobe pneumonia, possibly healthcare acquired. 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 Ruiz, who presented to the emergency department on 10/25/2017 at 6:00 in the morning for evaluation of cough, generalized malaise, fever, chills. Patient was recently diagnosed with stage IV pancreatic cancer. Past medical history includes diabetes mellitus, GERD/reflux, hyperlipidemia, hypertension, no chronic lung disease. He is known to us from his previous hospitalization for evaluation of recurrent right-sided pleural effusion. Patient initially had a right-sided thoracentesis by interventional radiology with drainage of 1500 mL of bloody fluid, in the fluid was found to be exudative in nature, and negative for malignancy. After the initial thoracentesis patient had rapid reaccumulation of the right-sided pleural effusion, and underwent right-sided thoracentesis by Dr. Jefferson on 10/04 with drainage of 1600 mL of serosanguineous fluid. Patient did have postprocedural basilar pneumothorax, cardiothoracic surgery performed a VATS/ decortication and Pleurx catheter placement.Pathology results of the pleural fluid indicated metastatic adenocarcinoma consistent with primary upper GI versus pancreatobiliary tract origin. Pancreatic cancer marker was elevated. MRI of the abdomen was completed, and showed focal calcifications at tail of pancreas and indeterminate lesion in the liver. Patient states he had evaluation by Dr. Hills. He supposed to go over the results of the workup with Dr. Dotson in the office today, on 10/25/2017, he had a MediPort put in in his right upper chest on Sunday on 10/23/2017. However he became increasingly more congested, coughing up brownish colored sputum, short of breath, spiking fevers. Chest x-ray was completed, which showed chronic parenchymal changes, cardiomegaly with small right pleural effusion and right lung pleural thickening with right greater than left basilar atelectasis/infiltrate. EKG showed sinus tachycardia with a rate of 101 BPM. Patient has been febrile in the emergency room, with a T-max of 103.3F. He was started on a combination of cefepime and vancomycin, blood culture, sputum culture and urine culture have been ordered. Last time he drain his Pleurx catheter was on Sunday, 2 days ago, with drainage of 100 mL of bloody pleural fluid. He is resting on the gurney, with his at the bedside, and he is febrile. Diffusely congested, patient has congested cough, production of brown colored sputum. On 10/26/2017 patient seen in follow-up on the surgical floor. Patient continues to be intermittently febrile, T-max of 102.1F. Through the night he was placed on the nonrebreather mask, he was in mild to moderate amount of respiratory distress, congested, he was given a dose of oral Lasix, breathing treatments, this morning he is fairly comfortable, not bringing up as much sputum, a bit less congested. Pleurx catheter was drained, with 450 ML of dark bloody pleural fluid, as was sent for cultures. Currently he is on 6 L per high flow nasal cannula, his O2 sat is anywhere from 93-96%. Blood culture showed no growth at the 24 hours, urine and sputum cultures are pending. Patient remains on antibiotic coverage including Zosyn and vancomycin. This morning's labs were reviewed, WBC is 5.5, hemoglobin is 8.7, electrodes and renal profile are within normal limits, plasma lactic acid is 1.4. Patient is given IV fluids of 0.9 normal saline at a rate of 100 ML per hour. On 10/28/2017 patient is seen again in follow-up on 3 E. surgical floor. Remains quite congested, has a loose congested cough, at times he able to bring up some sputum. Currently on 3 L per nasal cannula his pulse ox is 95%, afebrile, last episode of fever was on 10/27/2017 at midnight. Well since then , hemodynamically stable, yesterday's chest x-ray has been reviewed and showed worsening right-sided pleural effusion, we drained the patient's right Pleurx catheter, with 200 mL of pleural fluid. There is slight improvement in aeration of the left lung, and right lung is relatively the same. Pleural fluid cultures preliminary reports showed no growth after 48 hours, urine and blood cultures remain negative. Today's blood work was reviewed, WBC is 5.4, hemoglobin is 8.0, actually lites are within normal limits, renal profile is stable. Patient remains on a combination of Zosyn and vancomycin. On 10/29/2017 patient seen again on the surgical floor. He is getting ready to be transferred to the oncology unit. He is sitting up in the chair, in no acute distress, no ongoing fevers, vital signs are stable, patient has a loose congested cough, and these able to bring up some sputum. Yesterday we drained his right Pleurx catheter with 200 ML of pleural fluid, and patient states was less bloody this time. Cultures are negative thus far. Patient remains on Zosyn and vancomycin. No new chest x-rays, WBC is 5.1, hemoglobin is 7.9, renal profile is relatively stable, electrolytes are within normal limits. Objective - Vital Signs Vital signs: Vital Signs Temp 98.7 F 10/29/17 07:00 Pulse 88 10/29/17 07:31 Resp 18 10/29/17 07:00 BP 131/72 10/29/17 07:00 Pulse Ox 98 10/29/17 00:00 Intake & Output 10/28/17 10/29/17 10/29/17 18:59 06:59 18:59 Intake Total 1000 100 200 Output Total 200 Balance 800 100 200 Weight 90.265 kg Intake: Oral 1000 100 200 Output: Chest Tube Drainage 200 Pleural Catheter 200 Other: Voiding Method Urinal # Voids 1 2 # Bowel Movements 1 1 - Exam GENERAL EXAM: Fatigued, 77-year-old white male, resting in bed, in no acute distress. HEAD: Normocephalic/atraumatic. EYES: Normal reaction of pupils, equal size. Conjunctiva pink, sclera white. NOSE: Clear with pink turbinates. THROAT: No erythema or exudates. NECK: No masses, no JVD, no thyroid enlargement, no adenopathy. CHEST: No chest wall deformity. Symmetrical expansion. Patient has a right upper chest MediPort, right anterior lower chest Pleurx catheter, covered with the dressing LUNGS: Diffuse rhonchi, at times productive of brownish sputum CVS: Regular rate and rhythm, normal S1 and S2, no gallops, no murmurs, no rubs ABDOMEN: Soft, nontender. No hepatosplenomegaly, normal bowel sounds, no guarding or rigidity. EXTREMITIES: No clubbing, no edema, no cyanosis, 2+ pulses and upper and lower extremities. MUSCULOSKELETAL: Muscle strength and tone normal. SPINE: No scoliosis or deformity SKIN: No rashes CENTRAL NERVOUS SYSTEM: Lethargic, but easily arousable, no focal deficits, tone is normal in all 4 extremities. PSYCHIATRIC: Alert and oriented -3. Appropriate affect. Intact judgment and insight. - Labs CBC & Chem 7: 10/29/17 06:34 10/29/17 06:34 Labs: Abnormal Lab Results - Last 24 Hours (Table) 10/28/17 10/28/17 10/29/17 Range/Units 17:12 20:27 06:34 RBC (4.30-5.90) m/uL Hgb (13.0-17.5) gm/dL Hct (39.0-53.0) % MCHC (31.0-37.0) g/dL Lymphocytes # (1.0-4.8) k/uL Creatinine 1.34 H (0.66-1.25) mg/dL POC Glucose (mg/dL) 192 H 170 H (75-99) mg/dL Calcium 8.0 L (8.4-10.2) mg/dL 10/29/17 10/29/17 Range/Units 06:34 11:24 RBC 2.97 L (4.30-5.90) m/uL Hgb 7.9 L (13.0-17.5) gm/dL Hct 25.8 L (39.0-53.0) % MCHC 30.7 L (31.0-37.0) g/dL Lymphocytes # 0.9 L (1.0-4.8) k/uL Creatinine (0.66-1.25) mg/dL POC Glucose (mg/dL) 194 H (75-99) mg/dL Calcium (8.4-10.2) mg/dL Microbiology - Last 24 Hours (Table) 10/25/17 06:30 Blood Culture - Preliminary Blood No Growth after 96 hours 10/26/17 09:37 Gram Stain - Preliminary Pleural Fluid Body Fluid Culture - Preliminary 10/25/17 17:00 Gram Stain - Final Sputum Sputum Culture - Final Assessment and Plan Plan: Assessment: #1. Acute hypoxemic respiratory failure secondary to a right lower lobe pneumonia, possibly healthcare acquired. Chest x-ray showed chronic parenchymal changes, cardiomegaly, small right pleural effusion, right lung pleural thickening and infiltrate/atelectasis, cannot rule out possibility of pneumonia, especially in the setting of febrile illness, chest congestion, sputum production #2. Recent hospitalization for recurrent right-sided pleural effusion, patient underwent 2 thoracentesis, followed by VATS/decortication for basilar pneumothorax, pleural fluid cytology was positive for metastatic adenocarcinoma consistent with primary upper GI, versus pancreatobiliary tract origin #3. Metastatic adenocarcinoma of pancreas, patient is undergoing outpatient evaluation by medical oncology. #4. Chronic anemia #5. Diabetes mellitus type 2 #6. Hypertention, hyperlipidemia Plan: Continue same antibiotics, continue nebulized bronchodilators. Waiting for final cultures. Afebrile, no ongoing fevers, or chills, increase activity as tolerated, patient seems to be a bit less congested, he is bringing up sputum on his own. No need for bronchoscopy, clinically improving. I performed a history & physical examination of the patient and discussed their management with my nurse practitioner, Marii Franco. I reviewed the nurse practitioner's note and agree with the documented findings and plan of care. Lung sounds are diffuse rhonchi. The findings and the impression was discussed with the patient. I attest to the documentation by the nurse practitioner. Time with Patient: Less than 30
[2017-10-29] MEDS: VANCOMYCIN 1,250 MG in SODIUM CHLORIDE 0.9% 250 ML IVPB SCH (13:24)
[2017-10-29 17:13] LABS: Glucose,Whole Blood 184 mg/dL (75-99)
[2017-10-29 20:06] LABS: Glucose,Whole Blood 156 mg/dL (75-99)
[2017-10-29] MEDS: ALPRAZolam 0.5 MG TAB PO PRN (20:48)
[2017-10-29] MEDS: guaiFENesin-Coden 100-10MG/5ML 10 ML CUP PO PRN (20:48)
[2017-10-29] MEDS: MELATONIN 5 MG TABLET PO SCH (20:50)
[2017-10-29] MEDS: LATANOPROST 0.005% OPHTH DROPS 2.5 ML BTL BOTH EYES SCH (23:30)
[2017-10-30] MEDS ORDERED: VANCOMYCIN TROUGH DUE 1 EACH MISC MISCELLANE ONE (03:00)
[2017-10-30 03:07] LABS: Calcium 8.2 mg/dL (8.4-10.2)
[2017-10-30] MEDS: VANCOMYCIN 1,250 MG in SODIUM CHLORIDE 0.9% 250 ML IVPB SCH (03:47)
[2017-10-30] MEDS: guaiFENesin-Coden 100-10MG/5ML 10 ML CUP PO PRN ×2 (05:04→20:52)
[2017-10-30 06:54] LABS: Glucose,Whole Blood 92 mg/dL (75-99)
--- NOTE | 2017-10-30 07:13 | PN ---
PROGRESS NOTE DATE OF SERVICE: 10/29/2017 REASON FOR FOLLOWUP: Pneumonia. INTERVAL HISTORY: The patient overall fever pattern has improved. No fever recurrent in the last 24 hours. The patient has been breathing fairly comfortably. The cough has decreased in intensity. No chest pain. No nausea. No abdominal pain, no diarrhea. PHYSICAL EXAMINATION: Blood pressure 139/60 with a pulse of 99, temperature 98, he is 98% on room air. General description is an elderly male, up in the bed in no distress. RESPIRATORY SYSTEM: Unlabored breathing. Some coarse breath sounds in the bases, no wheeze. HEART: S1, S2. Regular rate and rhythm. ABDOMEN: Soft, no tenderness. LABS: Hemoglobin 7.8, white count of 5.9, BUN of 12, creatinine is 1.34. Blood stool culture has been negative. Sputum culture so far negative. DIAGNOSTIC IMPRESSION AND PLAN: Patient admitted to the hospital with sepsis, source likely pneumonia with concern for possible resistant gram-positive and gram-negative. Patient currently on Zosyn, will be continued along with vancomycin, watch significant clinical course closely. Continue supportive care. MMODL / IJN: [id number] /
[2017-10-30] MEDS: IPRATROPIUM-ALBUTEROL 3 ML NEB INHALATION SCH ×4 (07:20→20:13)
[2017-10-30] MEDS: INSULIN ASPART 100 UNIT/ML 1 ML 10 ML VIAL SQ SCH ×4 (08:14→20:51)
[2017-10-30] MEDS: INSULIN DETEMIR 100 UNIT/ML 10 ML VIAL SQ SCH (08:32)
[2017-10-30] MEDS: TAMSULOSIN 0.4 MG CAP.ER.24H PO SCH (08:32)
[2017-10-30] MEDS: HEPARIN SODIUM,PORCINE 5,000 UNIT/ML 1 ML VIAL SQ SCH ×2 (08:32→16:34)
[2017-10-30] MEDS: ATORVASTATIN 10 MG TAB PO SCH (08:32)
[2017-10-30] MEDS: GABAPENTIN 400 MG CAP PO SCH ×3 (08:32→20:58)
[2017-10-30] MEDS: PANTOPRAZOLE 40 MG TABLET PO SCH (08:32)
[2017-10-30] MEDS: PIPERACILLIN-TAZOBACTAM 3.375 GM in DEXTROSE/WATER 1 50ML.BAG IVPB SCH ×2 (08:32→16:34)
--- NOTE | 2017-10-30 09:32 | P.PN ---
Subjective Patient up ambulating is bathroom. States some improvement. Lungs clear Objective - Vital Signs Vital signs: Vital Signs Temp 99.3 F 10/30/17 06:06 Pulse 80 10/30/17 07:40 Resp 16 10/30/17 06:06 BP 136/79 10/30/17 06:06 Pulse Ox 92 L 10/30/17 06:06 Intake & Output 10/29/17 10/30/17 10/30/17 18:59 06:59 18:59 Intake Total 800 2009 Balance 800 2009 Weight 90.265 kg Intake: Intake, IV Titration 350 Amount Piperacillin-Tazobactam 3 100 .375 gm In Dextrose/Water 1 50ml.bag @ 12.5 mls/hr IVPB Q8HR [facility] Rx#: [id number] Vancomycin 1,250 mg In 250 Sodium Chloride 0.9% 250 ml @ 125 mls/hr IVPB Q16H [facility] Rx#:[id number] Oral 800 1660 Other: Voiding Method Urinal # Voids 2 2 # Bowel Movements 1 - Constitutional General appearance: Present: mild distress - EENT Eyes: Present: PERRLA Ears: bilateral: normal - Neck Neck: Present: normal ROM - Respiratory Respiratory: bilateral: diminished - Cardiovascular Rhythm: regular - Gastrointestinal General gastrointestinal: Present: soft - Integumentary Integumentary: Present: normal - Neurologic Neurologic: Present: CNII-XII intact - Musculoskeletal Musculoskeletal Comment(s): Ambulating with walker - Psychiatric Psychiatric: Present: A&O x's 3, appropriate affect, intact judgment & insight - Labs CBC & Chem 7: 10/29/17 06:34 10/30/17 02:23 Labs: Abnormal Lab Results - Last 24 Hours (Table) 10/29/17 10/29/17 10/29/17 Range/Units 11:24 17:12 20:03 Creatinine (0.66-1.25) mg/dL Glucose (74-99) mg/dL POC Glucose (mg/dL) 194 H 184 H 156 H (75-99) mg/dL Calcium (8.4-10.2) mg/dL 10/30/17 Range/Units 02:23 Creatinine 1.41 H (0.66-1.25) mg/dL Glucose 103 H (74-99) mg/dL POC Glucose (mg/dL) (75-99) mg/dL Calcium 8.2 L (8.4-10.2) mg/dL Microbiology - Last 24 Hours (Table) 10/25/17 06:30 Blood Culture - Preliminary Blood No Growth after 120 hours 10/26/17 09:37 Gram Stain - Preliminary Pleural Fluid Body Fluid Culture - Preliminary Assessment and Plan Plan: Assessment Acute hypoxic respiratory failure secondary to right lower lobe pneumonia with sepsis History of recurrent right-sided pleural effusion Metastatic adenocarcinoma to the lungs Chronic anemia Diabetes type 2 Right Pleurx catheter Plan Continue consultation with pulmonology infectious disease and oncology Patient continues on Zosyn and vancomycin Hopeful discharge soon with clearance by pulmonology
[2017-10-30 11:15] LABS: Glucose,Whole Blood 221 mg/dL (75-99)
--- NOTE | 2017-10-30 11:56 | P.PN ---
Subjective Progress Note Date: 10/30/17 Principal diagnosis: Acute hypoxemic respiratory failure secondary to right lower lobe pneumonia, possibly healthcare acquired. 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 Ruiz, who presented to the emergency department on 10/25/2017 at 6:00 in the morning for evaluation of cough, generalized malaise, fever, chills. Patient was recently diagnosed with stage IV pancreatic cancer. Past medical history includes diabetes mellitus, GERD/reflux, hyperlipidemia, hypertension, no chronic lung disease. He is known to us from his previous hospitalization for evaluation of recurrent right-sided pleural effusion. Patient initially had a right-sided thoracentesis by interventional radiology with drainage of 1500 mL of bloody fluid, in the fluid was found to be exudative in nature, and negative for malignancy. After the initial thoracentesis patient had rapid reaccumulation of the right-sided pleural effusion, and underwent right-sided thoracentesis by Dr. Jefferson on 10/04 with drainage of 1600 mL of serosanguineous fluid. Patient did have postprocedural basilar pneumothorax, cardiothoracic surgery performed a VATS/ decortication and Pleurx catheter placement.Pathology results of the pleural fluid indicated metastatic adenocarcinoma consistent with primary upper GI versus pancreatobiliary tract origin. Pancreatic cancer marker was elevated. MRI of the abdomen was completed, and showed focal calcifications at tail of pancreas and indeterminate lesion in the liver. Patient states he had evaluation by Dr. Hills. He supposed to go over the results of the workup with Dr. Dotson in the office today, on 10/25/2017, he had a MediPort put in in his right upper chest on Sunday on 10/23/2017. However he became increasingly more congested, coughing up brownish colored sputum, short of breath, spiking fevers. Chest x-ray was completed, which showed chronic parenchymal changes, cardiomegaly with small right pleural effusion and right lung pleural thickening with right greater than left basilar atelectasis/infiltrate. EKG showed sinus tachycardia with a rate of 101 BPM. Patient has been febrile in the emergency room, with a T-max of 103.3F. He was started on a combination of cefepime and vancomycin, blood culture, sputum culture and urine culture have been ordered. Last time he drain his Pleurx catheter was on Sunday, 2 days ago, with drainage of 100 mL of bloody pleural fluid. He is resting on the gurney, with his at the bedside, and he is febrile. Diffusely congested, patient has congested cough, production of brown colored sputum. On 10/26/2017 patient seen in follow-up on the surgical floor. Patient continues to be intermittently febrile, T-max of 102.1F. Through the night he was placed on the nonrebreather mask, he was in mild to moderate amount of respiratory distress, congested, he was given a dose of oral Lasix, breathing treatments, this morning he is fairly comfortable, not bringing up as much sputum, a bit less congested. Pleurx catheter was drained, with 450 ML of dark bloody pleural fluid, as was sent for cultures. Currently he is on 6 L per high flow nasal cannula, his O2 sat is anywhere from 93-96%. Blood culture showed no growth at the 24 hours, urine and sputum cultures are pending. Patient remains on antibiotic coverage including Zosyn and vancomycin. This morning's labs were reviewed, WBC is 5.5, hemoglobin is 8.7, electrodes and renal profile are within normal limits, plasma lactic acid is 1.4. Patient is given IV fluids of 0.9 normal saline at a rate of 100 ML per hour. On 10/28/2017 patient is seen again in follow-up on 3 E. surgical floor. Remains quite congested, has a loose congested cough, at times he able to bring up some sputum. Currently on 3 L per nasal cannula his pulse ox is 95%, afebrile, last episode of fever was on 10/27/2017 at midnight. Well since then , hemodynamically stable, yesterday's chest x-ray has been reviewed and showed worsening right-sided pleural effusion, we drained the patient's right Pleurx catheter, with 200 mL of pleural fluid. There is slight improvement in aeration of the left lung, and right lung is relatively the same. Pleural fluid cultures preliminary reports showed no growth after 48 hours, urine and blood cultures remain negative. Today's blood work was reviewed, WBC is 5.4, hemoglobin is 8.0, actually lites are within normal limits, renal profile is stable. Patient remains on a combination of Zosyn and vancomycin. On 10/29/2017 patient seen again on the surgical floor. He is getting ready to be transferred to the oncology unit. He is sitting up in the chair, in no acute distress, no ongoing fevers, vital signs are stable, patient has a loose congested cough, and these able to bring up some sputum. Yesterday we drained his right Pleurx catheter with 200 ML of pleural fluid, and patient states was less bloody this time. Cultures are negative thus far. Patient remains on Zosyn and vancomycin. No new chest x-rays, WBC is 5.1, hemoglobin is 7.9, renal profile is relatively stable, electrolytes are within normal limits. On 10/30/2017 patient seen in follow-up on the fifth medical surgical floor. He is calm and comfortable, in no acute distress, did have a episode of low- grade fever last night and home, with a temp of 100.2 degrees Fahrenheit, afebrile this morning, he is awake and alert, denies shortness of breath, denies chest pain, his blood, urine, sputum and pleural fluid cultures remain negative thus far, patient has been treated with a emanation of Zosyn and vancomycin. He is on 2 L per nasal cannula his pulse ox is 92%. Lung sounds are positive for limited crackles at the right base, overall significantly less congested on today's exam. Has been up ambulating in the room, tolerating activity well. Today's labs were reviewed, no CBC was done, BMP showed sodium of 139, potassium 4.0, CO2 of 26, and creatinine of 1.41 with a BUN of 10. No new chest x-ray today, physical exam does not reveal significant dullness at the right base, I don't think there is much fluid the right pleural effusion. Objective - Vital Signs Vital signs: Vital Signs Temp 99.3 F 10/30/17 06:06 Pulse 92 10/30/17 11:36 Resp 16 10/30/17 08:32 BP 136/79 10/30/17 06:06 Pulse Ox 92 L 10/30/17 06:06 Intake & Output 10/29/17 10/30/17 10/30/17 18:59 06:59 18:59 Intake Total 800 2009 Balance 800 2009 Weight 90.265 kg 90.265 kg Intake: Intake, IV Titration 350 Amount Piperacillin-Tazobactam 3 100 .375 gm In Dextrose/Water 1 50ml.bag @ 12.5 mls/hr IVPB Q8HR [facility] Rx#: [id number] Vancomycin 1,250 mg In 250 Sodium Chloride 0.9% 250 ml @ 125 mls/hr IVPB Q16H [facility] Rx#:[id number] Oral 800 1660 Other: Voiding Method Urinal Urinal # Voids 2 2 # Bowel Movements 1 - Exam GENERAL EXAM: Fatigued, 77-year-old white male, resting in bed, in no acute distress. HEAD: Normocephalic/atraumatic. EYES: Normal reaction of pupils, equal size. Conjunctiva pink, sclera white. NOSE: Clear with pink turbinates. THROAT: No erythema or exudates. NECK: No masses, no JVD, no thyroid enlargement, no adenopathy. CHEST: No chest wall deformity. Symmetrical expansion. Patient has a right upper chest MediPort, right anterior lower chest Pleurx catheter, covered with the dressing LUNGS: Only a few scattered rhonchi, limited crackles at the right lower base, at times productive of brownish sputum CVS: Regular rate and rhythm, normal S1 and S2, no gallops, no murmurs, no rubs ABDOMEN: Soft, nontender. No hepatosplenomegaly, normal bowel sounds, no guarding or rigidity. EXTREMITIES: No clubbing, no edema, no cyanosis, 2+ pulses and upper and lower extremities. MUSCULOSKELETAL: Muscle strength and tone normal. SPINE: No scoliosis or deformity SKIN: No rashes CENTRAL NERVOUS SYSTEM: Lethargic, but easily arousable, no focal deficits, tone is normal in all 4 extremities. PSYCHIATRIC: Alert and oriented -3. Appropriate affect. Intact judgment and insight. - Labs CBC & Chem 7: 10/29/17 06:34 10/30/17 02:23 Labs: Abnormal Lab Results - Last 24 Hours (Table) 10/29/17 10/29/17 10/30/17 Range/Units 17:12 20:03 02:23 Creatinine 1.41 H (0.66-1.25) mg/dL Glucose 103 H (74-99) mg/dL POC Glucose (mg/dL) 184 H 156 H (75-99) mg/dL Calcium 8.2 L (8.4-10.2) mg/dL 10/30/17 Range/Units 11:14 Creatinine (0.66-1.25) mg/dL Glucose (74-99) mg/dL POC Glucose (mg/dL) 221 H (75-99) mg/dL Calcium (8.4-10.2) mg/dL Microbiology - Last 24 Hours (Table) 10/26/17 09:37 Gram Stain - Final Pleural Fluid Body Fluid Culture - Final 10/25/17 06:30 Blood Culture - Preliminary Blood No Growth after 120 hours Assessment and Plan Plan: Assessment: #1. Acute hypoxemic respiratory failure secondary to a right lower lobe pneumonia, possibly healthcare acquired. Chest x-ray showed chronic parenchymal changes, cardiomegaly, small right pleural effusion, right lung pleural thickening and infiltrate/atelectasis, cannot rule out possibility of pneumonia, especially in the setting of febrile illness, chest congestion, sputum production #2. Recent hospitalization for recurrent right-sided pleural effusion, patient underwent 2 thoracentesis, followed by VATS/decortication for basilar pneumothorax, pleural fluid cytology was positive for metastatic adenocarcinoma consistent with primary upper GI, versus pancreatobiliary tract origin #3. Metastatic adenocarcinoma of pancreas, patient is undergoing outpatient evaluation by medical oncology. #4. Chronic anemia #5. Diabetes mellitus type 2 #6. Hypertention, hyperlipidemia Plan: Continue current medical treatment, patient is feeling better, clinically a lot less congested and wheezy. One episode of low-grade fever last night, and he service is following, and cultures remain negative. Increase activity as tolerated, patient remains stable from pulmonary perspective, and could be considered for discharge home today with antibiotics ID service recommendation. Follow-up with Dr. Lenz any office in one week. I antibiotic service is following, performed a history & physical examination of the patient and discussed their management with my nurse practitioner, Marii Franco. I reviewed the nurse practitioner's note and agree with the documented findings and plan of care. Lung sounds are diffuse rhonchi. The findings and the impression was discussed with the patient. I attest to the documentation by the nurse practitioner. Time with Patient: Less than 30
[2017-10-30] MEDS: SODIUM FERRIC GLUCONAT-SUCROSE 125 MG in SODIUM CHLORIDE 0.9% 100 ML IVPB SCH (12:13)
--- NOTE | 2017-10-30 13:39 | CDI ---
Last Revision, January 2017 Date: 10/30/2017 From: Soniya Rey covering for Lori Galindo Admit Date: 10/25/2017 8:35:00 AM Patient Name: Lisandro Hand Visit Number: [id number] ATTENTION: The Clinical Documentation Specialists (CDI) and [facility] Coding Staff appreciate your assistance in clarifying documentation. Please respond to the clarification below the line at the bottom and electronically sign. The CDI & [facility] Coding staff will review the response and follow-up if needed. Please note: Queries are made part of the Legal Health Record. If you have any questions, please contact the author of this message via ITS. Devin Wild MD and NICK Plaza 'Metastatic adenocarcinoma with mets to the lungs' is documented in your progress notes dated 10/29 and similar in 10/30. Patient history/risk factors: sepsis, pneumonia, recurrent right pleural effusion found to have fluid positive for metastatic adenocarcinoma, metastatic adenocarcinoma of pancreas Clinical Indicators: Pulmonary documenting recent thoracentesis of pleural fluid with cytology positive for metastatic adenocarcinoma consistent with primary upper GI vs pancreatobiliary tract origin, metastatic adenocarcinoma Oncology notes adenocarcinoma of pancreatobiliary source CXR on 10/25: 'redemonstration of chronic parenchymal change and cardiomegaly with small right pleural effusion and right lung pleural thickening Treatment: Oxygen: non-rebreather, nasal cannula Medication: breathing treatments, IV Zosyn, IV Vanco Consults: Oncology, Pulmonary Please confirm the diagnosis of 'lung cancer' in your progress notes and/or discharge summary. Lung cancer present with malignant pleural effusion Malignant pleural effusion only, lung cancer ruled out Other (please clarify) Unable to Determine Please continue to document in your progress notes and discharge summary in order to capture severity of illness and risk of mortality. Include clinical findings that support your diagnosis. MTDD
[2017-10-30 17:19] LABS: Glucose,Whole Blood 226 mg/dL (75-99)
[2017-10-30 20:39] LABS: Glucose,Whole Blood 219 mg/dL (75-99)
--- NOTE | 2017-10-30 20:41 | P.PN ---
Subjective Progress Note Date: 10/30/17 Principal diagnosis: New Pancreatobiliary Carcinoma with metastatic disease Seen and examined. Hemoglobin 7.9 Objective - Vital Signs Vital signs: Vital Signs Temp 98.6 F 10/30/17 12:44 Pulse 94 10/30/17 20:26 Resp 18 10/30/17 20:26 BP 135/72 10/30/17 12:44 Pulse Ox 99 10/30/17 16:15 Intake & Output 10/30/17 10/30/17 10/31/17 06:59 18:59 06:59 Intake Total 2009 150 Balance 2009 150 Weight 90.265 kg 90.265 kg Intake: Intake, IV Titration 350 150 Amount Piperacillin-Tazobactam 3 100 50 .375 gm In Dextrose/Water 1 50ml.bag @ 12.5 mls/hr IVPB Q8HR LUCY Rx#: [id number] Sodium Ferric Gluconat- 100 Sucrose 125 mg In Sodium Chloride 0.9% 100 ml @ 100 mls/hr IVPB DAILY LUCY Rx#:[id number] Vancomycin 1,250 mg In 250 Sodium Chloride 0.9% 250 ml @ 125 mls/hr IVPB Q16H LUCY Rx#:[id number] Oral 1660 Other: Voiding Method Urinal Urinal Toilet Urinal # Voids 2 - Exam GENERAL: Alert and Oriented, NAD HEENT: Neck Supple, trachea midline, Non-icterus sclera CARDIOVASCULAR: RRR, S1 and S2 present. No murmurs, rubs, or gallops. PULMONARY: Mild increased effort with some noted crackles over the right lung bases Puerx cath drsing CDI ABDOMEN: Soft, nontender, EXTREMITIES: No cyanosis, clubbing, or pedal edema. NEUROLOGICAL: No focal deficits. SKIN: Dry, No rashes. - Labs CBC & Chem 7: 10/29/17 06:34 10/30/17 02:23 Labs: Abnormal Lab Results - Last 24 Hours (Table) 10/30/17 10/30/17 10/30/17 Range/Units 02:23 11:14 17:17 Creatinine 1.41 H (0.66-1.25) mg/dL Glucose 103 H (74-99) mg/dL POC Glucose (mg/dL) 221 H 226 H (75-99) mg/dL Calcium 8.2 L (8.4-10.2) mg/dL Microbiology - Last 24 Hours (Table) 10/26/17 09:37 Gram Stain - Final Pleural Fluid Body Fluid Culture - Final 10/25/17 06:30 Blood Culture - Preliminary Blood No Growth after 120 hours Assessment and Plan Plan: 1. 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 Normocytic Anemia: - COmponent of iron deficiency on previous admission - Worsening Iron Deficiency today. Parental Iron Resonable with negative blood cultures, ordered x3 days - No intervention needed at this time, Transfuse less than 7 - Recent EGD. - Recheck CBC in am 3. RLL Pneumonia: IV abx per ID and Primary Team
[2017-10-30] MEDS: ALPRAZolam 0.5 MG TAB PO PRN (20:52)
[2017-10-30] MEDS: LATANOPROST 0.005% OPHTH DROPS 2.5 ML BTL BOTH EYES SCH (20:52)
[2017-10-30] MEDS: MELATONIN 5 MG TABLET PO SCH (20:52)
--- NOTE | 2017-10-30 22:38 | PN ---
PROGRESS NOTE DATE OF SERVICE: 10/30/2017 REASON FOR FOLLOWUP: Pneumonia. INTERVAL HISTORY: The patient did have a low-grade fever last night; however, the patient was afebrile this morning. He did have slight hypoxemia, though, but denies having any chest pain. He did have some cough but not bringing up any sputum. No nausea or vomiting. No abdominal pain or any diarrhea. PHYSICAL EXAMINATION: Blood pressure 135/72 with a pulse of 94, temperature 98.6. He is 94% on 1.5 L nasal cannula. General description is an elderly male up in the bed in no distress. RESPIRATORY SYSTEM: Unlabored breathing with decreased breath sounds at the bases. No wheeze. HEART: S1, S2. Regular rate and rhythm. ABDOMEN: Soft. No tenderness. EXTREMITIES: No edema of the feet. LABS: BUN of 10, creatinine 1.41, hemoglobin 7.1, white count 5.1. His culture has been negative. DIAGNOSTIC IMPRESSION AND PLAN: Patient admitted to hospital with right-sided pneumonia and sepsis. So far culture has been negative for any resistant pathogen. He was noticed to have slight jump in his creatinine; hence vancomycin has been discontinued. Currently on Zosyn. That can be transitioned to oral Ceftin 500 mg twice a day for about 4 days to finish a course of therapy with close outpatient followup. MMODL / IJN: [id number] /
[2017-10-31] MEDS ORDERED: VANCOMYCIN 1,250 MG in SODIUM CHLORIDE 0.9% 250 ML IVPB SCH ×2
[2017-10-31] MEDS: PIPERACILLIN-TAZOBACTAM 3.375 GM in DEXTROSE/WATER 1 50ML.BAG IVPB SCH ×2 (00:20→07:57)
[2017-10-31] MEDS: HEPARIN SODIUM,PORCINE 5,000 UNIT/ML 1 ML VIAL SQ SCH ×2 (00:20→07:57)
[2017-10-31] MEDS: guaiFENesin-Coden 100-10MG/5ML 10 ML CUP PO PRN (03:08)
[2017-10-31 06:50] LABS: Glucose,Whole Blood 119 mg/dL (75-99)
[2017-10-31] MEDS: IPRATROPIUM-ALBUTEROL 3 ML NEB INHALATION SCH ×3 (07:10→16:17)
[2017-10-31] MEDS: INSULIN ASPART 100 UNIT/ML 1 ML 10 ML VIAL SQ SCH ×2 (07:52→12:41)
[2017-10-31] MEDS: ATORVASTATIN 10 MG TAB PO SCH (07:57)
[2017-10-31] MEDS: TAMSULOSIN 0.4 MG CAP.ER.24H PO SCH (07:57)
[2017-10-31] MEDS: GABAPENTIN 400 MG CAP PO SCH (07:57)
[2017-10-31] MEDS: PANTOPRAZOLE 40 MG TABLET PO SCH (07:58)
[2017-10-31 08:28] LABS: Basophils % (A) 1 %; Eosinophils # (A) 0.2 k/uL (0-0.7); Eosinophils % (A) 4 %; HCT 26.5 % (39.0-53.0); Hypochromasia Marked; Lymphocytes % (A) 20 %; MCH 26.7 pg (25.0-35.0); MCHC 30.3 g/dL (31.0-37.0); MCV 88.1 fL (80.0-100.0); Mean Platelet Volume 7.1; Monocytes # (A) 0.4 k/uL (0-1.0); Monocytes % (A) 8 %; Neutrophils # (A) 3.3 k/uL (1.3-7.7); Neutrophils % (A) 65 %; Platelet Count 272 k/uL (150-450); RBC 3.01 m/uL (4.30-5.90); RDW 14.4 % (11.5-15.5)
[2017-10-31] MEDS: INSULIN DETEMIR 100 UNIT/ML 10 ML VIAL SQ SCH (10:07)
[2017-10-31 11:13] LABS: Glucose,Whole Blood 295 mg/dL (75-99)
--- NOTE | 2017-10-31 11:49 | P.DS ---
Providers Date of admission: 10/25/17 08:35 Expected date of discharge: 10/31/17 Attending physician: Devin Ruiz Consults: 10/25/17 08:28 Consult Physician Routine Consulting Provider: Louann Lenz Consult Reason/Comments: Pneumonia Do you want consulting provider notified?: Yes 10/25/17 12:36 Consult Physician Routine Consulting Provider: Dallin Hazel Consult Reason/Comments: Fever, Possible pneumonia Do you want consulting provider notified?: Yes 10/25/17 12:39 Consult Physician Routine Consulting Provider: Tam Dotson Consult Reason/Comments: Adenocarcinoma Do you want consulting provider notified?: Yes Primary care physician: Devin Ruiz Hospital Course: 77-year-old male presented to the emergency room with increasing shortness of breath. Patient has history of having Pleurx catheter for malignant pleural effusion. Patient was found to have pneumonia patient was treated by pulmonology, infectious disease and oncology patient a course of Zosyn and vancomycin Assessment Acute hypoxic respiratory failure secondary to right lower lobe pneumonia with sepsis Recent hospitalization for right-sided pleural effusion Lung cancer metastatic from adenocarcinoma Malignant pleural effusion right side with Pleurx Chronic anemia secondary to the above Diabetes type 2 Hypertension Hyperlipidemia Plan Patient to take Ceftin 500 mg twice a day for 4 days Follow-up with pulmonology Follow-up with oncology Follow-up with family physician Dr. Devin Ruiz Patient Condition at Discharge: Stable Plan - Discharge Summary Discharge Rx Participant: No New Discharge Prescriptions: New Cefuroxime Axetil [Ceftin] 500 mg PO BID 4 Days #8 tab Melatonin 5 mg PO HS tablet Continue Atorvastatin Calcium [Lipitor] 10 mg PO DAILY Lansoprazole 30 mg PO DAILY Insulin Lispro [humaLOG Kwikpen] See Protocol SQ ACHS Latanoprost [Xalatan 0.005%] 1 drop BOTH EYES HS Acetaminophen Tab [Tylenol] 650 mg PO Q4HR PRN tab PRN Reason: Fever And/ Or Pain Tamsulosin [Flomax] 0.4 mg PO PC-BRKFST #30 cap.er.24h Gabapentin 400 mg PO TID #0 Insulin Glargine,Hum.rec.anlog [Lantus Solostar] 66 units SQ DAILY ALPRAZolam [Xanax] 0.5 mg PO BID PRN PRN Reason: anxiety Discharge Medication List Atorvastatin Calcium [Lipitor] 10 mg PO DAILY 09/21/17 [History] Insulin Lispro [humaLOG Kwikpen] See Protocol SQ ACHS 09/21/17 [History] Lansoprazole 30 mg PO DAILY 09/21/17 [History] Latanoprost [Xalatan 0.005%] 1 drop BOTH EYES HS 10/03/17 [History] Acetaminophen Tab [Tylenol] 650 mg PO Q4HR PRN tab 10/06/17 [Rx] Gabapentin 400 mg PO TID #0 10/06/17 [Rx] Tamsulosin [Flomax] 0.4 mg PO PC-BRKFST #30 cap.er.24h 10/06/17 [Rx] Insulin Glargine,Hum.rec.anlog [Lantus Solostar] 66 units SQ DAILY 10/25/17 [ History] ALPRAZolam [Xanax] 0.5 mg PO BID PRN 10/26/17 [History] Cefuroxime Axetil [Ceftin] 500 mg PO BID 4 Days #8 tab 10/31/17 [Rx] Melatonin 5 mg PO HS tablet 10/31/17 [Rx] Follow up Appointment(s)/Referral(s): Devin Ruiz MD [Primary Care Provider] - 1-2 days [facility], [NON-STAFF] -
[2017-10-31 12:43] VITALS: BP 132/63; RESP 18; TEMP 97.9
[2017-10-31] MEDS: SODIUM FERRIC GLUCONAT-SUCROSE 125 MG in SODIUM CHLORIDE 0.9% 100 ML IVPB SCH (12:45)
--- NOTE | 2017-10-31 13:40 | P.PN ---
Subjective Progress Note Date: 10/31/17 Principal diagnosis: Acute hypoxemic respiratory failure secondary to right lower lobe pneumonia, possibly healthcare acquired. 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 Ruiz, who presented to the emergency department on 10/25/2017 at 6:00 in the morning for evaluation of cough, generalized malaise, fever, chills. Patient was recently diagnosed with stage IV pancreatic cancer. Past medical history includes diabetes mellitus, GERD/reflux, hyperlipidemia, hypertension, no chronic lung disease. He is known to us from his previous hospitalization for evaluation of recurrent right-sided pleural effusion. Patient initially had a right-sided thoracentesis by interventional radiology with drainage of 1500 mL of bloody fluid, in the fluid was found to be exudative in nature, and negative for malignancy. After the initial thoracentesis patient had rapid reaccumulation of the right-sided pleural effusion, and underwent right-sided thoracentesis by Dr. Jefferson on 10/04 with drainage of 1600 mL of serosanguineous fluid. Patient did have postprocedural basilar pneumothorax, cardiothoracic surgery performed a VATS/ decortication and Pleurx catheter placement.Pathology results of the pleural fluid indicated metastatic adenocarcinoma consistent with primary upper GI versus pancreatobiliary tract origin. Pancreatic cancer marker was elevated. MRI of the abdomen was completed, and showed focal calcifications at tail of pancreas and indeterminate lesion in the liver. Patient states he had evaluation by Dr. Hills. He supposed to go over the results of the workup with Dr. Dotson in the office today, on 10/25/2017, he had a MediPort put in in his right upper chest on Sunday on 10/23/2017. However he became increasingly more congested, coughing up brownish colored sputum, short of breath, spiking fevers. Chest x-ray was completed, which showed chronic parenchymal changes, cardiomegaly with small right pleural effusion and right lung pleural thickening with right greater than left basilar atelectasis/infiltrate. EKG showed sinus tachycardia with a rate of 101 BPM. Patient has been febrile in the emergency room, with a T-max of 103.3F. He was started on a combination of cefepime and vancomycin, blood culture, sputum culture and urine culture have been ordered. Last time he drain his Pleurx catheter was on Sunday, 2 days ago, with drainage of 100 mL of bloody pleural fluid. He is resting on the gurney, with his at the bedside, and he is febrile. Diffusely congested, patient has congested cough, production of brown colored sputum. On 10/26/2017 patient seen in follow-up on the surgical floor. Patient continues to be intermittently febrile, T-max of 102.1F. Through the night he was placed on the nonrebreather mask, he was in mild to moderate amount of respiratory distress, congested, he was given a dose of oral Lasix, breathing treatments, this morning he is fairly comfortable, not bringing up as much sputum, a bit less congested. Pleurx catheter was drained, with 450 ML of dark bloody pleural fluid, as was sent for cultures. Currently he is on 6 L per high flow nasal cannula, his O2 sat is anywhere from 93-96%. Blood culture showed no growth at the 24 hours, urine and sputum cultures are pending. Patient remains on antibiotic coverage including Zosyn and vancomycin. This morning's labs were reviewed, WBC is 5.5, hemoglobin is 8.7, electrodes and renal profile are within normal limits, plasma lactic acid is 1.4. Patient is given IV fluids of 0.9 normal saline at a rate of 100 ML per hour. On 10/28/2017 patient is seen again in follow-up on 3 E. surgical floor. Remains quite congested, has a loose congested cough, at times he able to bring up some sputum. Currently on 3 L per nasal cannula his pulse ox is 95%, afebrile, last episode of fever was on 10/27/2017 at midnight. Well since then , hemodynamically stable, yesterday's chest x-ray has been reviewed and showed worsening right-sided pleural effusion, we drained the patient's right Pleurx catheter, with 200 mL of pleural fluid. There is slight improvement in aeration of the left lung, and right lung is relatively the same. Pleural fluid cultures preliminary reports showed no growth after 48 hours, urine and blood cultures remain negative. Today's blood work was reviewed, WBC is 5.4, hemoglobin is 8.0, actually lites are within normal limits, renal profile is stable. Patient remains on a combination of Zosyn and vancomycin. On 10/29/2017 patient seen again on the surgical floor. He is getting ready to be transferred to the oncology unit. He is sitting up in the chair, in no acute distress, no ongoing fevers, vital signs are stable, patient has a loose congested cough, and these able to bring up some sputum. Yesterday we drained his right Pleurx catheter with 200 ML of pleural fluid, and patient states was less bloody this time. Cultures are negative thus far. Patient remains on Zosyn and vancomycin. No new chest x-rays, WBC is 5.1, hemoglobin is 7.9, renal profile is relatively stable, electrolytes are within normal limits. On 10/30/2017 patient seen in follow-up on the fifth medical surgical floor. He is calm and comfortable, in no acute distress, did have a episode of low- grade fever last night and home, with a temp of 100.2 degrees Fahrenheit, afebrile this morning, he is awake and alert, denies shortness of breath, denies chest pain, his blood, urine, sputum and pleural fluid cultures remain negative thus far, patient has been treated with a emanation of Zosyn and vancomycin. He is on 2 L per nasal cannula his pulse ox is 92%. Lung sounds are positive for limited crackles at the right base, overall significantly less congested on today's exam. Has been up ambulating in the room, tolerating activity well. Today's labs were reviewed, no CBC was done, BMP showed sodium of 139, potassium 4.0, CO2 of 26, and creatinine of 1.41 with a BUN of 10. No new chest x-ray today, physical exam does not reveal significant dullness at the right base, I don't think there is much fluid the right pleural effusion. On 10/31/2017 patient was seen in examined again. Awake and alert, oriented 3 , no acute distress, did have a one episode of low-grade fever last night at 2100, with a temp of 100.4F, he is afebrile this morning, no chest pain. Microbiology results have been reviewed, blood cultures urine and sputum cultures as well as a pleural fluid culture remained negative. He has been treated with a combination of Zosyn and vancomycin, he is clinically improved. Has a loose cough, and he is bringing up colored phlegm. Yesterday his discharge was held in view of low-grade fever. He has remained stable however. From pulmonary perspective he came to discharge home today, and the ID service has agreed as well. Objective - Vital Signs Vital signs: Vital Signs Temp 97.9 F 10/31/17 12:34 Pulse 94 10/31/17 12:34 Resp 18 10/31/17 12:34 BP 132/63 10/31/17 12:34 Pulse Ox 91 L 10/31/17 12:34 Intake & Output 10/30/17 10/31/17 10/31/17 18:59 06:59 18:59 Intake Total 150 1180 Balance 150 1180 Weight 90.265 kg Intake: Intake, IV Titration 150 100 Amount Piperacillin-Tazobactam 3 50 100 .375 gm In Dextrose/Water 1 50ml.bag @ 12.5 mls/hr IVPB Q8HR LUCY Rx#: [id number] Sodium Ferric Gluconat- 100 Sucrose 125 mg In Sodium Chloride 0.9% 100 ml @ 100 mls/hr IVPB DAILY LUCY Rx#:[id number] Oral 1080 Other: Voiding Method Urinal Toilet Urinal # Voids 2 - Exam GENERAL EXAM: Fatigued, 77-year-old white male, resting in bed, in no acute distress. HEAD: Normocephalic/atraumatic. EYES: Normal reaction of pupils, equal size. Conjunctiva pink, sclera white. NOSE: Clear with pink turbinates. THROAT: No erythema or exudates. NECK: No masses, no JVD, no thyroid enlargement, no adenopathy. CHEST: No chest wall deformity. Symmetrical expansion. Patient has a right upper chest MediPort, right anterior lower chest Pleurx catheter, covered with the dressing LUNGS: Only a few scattered rhonchi, limited crackles at the right lower base, at times productive of brownish sputum CVS: Regular rate and rhythm, normal S1 and S2, no gallops, no murmurs, no rubs ABDOMEN: Soft, nontender. No hepatosplenomegaly, normal bowel sounds, no guarding or rigidity. EXTREMITIES: No clubbing, no edema, no cyanosis, 2+ pulses and upper and lower extremities. MUSCULOSKELETAL: Muscle strength and tone normal. SPINE: No scoliosis or deformity SKIN: No rashes CENTRAL NERVOUS SYSTEM: Lethargic, but easily arousable, no focal deficits, tone is normal in all 4 extremities. PSYCHIATRIC: Alert and oriented -3. Appropriate affect. Intact judgment and insight. - Labs CBC & Chem 7: 10/31/17 07:47 10/31/17 07:47 Labs: Abnormal Lab Results - Last 24 Hours (Table) 10/30/17 10/30/17 10/31/17 Range/Units 17:17 20:36 06:46 RBC (4.30-5.90) m/uL Hgb (13.0-17.5) gm/dL Hct (39.0-53.0) % MCHC (31.0-37.0) g/dL Creatinine (0.66-1.25) mg/dL Glucose (74-99) mg/dL POC Glucose (mg/dL) 226 H 219 H 119 H (75-99) mg/dL Calcium (8.4-10.2) mg/dL 10/31/17 10/31/17 10/31/17 Range/Units 07:47 07:47 11:12 RBC 3.01 L (4.30-5.90) m/uL Hgb 8.0 L (13.0-17.5) gm/dL Hct 26.5 L (39.0-53.0) % MCHC 30.3 L (31.0-37.0) g/dL Creatinine 1.80 H (0.66-1.25) mg/dL Glucose 112 H (74-99) mg/dL POC Glucose (mg/dL) 295 H (75-99) mg/dL Calcium 8.0 L (8.4-10.2) mg/dL Microbiology - Last 24 Hours (Table) 10/25/17 06:30 Blood Culture - Final Blood No Growth after 144 hours 10/26/17 09:37 Gram Stain - Final Pleural Fluid Body Fluid Culture - Final Assessment and Plan Plan: Assessment: #1. Acute hypoxemic respiratory failure secondary to a right lower lobe pneumonia, possibly healthcare acquired. Chest x-ray showed chronic parenchymal changes, cardiomegaly, small right pleural effusion, right lung pleural thickening and infiltrate/atelectasis, cannot rule out possibility of pneumonia, especially in the setting of febrile illness, chest congestion, sputum production #2. Recent hospitalization for recurrent right-sided pleural effusion, patient underwent 2 thoracentesis, followed by VATS/decortication for basilar pneumothorax, pleural fluid cytology was positive for metastatic adenocarcinoma consistent with primary upper GI, versus pancreatobiliary tract origin #3. Metastatic adenocarcinoma of pancreas, patient is undergoing outpatient evaluation by medical oncology. #4. Chronic anemia #5. Diabetes mellitus type 2 #6. Hypertention, hyperlipidemia Plan: Clinically patient is stable, continues to improve, still has some residual cough, he is able to clear phlegm. No worsening shortness of breath, afebrile today, cultures remain negative. Patient is for discharge home from my standpoint. Antibiotics per ID service. Follow-up with Dr. Montejo in the office in one week. I antibiotic service is following, performed a history & physical examination of the patient and discussed their management with my nurse practitioner, Marii Franco. I reviewed the nurse practitioner's note and agree with the documented findings and plan of care. Lung sounds are diffuse rhonchi. The findings and the impression was discussed with the patient. I attest to the documentation by the nurse practitioner. Time with Patient: Less than 30
--- NOTE | 2017-10-31 13:42 | PN ---
PROGRESS NOTE DATE OF SERVICE: 10/31/2017 REASON FOR FOLLOWUP: Pneumonia. INTERVAL HISTORY: The patient is currently afebrile. He apparently did have a low-grade fever of 100.4 last night. This morning, he is afebrile. He is breathing comfortably. Denies significant chest pain. Occasional cough, which has decreased in intensity and is drying out. No nausea, vomiting. No abdominal pain and no diarrhea. PHYSICAL EXAMINATION: On examination, blood pressure 132/63 with a pulse of 94, temperature 97.9. He is 91% on 1 L nasal cannula. General description is an elderly male lying in bed in no distress. RESPIRATORY SYSTEM: Unlabored breathing with decreased breath sounds in the bases. No wheeze. HEART: S1, S2. Regular rate and rhythm. ABDOMEN: Soft, no tenderness. EXTREMITIES: No edema of the feet. LABS: Hemoglobin 8, white count 5.0, BUN of 12, creatinine 1.80. Sputum culture has been negative, blood culture negative and pleural fluid culture negative. DIAGNOSTIC IMPRESSION AND PLAN: Patient admitted to the hospital with sepsis for right-sided pneumonia. Initial concern for possible nosocomial pathogen. However, all the cultures have been negative for any resistant pathogen. Antibiotic can be transitioned to a short course of oral Ceftin to 500 mg twice a day for about 5 days with a close outpatient followup. MMODL / IJN: [id number] /
[2017-10-31 15:02] VITALS: PULSE 89
--- NOTE | 2017-11-01 11:00 | CDI ---
Last Revision, January 2017 Documentation Clarification Form Date: 11/01/17 From: Any Luis Armando Ruth Donna, Operations Supervisor [employer] Hours-8:30 am & 5 pm M-Brenan Admit Date: 10/25/2017 8:35:00 AM Patient Name: Lisandro Hand Visit Number: [id number] Discharge Date: 10/31/17 ATTENTION: The Clinical Documentation Specialists (CDI) and [facility] Coding Staff appreciate your assistance in clarifying documentation. Please respond to the clarification below the line at the bottom and electronically sign. The CDI & [facility] Coding staff will review the response and follow-up if needed. Please note: Queries are made part of the Legal Health Record. If you have any questions, please contact the author of this message via ITS. Devin Wild MD Documentation states: hx of acute renal failure previous admission; creatinine was monitored throughout the encounter History/Risk Factors: sepsis, metastatic pancreatic cancer, DM, pneumonia, acute respiratory failure Abnormal Labs: CR: 0.88, 0.86, 0.92, 1.34, 1.36, 1.34, 1.41, 1.80\ BUN: 15, 13, 14, 15, 15, 12, 10, 12 GFR: 84, 85, 81, 52, 51, 52, 49, 36 Treatment: Labs monitored Clinical significance of diagnostic testing and treatment CANNOT be assumed or coded without physician documentation of significance if any. Please clarify what abnormal laboratory signifies: Acute kidney injury Abnormal Lab Value Unable to determine Other, please specify Please continue to document in your progress notes and discharge summary in order to capture severity of illness and risk of mortality. Include clinical findings that support your diagnosis. MTDD
--- NOTE | 2017-11-05 11:33 | P.PN ---
Progress Note - Text Addendum Please add acute kidney injury related to on antibiotic use
== END 2017-10-31 16:00 | disposition home health service (06) | DRG 871 ==
LOC: EC 05:55 → 5MS5E 08:35 → 3SUR 15:09 → 5MS5E 10-29 10:57
PROVIDERS: ADMIT Family Medicine; ATTEND Family Medicine
DX: A41.9 Sepsis, unspecified organism (principal); J96.01 Acute respiratory failure with hypoxia; J15.6 Pneumonia due to other Gram-negative bacteria; J15.9 Unspecified bacterial pneumonia; J91.0 Malignant pleural effusion; C78.01 Secondary malignant neoplasm of right lung; C25.9 Malignant neoplasm of pancreas, unspecified; J98.11 Atelectasis; N17.9 Acute kidney failure, unspecified; E11.42 Type 2 diabetes mellitus with diabetic polyneuropathy; E86.0 Dehydration; E11.319 Type 2 diabetes mellitus with unspecified diabetic retinopathy without macular edema; D63.0 Anemia in neoplastic disease; I11.9 Hypertensive heart disease without heart failure; M19.91 Primary osteoarthritis, unspecified site; E78.5 Hyperlipidemia, unspecified; K21.9 Gastro-esophageal reflux disease without esophagitis; T36.95XA Adverse effect of unspecified systemic antibiotic, initial encounter; M10.9 Gout, unspecified; Z79.4 Long term (current) use of insulin; Z79.899 Other long term (current) drug therapy; Z96.611 Presence of right artificial shoulder joint; Z87.81 Personal history of (healed) traumatic fracture; Z98.42 Cataract extraction status, left eye; Z98.41 Cataract extraction status, right eye; Z91.048 Other nonmedicinal substance allergy status; Z96.1 Presence of intraocular lens; Z88.2 Allergy status to sulfonamides; Z80.0 Family history of malignant neoplasm of digestive organs
CPT/HCPCS: 36415; 71046; 80048; 80053; 80202; 81003; 82550; 82553; 82728; 83036; 83540; 83550; 83605; 83615; 84484; 85025; 85027; 85045; 85610; 85730; 87040; 87070; 87086; 87205; 87502; 93005; 94640; 94760; 96365; 96366; 96367; 96375; 99284

== ENCOUNTER 2017-12-14 10:55 | Inpatient (IN) | payer MEDICARE ==
[2017-12-14] MEDS ORDERED: ACETAMINOPHEN TAB 325 MG TAB PO STA (11:04)
[2017-12-14] MEDS ORDERED: SODIUM CHLORIDE 0.9% 1,000 ML IV ONE (11:04)
[2017-12-14] MEDS ORDERED: CEFEPIME 2 GM in SODIUM CHLORIDE 0.9% 50 ML IVPB STA (11:31)
[2017-12-14] MEDS ORDERED: VANCOMYCIN IV PER PHARMACY 1 EACH MISC MISCELLANE PRN (11:31)
--- NOTE | 2017-12-14 11:32 | ED ---
General Adult HPI - General Chief complaint: Fever Stated complaint: FEVER, Ca PATIENT Time Seen by Provider: 12/14/17 11:03 Source: patient, RN notes reviewed, old records reviewed Mode of arrival: wheelchair Limitations: no limitations - History of Present Illness Initial comments: 77-year-old male presenting for evaluation of fever. Patient is currently undergoing treatment for metastatic pancreatic cancer. He was 14 days status post chemotherapy. He was presenting to his oncologist office today for second round of chemotherapy, was noted to have high fever and sent to the emergency department for evaluation. He does oncologist was concerned with biliary obstruction given his current cancer. Patient's does report a mild cough over the past several days which seemed to improve over the past 24 hours. She noted a low-grade temperature of 100.3 yesterday. Patient denies abdominal pain. Denies nausea or vomiting. Denies dysuria. He has a right-sided pleural drain catheter and a Mediport for chemotherapy. - Related Data Home Medications Medication Instructions Recorded Confirmed Atorvastatin Calcium [Lipitor] 10 mg PO DAILY 09/21/17 12/14/17 Insulin Lispro [humaLOG Kwikpen] See Protocol SQ ACHS 09/21/17 12/14/17 Lansoprazole 30 mg PO DAILY 09/21/17 12/14/17 Insulin Glargine,Hum.rec.anlog 74 units SQ DAILY 10/25/17 12/14/17 [Lantus Solostar] ALPRAZolam [Xanax] 0.5 mg PO BID PRN 10/26/17 12/14/17 Benzonatate [Tessalon Perles] 100 mg PO TID PRN 12/14/17 12/14/17 Cyanocobalamin (Vitamin B-12) 1,000 mcg PO DAILY 12/14/17 12/14/17 [Vitamin B-12] Gabapentin 800 mg PO TID 12/14/17 12/14/17 Megestrol [Megace] 400 mg PO QAM 12/14/17 12/14/17 Prochlorperazine [Compazine] 10 mg PO Q6H PRN 12/14/17 12/14/17 Pyridoxine HCl (Vitamin B6) 100 mg PO DAILY 12/14/17 12/14/17 [Vitamin B-6] Sertraline [Zoloft] 50 mg PO DAILY 12/14/17 12/14/17 Previous Rx's Medication Instructions Recorded Tamsulosin [Flomax] 0.4 mg PO PC-BRKFST #30 cap.er.24h 10/06/17 Allergies Allergy/AdvReac Type Severity Reaction Status Date / Time adhesive tape Allergy BLISTERS Verified 12/14/17 11:32 Sulfa (Sulfonamide Allergy Unknown Verified 12/14/17 11:32 Antibiotics) Childhood Review of Systems ROS Statement: Those systems with pertinent positive or pertinent negative responses have been documented in the HPI. ROS Other: All systems not noted in ROS Statement are negative. Past Medical History Past Medical History: Cancer, Diabetes Mellitus, GERD/Reflux, Hyperlipidemia Additional Past Medical History / Comment(s): Pt recently admitted to [facility] on with recurrent R pleural effusion with thoracentesis.R thorascopy with partial decortication and pleural/lower lobe wedge biopsies-results of metastatic adenocarcinoma with primary GE vs pancreatobiliary tract origin-pt states they don't know primary source yet, recent urinary retention and acute renal failure, R sided pleurx cath, IDDM type II-had recent hypoglycemia so insulin decreased but now pt states blood sugars have been running high again, neuropathy bilateral feet, L eye retinopathy-sees a specialist, past R clavicle fracture. History of Any Multi-Drug Resistant Organisms: None Reported Past Surgical History: Adenoidectomy, Appendectomy, Joint Replacement, Orthopedic Surgery, Tonsillectomy Additional Past Surgical History / Comment(s): R thrascopy with partial decortication with pleural bx and wedge resection/bx/pleurx cath, thoracentesis , mediport, total R shoulder arthroplasty, sinus surgery, bilateral cataract removals with lens implants, L hand finger injury with surgery. Past Anesthesia/Blood Transfusion Reactions: No Reported Reaction Past Psychological History: No Psychological Hx Reported Smoking Status: Never smoker Past Alcohol Use History: None Reported Past Drug Use History: None Reported - Past Family History Mother Family Medical History: No Reported History Additional Family Medical History / Comment(s): Mother from natural causes at the age of 92yrs. Father Family Medical History: Cancer Additional Family Medical History / Comment(s): Father of pancreatic cancer at the age of 82 yrs. General Exam Limitations: no limitations General appearance: alert, in no apparent distress Head exam: Present: atraumatic, normocephalic Eye exam: Present: normal appearance, PERRL ENT exam: Present: normal exam Respiratory exam: Present: normal lung sounds bilaterally, respiratory distress (Mild tachypnea). Absent: wheezes, rales Cardiovascular Exam: Present: normal rhythm, tachycardia GI/Abdominal exam: Present: soft. Absent: distended, tenderness, guarding Rectal exam: Present: other (Stage II sacral decubitus ulcer) Extremities exam: Present: normal inspection, full ROM, normal capillary refill. Absent: pedal edema Neurological exam: Present: alert, oriented X3, CN II-XII intact. Absent: motor sensory deficit Skin exam: Present: warm, dry, intact. Absent: cyanosis, diaphoretic Course Vital Signs 12/14/17 12/14/17 12/14/17 10:58 11:31 11:38 Temperature 102.4 F H 103.4 F H Pulse Rate 121 H 111 H Respiratory 20 18 Rate Blood Pressure 108/67 122/72 O2 Sat by Pulse 94 L 83 L 84 L Oximetry 12/14/17 12/14/17 12/14/17 11:39 11:40 11:50 Temperature Pulse Rate 110 H Respiratory 18 Rate Blood Pressure 122/72 122/72 O2 Sat by Pulse 94 L 93 L Oximetry 12/14/17 12/14/17 12/14/17 12:00 12:25 12:38 Temperature 99.3 F Pulse Rate 110 H 93 Respiratory 18 18 18 Rate Blood Pressure 122/72 107/66 O2 Sat by Pulse 94 L 96 Oximetry EKG Findings - EKG Comments: EKG Findings:: EKG: Sinus tachycardia, rate of 110, DE interval 136, QRS duration 78, QTC 4:30, no ST segment elevation or depression. Medical Decision Making - Medical Decision Making 77-year-old male stage IV pancreatic cancer presenting with fever. Patient has had cough. Chest x-ray obtained, there is concern for bilateral consolidation. Urinalysis negative for infection, normal white blood cell count, hemoglobin 10.4, mild lactic acidosis 2.7, ultrasound obtained to rule out biliary infection or obstruction. This is negative. Patient started on antibiotics in the emergency department, cefepime and vancomycin. Azithromycin will be added. Patient will be admitted for treatment of presumed pneumonia, concern for bacteremia, on chemotherapy. - Lab Data Result diagrams: 12/14/17 11:25 12/14/17 11:25 Lab Results 12/14/17 12/14/17 12/14/17 Range/Units 11:25 11:25 11:25 WBC 8.0 (3.8-10.6) k/uL RBC 3.75 L (4.30-5.90) m/uL Hgb 10.4 L (13.0-17.5) gm/dL Hct 31.9 L (39.0-53.0) % MCV 85.0 (80.0-100.0) fL MCH 27.7 (25.0-35.0) pg MCHC 32.5 (31.0-37.0) g/dL RDW 17.6 H (11.5-15.5) % Plt Count 328 (150-450) k/uL Neutrophils % 88 % Lymphocytes % 4 % Monocytes % 5 % Eosinophils % 1 % Basophils % 0 % Neutrophils # 7.0 (1.3-7.7) k/uL Lymphocytes # 0.4 L (1.0-4.8) k/uL Monocytes # 0.4 (0-1.0) k/uL Eosinophils # 0.1 (0-0.7) k/uL Basophils # 0.0 (0-0.2) k/uL Hypochromasia Slight Anisocytosis Slight PT (9.0-12.0) sec INR (<1.2) APTT (22.0-30.0) sec Sodium 136 L (137-145) mmol/L Potassium 4.5 (3.5-5.1) mmol/L Chloride 100 (98-107) mmol/L Carbon Dioxide 26 (22-30) mmol/L Anion Gap 10 mmol/L BUN 26 H (9-20) mg/dL Creatinine 1.21 (0.66-1.25) mg/dL Est GFR (CKD-EPI)AfAm 68 (>60 ml/min/1.73 sqM) Est GFR (CKD-EPI)NonAf 58 (>60 ml/min/1.73 sqM) Glucose 156 H (74-99) mg/dL Plasma Lactic Acid Lucho (0.7-2.0) mmol/L Calcium 9.2 (8.4-10.2) mg/dL Total Bilirubin 0.6 (0.2-1.3) mg/dL AST 78 H (17-59) U/L ALT 88 H (21-72) U/L Alkaline Phosphatase 75 (38-126) U/L Total Protein 8.3 H (6.3-8.2) g/dL Albumin 3.9 (3.5-5.0) g/dL Lipase 34 (23-300) U/L Urine Color Urine Appearance (Clear) Urine pH (5.0-8.0) Ur Specific Mccoy (1.001-1.035) Urine Protein (Negative) Urine Glucose (UA) (Negative) Urine Ketones (Negative) Urine Blood (Negative) Urine Nitrite (Negative) Urine Bilirubin (Negative) Urine Urobilinogen (<2.0) mg/dL Ur Leukocyte Esterase (Negative) Urine WBC (0-5) /hpf Urine Mucus (None) /hpf Influenza Type A RNA Not Detected (Not Detectd) Influenza Type B (PCR) Not Detected (Not Detectd) 12/14/17 12/14/17 12/14/17 Range/Units 11:25 11:25 12:05 WBC (3.8-10.6) k/uL RBC (4.30-5.90) m/uL Hgb (13.0-17.5) gm/dL Hct (39.0-53.0) % MCV (80.0-100.0) fL MCH (25.0-35.0) pg MCHC (31.0-37.0) g/dL RDW (11.5-15.5) % Plt Count (150-450) k/uL Neutrophils % % Lymphocytes % % Monocytes % % Eosinophils % % Basophils % % Neutrophils # (1.3-7.7) k/uL Lymphocytes # (1.0-4.8) k/uL Monocytes # (0-1.0) k/uL Eosinophils # (0-0.7) k/uL Basophils # (0-0.2) k/uL Hypochromasia Anisocytosis PT 11.4 (9.0-12.0) sec INR 1.2 H (<1.2) APTT 31.4 H (22.0-30.0) sec Sodium (137-145) mmol/L Potassium (3.5-5.1) mmol/L Chloride (98-107) mmol/L Carbon Dioxide (22-30) mmol/L Anion Gap mmol/L BUN (9-20) mg/dL Creatinine (0.66-1.25) mg/dL Est GFR (CKD-EPI)AfAm (>60 ml/min/1.73 sqM) Est GFR (CKD-EPI)NonAf (>60 ml/min/1.73 sqM) Glucose (74-99) mg/dL Plasma Lactic Acid Lucho 2.7 H* (0.7-2.0) mmol/L Calcium (8.4-10.2) mg/dL Total Bilirubin (0.2-1.3) mg/dL AST (17-59) U/L ALT (21-72) U/L Alkaline Phosphatase (38-126) U/L Total Protein (6.3-8.2) g/dL Albumin (3.5-5.0) g/dL Lipase (23-300) U/L Urine Color Yellow Urine Appearance Cloudy (Clear) Urine pH 5.5 (5.0-8.0) Ur Specific Mccoy 1.020 (1.001-1.035) Urine Protein 1+ H (Negative) Urine Glucose (UA) Trace H (Negative) Urine Ketones Negative (Negative) Urine Blood Negative (Negative) Urine Nitrite Negative (Negative) Urine Bilirubin Negative (Negative) Urine Urobilinogen <2.0 (<2.0) mg/dL Ur Leukocyte Esterase Negative (Negative) Urine WBC 1 (0-5) /hpf Urine Mucus Rare H (None) /hpf Influenza Type A RNA (Not Detectd) Influenza Type B (PCR) (Not Detectd) Disposition Clinical Impression: Healthcare-associated pneumonia, Systemic inflammatory response syndrome (SIRS) , Sepsis Disposition: ADMITTED IP TO THIS HOSP Condition: Stable Is patient prescribed a controlled substance at d/c from ED?: No Referrals: Devin Ruiz MD [Primary Care Provider] - 1-2 days Decision to Admit Reason: Admit from EC Decision Date: 12/14/17 Decision Time: 13:26
[2017-12-14] MEDS ORDERED: VANCOMYCIN 1,500 MG in SODIUM CHLORIDE 0.9% 250 ML IVPB STA (11:35)
[2017-12-14 11:59] LABS: Anisocytosis Slight; Basophils % (A) 0 %; Eosinophils # (A) 0.1 k/uL (0-0.7); Eosinophils % (A) 1 %; HCT 31.9 % (39.0-53.0); HGB 10.4 gm/dL (13.0-17.5); Hypochromasia Slight; Lymphocytes # (A) 0.4 k/uL (1.0-4.8); Lymphocytes % (A) 4 %; MCH 27.7 pg (25.0-35.0); MCHC 32.5 g/dL (31.0-37.0); Mean Platelet Volume 7.3; Monocytes # (A) 0.4 k/uL (0-1.0); Monocytes % (A) 5 %; Neutrophils % (A) 88 %; Platelet Count 328 k/uL (150-450); RBC 3.75 m/uL (4.30-5.90); RDW 17.6 % (11.5-15.5)
--- NOTE | 2017-12-14 12:03 | XR ---
EXAMINATION TYPE: XR chest 2V DATE OF EXAM: 12/14/2017 COMPARISON: 10/28/2017 TECHNIQUE: PA and lateral views submitted. HISTORY: Fever FINDINGS: There is persistent bilateral consolidation and small effusion. Mediport catheter on the right noted and there is cardiomegaly. Chronic deformity of the right clavicle with diffuse osteopenia. Right-zee ed chest tube seen with findings suggestive of a probable small hydropneumothorax. Hypertrophic and d egenerative change of the spine. IMPRESSION: 1. Bilateral consolidation and small effusion correlate for venous congestion. 2. stable right-sided chest tube with probable chronic small hydropneumothorax.
[2017-12-14 12:15] LABS: Albumin 3.9 g/dL (3.5-5.0); Calcium 9.2 mg/dL (8.4-10.2); Potassium 4.5 mmol/L (3.5-5.1); Total Bilirubin 0.6 mg/dL (0.2-1.3); Total Protein 8.3 g/dL (6.3-8.2)
[2017-12-14 12:46] LABS: INR 1.2 (<1.2); Partial Thromboplastin Time 31.4 sec (22.0-30.0); Prothrombin Time 11.4 sec (9.0-12.0)
[2017-12-14 12:51] LABS: Appearance,Urine Cloudy (Clear); Bilirubin,Urine Negative (Negative); Blood,Urine Negative (Negative); Color,Urine Yellow; Glucose,Urine (UA) Trace (Negative); Ketones,Urine Negative (Negative); Leukocyte Esterase,Urine Negative (Negative); Mucus,Urine Rare /hpf; Nitrite,Urine Negative (Negative); PH, Urine 5.5 (5.0-8.0); Protein,Urine 1+ (Negative); Urobilinogen,Urine <2.0 mg/dL (<2.0); WBC,Urine 1 /hpf (0-5)
--- NOTE | 2017-12-14 12:57 | US ---
EXAMINATION TYPE: US gallbladder DATE OF EXAM: 12/14/2017 COMPARISON: NONE CLINICAL HISTORY: Pain. EXAM MEASUREMENTS: Liver Length: 17.0 cm Gallbladder Wall: 0.2 cm CBD: 0.6 cm Right Kidney: 11.1 x 6.2 x 6.6 cm Pancreas: Obscured by bowel gas Liver: homogeneous Gallbladder: wnl Evidence for sonographic Hurt's sign: no CBD: wnl Right Kidney: No hydronephrosis or masses seen Patient bandaged for pleaural drain in scan window for gallbladder. Best images were recorded IMPRESSION: 1. No significant abnormality appreciated.
[2017-12-14] MEDS ORDERED: AZITHROMYCIN 500 MG in SODIUM CHLORIDE 0.9% 250 ML IVPB STA (13:23)
[2017-12-14] MEDS ORDERED: NALOXONE 0.4 MG/ML 1 ML VIAL IV PRN (13:24)
[2017-12-14] MEDS: SODIUM CHLORIDE 0.9% 1,000 ML IV SCH (17:41)
--- NOTE | 2017-12-14 17:59 | P.HPIM ---
History of Present Illness this is a pleasant 77 yo M with pmh of pancreatic cancer , GERD, Diabetes Mellitus, Hyperlipiedemia. he presents because of fever.pt noticed yesterday he had low grade fever of 100.3.pt was complaining from mild cough too with no phlegm. he presents to his oncologist office to get chemotherapy today when he noticed he has fever of 103 so sent to the ED, where he has fever of 102.4. pt denies chest pain , no dyepsnea , no change in urine or bowel habits, no n/v. pt also was feeling generally weak over the last few days and he fell three times as per and last time was about 2 days ago when he slipped of the chair but did not actually fall. on admission he was noticed to have negative UA for infection , his CXR: Bilateral consolidation with small pleural effusion .his vital were stable except for fever with oxygen saturation of 91 L on 2 L by Nasal canula. infeluenza was checked and it came back negative . Gall bladder US: not significant. WBC 8.0 , Hb 10.4, rest of CBC and BMP were unremarkable. lactic a was high came back to normal at 0.8 with hydration . Past Medical History Past Medical History: Cancer, Diabetes Mellitus, GERD/Reflux, Hyperlipidemia Additional Past Medical History / Comment(s): Pt recently admitted to [facility] on with recurrent R pleural effusion with thoracentesis.R thorascopy with partial decortication and pleural/lower lobe wedge biopsies-results of metastatic adenocarcinoma with primary GE vs pancreatobiliary tract origin-pt states they don't know primary source yet, recent urinary retention and acute renal failure, R sided pleurx cath, IDDM type II-had recent hypoglycemia so insulin decreased but now pt states blood sugars have been running high again, neuropathy bilateral feet, L eye retinopathy-sees a specialist, past R clavicle fracture. History of Any Multi-Drug Resistant Organisms: None Reported Past Surgical History: Adenoidectomy, Appendectomy, Joint Replacement, Orthopedic Surgery, Tonsillectomy Additional Past Surgical History / Comment(s): R thrascopy with partial decortication with pleural bx and wedge resection/bx/pleurx cath, thoracentesis , mediport, total R shoulder arthroplasty, sinus surgery, bilateral cataract removals with lens implants, L hand finger injury with surgery. Past Anesthesia/Blood Transfusion Reactions: No Reported Reaction Past Psychological History: No Psychological Hx Reported Smoking Status: Never smoker Past Alcohol Use History: None Reported Past Drug Use History: None Reported - Past Family History Mother Family Medical History: No Reported History Additional Family Medical History / Comment(s): Mother from natural causes at the age of 92yrs. Father Family Medical History: Cancer Additional Family Medical History / Comment(s): Father of pancreatic cancer at the age of 82 yrs. Medications and Allergies Home Medications Medication Instructions Recorded Confirmed Type Atorvastatin Calcium [Lipitor] 10 mg PO DAILY 09/21/17 12/14/17 History Insulin Lispro [humaLOG Kwikpen] See Protocol SQ ACHS 09/21/17 12/14/17 History Lansoprazole 30 mg PO DAILY 09/21/17 12/14/17 History Tamsulosin [Flomax] 0.4 mg PO PC-BRKFST #30 cap.er.24h 10/06/17 12/14/17 Rx Insulin Glargine,Hum.rec.anlog 74 units SQ DAILY 10/25/17 12/14/17 History [Lantus Solostar] ALPRAZolam [Xanax] 0.5 mg PO BID PRN 10/26/17 12/14/17 History Benzonatate [Tessalon Perles] 100 mg PO TID PRN 12/14/17 12/14/17 History Cyanocobalamin (Vitamin B-12) 1,000 mcg PO DAILY 12/14/17 12/14/17 History [Vitamin B-12] Gabapentin 800 mg PO TID 12/14/17 12/14/17 History Megestrol [Megace] 400 mg PO QAM 12/14/17 12/14/17 History Prochlorperazine [Compazine] 10 mg PO Q6H PRN 12/14/17 12/14/17 History Pyridoxine HCl (Vitamin B6) 100 mg PO DAILY 12/14/17 12/14/17 History [Vitamin B-6] Sertraline [Zoloft] 50 mg PO DAILY 12/14/17 12/14/17 History Allergies Allergy/AdvReac Type Severity Reaction Status Date / Time adhesive tape Allergy BLISTERS Verified 12/14/17 11:32 Sulfa (Sulfonamide Allergy Unknown Verified 12/14/17 11:32 Antibiotics) Childhood Physical Exam Vitals: Vital Signs Temp Pulse Resp BP Pulse Ox 12/14/17 14:00 91 17 101/64 12/14/17 13:50 92 18 108/66 12/14/17 13:40 91 18 12/14/17 13:30 96 12 106/63 12/14/17 13:20 96 37 H 98/58 12/14/17 13:10 95 18 103/62 12/14/17 13:00 95 11 L 107/66 12/14/17 12:50 91 20 107/66 12/14/17 12:40 96 18 107/66 97 12/14/17 12:38 99.3 F 93 18 107/66 96 12/14/17 12:30 93 16 101/63 12/14/17 12:25 18 12/14/17 12:20 98 18 101/63 95 12/14/17 12:10 102 H 21 101/63 95 12/14/17 12:00 110 H 18 122/72 94 L 12/14/17 11:50 122/72 12/14/17 11:40 110 H 18 122/72 93 L 12/14/17 11:39 94 L 12/14/17 11:38 103.4 F H 111 H 18 122/72 84 L 12/14/17 11:31 83 L 12/14/17 10:58 102.4 F H 121 H 20 108/67 94 L Intake and Output 12/13/17 12/14/17 12/14/17 22:59 06:59 14:59 Other: Weight 81.647 kg -GENERAL: The patient is alert and oriented x3, not in any acute distress. generally weak HEENT: Pupils are round and equally reacting to light. EOMI. No scleral icterus. No conjunctival pallor. Normocephalic, atraumatic. No pharyngeal erythema. No thyromegaly. CARDIOVASCULAR: S1 and S2 present. No murmurs, rubs, or gallops. PULMONARY: Chest is clear to auscultation, no wheezing or crackles. ABDOMEN: Soft, nontender, nondistended, normoactive bowel sounds. No palpable organomegaly. MUSCULOSKELETAL: No joint swelling or deformity. EXTREMITIES: No cyanosis, clubbing, or pedal edema. NEUROLOGICAL: Gross neurological examination did not reveal any focal deficits. SKIN: No rashes. Results CBC & Chem 7: 12/14/17 11:25 12/14/17 11:25 Labs: Abnormal Lab Results - Last 24 Hours (Table) 12/14/17 12/14/17 12/14/17 Range/Units 11:25 11:25 11:25 RBC 3.75 L (4.30-5.90) m/uL Hgb 10.4 L (13.0-17.5) gm/dL Hct 31.9 L (39.0-53.0) % RDW 17.6 H (11.5-15.5) % Lymphocytes # 0.4 L (1.0-4.8) k/uL INR (<1.2) APTT (22.0-30.0) sec Sodium 136 L (137-145) mmol/L BUN 26 H (9-20) mg/dL Glucose 156 H (74-99) mg/dL Plasma Lactic Acid Lucho 2.7 H* (0.7-2.0) mmol/L AST 78 H (17-59) U/L ALT 88 H (21-72) U/L Total Protein 8.3 H (6.3-8.2) g/dL Urine Protein (Negative) Urine Glucose (UA) (Negative) Urine Mucus (None) /hpf 12/14/17 12/14/17 Range/Units : 12:05 RBC (4.30-5.90) m/uL Hgb (13.0-17.5) gm/dL Hct (39.0-53.0) % RDW (11.5-15.5) % Lymphocytes # (1.0-4.8) k/uL INR 1.2 H (<1.2) APTT 31.4 H (22.0-30.0) sec Sodium (137-145) mmol/L BUN (9-20) mg/dL Glucose (74-99) mg/dL Plasma Lactic Acid Lcuho (0.7-2.0) mmol/L AST (17-59) U/L ALT (21-72) U/L Total Protein (6.3-8.2) g/dL Urine Protein 1+ H (Negative) Urine Glucose (UA) Trace H (Negative) Urine Mucus Rare H (None) /hpf Assessment and Plan Assessment: most likely health care system pneumonia dehydration high Lactic acid recurrent falls. h/o pancreatic cancer on chemotherapy GERD Diabetes Mellitus Hyperlipiedemia Plan: this is a pleasant 77 yo M who presents with pneumonia most likely. call ID consult and continue with antibiotic as per ID team. f/o blood culture. continue with the same treatment , continue with symptomatic treatment , resume home medication , monitor lytes and vitals including glucose , c/w iv fluids,. c /w same antibioitc . GI and DVT prophylaxis , further recommendation based upon pt clinical course and progress DVT prophylaxis subcutaneous heparin GI prophylaxis Pepcid PT/OT: pending Prognosis is guarded
[2017-12-14] MEDS ORDERED: CEFEPIME 2 GM in SODIUM CHLORIDE 0.9% 50 ML IVPB SCH (20:00)
[2017-12-14] MEDS: IPRATROPIUM-ALBUTEROL 3 ML NEB INHALATION SCH (20:46)
[2017-12-14] MEDS: HEPARIN SODIUM,PORCINE 5,000 UNIT/ML 1 ML VIAL SQ SCH (22:58)
[2017-12-14] MEDS: INSULIN ASPART 100 UNIT/ML 1 ML 10 ML VIAL SQ SCH (22:59)
[2017-12-14] MEDS: FAMOTIDINE 20 MG/2 ML VIAL IV SCH (22:59)
[2017-12-14] MEDS: SERTRALINE 50 MG TAB PO SCH (23:01)
[2017-12-14] MEDS: MELATONIN 3 MG TABLET PO SCH (23:01)
[2017-12-14] MEDS: GABAPENTIN 400 MG CAP PO SCH (23:01)
[2017-12-14] MEDS: ALPRAZolam 0.5 MG TAB PO PRN (23:01)
[2017-12-15] MEDS ORDERED: PIPERACILLIN-TAZOBACTAM 3.375 GM in SODIUM CHLORIDE 0.9% 100 ML IVPB SCH ×2
[2017-12-15] MEDS: IPRATROPIUM-ALBUTEROL 3 ML NEB INHALATION SCH ×8 (00:40→23:48)
[2017-12-15] MEDS ORDERED: VANCOMYCIN 1,500 MG in SODIUM CHLORIDE 0.9% 250 ML IVPB SCH (05:00)
[2017-12-15] MEDS: PIPERACILLIN-TAZOBACTAM 3.375 GM in SODIUM CHLORIDE 0.9% 100 ML IVPB SCH ×3 (05:01→22:18)
[2017-12-15] MEDS: SODIUM CHLORIDE 0.9% 1,000 ML IV SCH ×2 (06:13→17:42)
[2017-12-15 07:25] LABS: Glucose,Whole Blood 149 mg/dL (75-99)
[2017-12-15] MEDS: INSULIN ASPART 100 UNIT/ML 1 ML 10 ML VIAL SQ SCH ×4 (08:30→22:21)
[2017-12-15] MEDS: HEPARIN SODIUM,PORCINE 5,000 UNIT/ML 1 ML VIAL SQ SCH ×2 (08:34→22:23)
[2017-12-15] MEDS: GABAPENTIN 400 MG CAP PO SCH ×3 (08:34→22:20)
[2017-12-15] MEDS: SERTRALINE 50 MG TAB PO SCH (08:34)
[2017-12-15] MEDS: FAMOTIDINE 20 MG/2 ML VIAL IV SCH ×2 (08:34→22:23)
[2017-12-15 08:41] LABS: Albumin 2.8 g/dL (3.5-5.0); Calcium 8.3 mg/dL (8.4-10.2); Potassium 4.3 mmol/L (3.5-5.1); Total Bilirubin 0.2 mg/dL (0.2-1.3); Total Protein 5.9 g/dL (6.3-8.2)
[2017-12-15 08:45] LABS: Anisocytosis Slight; Basophils % (A) 1 %; Eosinophils # (A) 0.2 k/uL (0-0.7); Eosinophils % (A) 3 %; HGB 8.5 gm/dL (13.0-17.5); Hypochromasia Slight; Lymphocytes # (A) 0.6 k/uL (1.0-4.8); Lymphocytes % (A) 8 %; MCH 27.2 pg (25.0-35.0); MCHC 31.3 g/dL (31.0-37.0); MCV 86.8 fL (80.0-100.0); Mean Platelet Volume 7.2; Monocytes # (A) 0.4 k/uL (0-1.0); Monocytes % (A) 6 %; Neutrophils # (A) 5.9 k/uL (1.3-7.7); Neutrophils % (A) 81 %; Platelet Count 344 k/uL (150-450); RBC 3.11 m/uL (4.30-5.90); RDW 17.7 % (11.5-15.5); WBC 7.3 k/uL (3.8-10.6)
[2017-12-15] MEDS ORDERED: AZITHROMYCIN 500 MG in SODIUM CHLORIDE 0.9% 250 ML IVPB SCH (09:00)
--- NOTE | 2017-12-15 09:52 | CONS ---
CONSULTATION DATE OF SERVICE: 12/14/2017. REASON FOR CONSULTATION: A fever and nosocomial pneumonia. HISTORY OF PRESENT ILLNESS: The patient is a 77-year-old male with a past medical history significant for pancreatic cancer, hyperlipidemia in this patient who did have a history of recurrent right-sided pleural effusion that has been drained by Interventional Radiology and subsequently the patient did have VATS procedure with PleurX catheter placement. Biopsy of the pleural fluid did indicate metastatic adenocarcinoma. The patient still has that PleurX catheter and is being drained every other day. mentioned there is no significant increase in the amount of drainage or any purulence to it. The patient has been recently started on chemotherapy and has received 2 of his chemo yesterday. The patient noticed to be very weak and tired and no energy and he was unable to do any activities of daily living. The patient has been complaining of some shortness of breath. He did have a cough, but not brining up any significant amount of sputum. No URI symptoms. No nausea, no vomiting. No abdominal pain. No diarrhea. With these symptoms, the patient was evaluated by his oncologist. Apparently the patient did have fever of 103 Fahrenheit. The patient subsequently has been advised to be evaluated at [facility] ER. On arrival to the ER, the patient did have fever of 103.4 degrees Fahrenheit. The patient's white count was normal at 8.01. Lactic acid was 2.7. The UA was negative. Influenza A and B PCR has been negative. The patient did have a chest x-ray that shows bilateral consolidation and small pleural effusion. Correlate for venous congestion. Stable right-sided chest tubes with portable probable chronic small hydro pneumothorax. The patient also had an ultrasound of the gallbladder. No significant abnormality was appreciated. The patient has been started on cefepime and vancomycin in addition to Zithromax. Infectious Disease was consulted for further recommendation regarding antibiotic therapy for possible nosocomial pathogen. REVIEW OF SYSTEMS: CONSTITUTIONAL: Positive for weakness along with the fever. EYES: No complaint. ENT: No complaint. RESPIRATORY: As per HPI. CARDIOVASCULAR: No complaint. GENITOURINARY: No complaint. GASTROINTESTINAL: No complaint. MUSCULOSKELETAL: No complaint. INTEGUMENTARY: No complaint. PSYCHOLOGICAL: No complaint. ENDOCRINE: No complaint. NEUROLOGIC: No complaint. PAST MEDICAL HISTORY: Recent diagnosis of metastatic adenocarcinoma with malignant pleural effusion, status post thoracentesis, hyperlipidemia, diabetes mellitus, osteoarthritis, and pneumonia. PAST SURGERY HISTORY: Adenoidectomy, appendectomy, tonsillectomy, thoracocentesis with pleural biopsy. SOCIAL HISTORY: He has history of smoking, drinking or drug use. FAMILY HISTORY: Mother from natural causes, she was 92. Father of pancreatic cancer age of 82. ALLERGIES: SULFA and TAPE. MEDICATION: Currently include the patient is on Tylenol, DuoNeb, Xanax, Azithromycin, cefepime 2 g q.8h, Pepcid, Neurontin, heparin, NovoLog, Marcaine, Zoloft and vancomycin. EXAMINATION: Blood pressure 102/64 with a pulse of 85, temperature 98.1, temperature 103. He is 93% on 2 L nasal cannula. General description is an elderly male lying in bed in no distress. No tachypnea or accessory muscle of respiration use. HEENT: Shows pallor. No scleral icterus. Oral mucosa membrane is dry. No pharyngeal erythema or thrush. NECK: Trachea central. No thyromegaly. LUNGS: Unlabored breathing with decreased breath sounds at the bases. No wheeze or crackle. HEART: S1, S2. Regular rate and rhythm. ABDOMEN: Soft, no tenderness. No guarding or rigidity. EXTREMITIES: No edema feet. SKIN EXAMINATION: No rash or mass palpable. NEUROLOGICAL: Patient is awake, alert, oriented x3. Mood and affect normal. LABS: Hemoglobin is 10.4, white count 8.0, BUN of 26, creatinine is 1.1, electrolytes have been normal. Liver enzymes are mildly elevated. UA has been negative. Influenza A and B has been negative. Chest x-ray did show evidence of bibasilar consolidation and small effusion. DIAGNOSTIC IMPRESSION AND PLAN: Patient admitted to the hospital with fever and the patient did have fever of 103 degrees of Fahrenheit in this patient who did have history of pancreatic adenocarcinoma metastatic with malignant pleural effusion in a patient who did have pleural catheter for drainage. However, per , no significant increase in amount of drainage has been noticed or any purulence to it. The patient has been in and out of the hospital. We will need to cover for the resistant gram positive as well as gram-negative pathogen. PLAN: 1. We will try to obtain sputum for Gram stain culture and sensitivity. 2. Vancomycin pharmacy to dose target of 15 while watching his kidney function closely, however, switch cefepime to Zosyn 3.375 g q.8 hours. 3. We will follow on his clinical condition and culture to further adjust medication if needed. Thank you for this consultation. Will follow this patient along with you. JOMAR / BHARGAVIN: [id number] /
--- NOTE | 2017-12-15 10:23 | XR ---
EXAMINATION TYPE: XR chest 1V DATE OF EXAM: 12/15/2017 HISTORY: f/u. REFERENCE: Previous study dated 12/14/2017. FINDINGS: There is a MediPort in place on the right. There is a right-sided pleural drain in place. There is worsening right-sided consolidation. There is a right-sided effusion. The heart is enlarged. IMPRESSION: 1. CARDIOMEGALY. 2. WORSENING RIGHT BASILAR AIRSPACE DISEASE. 3. SMALL, RIGHT-SIDED EFFUSION.
--- NOTE | 2017-12-15 11:12 | P.CONS ---
History of Present Illness - Reason for Consult Consult date: 12/15/17 Pancreatic cancer on chemotherapy, fever Requesting physician: Olya Obrien - Chief Complaint Fever - History of Present Illness Mr. 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 His story starts in 09/2017 when he presented to [facility] for increasing shortness of breath for about 2-3 months. Imaging showed a right pleural effusion. He was hospitalized and underwent thoracentesis. Fluid was exudative and suspicious but cytology was negative. CT of the chest showed calcification in the pancreatic tail as well as right-sided pleural effusion. Patient developed recurrent shortness of breath shortly afterwards and was readmitted for another repeat thoracentesis. 1.6 L of serosanguineous fluid was removed and he subsequently developed pneumothorax. He was evaluated by cardio thoracic surgery and underwent right thoracoscopy with partial decortication and biopsy of the right lower lobe and right pleura as well as placement of a Pleurx catheter. He was seen in consultation on 10/05/17. CA-19- 9 was drawn and elevated at 2360. MRI of the abdomen from 10/03/17 showed again the right pleural effusion but no abnormal enhancement of the pancreas which appeared atrophic. There were 2 enhancing foci in the lateral inferior right lobe of the liver measuring 9 and 8 mm. He had chest tube placed and then was discharged with repeat cytology again being negative. Histopathology however was positive for adenocarcinoma consistent with upper GI or pancreaticobiliary primary. He was seen in the office on 10/17/17. EGD was performed which was negative as part of his staging workup. The thought was likely this is a pancreatic primary and chemotherapy with Gemzar and Abraxane as recommended. He was seen by Dr. Gipson and Juan Manuel for a second opinion who agreed and recommended a dose adjusted Gemzar/Abraxane regimen given on days 1, 15 every 28 days due to baseline peripheral neuropathy. He had his cycle 1 day 1 on 01/22 and cycle 1 day 15 on 11/30/17. He was seen in follow-up on 12/06/17 and at that time did not have any specific complaints although his neuropathy and balance was slightly transiently worse. He was due to get his cycle 2 day 1 yesterday on 12/14/17 however was found to have a fever of 103 and sent to the ER. He and his now mention that since being seen a week ago he has slowly been declining including increased weakness and fatigue, decreased appetite and oral intake, and increased lethargy. He did follow couple times due to weakness. No head trauma or loss of consciousness. In the ER workup including CBC, UA, and chest x-ray shows normal CBC except for anemia with a hemoglobin of 10.4, creatinine 1.21, normal UA, and chest x-ray with bilateral opacities with small bilateral effusions. Abd US negative. He was started on broad-spectrum antibiotics and admitted with an ID consult. Repeat CBC shows hemoglobin 8.5 after hydration however his prior baseline is in the eights. This was worked up in the past and he was found to be iron deficient and B12 deficient for which she is receiving IM B12 and Feraheme as an outpatient. Review of Systems All systems: negative Constitutional: Reports as per HPI Past Medical History Past Medical History: Cancer, Diabetes Mellitus, GERD/Reflux, Hyperlipidemia Additional Past Medical History / Comment(s): Pt recently admitted to [facility] on with recurrent R pleural effusion with thoracentesis.R thorascopy with partial decortication and pleural/lower lobe wedge biopsies-results of metastatic adenocarcinoma with primary GE vs pancreatobiliary tract origin-pt states they don't know primary source yet, recent urinary retention and acute renal failure, R sided pleurx cath, IDDM type II-had recent hypoglycemia so insulin decreased but now pt states blood sugars have been running high again, neuropathy bilateral feet, L eye retinopathy-sees a specialist, past R clavicle fracture. History of Any Multi-Drug Resistant Organisms: None Reported Past Surgical History: Adenoidectomy, Appendectomy, Joint Replacement, Orthopedic Surgery, Tonsillectomy Additional Past Surgical History / Comment(s): R thrascopy with partial decortication with pleural bx and wedge resection/bx/pleurx cath, thoracentesis , mediport, total R shoulder arthroplasty, sinus surgery, bilateral cataract removals with lens implants, L hand finger injury with surgery. Past Anesthesia/Blood Transfusion Reactions: No Reported Reaction Past Psychological History: No Psychological Hx Reported Smoking Status: Never smoker Past Alcohol Use History: None Reported Past Drug Use History: None Reported - Past Family History Mother Family Medical History: No Reported History Additional Family Medical History / Comment(s): Mother from natural causes at the age of 92yrs. Father Family Medical History: Cancer Additional Family Medical History / Comment(s): Father of pancreatic cancer at the age of 82 yrs. Medications and Allergies Home Medications Medication Instructions Recorded Confirmed Type Atorvastatin Calcium [Lipitor] 10 mg PO DAILY 09/21/17 12/14/17 History Insulin Lispro [humaLOG Kwikpen] See Protocol SQ ACHS 09/21/17 12/14/17 History Lansoprazole 30 mg PO DAILY 09/21/17 12/14/17 History Tamsulosin [Flomax] 0.4 mg PO PC-BRKFST #30 cap.er.24h 10/06/17 12/14/17 Rx Insulin Glargine,Hum.rec.anlog 74 units SQ DAILY 10/25/17 12/14/17 History [Lantus Solostar] ALPRAZolam [Xanax] 0.5 mg PO BID PRN 10/26/17 12/14/17 History Benzonatate [Tessalon Perles] 100 mg PO TID PRN 12/14/17 12/14/17 History Cyanocobalamin (Vitamin B-12) 1,000 mcg PO DAILY 12/14/17 12/14/17 History [Vitamin B-12] Gabapentin 800 mg PO TID 12/14/17 12/14/17 History Megestrol [Megace] 400 mg PO QAM 12/14/17 12/14/17 History Prochlorperazine [Compazine] 10 mg PO Q6H PRN 12/14/17 12/14/17 History Pyridoxine HCl (Vitamin B6) 100 mg PO DAILY 12/14/17 12/14/17 History [Vitamin B-6] Sertraline [Zoloft] 50 mg PO DAILY 12/14/17 12/14/17 History Allergies Allergy/AdvReac Type Severity Reaction Status Date / Time adhesive tape Allergy BLISTERS Verified 12/14/17 11:32 Sulfa (Sulfonamide Allergy Unknown Verified 12/14/17 11:32 Antibiotics) Childhood Physical Exam Vitals: Vital Signs Temp Pulse Pulse Resp BP BP Pulse Ox 12/15/17 05:00 98.4 F 78 16 134/71 94 L 12/14/17 21:00 98.1 F 85 20 102/64 96 12/14/17 20:52 88 12/14/17 20:47 88 12/14/17 16:37 97.1 F L 90 16 142/84 91 L 12/14/17 15:47 99.3 F 12/14/17 15:40 81 16 116/73 12/14/17 15:30 86 9 L 109/66 12/14/17 15:20 86 8 L 107/70 12/14/17 15:10 89 6 L 113/71 12/14/17 15:00 83 16 115/68 12/14/17 14:50 85 16 110/72 12/14/17 14:40 86 18 98/60 12/14/17 14:30 92 18 113/64 12/14/17 14:20 87 12 111/68 12/14/17 14:10 91 18 113/67 12/14/17 14:00 91 17 101/64 12/14/17 13:50 92 18 108/66 12/14/17 13:40 91 18 12/14/17 13:30 96 12 106/63 12/14/17 13:20 96 37 H 98/58 12/14/17 13:10 95 18 103/62 12/14/17 13:00 95 11 L 107/66 12/14/17 12:50 91 20 107/66 12/14/17 12:40 96 18 107/66 97 12/14/17 12:38 99.3 F 93 18 107/66 96 12/14/17 12:30 93 16 101/63 12/14/17 12:25 18 12/14/17 12:20 98 18 101/63 95 12/14/17 12:10 102 H 21 101/63 95 12/14/17 12:00 110 H 18 122/72 94 L 12/14/17 11:50 122/72 12/14/17 11:40 110 H 18 122/72 93 L 12/14/17 11:39 94 L 12/14/17 11:38 103.4 F H 111 H 18 122/72 84 L 12/14/17 11:31 83 L 12/14/17 10:58 102.4 F H 121 H 20 108/67 94 L Intake and Output 1112/15/17 12/15/17 22:59 06:59 14:59 Intake Total 650 950 Balance 650 950 Intake: Intake, IV Titration 50 350 Amount Cefepime 2 gm In Sodium 50 Chloride 0.9% 50 ml @ 100 mls/hr IVPB Q8H LUCY Rx#: [id number] Piperacillin-Tazobactam 3 100 .375 gm In Sodium Chloride 0.9% 100 ml @ 25 mls/hr IVPB Q8H LUCY Rx#: [id number] Vancomycin 1,500 mg In 250 Sodium Chloride 0.9% 250 ml @ 125 mls/hr IVPB Q16H LUCY Rx#:[id number] Oral 600 600 Other: Voiding Method Toilet Weight 81.647 kg 81.647 kg General: In no acute distress. HEENT: Conjunctival pallor, no scleral icterus. Mucosa moist. Neck: Neck supple. Lymph: No cervical/supraclavicular LAD. Lungs: Diffuse rhonchi bilaterally with decreased BS on the right lower lung. Heart: RRR. No LE edema. Abdomen: Soft, nontender, nondistended, with positive bowel sounds. MSK: 4/4 strength in all 4 extremities. Generalized weakness. Neuro: Alert and oriented 3. Skin: No jaundice or rash. Psych: Appropriate affect. Results CBC & Chem 7: 12/15/17 06:44 12/15/17 06:44 Labs: Abnormal Lab Results - Last 24 Hours (Table) 12/14/17 12/14/17 12/14/17 Range/Units 11:25 11:25 11:25 RBC 3.75 L (4.30-5.90) m/uL Hgb 10.4 L (13.0-17.5) gm/dL Hct 31.9 L (39.0-53.0) % RDW 17.6 H (11.5-15.5) % Lymphocytes # 0.4 L (1.0-4.8) k/uL INR (<1.2) APTT (22.0-30.0) sec Sodium 136 L (137-145) mmol/L BUN 26 H (9-20) mg/dL Glucose 156 H (74-99) mg/dL POC Glucose (mg/dL) (75-99) mg/dL Plasma Lactic Acid Lucho 2.7 H* (0.7-2.0) mmol/L Calcium (8.4-10.2) mg/dL AST 78 H (17-59) U/L ALT 88 H (21-72) U/L Total Protein 8.3 H (6.3-8.2) g/dL Albumin (3.5-5.0) g/dL Urine Protein (Negative) Urine Glucose (UA) (Negative) Urine Mucus (None) /hpf 12/14/17 12/14/17 12/15/17 Range/Units 11:25 12:05 06:44 RBC (4.30-5.90) m/uL Hgb (13.0-17.5) gm/dL Hct (39.0-53.0) % RDW (11.5-15.5) % Lymphocytes # (1.0-4.8) k/uL INR 1.2 H (<1.2) APTT 31.4 H (22.0-30.0) sec Sodium (137-145) mmol/L BUN (9-20) mg/dL Glucose (74-99) mg/dL POC Glucose (mg/dL) (75-99) mg/dL Plasma Lactic Acid Lucho (0.7-2.0) mmol/L Calcium 8.3 L (8.4-10.2) mg/dL AST (17-59) U/L ALT (21-72) U/L Total Protein 5.9 L (6.3-8.2) g/dL Albumin 2.8 L (3.5-5.0) g/dL Urine Protein 1+ H (Negative) Urine Glucose (UA) Trace H (Negative) Urine Mucus Rare H (None) /hpf 12/15/17 12/15/17 Range/Units 06:44 07:24 RBC 3.11 L (4.30-5.90) m/uL Hgb 8.5 L D (13.0-17.5) gm/dL Hct 27.0 L (39.0-53.0) % RDW 17.7 H (11.5-15.5) % Lymphocytes # 0.6 L (1.0-4.8) k/uL INR (<1.2) APTT (22.0-30.0) sec Sodium (137-145) mmol/L BUN (9-20) mg/dL Glucose (74-99) mg/dL POC Glucose (mg/dL) 149 H (75-99) mg/dL Plasma Lactic Acid Lucho (0.7-2.0) mmol/L Calcium (8.4-10.2) mg/dL AST (17-59) U/L ALT (21-72) U/L Total Protein (6.3-8.2) g/dL Albumin (3.5-5.0) g/dL Urine Protein (Negative) Urine Glucose (UA) (Negative) Urine Mucus (None) /hpf Microbiology - Last 24 Hours (Table) 12/14/17 12:05 Urine Culture - Preliminary Urine,Voided Chest x-ray: report reviewed US - abdomen: report reviewed Assessment and Plan Assessment: 1. Fever, likely due to bilateral pneumonia 2. Pancreatic cancer on chemotherapy 3. Anemia, likely due to iron and B12 deficiency as well as chemotherapy on supplementation 4. DM 5. HLP 6. GERD Plan: Mr. Rodriguez is a very pleasant 77-year-old gentleman with a history of newly diagnosed metastatic adenocarcinoma likely pancreatic primary, who is here for increased weakness and fever from clinic when he presented for chemo. He has received his first cycle of Gemzar and Abraxane and was due for cycle 2 day 1 yesterday however presented with a fever of 103 to clinic. Transfer to the ER. Workup suggestive of possible bilateral pneumonia. He has been having increasing lethargy and weakness for the past week. ID on board and he has been started on broad-spectrum antibiotics, awaiting cultures. Antibiotics as per ID service. WBC normal, no need for G-CSF. He is anemic although his hemoglobin is 8.5 at baseline. This is due to underlying iron deficiency and B12 deficiency from recent workup, on supplementation as an outpatient. Platelets normal. We'll plan on holding chemotherapy for now until he improves from the infection standpoint and follows up with Dr. Dotson in clinic. I discussed this in detail with the patient and his at bedside and they're agreeable to the plan. All of their questions were answered.
[2017-12-15 11:19] LABS: Glucose,Whole Blood 91 mg/dL (75-99)
--- NOTE | 2017-12-15 14:12 | P.PN ---
Subjective this is a pleasant 77 yo M with pmh of pancreatic cancer , GERD, Diabetes Mellitus, Hyperlipiedemia. he presents because of fever.pt noticed yesterday he had low grade fever of 100.3.pt was complaining from mild cough too with no phlegm. he presents to his oncologist office to get chemotherapy today when he noticed he has fever of 103 so sent to the ED, where he has fever of 102.4. pt denies chest pain , no dyepsnea , no change in urine or bowel habits, no n/v. pt also was feeling generally weak over the last few days and he fell three times as per and last time was about 2 days ago when he slipped of the chair but did not actually fall. on admission he was noticed to have negative UA for infection , his CXR: Bilateral consolidation with small pleural effusion .his vital were stable except for fever with oxygen saturation of 91 L on 2 L by Nasal canula. infeluenza was checked and it came back negative . Gall bladder US: not significant. WBC 8.0 , Hb 10.4, rest of CBC and BMP were unremarkable. lactic a was high came back to normal at 0.8 with hydration . 12/25/2017 Patient remains to feel generally weak. He states that his cough is better today he has significant exertional dyspnea even with simple movements. However no more fever since yesterday when he had a temperature over 103.4. Risks of vitals looks stable. Labs today showing hemoglobin of 8.5. WBC 7.3 with neutrophils at 5.9. His sodium is 139 and potassium 4.3. Creatinine 1.0. Blood sugar is surgery between 91-149. LFTs were unremarkable. However he has low albumin at 2.8. UA is not suggestive of infection. Urine culture and blood culture are still pending. Repeat chest x-ray from today shows cardiomegaly with worsening right basilar airspace disease and small right pleural effusion. ID team evaluated the patient and the input is appreciated and they recommended to continue with IV vancomycin but change cefepime to Zosyn. CONSTITUTIONAL: No fever, no malaise, no fatigue. HEENT: No recent visual problems or hearing problems. Denied any sore throat. CARDIOVASCULAR: No orthopnea, PND, no palpitations, no syncope. PULMONARY: No shortness of breath, no cough, no hemoptysis. GASTROINTESTINAL: No diarrhea, no nausea, no vomiting, no abdominal pain. Normoactive bowel sounds. NEUROLOGICAL: No headaches, no weakness, no numbness. HEMATOLOGICAL: Denies any bleeding or petechiae. GENITOURINARY: Denies any burning micturition, frequency, or urgency. MUSCULOSKELETAL/RHEUMATOLOGICAL: Denies any joint pain, swelling, or any muscle pain. ENDOCRINE: Denies any polyuria or polydipsia. medication with dosages are reviewed and including the following: Tylenol, Lipitor, ipratropium, Xanax, Pepcid, Neurontin, heparin, No IV vancomycin.voLog , melatonin, Zosyn, Zoloft, Objective - Vital Signs Vital signs: Vital Signs Temp 98.4 F 12/15/17 05:00 Pulse 96 12/15/17 14:00 Resp 16 12/15/17 08:00 BP 134/71 12/15/17 05:00 Pulse Ox 94 L 12/15/17 05:00 Intake & Output 12/14/17 12/15/17 12/15/17 18:59 06:59 18:59 Intake Total 1600 240 Balance 1600 240 Weight 81.647 kg 81.647 kg 81.647 kg Intake: Intake, IV Titration 400 Amount Cefepime 2 gm In Sodium 50 Chloride 0.9% 50 ml @ 100 mls/hr IVPB Q8H LUCY Rx#: [id number] Piperacillin-Tazobactam 3 100 .375 gm In Sodium Chloride 0.9% 100 ml @ 25 mls/hr IVPB Q8H LUCY Rx#: [id number] Vancomycin 1,500 mg In 250 Sodium Chloride 0.9% 250 ml @ 125 mls/hr IVPB Q16H LUCY Rx#:[id number] Oral 1200 240 Other: Voiding Method Toilet Toilet # Voids 3 - Exam -GENERAL: The patient is alert and oriented x3, not in any acute distress. generally weak HEENT: Pupils are round and equally reacting to light. EOMI. No scleral icterus. No conjunctival pallor. Normocephalic, atraumatic. No pharyngeal erythema. No thyromegaly. CARDIOVASCULAR: S1 and S2 present. No murmurs, rubs, or gallops. PULMONARY: Chest is clear to auscultation, no wheezing or crackles. ABDOMEN: Soft, nontender, nondistended, normoactive bowel sounds. No palpable organomegaly. MUSCULOSKELETAL: No joint swelling or deformity. EXTREMITIES: No cyanosis, clubbing, or pedal edema. NEUROLOGICAL: Gross neurological examination did not reveal any focal deficits. SKIN: No rashes. - Labs CBC & Chem 7: 12/15/17 06:44 12/15/17 06:44 Labs: Abnormal Lab Results - Last 24 Hours (Table) 12/15/17 12/15/17 12/15/17 Range/Units 06:44 06:44 07:24 RBC 3.11 L (4.30-5.90) m/uL Hgb 8.5 L D (13.0-17.5) gm/dL Hct 27.0 L (39.0-53.0) % RDW 17.7 H (11.5-15.5) % Lymphocytes # 0.6 L (1.0-4.8) k/uL POC Glucose (mg/dL) 149 H (75-99) mg/dL Calcium 8.3 L (8.4-10.2) mg/dL Total Protein 5.9 L (6.3-8.2) g/dL Albumin 2.8 L (3.5-5.0) g/dL Microbiology - Last 24 Hours (Table) 12/14/17 11:25 Blood Culture - Preliminary Blood No Growth after 24 hours 12/14/17 12:05 Urine Culture - Preliminary Urine,Voided Assessment and Plan Assessment: most likely health care system associated pneumonia dehydration high Lactic acid, resolved recurrent falls. h/o pancreatic cancer on chemotherapy GERD Diabetes Mellitus Hyperlipiedemia Plan: this is a pleasant 77 yo M who presents with pneumonia most likely. call ID consult and continue with antibiotic as per ID team. f/o blood and sputum culture. continue with the same treatment , continue with symptomatic treatment , resume home medication , monitor lytes and vitals including glucose , c/w iv fluids,. c /w same antibioitc . GI and DVT prophylaxis , further recommendation based upon pt clinical course and progress DVT prophylaxis subcutaneous heparin GI prophylaxis Pepcid PT/OT: pending Prognosis is guarded
[2017-12-15 17:33] LABS: Glucose,Whole Blood 160 mg/dL (75-99)
[2017-12-15] MEDS: VANCOMYCIN 1,500 MG in SODIUM CHLORIDE 0.9% 250 ML IVPB SCH (17:43)
[2017-12-15 18:32] LABS: Hemoglobin A1C 8.7 % (4.0-6.0)
[2017-12-15 19:44] LABS: Glucose,Whole Blood 186 mg/dL (75-99)
[2017-12-15] MEDS: ALPRAZolam 0.5 MG TAB PO PRN (22:19)
[2017-12-15] MEDS: ACETAMINOPHEN TAB 325 MG TAB PO PRN (22:19)
[2017-12-15] MEDS: MELATONIN 3 MG TABLET PO SCH (22:20)
[2017-12-16] MEDS: IPRATROPIUM-ALBUTEROL 3 ML NEB INHALATION SCH ×5 (03:11→19:06)
[2017-12-16] MEDS: PIPERACILLIN-TAZOBACTAM 3.375 GM in SODIUM CHLORIDE 0.9% 100 ML IVPB SCH ×3 (05:24→21:33)
[2017-12-16] MEDS: VANCOMYCIN 1,500 MG in SODIUM CHLORIDE 0.9% 250 ML IVPB SCH ×2 (05:24→17:19)
[2017-12-16] MEDS: SODIUM CHLORIDE 0.9% 1,000 ML IV SCH ×3 (05:24→21:32)
[2017-12-16 06:52] LABS: Glucose,Whole Blood 87 mg/dL (75-99)
[2017-12-16 07:24] LABS: Anisocytosis Slight; Basophils % (A) 1 %; Eosinophils # (A) 0.3 k/uL (0-0.7); Eosinophils % (A) 4 %; HCT 29.2 % (39.0-53.0); Hypochromasia Moderate; Lymphocytes # (A) 0.6 k/uL (1.0-4.8); Lymphocytes % (A) 8 %; MCH 27.1 pg (25.0-35.0); MCHC 30.9 g/dL (31.0-37.0); MCV 87.5 fL (80.0-100.0); Mean Platelet Volume 7.2; Monocytes # (A) 0.4 k/uL (0-1.0); Monocytes % (A) 5 %; Neutrophils # (A) 6.6 k/uL (1.3-7.7); Neutrophils % (A) 81 %; Platelet Count 386 k/uL (150-450); RBC 3.33 m/uL (4.30-5.90); RDW 17.8 % (11.5-15.5); WBC 8.1 k/uL (3.8-10.6)
[2017-12-16 07:42] LABS: ALT 59 U/L (21-72); AST 52 U/L (17-59); Alkaline Phosphatase 68 U/L (38-126); Anion Gap 8 mmol/L; Blood Urea Nitrogen 16 mg/dL (9-20); Calcium 8.4 mg/dL (8.4-10.2); Carbon Dioxide 24 mmol/L (22-30); Chloride 108 mmol/L (98-107); Glucose 77 mg/dL (74-99); Potassium 4.2 mmol/L (3.5-5.1); Sodium 140 mmol/L (137-145); Total Bilirubin 0.4 mg/dL (0.2-1.3); Total Protein 6.4 g/dL (6.3-8.2)
--- NOTE | 2017-12-16 08:21 | XR ---
EXAMINATION TYPE: XR chest 1V portable DATE OF EXAM: 12/16/2017 HISTORY: SOB. REFERENCE: Previous study dated 12/15/2017. FINDINGS: A MediPort is in place on the right. The heart remains enlarged. There is right basilar airspace disease. There is vascular congestion and worsening interstitial change. I suspect a small right effusion. There is a right pleural drain in p lace. IMPRESSION: 1. CARDIOMEGALY. 2. PERSISTENT RIGHT BASILAR AIRSPACE DISEASE. 3. SMALL RIGHT EFFUSION. 4. I SUSPECT SOME MILD PULMONARY EDEMA.
[2017-12-16] MEDS ORDERED: TAMSULOSIN 0.4 MG CAP.ER.24H PO SCH (08:30)
[2017-12-16] MEDS ORDERED: ACETAMINOPHEN IV (For NPO) 1,000 MG in EMPTY BAG 1 BAG IVPB ONE (09:30)
[2017-12-16 09:31] LABS: Glucose,Whole Blood 113 mg/dL (75-99)
[2017-12-16 09:49] LABS: ABG HCO3 23 mmol/L (21-25); ABG Oxygen Saturation 96.9 % (94-97); ABG PCO2 36 mmHg (35-45); ABG PH 7.42 (7.35-7.45); ABG PO2 83 mmHg (83-108)
[2017-12-16 10:19] LABS: Glucose,Whole Blood 117 mg/dL (75-99)
--- NOTE | 2017-12-16 10:29 | PN ---
PROGRESS NOTE DATE OF SERVICE: 12/15/2017. REASON FOR FOLLOWUP: Pneumonia. INTERVAL HISTORY: The patient is afebrile. He seemed to be breathing comfortably. The patient did have a cough, but not bringing up any sputum. He denies having any chest pain. No nausea, vomiting. No abdominal pain and no diarrhea. EXAMINATION: Blood pressure is 137/74 with a pulse of 96, temperature of 98.4. He is 90% on 2 L nasal cannula. General description is an elderly male up in a chair in no distress. RESPIRATORY SYSTEM: Unlabored breathing with decreased breath sounds in the bases. No wheeze. HEART: S1, S2. Regular rate and rhythm. ABDOMEN: Soft, no tenderness. LABS: Hemoglobin 8.5, white count 7.3, BUN of 17, creatinine 1.0. Blood culture so far negative. Sputum not collected. DIAGNOSTIC IMPRESSION AND PLAN: Patient admitted to the hospital with a fever with generalized weakness. The patient did have evidence of pneumonia. Currently covered with Zosyn and vancomycin. Will try to obtain a sputum so we can narrow down his antibiotics. Continue supportive care. MMODL / IJN: [id number] /
--- NOTE | 2017-12-16 10:59 | P.CNPUL ---
History of Present Illness Consult date: 12/16/17 Reason for consult: dyspnea, cough, hypoxemia, pneumonia, abnormal CXR/CT Chief complaint: Respiratory failure, hypoxemia, pneumonia History of present illness: Pulmonary/critical care consultation dated 12/16/2017 This is a 77-year-old white male well-known to me. He presented to the emergency department on December 14 with fever. He's been undergoing chemotherapy for pancreatic cancer with his last chemo about 14 days ago. He apparently presented to the oncology office for another round of chemotherapy was noted to have a high fever and sent to the emergency department for evaluation. He was evaluated in the ER on December 14. He was admitted to the hospital with a diagnosis of pneumonia/sepsis. The patient had cough and some phlegm production and apparently. He also has a history of a right Pleurx catheter in place and he has a Mediport for chemotherapy. The patient was admitted to the floor. I was only consulted apparently sometime this morning. His respiratory status to client he became hypotensive and hypoxemic and we transferred the patient to the ICU for further management. His chest x-ray shows bilateral infiltrates. The patient is responsive. A Johnson catheter was placed. The chest x-ray was reviewed. The patient also has a history of diabetes, gastroesophageal reflux disease, hyperlipidemia, and previous right- sided thoracentesis and thoracoscopic decortication of the right lung with right wedge biopsy. That apparently was positive for adenocarcinoma. Review of Systems The patient is a bit somnolent and lethargic but his major complaints are shortness of breath cough and just not feeling well. 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 History of Any Multi-Drug Resistant Organisms: None Reported Past Surgical History: Adenoidectomy, Appendectomy, Joint Replacement, Orthopedic Surgery, Tonsillectomy Additional Past Surgical History / Comment(s): R thrascopy with partial decortication with pleural bx and wedge resection/bx/pleurx cath, thoracentesis , mediport, total R shoulder arthroplasty, sinus surgery, bilateral cataract removals with lens implants, L hand finger injury with surgery. Past Anesthesia/Blood Transfusion Reactions: No Reported Reaction Past Psychological History: No Psychological Hx Reported Smoking Status: Never smoker Past Alcohol Use History: None Reported Past Drug Use History: None Reported - Past Family History Mother Family Medical History: No Reported History Additional Family Medical History / Comment(s): Mother from natural causes at the age of 92yrs. Father Family Medical History: Cancer Additional Family Medical History / Comment(s): Father of pancreatic cancer at the age of 82 yrs. Medications and Allergies Home Medications Medication Instructions Recorded Confirmed Type Atorvastatin Calcium [Lipitor] 10 mg PO DAILY 09/21/17 12/15/17 History Insulin Lispro [humaLOG Kwikpen] See Protocol SQ AC-TID 09/21/17 12/15/17 History Lansoprazole 30 mg PO DAILY 09/21/17 12/15/17 History Tamsulosin [Flomax] 0.4 mg PO PC-BRKFST #30 cap.er.24h 10/06/17 12/15/17 Rx Insulin Glargine,Hum.rec.anlog 74 units SQ DAILY 10/25/17 12/15/17 History [Lantus Solostar] ALPRAZolam [Xanax] 0.5 mg PO BID PRN 10/26/17 12/15/17 History Benzonatate [Tessalon Perles] 100 mg PO Q8H PRN 12/14/17 12/15/17 History Cyanocobalamin (Vitamin B-12) 1,000 mcg PO DAILY 12/14/17 12/15/17 History [Vitamin B-12] Gabapentin 800 mg PO TID 12/14/17 12/15/17 History Megestrol [Megace] 400 mg PO QAM 12/14/17 12/15/17 History Pyridoxine HCl (Vitamin B6) 100 mg PO DAILY 12/14/17 12/15/17 History [Vitamin B-6] Sertraline [Zoloft] 50 mg PO HS 12/14/17 12/15/17 History Glucerna Shake 1 can PO TID 12/15/17 12/15/17 History Melatonin 5 mg PO HS 12/15/17 12/15/17 History Allergies Allergy/AdvReac Type Severity Reaction Status Date / Time adhesive tape Allergy BLISTERS Verified 12/14/17 11:32 Sulfa (Sulfonamide Allergy Unknown Verified 12/14/17 11:32 Antibiotics) Childhood Physical Exam Osteopathic Statement: *. No significant issues noted on an osteopathic structural exam other than those noted in the History and Physical/Consult. Vitals: Vital Signs Temp Pulse Pulse Resp BP Pulse Ox 12/16/17 09:30 101.9 F H 112 H 44 H 191/86 97 12/16/17 07:10 84 12/16/17 07:00 80 12/16/17 05:00 97.9 F 79 20 139/65 96 12/15/17 21:00 99.5 F 88 16 114/58 12/15/17 19:39 82 12/15/17 19:27 84 95 12/15/17 16:00 111 H 24 12/15/17 14:10 96 12/15/17 14:00 96 12/15/17 13:56 98.4 F 111 H 24 137/74 90 L Intake and Output 12/15/17 12/16/17 12/16/17 22:59 06:59 14:59 Intake Total 1250 950 Balance 1250 950 Intake: Intake, IV Titration 850 950 Amount Piperacillin-Tazobactam 3 100 .375 gm In Sodium Chloride 0.9% 100 ml @ 25 mls/hr IVPB Q8H [facility] Rx#: [id number] Sodium Chloride 0.9% 1, 600 600 000 ml @ 75 mls/hr IV . [id number] [facility] Rx#:[id number] Vancomycin 1,500 mg In 250 250 Sodium Chloride 0.9% 250 ml @ 125 mls/hr IVPB Q12H [facility] Rx#:[id number] Oral 400 Other: Voiding Method Toilet Toilet # Voids 1 1 Weight 81.647 kg No acute distress, oriented 3. The patient is a bit somnolent but does respond appropriately, nonrebreather mask in place. HEENT examination is grossly unremarkable. Mucous membranes are dry. No oral lesions. Neck supple. Full range of motion. No adenopathy thyromegaly or neck vein distention. Cardiovascular examination reveals regular rhythm rate. S1-S2 normal. No S3 or S4. No discernible murmur noted. The patient's heart rate is 110. Lungs reveal coarse bilateral rhonchi. Breath sounds are equal bilaterally. Scattered crackles are appreciated. No wheezes. Abdomen soft and bowel sounds are heard. No masses or tenderness. Johnson catheter in place. Extremities are intact. No cyanosis clubbing or edema. Skin is without rash or lesion. Neurologic examination is brief but nonfocal. Results - Laboratory Findings CBC and BMP: 12/16/17 06:27 12/16/17 06:27 ABG ABG pH 7.42 (7.35-7.45) 12/16/17 09:40 ABG pCO2 36 mmHg (35-45) 12/16/17 09:40 ABG pO2 83 mmHg (83-108) 12/16/17 09:40 ABG O2 Saturation 96.9 % (94-97) 12/16/17 09:40 PT/INR, D-dimer PT 11.4 sec (9.0-12.0) 12/14/17 11:25 INR 1.2 (<1.2) H 12/14/17 11:25 Abnormal lab findings: Abnormal Labs 12/14/17 12/14/17 12/14/17 11:25 11:25 11:25 RBC 3.75 L Hgb 10.4 L Hct 31.9 L MCHC RDW 17.6 H Lymphocytes # 0.4 L INR APTT Sodium 136 L Chloride BUN 26 H Glucose 156 H POC Glucose (mg/dL) Hemoglobin A1c Plasma Lactic Acid Lucho 2.7 H* Calcium AST 78 H ALT 88 H Total Protein 8.3 H Albumin Urine Protein Urine Glucose (UA) Urine Mucus 12/14/17 12/14/17 12/15/17 11:25 12:05 06:44 RBC Hgb Hct MCHC RDW Lymphocytes # INR 1.2 H APTT 31.4 H Sodium Chloride BUN Glucose POC Glucose (mg/dL) Hemoglobin A1c 8.7 H Plasma Lactic Acid Lucho Calcium AST ALT Total Protein Albumin Urine Protein 1+ H Urine Glucose (UA) Trace H Urine Mucus Rare H 12/15/17 12/15/17 12/15/17 06:44 06:44 07:24 RBC 3.11 L Hgb 8.5 L D Hct 27.0 L MCHC RDW 17.7 H Lymphocytes # 0.6 L INR APTT Sodium Chloride BUN Glucose POC Glucose (mg/dL) 149 H Hemoglobin A1c Plasma Lactic Acid Lucho Calcium 8.3 L AST ALT Total Protein 5.9 L Albumin 2.8 L Urine Protein Urine Glucose (UA) Urine Mucus 12/15/17 12/15/17 12/16/17 17:31 19:42 06:27 RBC Hgb Hct MCHC RDW Lymphocytes # INR APTT Sodium Chloride 108 H BUN Glucose POC Glucose (mg/dL) 160 H 186 H Hemoglobin A1c Plasma Lactic Acid Lucho Calcium AST ALT Total Protein Albumin 3.0 L Urine Protein Urine Glucose (UA) Urine Mucus 12/16/17 12/16/17 12/16/17 06:27 09:30 10:07 RBC 3.33 L Hgb 9.0 L Hct 29.2 L MCHC 30.9 L RDW 17.8 H Lymphocytes # 0.6 L INR APTT Sodium Chloride BUN Glucose POC Glucose (mg/dL) 113 H 117 H Hemoglobin A1c Plasma Lactic Acid Lucho Calcium AST ALT Total Protein Albumin Urine Protein Urine Glucose (UA) Urine Mucus - Diagnostic Findings Chest x-ray: report reviewed, image reviewed (Labs x-rays and medications are reviewed.) Assessment and Plan Assessment: Assessment Hypoxemic respiratory failure secondary to bilateral pneumonia. History of pancreatic carcinoma, status post recent chemotherapy Sepsis syndrome History of diabetes mellitus History of hyperlipidemia History of GERD Status post right-sided Pleurx catheter placement and wedge biopsy right lung, positive for adenocarcinoma. Status post decortication right lung History of neuropathy Plan: Plan dated 12/16/2017 The patient is moved to the intensive care unit. He will be fluid resuscitated. We'll make sure there is on appropriate antibiotics. For the end of the day, he may require intubation and mechanical ventilation. He may need lines as well. Additional recommendations and suggestions are forthcoming. Medications labs and x-rays are all reviewed. Prognosis is guarded given his history of pancreatic carcinoma. We'll continue to follow. Currently he is on a nonrebreather and saline at 75 mL an hour. Microbiologic studies are thus far negative. White count is 8.1, hemoglobin 9 hematocrit 29.2 and platelet count 286,000. Blood gas shows a PaO2 of 83 and a pCO2 of 46 and a pH of 7.42 on a nonrebreather. Sodium 140, potassium 4.2, chlorides 108 and CO2 24. BUN/creatinine were 16 and 0.91. Unnecessary medications are discontinued. Time with Patient: Greater than 30
[2017-12-16] MEDS: INSULIN ASPART 100 UNIT/ML 1 ML 10 ML VIAL SQ SCH ×4 (11:26→21:36)
[2017-12-16] MEDS: SALT AND SODA MOUTHWASH 1,000 ML PO SCH ×3 (11:26→17:13)
[2017-12-16 12:06] LABS: Glucose,Whole Blood 101 mg/dL (75-99)
[2017-12-16] MEDS: SERTRALINE 50 MG TAB PO SCH (12:09)
[2017-12-16] MEDS: GABAPENTIN 400 MG CAP PO SCH ×3 (12:12→21:34)
[2017-12-16 12:13] LABS: Phosphorus 3.9 mg/dL (2.5-4.5)
[2017-12-16] MEDS: FAMOTIDINE 20 MG/2 ML VIAL IV SCH ×2 (12:13→21:34)
[2017-12-16] MEDS: HEPARIN SODIUM,PORCINE 5,000 UNIT/ML 1 ML VIAL SQ SCH ×2 (12:13→21:34)
--- NOTE | 2017-12-16 13:20 | P.PN ---
Subjective this is a pleasant 77 yo M with pmh of pancreatic cancer , GERD, Diabetes Mellitus, Hyperlipiedemia. he presents because of fever.pt noticed yesterday he had low grade fever of 100.3.pt was complaining from mild cough too with no phlegm. he presents to his oncologist office to get chemotherapy today when he noticed he has fever of 103 so sent to the ED, where he has fever of 102.4. pt denies chest pain , no dyepsnea , no change in urine or bowel habits, no n/v. pt also was feeling generally weak over the last few days and he fell three times as per and last time was about 2 days ago when he slipped of the chair but did not actually fall. on admission he was noticed to have negative UA for infection , his CXR: Bilateral consolidation with small pleural effusion .his vital were stable except for fever with oxygen saturation of 91 L on 2 L by Nasal canula. infeluenza was checked and it came back negative . Gall bladder US: not significant. WBC 8.0 , Hb 10.4, rest of CBC and BMP were unremarkable. lactic a was high came back to normal at 0.8 with hydration . 12/15/2017 Patient remains to feel generally weak. He states that his cough is better today he has significant exertional dyspnea even with simple movements. However no more fever since yesterday when he had a temperature over 103.4. Risks of vitals looks stable. Labs today showing hemoglobin of 8.5. WBC 7.3 with neutrophils at 5.9. His sodium is 139 and potassium 4.3. Creatinine 1.0. Blood sugar is surgery between 91-149. LFTs were unremarkable. However he has low albumin at 2.8. UA is not suggestive of infection. Urine culture and blood culture are still pending. Repeat chest x-ray from today shows cardiomegaly with worsening right basilar airspace disease and small right pleural effusion. ID team evaluated the patient and the input is appreciated and they recommended to continue with IV vancomycin but change cefepime to Zosyn. 12/16/2017 Early-morning today patient become more dyspneic and he needed nonrebreather to keep his oxygen saturation above 90%. However at time went on he started to develop fever of 101.9 and he was moved to the ICU for further monitoring. Repeat chest x-ray shows persistent right basilar airspace disease with mild pulmonary edema suspected. The ICU patient today evaluated and patient breathing calmed down, however his o2 saturating was 97% on nonrebreather. Patient was noticed to have some oral thrush and nystatin syrup was started. PH 7.4, oxygen 83, and pCO2 of 36. Glucose is controlled. WBC is 8.1, hemoglobin 9.0, BMP was unremarkable as well as LFT. Pulmonary consult is appreciated, and he is high-risk for intubation and fluid resuscitation. Prognosis is guarded and at bedside and she was updated, patient request. CONSTITUTIONAL: No fever, no malaise, no fatigue. HEENT: No recent visual problems or hearing problems. Denied any sore throat. CARDIOVASCULAR: No orthopnea, PND, no palpitations, no syncope. PULMONARY: No shortness of breath, no cough, no hemoptysis. GASTROINTESTINAL: No diarrhea, no nausea, no vomiting, no abdominal pain. Normoactive bowel sounds. NEUROLOGICAL: No headaches, no weakness, no numbness. HEMATOLOGICAL: Denies any bleeding or petechiae. GENITOURINARY: Denies any burning micturition, frequency, or urgency. MUSCULOSKELETAL/RHEUMATOLOGICAL: Denies any joint pain, swelling, or any muscle pain. ENDOCRINE: Denies any polyuria or polydipsia. medication with dosages are reviewed and including the following: Tylenol, Lipitor, ipratropium, Xanax, Pepcid, Neurontin, heparin, No IV vancomycin.voLog , melatonin, Zosyn, Zoloft, Objective - Vital Signs Vital signs: Vital Signs Temp 101.9 F H 12/16/17 09:30 Pulse 98 12/16/17 12:32 Resp 44 H 12/16/17 09:30 BP 191/86 12/16/17 09:30 Pulse Ox 97 12/16/17 09:30 Intake & Output 12/15/17 12/16/17 12/16/17 18:59 06:59 18:59 Intake Total 240 2200 Balance 240 2200 Weight 81.647 kg 81.647 kg Intake: Intake, IV Titration 1800 Amount Piperacillin-Tazobactam 3 100 .375 gm In Sodium Chloride 0.9% 100 ml @ 25 mls/hr IVPB Q8H [facility] Rx#: [id number] Sodium Chloride 0.9% 1, 1200 000 ml @ 75 mls/hr IV . [id number] [facility] Rx#:[id number] Vancomycin 1,500 mg In 500 Sodium Chloride 0.9% 250 ml @ 125 mls/hr IVPB Q12H [facility] Rx#:[id number] Oral 240 400 Other: Voiding Method Toilet Toilet # Voids 4 1 - Exam -GENERAL: The patient is alert and oriented x3, not in any acute distress. generally weak HEENT: Pupils are round and equally reacting to light. EOMI. No scleral icterus. No conjunctival pallor. Normocephalic, atraumatic. No pharyngeal erythema. No thyromegaly. CARDIOVASCULAR: S1 and S2 present. No murmurs, rubs, or gallops. PULMONARY: Chest is clear to auscultation, no wheezing or crackles. ABDOMEN: Soft, nontender, nondistended, normoactive bowel sounds. No palpable organomegaly. MUSCULOSKELETAL: No joint swelling or deformity. EXTREMITIES: No cyanosis, clubbing, or pedal edema. NEUROLOGICAL: Gross neurological examination did not reveal any focal deficits. SKIN: No rashes. - Labs CBC & Chem 7: 12/16/17 06:27 12/16/17 06:27 Labs: Abnormal Lab Results - Last 24 Hours (Table) 12/15/17 12/15/17 12/15/17 Range/Units 06:44 17:31 19:42 RBC (4.30-5.90) m/uL Hgb (13.0-17.5) gm/dL Hct (39.0-53.0) % MCHC (31.0-37.0) g/dL RDW (11.5-15.5) % Lymphocytes # (1.0-4.8) k/uL Chloride (98-107) mmol/L POC Glucose (mg/dL) 160 H 186 H (75-99) mg/dL Hemoglobin A1c 8.7 H (4.0-6.0) % Albumin (3.5-5.0) g/dL 12/16/17 12/16/17 12/16/17 Range/Units 06:27 06:27 09:30 RBC 3.33 L (4.30-5.90) m/uL Hgb 9.0 L (13.0-17.5) gm/dL Hct 29.2 L (39.0-53.0) % MCHC 30.9 L (31.0-37.0) g/dL RDW 17.8 H (11.5-15.5) % Lymphocytes # 0.6 L (1.0-4.8) k/uL Chloride 108 H (98-107) mmol/L POC Glucose (mg/dL) 113 H (75-99) mg/dL Hemoglobin A1c (4.0-6.0) % Albumin 3.0 L (3.5-5.0) g/dL 12/16/17 12/16/17 Range/Units 10:07 11:54 RBC (4.30-5.90) m/uL Hgb (13.0-17.5) gm/dL Hct (39.0-53.0) % MCHC (31.0-37.0) g/dL RDW (11.5-15.5) % Lymphocytes # (1.0-4.8) k/uL Chloride (98-107) mmol/L POC Glucose (mg/dL) 117 H 101 H (75-99) mg/dL Hemoglobin A1c (4.0-6.0) % Albumin (3.5-5.0) g/dL Microbiology - Last 24 Hours (Table) 12/14/17 12:05 Urine Culture - Final Urine,Voided 12/14/17 15:42 Blood Culture - Preliminary Blood No Growth after 24 hours 12/14/17 11:25 Blood Culture - Preliminary Blood No Growth after 24 hours Assessment and Plan Assessment: most likely health care system associated pneumonia dehydration high Lactic acid, resolved recurrent falls. h/o pancreatic cancer on chemotherapy GERD Diabetes Mellitus Hyperlipiedemia Plan: this is a pleasant 77 yo M who presents with pneumonia most likely. call ID consult and continue with antibiotic as per ID team. f/o blood and sputum culture. Pulmonary consult is appreciated. continue with the same treatment , continue with symptomatic treatment , resume home medication , monitor lytes and vitals including glucose , c/w iv fluids,. c /w same antibioitc . GI and DVT prophylaxis , further recommendation based upon pt clinical course and progress DVT prophylaxis subcutaneous heparin GI prophylaxis Pepcid PT/OT: pending Prognosis is guarded
[2017-12-16] MEDS: NYSTATIN 100,000 UNIT/ML SUSP 500,000 UNIT/5 ML CUP PO SCH ×3 (13:40→21:34)
[2017-12-16 14:14] LABS: Amorphous Sediment,Urine Few /hpf; Appearance,Urine Cloudy (Clear); Bilirubin,Urine Negative (Negative); Blood,Urine Trace (Negative); Color,Urine Light Yellow; Glucose,Urine (UA) Negative (Negative); Ketones,Urine Negative (Negative); Leukocyte Esterase,Urine Negative (Negative); Mucus,Urine Rare /hpf; Nitrite,Urine Negative (Negative); Protein,Urine 1+ (Negative); RBC,Urine 1 /hpf (0-5); Specific Gravity,Urine 1.014 (1.001-1.035); Urobilinogen,Urine <2.0 mg/dL (<2.0)
[2017-12-16 14:54] LABS: Appearance,BF Cloudy; Color,BF Brown; Nucleated Cells, Body Fluid 760 /uL; RBC, Body Fluid 25800 /uL
[2017-12-16 14:56] LABS: Mononuclear WBC,Body Fluid 10 %; Polynuclear WBC,Body Fluid 90 %; Total Cells Counted,Body Fluid 100
[2017-12-16 17:18] LABS: Glucose,Whole Blood 287 mg/dL (75-99)
[2017-12-16 21:14] LABS: Glucose,Whole Blood 222 mg/dL (75-99)
[2017-12-16] MEDS ORDERED: RX INFO: IV CONTRAST WAS GIVEN 1 EACH MISC MISCELLANE PRN (22:29)
[2017-12-17] MEDS: IPRATROPIUM-ALBUTEROL 3 ML NEB INHALATION SCH ×6 (00:42→19:32)
--- NOTE | 2017-12-17 00:47 | PN ---
PROGRESS NOTE DATE OF SERVICE: 12/16/2017. REASON FOR FOLLOW UP: Pneumonia. INTERVAL HISTORY: The patient has been transferred down to the ICU. The patient was noticed to be slightly hypotensive, weak and lethargic. The patient, though, did have a fever of 103 Fahrenheit this morning. He seemed to have more bloody secretion through his PleurX catheter drainage. The patient did have some cough but not bringing up any sputum. No nausea, no vomiting. No abdominal pain or diarrhea. EXAMINATION: Blood pressure 120/75, pulse of 89, temperature 99.2, temperature 101. He is 98% on 50% high-flow oxygen. GENERAL DESCRIPTION: An elderly male lying in bed in no distress. RESPIRATORY SYSTEM: Unlabored breathing with decreased breath sounds in the bases. No wheeze. HEART: S1, S2. Regular rate and rhythm. ABDOMEN: Soft. EXTREMITIES: No edema of the feet. LABS: Hemoglobin 9, was down to 8.1. BUN of 16, creatinine 0.01. Electrolytes have been normal. Liver enzymes are normal. Blood culture has been negative so far. DIAGNOSTIC IMPRESSION AND PLAN: Patient with right lower lobe pneumonia in a patient who did have PleurX catheter, now with persistent fever and worsening finding on the x-ray. Recommend obtaining a CT of the chest to make sure there is no evidence of any loculated fluid that may need to be drained surgically. He is currently covered with vancomycin and Zosyn will be continued for now. Continue supportive care. Clinically doubt MediPort infection as the patient is not bacteremic. Overall prognosis remains to be guarded. MMODL / IJN: [id number] /
[2017-12-17] MEDS: ACETAMINOPHEN TAB 325 MG TAB PO PRN (01:58)
[2017-12-17 03:02] LABS: Glucose,Whole Blood 108 mg/dL (75-99)
[2017-12-17] MEDS: PIPERACILLIN-TAZOBACTAM 3.375 GM in SODIUM CHLORIDE 0.9% 100 ML IVPB SCH ×3 (04:32→21:20)
[2017-12-17] MEDS ORDERED: VANCOMYCIN TROUGH DUE 1 EACH MISC MISCELLANE ONE (05:00)
[2017-12-17 05:03] LABS: ALT 54 U/L (21-72); AST 51 U/L (17-59); Albumin 2.6 g/dL (3.5-5.0); Alkaline Phosphatase 62 U/L (38-126); Anion Gap 6 mmol/L; Anisocytosis Slight; Basophils % (A) 1 %; Blood Urea Nitrogen 14 mg/dL (9-20); Calcium 8.1 mg/dL (8.4-10.2); Carbon Dioxide 25 mmol/L (22-30); Chloride 105 mmol/L (98-107); Eosinophils # (A) 0.3 k/uL (0-0.7); Eosinophils % (A) 4 %; Glucose 173 mg/dL (74-99); HCT 26.4 % (39.0-53.0); HGB 8.4 gm/dL (13.0-17.5); Hypochromasia Marked; Lymphocytes # (A) 0.6 k/uL (1.0-4.8); Lymphocytes % (A) 8 %; MCH 27.8 pg (25.0-35.0); MCHC 31.7 g/dL (31.0-37.0); MCV 87.9 fL (80.0-100.0); Magnesium 1.9 mg/dL (1.6-2.3); Monocytes # (A) 0.4 k/uL (0-1.0); Monocytes % (A) 6 %; Neutrophils # (A) 5.5 k/uL (1.3-7.7); Neutrophils % (A) 80 %; Phosphorus 3.5 mg/dL (2.5-4.5); Platelet Count 380 k/uL (150-450); RDW 17.6 % (11.5-15.5); Sodium 136 mmol/L (137-145); Total Bilirubin 0.4 mg/dL (0.2-1.3); Total Protein 5.7 g/dL (6.3-8.2); WBC 6.9 k/uL (3.8-10.6)
[2017-12-17] MEDS: VANCOMYCIN 1,500 MG in SODIUM CHLORIDE 0.9% 250 ML IVPB SCH ×2 (06:17→21:22)
[2017-12-17 07:31] LABS: Glucose,Whole Blood 170 mg/dL (75-99)
--- NOTE | 2017-12-17 08:15 | XR ---
EXAMINATION TYPE: XR chest 1V DATE OF EXAM: 12/17/2017 COMPARISON: 12/16/2017 INDICATION: Short of breath TECHNIQUE: Single frontal view of the chest is obtained. FINDINGS: The heart size is normal. The pulmonary vasculature is prominent. Some postsurgical change may be in the right midlung. Right lower lobe loculated pneumothorax not exc luded. Right-sided chest tube remains present with the tip near the level of the hilum. Right-sided p ort is present tip in the distal superior vena cava right atrial junction region. Diffuse increased l teresa markings into the left lung. Correlate for pulmonary edema. IMPRESSION: 1. Right-sided chest tube remains in position. A loculated right lower lung field pneumothorax may re main present. No significant change is evident. 2. Diffuse increased pulmonary vascular markings and diffuse increased lung markings to the left lung likely related to pulmonary edema. 3. Continued follow-up is recommended.
[2017-12-17] MEDS: GABAPENTIN 400 MG CAP PO SCH ×3 (09:00→21:20)
[2017-12-17] MEDS: SERTRALINE 50 MG TAB PO SCH (09:00)
[2017-12-17] MEDS: FAMOTIDINE 20 MG/2 ML VIAL IV SCH ×2 (09:02→21:20)
[2017-12-17] MEDS: INSULIN ASPART 100 UNIT/ML 1 ML 10 ML VIAL SQ SCH ×4 (09:02→21:21)
[2017-12-17] MEDS: NYSTATIN 100,000 UNIT/ML SUSP 500,000 UNIT/5 ML CUP PO SCH ×4 (09:02→21:22)
[2017-12-17] MEDS: MAGNESIUM SULFATE-D5W PMX 1 GM in DEXTROSE/WATER 1 100ML.BAG IVPB SCH ×2 (09:03→10:37)
[2017-12-17] MEDS: HEPARIN SODIUM,PORCINE 5,000 UNIT/ML 1 ML VIAL SQ SCH ×2 (09:37→21:20)
[2017-12-17] MEDS: SALT AND SODA MOUTHWASH 1,000 ML PO SCH ×3 (09:37→18:00)
[2017-12-17] MEDS: LEVOFLOXACIN 750MG-D5W PMX 750 MG in DEXTROSE/WATER 1 150ML.BAG IVPB SCH (10:38)
--- NOTE | 2017-12-17 11:43 | P.PN ---
Subjective Progress Note Date: 12/17/17 Principal diagnosis: Acute hypoxemic respiratory failure secondary to bilateral pneumonia Pulmonary/critical care consultation dated 12/16/2017 This is a 77-year-old white male well-known to me. He presented to the emergency department on December 14 with fever. He's been undergoing chemotherapy for pancreatic cancer with his last chemo about 14 days ago. He apparently presented to the oncology office for another round of chemotherapy was noted to have a high fever and sent to the emergency department for evaluation. He was evaluated in the ER on December 14. He was admitted to the hospital with a diagnosis of pneumonia/sepsis. The patient had cough and some phlegm production and apparently. He also has a history of a right Pleurx catheter in place and he has a Mediport for chemotherapy. The patient was admitted to the floor. I was only consulted apparently sometime this morning. His respiratory status to client he became hypotensive and hypoxemic and we transferred the patient to the ICU for further management. His chest x-ray shows bilateral infiltrates. The patient is responsive. A Johnson catheter was placed. The chest x-ray was reviewed. The patient also has a history of diabetes, gastroesophageal reflux disease, hyperlipidemia, and previous right- sided thoracentesis and thoracoscopic decortication of the right lung with right wedge biopsy. That apparently was positive for adenocarcinoma. On 12/17/2017 patient seen again in follow-up in the intensive care units is awake and alert, he remains on AIRVO at 50 L/m, and FiO2 of 50%, his pulse ox is 92-94%, patient did have febrile episodes last night, with T-max of 101.6F. Cultures were reviewed, urine, blood, oral fluid and sputum cultures are negative thus far, final cultures are pending. Patient had refused CT chest this morning, he states he does not want any more tests. He is covered with a combination of vancomycin and Zosyn. We will add Levaquin. His chest x-ray has been reviewed by Dr. Levy and shows loculated right lower lung pneumothorax no significant change, diffuse increased pulmonary vascular markings and diffuse increased lung markings in the left lung most likely related to interstitial pneumonia rather than fluid overload. Pleural fluid cytology is pending. Today's labs have been reviewed, Sada BC 6.9, hemoglobin is 8.4, sodium is 136, there is electrolytes and renal profile is within normal limits. Patient is weak, he has no appetite. Lung sounds are positive for diminished breath sounds over right lower lobe, and some scattered crackles on the left. Objective - Vital Signs Vital signs: Vital Signs Temp 98.7 F 12/17/17 08:00 Pulse 91 12/17/17 11:00 Resp 25 H 12/17/17 11:00 BP 137/80 12/17/17 11:00 Pulse Ox 94 L 12/17/17 11:00 Intake & Output 12/16/17 12/17/17 12/17/17 18:59 06:59 18:59 Intake Total 1250 825 775 Output Total 920 1200 450 Balance 330 -375 325 Weight 82.3 kg Intake: IV 475 825 775 Magnesium Sulfate-D5w Pmx 200 1 gm In Dextrose/Water 1 100ml.bag @ 100 mls/hr IVPB Q1H [facility] Rx#: [id number] Piperacillin-Tazobactam 3 150 25 .375 gm In Sodium Chloride 0.9% 100 ml @ 25 mls/hr IVPB Q8H [facility] Rx#: [id number] Sodium Chloride 0.9% 1, 225 675 300 000 ml @ 75 mls/hr IV . [id number] [facility] Rx#:[id number] Vancomycin 1,500 mg In 250 250 Sodium Chloride 0.9% 250 ml @ 125 mls/hr IVPB Q12H [facility] Rx#:[id number] Intake, IV Titration 475 Amount Piperacillin-Tazobactam 3 100 .375 gm In Sodium Chloride 0.9% 100 ml @ 25 mls/hr IVPB Q8H [facility] Rx#: [id number] Sodium Chloride 0.9% 1, 375 000 ml @ 75 mls/hr IV . [id number] [facility] Rx#:[id number] Oral 300 Output: Drainage 100 Right Chest 100 Urine 820 1200 450 Other: Voiding Method Indwelling Catheter Indwelling Catheter Indwelling Catheter # Voids 2 - Exam No acute distress, oriented 3. The patient is a bit somnolent but does respond appropriately, currently on Airvo at 50 l/min, fio2 50% HEENT examination is grossly unremarkable. Mucous membranes are dry. No oral lesions. Neck supple. Full range of motion. No adenopathy thyromegaly or neck vein distention. Cardiovascular examination reveals regular rhythm rate. S1-S2 normal. No S3 or S4. No discernible murmur noted. The patient's heart rate is 110. Lungs reveal coarse bilateral rhonchi. Diminished breath sounds over right lower lobe, scattered crackles on the left, Pleurx catheter to anterior right chest is covered with a dressing clean dry and intact. Abdomen soft and bowel sounds are heard. No masses or tenderness. Johnson catheter in place. Extremities are intact. No cyanosis clubbing or edema. Skin is without rash or lesion. Neurologic examination is brief but nonfocal. - Labs CBC & Chem 7: 12/17/17 04:21 12/17/17 04:21 Labs: Abnormal Lab Results - Last 24 Hours (Table) 12/16/17 12/16/17 12/16/17 Range/Units 11:54 12:40 17:06 RBC (4.30-5.90) m/uL Hgb (13.0-17.5) gm/dL Hct (39.0-53.0) % RDW (11.5-15.5) % Lymphocytes # (1.0-4.8) k/uL Sodium (137-145) mmol/L Glucose (74-99) mg/dL POC Glucose (mg/dL) 101 H 287 H (75-99) mg/dL Calcium (8.4-10.2) mg/dL Total Protein (6.3-8.2) g/dL Albumin (3.5-5.0) g/dL Urine Protein 1+ H (Negative) Urine Blood Trace H (Negative) Amorphous Sediment Few H (None) /hpf Urine Mucus Rare H (None) /hpf 12/16/17 12/17/17 12/17/17 Range/Units 21:03 02:50 04:21 RBC (4.30-5.90) m/uL Hgb (13.0-17.5) gm/dL Hct (39.0-53.0) % RDW (11.5-15.5) % Lymphocytes # (1.0-4.8) k/uL Sodium 136 L (137-145) mmol/L Glucose 173 H (74-99) mg/dL POC Glucose (mg/dL) 222 H 108 H (75-99) mg/dL Calcium 8.1 L (8.4-10.2) mg/dL Total Protein 5.7 L (6.3-8.2) g/dL Albumin 2.6 L (3.5-5.0) g/dL Urine Protein (Negative) Urine Blood (Negative) Amorphous Sediment (None) /hpf Urine Mucus (None) /hpf 12/17/17 12/17/17 Range/Units 04:21 07:20 RBC 3.00 L (4.30-5.90) m/uL Hgb 8.4 L (13.0-17.5) gm/dL Hct 26.4 L (39.0-53.0) % RDW 17.6 H (11.5-15.5) % Lymphocytes # 0.6 L (1.0-4.8) k/uL Sodium (137-145) mmol/L Glucose (74-99) mg/dL POC Glucose (mg/dL) 170 H (75-99) mg/dL Calcium (8.4-10.2) mg/dL Total Protein (6.3-8.2) g/dL Albumin (3.5-5.0) g/dL Urine Protein (Negative) Urine Blood (Negative) Amorphous Sediment (None) /hpf Urine Mucus (None) /hpf Microbiology - Last 24 Hours (Table) 12/16/17 13:45 Gram Stain - Preliminary Pleural Fluid Body Fluid Culture - Preliminary 12/16/17 13:45 Acid Fast Bacilli Smear - Final Pleural Fluid Acid Fast Bacilli Culture - Preliminary 12/16/17 15:27 Gram Stain - Preliminary Sputum Sputum Culture - Preliminary 12/14/17 15:42 Blood Culture - Preliminary Blood No Growth after 48 hours 12/16/17 13:45 Fungal Culture - Preliminary Pleural Fluid 12/14/17 11:25 Blood Culture - Preliminary Blood No Growth after 48 hours Assessment and Plan Plan: Assessment: Hypoxemic respiratory failure secondary to bilateral pneumonia, today's chest x- ray has been reviewed and shows right-sided lacunar pleural effusion, with the right-sided Pleurx in place, diffuse increased pulmonary vascular markings likely related to interstitial pneumonia History of pancreatic carcinoma, status post recent chemotherapy Sepsis syndrome History of diabetes mellitus History of hyperlipidemia History of GERD Status post right-sided Pleurx catheter placement and wedge biopsy right lung, positive for adenocarcinoma. Status post decortication right lung History of neuropathy Plan: We'll continue current medical treatment, continue current antibiotic coverage, cultures from the pleural fluid, blood sputum and urine are pending at this time , will await final cultures, patient has been febrile in the last 24 hours, we will add Levaquin to current combination of antibiotics including Zosyn and vancomycin. Patient has refused CT chest, he states does not want anymore tests. He remains on high flow oxygen, currently on AIRVO at 50 l/min, fio2 50% . Continue with nebulized bronchodilators, GI and DVT prophylaxis, she will remain in the intensive care for further monitoring. Will continue to follow I performed a history & physical examination of the patient and discussed their management with my nurse practitioner, Marii Franco. I reviewed the nurse practitioner's note and agree with the documented findings and plan of care. Lung sounds are positive for dementia breath sounds over right lower lobe, with diffuse crackles on the left. The findings and the impression was discussed with the patient. I attest to the documentation by the nurse practitioner. Time with Patient: Greater than 30
[2017-12-17 12:08] LABS: Glucose,Whole Blood 246 mg/dL (75-99)
--- NOTE | 2017-12-17 12:21 | P.PN ---
Subjective Patient continues in the intensive care unit. at bedside. Discussed with patient and about continuing care. Patient states he is getting weary with continued hospital care. Counseled the patient and to discuss further treatment Objective - Vital Signs Vital signs: Vital Signs Temp 98.7 F 12/17/17 08:00 Pulse 91 12/17/17 11:00 Resp 25 H 12/17/17 11:00 BP 137/80 12/17/17 11:00 Pulse Ox 96 12/17/17 11:34 Intake & Output 12/16/17 12/17/17 12/17/17 18:59 06:59 18:59 Intake Total 1250 825 775 Output Total 920 1200 450 Balance 330 -375 325 Weight 82.3 kg Intake: IV 475 825 775 Magnesium Sulfate-D5w Pmx 200 1 gm In Dextrose/Water 1 100ml.bag @ 100 mls/hr IVPB Q1H [facility] Rx#: [id number] Piperacillin-Tazobactam 3 150 25 .375 gm In Sodium Chloride 0.9% 100 ml @ 25 mls/hr IVPB Q8H [facility] Rx#: [id number] Sodium Chloride 0.9% 1, 225 675 300 000 ml @ 75 mls/hr IV . [id number] [facility] Rx#:[id number] Vancomycin 1,500 mg In 250 250 Sodium Chloride 0.9% 250 ml @ 125 mls/hr IVPB Q12H [facility] Rx#:[id number] Intake, IV Titration 475 Amount Piperacillin-Tazobactam 3 100 .375 gm In Sodium Chloride 0.9% 100 ml @ 25 mls/hr IVPB Q8H [facility] Rx#: [id number] Sodium Chloride 0.9% 1, 375 000 ml @ 75 mls/hr IV . [id number] [facility] Rx#:[id number] Oral 300 Output: Drainage 100 Right Chest 100 Urine 820 1200 450 Other: Voiding Method Indwelling Catheter Indwelling Catheter Indwelling Catheter # Voids 2 - Constitutional General appearance: Present: mild distress - EENT Eyes: Present: PERRLA Ears: bilateral: normal - Neck Neck: Present: normal ROM - Respiratory Respiratory: right: diminished, rhonchi - Cardiovascular Rhythm: regular - Gastrointestinal General gastrointestinal: Present: soft - Integumentary Integumentary: Present: normal - Neurologic Neurologic: Present: CNII-XII intact - Musculoskeletal Musculoskeletal: Present: generalized weakness - Psychiatric Psychiatric: Present: A&O x's 3, appropriate affect, intact judgment & insight - Labs CBC & Chem 7: 12/17/17 04:21 12/17/17 04:21 Labs: Abnormal Lab Results - Last 24 Hours (Table) 12/16/17 12/16/17 12/16/17 Range/Units 12:40 17:06 21:03 RBC (4.30-5.90) m/uL Hgb (13.0-17.5) gm/dL Hct (39.0-53.0) % RDW (11.5-15.5) % Lymphocytes # (1.0-4.8) k/uL Sodium (137-145) mmol/L Glucose (74-99) mg/dL POC Glucose (mg/dL) 287 H 222 H (75-99) mg/dL Calcium (8.4-10.2) mg/dL Total Protein (6.3-8.2) g/dL Albumin (3.5-5.0) g/dL Urine Protein 1+ H (Negative) Urine Blood Trace H (Negative) Amorphous Sediment Few H (None) /hpf Urine Mucus Rare H (None) /hpf 12/17/17 12/17/17 12/17/17 Range/Units 02:50 04:21 04:21 RBC 3.00 L (4.30-5.90) m/uL Hgb 8.4 L (13.0-17.5) gm/dL Hct 26.4 L (39.0-53.0) % RDW 17.6 H (11.5-15.5) % Lymphocytes # 0.6 L (1.0-4.8) k/uL Sodium 136 L (137-145) mmol/L Glucose 173 H (74-99) mg/dL POC Glucose (mg/dL) 108 H (75-99) mg/dL Calcium 8.1 L (8.4-10.2) mg/dL Total Protein 5.7 L (6.3-8.2) g/dL Albumin 2.6 L (3.5-5.0) g/dL Urine Protein (Negative) Urine Blood (Negative) Amorphous Sediment (None) /hpf Urine Mucus (None) /hpf 12/17/17 12/17/17 Range/Units 07:20 11:56 RBC (4.30-5.90) m/uL Hgb (13.0-17.5) gm/dL Hct (39.0-53.0) % RDW (11.5-15.5) % Lymphocytes # (1.0-4.8) k/uL Sodium (137-145) mmol/L Glucose (74-99) mg/dL POC Glucose (mg/dL) 170 H 246 H (75-99) mg/dL Calcium (8.4-10.2) mg/dL Total Protein (6.3-8.2) g/dL Albumin (3.5-5.0) g/dL Urine Protein (Negative) Urine Blood (Negative) Amorphous Sediment (None) /hpf Urine Mucus (None) /hpf Microbiology - Last 24 Hours (Table) 12/16/17 09:38 Blood Culture - Preliminary Blood No Growth after 24 hours 12/16/17 13:45 Gram Stain - Preliminary Pleural Fluid Body Fluid Culture - Preliminary 12/16/17 13:45 Acid Fast Bacilli Smear - Final Pleural Fluid Acid Fast Bacilli Culture - Preliminary 12/16/17 15:27 Gram Stain - Preliminary Sputum Sputum Culture - Preliminary 12/14/17 15:42 Blood Culture - Preliminary Blood No Growth after 48 hours 12/16/17 13:45 Fungal Culture - Preliminary Pleural Fluid 12/14/17 11:25 Blood Culture - Preliminary Blood No Growth after 48 hours - Imaging and Cardiology Chest x-ray: report reviewed Assessment and Plan Plan: Assessment Pneumonia secondary to Pleurx catheter Hypoxic respiratory failure Dehydration Sepsis secondary to pneumonia History of pancreatic cancer on chemotherapy GERD Diabetes type 2 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
[2017-12-17] MEDS ORDERED: RX INFO: IV CONTRAST WAS GIVEN 1 EACH MISC MISCELLANE PRN (13:31)
[2017-12-17 15:11] LABS: Total Protein, Body Fluid 3300 mg/dL
[2017-12-17 17:02] LABS: Glucose,Whole Blood 220 mg/dL (75-99)
--- NOTE | 2017-12-17 17:15 | PN ---
PROGRESS NOTE DATE OF SERVICE: 12/17/2017. REASON FOR FOLLOWUP: Pneumonia. INTERVAL HISTORY: The patient overall fever pattern has improved. The patient did have a fever of 101.3 Fahrenheit at 1 in the morning. Afebrile this morning at noon. The patient denies having any chest pain. Still complains of shortness of breath. He did have a cough but not bringing up any sputum. No nausea, no vomiting. No abdominal pain. No diarrhea. EXAMINATION: Blood pressure 137/84 with a pulse of 93, temperature of 98, T-max is 101. He is 99% on 40% high-flow oxygen. General description is an elderly male lying in bed in no distress. HEENT examination showed slight pallor. No scleral icterus. Oral mucosa membranes dry. LUNGS: Unlabored breathing with decreased breath sounds in the bases. No wheeze. Heart S1, S2. Regular rate and rhythm. ABDOMEN: Soft, no tenderness. EXTREMITIES: No edema of the feet. LABS: Hemoglobin 8.4, white count 6.9, BUN of 14, creatinine 0.88. Sputum showing presumptive Staph aureus. DIAGNOSTIC IMPRESSION AND PLAN: Patient with fever with presumptive Staph aureus pneumonia. The patient has been on vancomycin and Vancomycin trough has been subtherapeutic today at 4.5, still running a fever. A CT of the chest has been ordered. The patient initially refused, however is agreeing to now. It will be followed to make sure no evidence of any loculated fluid that may need to be drained surgically. Keep the patient on vancomycin, watching his kidney function closely in addition to the Zosyn and Levaquin adjusting for the basis of the clinical response as well as culture. Continue supportive care. Overall prognosis remains to be guarded. MMODL / IJN: [id number] /
--- NOTE | 2017-12-17 19:51 | CT ---
EXAMINATION TYPE: CT chest w con DATE OF EXAM: 12/17/2017 COMPARISON: Prior CT chest 09/22/2017 HISTORY: RLL pneumonia, loculated empyema. CT DLP: 364.1 mGycm Automated exposure control for dose reduction was used. CONTRAST: CT scan of the chest is performed with IV Contrast, patient injected with 100 mL of Isovue 300. FINDINGS: LUNGS: There is a hydropneumothorax on the right with Pleurx catheter present within the pleural spac e. Suspect there is trapped lung, there is incomplete expansion at the right lung base, soft tissue d ensity is present in the infrahilar location on the right which may be due to atelectatic lung or pos sibly underlying tumor. There is extensive abnormal groundglass opacity within the left upper lobe an d to lesser extent left lower lobe, smaller left pleural effusion is present. Left lung findings have developed in the interval, trapped lung has occurred in the interval compared to prior CT scan. MEDIASTINUM: Coronary artery calcifications are extensive. No definite adenopathy, small prevascular nodes are present AORTA: No additional significant abnormality is seen. OTHER: Port-A-Cath is present in the right pectoral region, catheter courses via the right internal jugular vein into the level of the superior vena cava.. IMPRESSION: Interval changes in the right and left lung as described, correlate for possible allergi c alveolitis, pulmonary hemorrhage, pneumonitis, pneumonia.
[2017-12-17 20:56] LABS: Glucose,Whole Blood 226 mg/dL (75-99)
[2017-12-17] MEDS ORDERED: INSULIN DETEMIR 100 UNIT/ML 10 ML VIAL SQ SCH (21:00)
[2017-12-17] MEDS: SODIUM CHLORIDE 0.9% 1,000 ML IV SCH (21:20)
[2017-12-17] MEDS: ALPRAZolam 0.5 MG TAB PO PRN (21:22)
[2017-12-18] MEDS: IPRATROPIUM-ALBUTEROL 3 ML NEB INHALATION SCH ×6 (00:23→19:33)
[2017-12-18] MEDS: PIPERACILLIN-TAZOBACTAM 3.375 GM in SODIUM CHLORIDE 0.9% 100 ML IVPB SCH ×3 (05:32→20:29)
[2017-12-18 05:57] LABS: Anisocytosis Slight; Basophils % (A) 1 %; Eosinophils # (A) 0.3 k/uL (0-0.7); Eosinophils % (A) 4 %; HGB 8.1 gm/dL (13.0-17.5); Hypochromasia Moderate; Lymphocytes # (A) 0.6 k/uL (1.0-4.8); Lymphocytes % (A) 9 %; MCH 27.4 pg (25.0-35.0); MCHC 31.4 g/dL (31.0-37.0); MCV 87.3 fL (80.0-100.0); Mean Platelet Volume 6.8; Monocytes # (A) 0.4 k/uL (0-1.0); Monocytes % (A) 6 %; Neutrophils # (A) 5.5 k/uL (1.3-7.7); Neutrophils % (A) 78 %; Platelet Count 381 k/uL (150-450); RBC 2.97 m/uL (4.30-5.90); RDW 17.4 % (11.5-15.5)
[2017-12-18 06:07] LABS: ALT 54 U/L (21-72); AST 58 U/L (17-59); Albumin 2.6 g/dL (3.5-5.0); Alkaline Phosphatase 65 U/L (38-126); Anion Gap 6 mmol/L; Blood Urea Nitrogen 12 mg/dL (9-20); Calcium 7.8 mg/dL (8.4-10.2); Carbon Dioxide 25 mmol/L (22-30); Chloride 105 mmol/L (98-107); Glucose 50 mg/dL (74-99); Potassium 3.7 mmol/L (3.5-5.1); Sodium 136 mmol/L (137-145); Total Bilirubin 0.2 mg/dL (0.2-1.3); Total Protein 5.8 g/dL (6.3-8.2)
[2017-12-18 06:54] LABS: Glucose,Whole Blood 59 mg/dL (75-99)
[2017-12-18] MEDS ORDERED: POTASSIUM CHLORIDE ER 20 MEQ TAB.ER PO SCH (07:00)
[2017-12-18 07:14] LABS: Glucose,Whole Blood 64 mg/dL (75-99)
[2017-12-18 07:29] LABS: Glucose,Whole Blood 87 mg/dL (75-99)
[2017-12-18] MEDS: INSULIN ASPART 100 UNIT/ML 1 ML 10 ML VIAL SQ SCH ×4 (08:05→21:29)
--- NOTE | 2017-12-18 08:39 | XR ---
EXAMINATION TYPE: XR chest 1V DATE OF EXAM: 12/18/2017 COMPARISON: 12/17/2017 HISTORY: Pneumothorax. Follow-up exam. TECHNIQUE: Single frontal view of the chest is obtained. FINDINGS: There are similar appearing lucency of the right lower lung and blunting of the costophren ic angle from a known hydropneumothorax. No interval progression is seen. Right-sided thoracostomy tu be is similar in position to the prior. Right-sided Mediport is also unchanged. There is increasing o pacification of the left hemithorax. Lucency of the lateral left lung is suspected to represent a ski nfold rather than pneumothorax as this does not continue upward and is focal. Attention on follow-up exam to this lucency. Cardia mediastinal silhouette is again enlarged. Generalized osseous demineralization and multilevel degenerative changes of the osseous structures are seen. Retrocardiac opacity is similar as well as b lunting of the left costophrenic angle. Right lower lung sutures are noted. Right middle lobe atelect asis is again suspected with obscuration of the right cardiac border. IMPRESSION: 1. Similar appearance without interval progression of the loculated right hydropneumothorax with unch anged positioning of the thoracostomy tube. 2. Linear lucency over the lateral left lung is presumed to represent a skinfold however attention on follow-up exam is recommended to ensure this does not represent a small pneumothorax. 3. Suspected right middle lobar atelectasis and increasing multifocal consolidations that may be on t he basis of fluid overload with persistent trace pleural effusions and cardiomegaly.
[2017-12-18] MEDS: SALT AND SODA MOUTHWASH 1,000 ML PO SCH ×3 (08:43→17:50)
[2017-12-18 09:26] LABS: Glucose,Whole Blood 127 mg/dL (75-99)
[2017-12-18] MEDS: HEPARIN SODIUM,PORCINE 5,000 UNIT/ML 1 ML VIAL SQ SCH ×2 (10:14→21:30)
[2017-12-18] MEDS: GABAPENTIN 400 MG CAP PO SCH ×3 (10:15→21:30)
[2017-12-18] MEDS: SERTRALINE 50 MG TAB PO SCH (10:15)
[2017-12-18] MEDS: FAMOTIDINE 20 MG/2 ML VIAL IV SCH (10:15)
[2017-12-18] MEDS: LEVOFLOXACIN 750MG-D5W PMX 750 MG in DEXTROSE/WATER 1 150ML.BAG IVPB SCH (10:15)
[2017-12-18] MEDS: NYSTATIN 100,000 UNIT/ML SUSP 500,000 UNIT/5 ML CUP PO SCH ×4 (10:15→21:30)
--- NOTE | 2017-12-18 10:34 | P.PN ---
Subjective Progress Note Date: 12/18/17 Principal diagnosis: Acute hypoxemic respiratory failure secondary to bilateral pneumonia Pulmonary/critical care consultation dated 12/16/2017 This is a 77-year-old white male well-known to me. He presented to the emergency department on December 14 with fever. He's been undergoing chemotherapy for pancreatic cancer with his last chemo about 14 days ago. He apparently presented to the oncology office for another round of chemotherapy was noted to have a high fever and sent to the emergency department for evaluation. He was evaluated in the ER on December 14. He was admitted to the hospital with a diagnosis of pneumonia/sepsis. The patient had cough and some phlegm production and apparently. He also has a history of a right Pleurx catheter in place and he has a Mediport for chemotherapy. The patient was admitted to the floor. I was only consulted apparently sometime this morning. His respiratory status to client he became hypotensive and hypoxemic and we transferred the patient to the ICU for further management. His chest x-ray shows bilateral infiltrates. The patient is responsive. A Johnson catheter was placed. The chest x-ray was reviewed. The patient also has a history of diabetes, gastroesophageal reflux disease, hyperlipidemia, and previous right- sided thoracentesis and thoracoscopic decortication of the right lung with right wedge biopsy. That apparently was positive for adenocarcinoma. On 12/17/2017 patient seen again in follow-up in the intensive care units is awake and alert, he remains on AIRVO at 50 L/m, and FiO2 of 50%, his pulse ox is 92-94%, patient did have febrile episodes last night, with T-max of 101.6F. Cultures were reviewed, urine, blood, oral fluid and sputum cultures are negative thus far, final cultures are pending. Patient had refused CT chest this morning, he states he does not want any more tests. He is covered with a combination of vancomycin and Zosyn. We will add Levaquin. His chest x-ray has been reviewed by Dr. Levy and shows loculated right lower lung pneumothorax no significant change, diffuse increased pulmonary vascular markings and diffuse increased lung markings in the left lung most likely related to interstitial pneumonia rather than fluid overload. Pleural fluid cytology is pending. Today's labs have been reviewed, Sada BC 6.9, hemoglobin is 8.4, sodium is 136, there is electrolytes and renal profile is within normal limits. Patient is weak, he has no appetite. Lung sounds are positive for diminished breath sounds over right lower lobe, and some scattered crackles on the left. On 2017 patient seen in follow-up in the intensive care unit, he remains on high flow oxygen, AIRVO at 40 L/m, and FiO2 of 60%, IV 0.9 normal saline at a rate of 75 ML per hour, patient is sleepy, but easily arousable to verbal stimuli, he denies acute distress, appears weak, pale and fatigued. Patient's Pleurx catheter has been connected to Pleur-evac and continuous wall suction this was done in view of a loculated pneumothorax on the right. After initial connection to suction, there was some air leak, which has now stopped. We will obtain a repeat chest x-ray now. There are diminished breath sounds on the right, left lung is positive for fine inspiratory crackles. Patient has interstitial pneumonia on the left, and sputum cultures were positive for MSSA. Currently covered with a combination of Zosyn, Levaquin and vancomycin. No fevers in the last 24 hours. Overall prognosis remains poor, he remains a full code at this time, may need to address this to again with the patient and his family. Objective - Vital Signs Vital signs: Vital Signs Temp 98.8 F 12/18/17 08:00 Pulse 79 12/18/17 08:32 Resp 34 H 12/18/17 08:00 BP 131/77 12/18/17 08:00 Pulse Ox 98 12/18/17 08:00 Intake & Output 12/17/17 12/18/17 12/18/17 18:59 06:59 18:59 Intake Total 2030 1525 100 Output Total 1160 1025 225 Balance 870 500 -125 Weight 92.3 kg Intake: IV 1550 875 100 Levofloxacin 750Mg-D5w 150 Pmx 750 mg In Dextrose/ Water 1 150ml.bag @ 100 mls/hr IVPB Q24H [facility] Rx#: [id number] Magnesium Sulfate-D5w Pmx 200 1 gm In Dextrose/Water 1 100ml.bag @ 100 mls/hr IVPB Q1H [facility] Rx#: [id number] Piperacillin-Tazobactam 3 125 50 25 .375 gm In Sodium Chloride 0.9% 100 ml @ 25 mls/hr IVPB Q8H [facility] Rx#: [id number] Sodium Chloride 0.9% 1, 825 825 75 000 ml @ 75 mls/hr IV . [id number] [facility] Rx#:[id number] Vancomycin 1,500 mg In 250 Sodium Chloride 0.9% 250 ml @ 125 mls/hr IVPB Q12H [facility] Rx#:[id number] Intake, IV Titration 650 Amount Piperacillin-Tazobactam 3 100 .375 gm In Sodium Chloride 0.9% 100 ml @ 25 mls/hr IVPB Q8H [facility] Rx#: [id number] Sodium Chloride 0.9% 1, 300 000 ml @ 75 mls/hr IV . [id number] [facility] Rx#:[id number] Vancomycin 1,500 mg In 250 Sodium Chloride 0.9% 250 ml @ 125 mls/hr IVPB Q16H [facility] Rx#:[id number] Oral 480 Output: Urine 1160 1025 225 Other: Voiding Method Indwelling Catheter Indwelling Catheter # Bowel Movements 1 - Exam No acute distress, oriented 3. The patient is a bit somnolent but does respond appropriately, currently on Airvo at 40 l/min, fio2 60% HEENT examination is grossly unremarkable. Mucous membranes are dry. No oral lesions. Neck supple. Full range of motion. No adenopathy thyromegaly or neck vein distention. Cardiovascular examination reveals regular rhythm rate. S1-S2 normal. No S3 or S4. No discernible murmur noted. The patient's heart rate is 80 Lungs reveal Diminished breath sounds over right lower lobe, scattered crackles on the left, Pleurx catheter to anterior right chest is connected to Pleur-evac and wall suction, no air leak noted, there is minimal drainage in the Pleur- evac in order of 5 mL of dark serosanguineous fluid Abdomen soft and bowel sounds are heard. No masses or tenderness. Johnson catheter in place. Extremities are intact. No cyanosis clubbing or edema. Skin is without rash or lesion. Neurologic examination is brief but nonfocal. - Labs CBC & Chem 7: 12/18/17 05:45 12/18/17 05:45 Labs: Abnormal Lab Results - Last 24 Hours (Table) 12/17/17 12/17/17 12/17/17 Range/Units 11:56 16:50 20:44 RBC (4.30-5.90) m/uL Hgb (13.0-17.5) gm/dL Hct (39.0-53.0) % RDW (11.5-15.5) % Lymphocytes # (1.0-4.8) k/uL Sodium (137-145) mmol/L Glucose (74-99) mg/dL POC Glucose (mg/dL) 246 H 220 H 226 H (75-99) mg/dL Calcium (8.4-10.2) mg/dL Total Protein (6.3-8.2) g/dL Albumin (3.5-5.0) g/dL 12/18/17 12/18/17 12/18/17 Range/Units 05:45 05:45 06:42 RBC 2.97 L (4.30-5.90) m/uL Hgb 8.1 L (13.0-17.5) gm/dL Hct 26.0 L (39.0-53.0) % RDW 17.4 H (11.5-15.5) % Lymphocytes # 0.6 L (1.0-4.8) k/uL Sodium 136 L (137-145) mmol/L Glucose 50 L (74-99) mg/dL POC Glucose (mg/dL) 59 L (75-99) mg/dL Calcium 7.8 L (8.4-10.2) mg/dL Total Protein 5.8 L (6.3-8.2) g/dL Albumin 2.6 L (3.5-5.0) g/dL 12/18/17 12/18/17 Range/Units 07:01 09:14 RBC (4.30-5.90) m/uL Hgb (13.0-17.5) gm/dL Hct (39.0-53.0) % RDW (11.5-15.5) % Lymphocytes # (1.0-4.8) k/uL Sodium (137-145) mmol/L Glucose (74-99) mg/dL POC Glucose (mg/dL) 64 L 127 H (75-99) mg/dL Calcium (8.4-10.2) mg/dL Total Protein (6.3-8.2) g/dL Albumin (3.5-5.0) g/dL Microbiology - Last 24 Hours (Table) 12/16/17 15:27 Gram Stain - Final Sputum Sputum Culture - Final Staphylococcus aureus 12/14/17 15:42 Blood Culture - Preliminary Blood No Growth after 72 hours 12/14/17 11:25 Blood Culture - Preliminary Blood No Growth after 72 hours 12/16/17 10:17 Blood Culture - Preliminary Blood No Growth after 24 hours 12/16/17 09:38 Blood Culture - Preliminary Blood No Growth after 24 hours 12/16/17 13:45 Gram Stain - Preliminary Pleural Fluid Body Fluid Culture - Preliminary Assessment and Plan Plan: Assessment: Hypoxemic respiratory failure secondary to bilateral pneumonia, today's chest x- ray has been reviewed and shows right-sided lacunar pleural effusion, with the right-sided Pleurx in place, diffuse increased pulmonary vascular markings likely related to interstitial pneumonia On 12/18/2017 patient seen again. Last night patient did change his mind about obtaining CT chest, and showed hydropneumothorax on the right with Pleurx catheter within the pleural space, extensive abnormal groundglass opacity within the left upper lobe and left lower lobe smaller left pleural effusion, related to left lung pneumonia. Right pleuralcatheter was placed to suction, and initially there was a mild air leak, which has stopped. We will obtain a follow-up chest x-ray. Sputum culture was positive for MSSA, and currently patient is covered with accommodation of Zosyn, Levaquin and vancomycin, no fevers and last 24 hours. History of pancreatic carcinoma, status post recent chemotherapy Sepsis syndrome History of diabetes mellitus History of hyperlipidemia History of GERD Status post right-sided Pleurx catheter placement and wedge biopsy right lung, positive for adenocarcinoma. Status post decortication right lung History of neuropathy Plan: Obtain follow-up chest x-ray this morning, to evaluate reexpansion of the right lung. Continue current antibiotic coverage, sputum cultures positive for MSSA, patient's currently on Zosyn and Levaquin and vancomycin for left lung pneumonia. No fever, no chills and last 24 hours. Continues on high flow oxygen. Patient appears to be generally weak, pale and tired. Today's labs have been reviewed, chest X-rays are reviewed. Overall prognosis is extremely guarded, patient's CODE STATUS needs to be addressed again with the patient and the family in view of his declining status and underlying metastatic malignancy. I performed a history & physical examination of the patient and discussed their management with my nurse practitioner, Marii Franco. I reviewed the nurse practitioner's note and agree with the documented findings and plan of care. Lung sounds are positive for diminished breath sounds over right lower lobe, with diffuse crackles on the left. The findings and the impression was discussed with the patient. I attest to the documentation by the nurse practitioner. Time with Patient: Greater than 30
--- NOTE | 2017-12-18 10:52 | XR ---
EXAMINATION TYPE: XR chest 1V portable DATE OF EXAM: 12/18/2017 COMPARISON: 12/18/2017 HISTORY: Right-sided pneumothorax. Progress exam. TECHNIQUE: Single frontal view of the chest is obtained. FINDINGS: The previously questioned left-sided pneumothorax is not visualized and therefore again re presented a skin fold on the prior exam. There are persistent multifocal patchy opacities with obscur ation of the retrocardiac airspace and right heart border. Again surgical sutures are seen suspected in the right lower lung. There is unchanged size of the loculated right lower lung hydropneumothorax with pleural separation measuring approximately 3.8 cm. Right-sided Mediport is also unchanged. Cardi a mediastinal silhouette is again enlarged. Chronic fracture deformity of the right clavicle in its m idportion is seen with diffuse osseous demineralization. IMPRESSION: 1. Stable exam from the prior earlier on the same date with no change in the loculated right hydropne umothorax and stability of the right thoracostomy tube. 2. Probable skinfold on the left on the prior exam is no longer seen. No left-sided pneumothorax. 3. Similar multifocal opacities that may be on the basis of fluid overload.
--- NOTE | 2017-12-18 11:30 | P.PN ---
Subjective Noted hydropneumothorax with CT of the chest. Chest tube inserted. CODE STATUS needs to be evaluated with guarded prognosis for metastatic cancer. Lantus of restarted at 50 units was decreased to 30 units daily Objective - Vital Signs Vital signs: Vital Signs Temp 98.8 F 12/18/17 08:00 Pulse 92 12/18/17 11:00 Resp 20 12/18/17 11:00 BP 138/95 12/18/17 11:00 Pulse Ox 96 12/18/17 11:00 Intake & Output 12/17/17 12/18/17 12/18/17 18:59 06:59 18:59 Intake Total 2030 1525 620 Output Total 1160 1025 600 Balance 870 500 20 Weight 92.3 kg Intake: IV 1550 875 500 Levofloxacin 750Mg-D5w 150 150 Pmx 750 mg In Dextrose/ Water 1 150ml.bag @ 100 mls/hr IVPB Q24H [facility] Rx#: [id number] Magnesium Sulfate-D5w Pmx 200 1 gm In Dextrose/Water 1 100ml.bag @ 100 mls/hr IVPB Q1H [facility] Rx#: [id number] Piperacillin-Tazobactam 3 125 50 50 .375 gm In Sodium Chloride 0.9% 100 ml @ 25 mls/hr IVPB Q8H [facility] Rx#: [id number] Sodium Chloride 0.9% 1, 825 825 300 000 ml @ 75 mls/hr IV . [id number] [facility] Rx#:[id number] Vancomycin 1,500 mg In 250 Sodium Chloride 0.9% 250 ml @ 125 mls/hr IVPB Q12H [facility] Rx#:[id number] Intake, IV Titration 650 Amount Piperacillin-Tazobactam 3 100 .375 gm In Sodium Chloride 0.9% 100 ml @ 25 mls/hr IVPB Q8H [facility] Rx#: [id number] Sodium Chloride 0.9% 1, 300 000 ml @ 75 mls/hr IV . [id number] [facility] Rx#:[id number] Vancomycin 1,500 mg In 250 Sodium Chloride 0.9% 250 ml @ 125 mls/hr IVPB Q16H [facility] Rx#:[id number] Oral 480 120 Output: Urine 1160 1025 600 Other: Voiding Method Indwelling Catheter Indwelling Catheter # Bowel Movements 1 - Constitutional General appearance: Present: mild distress - EENT Eyes: Present: PERRLA Ears: bilateral: normal - Neck Neck: Present: normal ROM - Respiratory Details: Right chest tube to suction in place Respiratory: right: diminished, bilateral: CTA - Cardiovascular Rhythm: regular - Gastrointestinal General gastrointestinal: Present: normal bowel sounds, soft - Integumentary Integumentary: Present: normal - Neurologic Neurologic: Present: CNII-XII intact - Musculoskeletal Musculoskeletal: Present: generalized weakness - Psychiatric Psychiatric: Present: A&O x's 3, appropriate affect, intact judgment & insight - Labs CBC & Chem 7: 12/18/17 05:45 12/18/17 05:45 Labs: Abnormal Lab Results - Last 24 Hours (Table) 12/17/17 12/17/17 12/17/17 Range/Units 11:56 16:50 20:44 RBC (4.30-5.90) m/uL Hgb (13.0-17.5) gm/dL Hct (39.0-53.0) % RDW (11.5-15.5) % Lymphocytes # (1.0-4.8) k/uL Sodium (137-145) mmol/L Glucose (74-99) mg/dL POC Glucose (mg/dL) 246 H 220 H 226 H (75-99) mg/dL Calcium (8.4-10.2) mg/dL Total Protein (6.3-8.2) g/dL Albumin (3.5-5.0) g/dL 12/18/17 12/18/17 12/18/17 Range/Units 05:45 05:45 06:42 RBC 2.97 L (4.30-5.90) m/uL Hgb 8.1 L (13.0-17.5) gm/dL Hct 26.0 L (39.0-53.0) % RDW 17.4 H (11.5-15.5) % Lymphocytes # 0.6 L (1.0-4.8) k/uL Sodium 136 L (137-145) mmol/L Glucose 50 L (74-99) mg/dL POC Glucose (mg/dL) 59 L (75-99) mg/dL Calcium 7.8 L (8.4-10.2) mg/dL Total Protein 5.8 L (6.3-8.2) g/dL Albumin 2.6 L (3.5-5.0) g/dL 12/18/17 12/18/17 Range/Units 07:01 09:14 RBC (4.30-5.90) m/uL Hgb (13.0-17.5) gm/dL Hct (39.0-53.0) % RDW (11.5-15.5) % Lymphocytes # (1.0-4.8) k/uL Sodium (137-145) mmol/L Glucose (74-99) mg/dL POC Glucose (mg/dL) 64 L 127 H (75-99) mg/dL Calcium (8.4-10.2) mg/dL Total Protein (6.3-8.2) g/dL Albumin (3.5-5.0) g/dL Microbiology - Last 24 Hours (Table) 12/16/17 13:45 Gram Stain - Preliminary Pleural Fluid Body Fluid Culture - Preliminary 12/16/17 15:27 Gram Stain - Final Sputum Sputum Culture - Final Staphylococcus aureus 12/14/17 15:42 Blood Culture - Preliminary Blood No Growth after 72 hours 12/14/17 11:25 Blood Culture - Preliminary Blood No Growth after 72 hours 12/16/17 10:17 Blood Culture - Preliminary Blood No Growth after 24 hours 12/16/17 09:38 Blood Culture - Preliminary Blood No Growth after 24 hours - Imaging and Cardiology Chest x-ray: report reviewed CT scan - chest: report reviewed Assessment and Plan Plan: Assessment Pneumonia with sepsis Hypoxic respiratory failure Hydropneumothorax chest tube in place Dehydration Pancreatic cancer with metastatic lung disease and chemotherapy GERD Diabetes type 2 Hyperlipidemia Adenocarcinoma of the lung Plan Continue with consultation with infectious disease oncology and pulmonology Patient continues on Levaquin and Zosyn and vancomycin Need to discuss CODE STATUS with patient and
[2017-12-18 12:02] LABS: Glucose,Whole Blood 100 mg/dL (75-99)
[2017-12-18] MEDS: VANCOMYCIN 1,500 MG in SODIUM CHLORIDE 0.9% 250 ML IVPB SCH (13:07)
[2017-12-18] MEDS: SODIUM CHLORIDE 0.9% 1,000 ML IV SCH (13:08)
[2017-12-18] MEDS: ALPRAZolam 0.5 MG TAB PO PRN ×2 (13:23→21:30)
[2017-12-18 17:19] LABS: Glucose,Whole Blood 170 mg/dL (75-99)
[2017-12-18] MEDS ORDERED: INSULIN DETEMIR 100 UNIT/ML 10 ML VIAL SQ SCH (21:00)
[2017-12-18 21:30] LABS: Glucose,Whole Blood 201 mg/dL (75-99)
[2017-12-18] MEDS: FAMOTIDINE 20 MG TAB PO SCH (21:30)
[2017-12-19] MEDS: ceFAZolin IN SWFI 2 GM/20 ML SYRINGE IVP SCH ×4 (00:24→23:45)
[2017-12-19] MEDS: SODIUM CHLORIDE 0.9% 1,000 ML IV SCH ×2 (00:24→12:53)
[2017-12-19] MEDS: IPRATROPIUM-ALBUTEROL 3 ML NEB INHALATION SCH ×7 (01:16→23:41)
[2017-12-19 03:11] LABS: Glucose,Whole Blood 97 mg/dL (75-99)
[2017-12-19 06:03] LABS: Anisocytosis Slight; Basophils % (A) 1 %; Eosinophils # (A) 0.3 k/uL (0-0.7); Eosinophils % (A) 5 %; HCT 26.1 % (39.0-53.0); HGB 8.3 gm/dL (13.0-17.5); Hypochromasia Moderate; Lymphocytes # (A) 0.6 k/uL (1.0-4.8); Lymphocytes % (A) 8 %; MCH 27.6 pg (25.0-35.0); MCHC 31.7 g/dL (31.0-37.0); MCV 87.1 fL (80.0-100.0); Mean Platelet Volume 7.2; Monocytes # (A) 0.5 k/uL (0-1.0); Monocytes % (A) 7 %; Neutrophils # (A) 5.4 k/uL (1.3-7.7); Neutrophils % (A) 78 %; Platelet Count 422 k/uL (150-450); RDW 17.7 % (11.5-15.5)
[2017-12-19 06:15] LABS: ALT 63 U/L (21-72); AST 70 U/L (17-59); Albumin 2.5 g/dL (3.5-5.0); Alkaline Phosphatase 69 U/L (38-126); Anion Gap 4 mmol/L; Blood Urea Nitrogen 11 mg/dL (9-20); Calcium 8.1 mg/dL (8.4-10.2); Carbon Dioxide 28 mmol/L (22-30); Chloride 104 mmol/L (98-107); Glucose 55 mg/dL (74-99); Magnesium 1.9 mg/dL (1.6-2.3); Phosphorus 2.9 mg/dL (2.5-4.5); Potassium 4.2 mmol/L (3.5-5.1); Sodium 136 mmol/L (137-145); Total Bilirubin 0.2 mg/dL (0.2-1.3); Total Protein 5.6 g/dL (6.3-8.2)
[2017-12-19] MEDS: INSULIN ASPART 100 UNIT/ML 1 ML 10 ML VIAL SQ SCH ×4 (06:36→22:06)
[2017-12-19 06:45] LABS: Glucose,Whole Blood 54 mg/dL (75-99)
[2017-12-19 06:58] LABS: Glucose,Whole Blood 64 mg/dL (75-99)
[2017-12-19 07:18] LABS: Glucose,Whole Blood 104 mg/dL (75-99)
--- NOTE | 2017-12-19 07:22 | PN ---
PROGRESS NOTE DATE OF SERVICE: 12/18/2017 REASON FOR FOLLOWUP: Pneumonia. INTERVAL HISTORY: The patient is afebrile. He seemed to have increase in shortness of breath and is on maximal noninvasive nasal cannula oxygen. The patient denies having any chest pain. He did have some cough, weakness due to his feeling weak and tired, no energy. No nausea, vomiting and no diarrhea. PHYSICAL EXAMINATION: Blood pressure 125/53 with a pulse of 92, temperature 98.8. He is 97% on 40% FiO2. General description is an elderly male, lying in bed in no distress. RESPIRATORY SYSTEM: Unlabored breathing with decreased breath sounds in the bases, no wheeze. HEART: S1, S2. Regular rate and rhythm. ABDOMEN: Soft, no tenderness. EXTREMITIES: No edema of the feet. LABS: Hemoglobin 8.1, white count 7.0, BUN of 12, creatinine 0.74. Electrolytes have been normal. Liver enzymes are normal. Sputum showing MSSA. Blood culture has been negative. DIAGNOSTIC IMPRESSION AND PLAN: Patient with acute respiratory failure which is likely multifactorial in a patient who did have evidence of a pneumonia, sputum, methicillin-sensitive Staphylococcus aureus. Antibiotic will be adjusted to cefazolin 2 g q.8 and continue with Levaquin. Discontinue vancomycin to decrease risk of nephrotoxicity. Overall prognosis remains to be poor. was present at bedside. All her questions and concerns were answered. MMODL / IJN: [id number] /
[2017-12-19 07:36] LABS: Glucose,Whole Blood 132 mg/dL (75-99)
--- NOTE | 2017-12-19 08:07 | XR ---
EXAMINATION TYPE: XR chest 1V DATE OF EXAM: 12/19/2017 CLINICAL HISTORY: Difficulty breathing and pneumonia progress study. TECHNIQUE: Single AP portable upright view of the chest is obtained. COMPARISON: Chest x-ray from one day earlier and older chest x-rays. CT chest 2 days ago. FINDINGS: There is stable right internal jugular Mediport catheter. There is right basilar chest tub e redemonstrated. Adjacent right lateral basilar hydropneumothorax is stable. There is diffuse ground glass opacity bilaterally with more focal areas of consolidation in the left lung base redemonstrated . Small to tiny left pleural effusion is seen better on recent CT. Cardiomegaly is redemonstrated. Ol d right mid clavicular fracture is redemonstrated. IMPRESSION: Overall stable findings, right-sided chest tube with persistent lateral basilar hydropn eumothorax. Cardiomegaly with diffuse groundglass opacity bilaterally consistent with edema and/or in filtrates with more focal prominent infiltrates in the left mid to lower lung all redemonstrated.
--- NOTE | 2017-12-19 09:43 | P.PN ---
Subjective Progress Note Date: 12/19/17 Principal diagnosis: Acute hypoxemic respiratory failure secondary to bilateral pneumonia Pulmonary/critical care consultation dated 12/16/2017 This is a 77-year-old white male well-known to me. He presented to the emergency department on December 14 with fever. He's been undergoing chemotherapy for pancreatic cancer with his last chemo about 14 days ago. He apparently presented to the oncology office for another round of chemotherapy was noted to have a high fever and sent to the emergency department for evaluation. He was evaluated in the ER on December 14. He was admitted to the hospital with a diagnosis of pneumonia/sepsis. The patient had cough and some phlegm production and apparently. He also has a history of a right Pleurx catheter in place and he has a Mediport for chemotherapy. The patient was admitted to the floor. I was only consulted apparently sometime this morning. His respiratory status to client he became hypotensive and hypoxemic and we transferred the patient to the ICU for further management. His chest x-ray shows bilateral infiltrates. The patient is responsive. A Johnson catheter was placed. The chest x-ray was reviewed. The patient also has a history of diabetes, gastroesophageal reflux disease, hyperlipidemia, and previous right- sided thoracentesis and thoracoscopic decortication of the right lung with right wedge biopsy. That apparently was positive for adenocarcinoma. On 12/17/2017 patient seen again in follow-up in the intensive care units is awake and alert, he remains on AIRVO at 50 L/m, and FiO2 of 50%, his pulse ox is 92-94%, patient did have febrile episodes last night, with T-max of 101.6F. Cultures were reviewed, urine, blood, oral fluid and sputum cultures are negative thus far, final cultures are pending. Patient had refused CT chest this morning, he states he does not want any more tests. He is covered with a combination of vancomycin and Zosyn. We will add Levaquin. His chest x-ray has been reviewed by Dr. Levy and shows loculated right lower lung pneumothorax no significant change, diffuse increased pulmonary vascular markings and diffuse increased lung markings in the left lung most likely related to interstitial pneumonia rather than fluid overload. Pleural fluid cytology is pending. Today's labs have been reviewed, Sada BC 6.9, hemoglobin is 8.4, sodium is 136, there is electrolytes and renal profile is within normal limits. Patient is weak, he has no appetite. Lung sounds are positive for diminished breath sounds over right lower lobe, and some scattered crackles on the left. On 12/18/2017 patient seen in follow-up in the intensive care unit, he remains on high flow oxygen, AIRVO at 40 L/m, and FiO2 of 60%, IV 0.9 normal saline at a rate of 75 ML per hour, patient is sleepy, but easily arousable to verbal stimuli, he denies acute distress, appears weak, pale and fatigued. Patient's Pleurx catheter has been connected to Pleur-evac and continuous wall suction this was done in view of a loculated pneumothorax on the right. After initial connection to suction, there was some air leak, which has now stopped. We will obtain a repeat chest x-ray now. There are diminished breath sounds on the right, left lung is positive for fine inspiratory crackles. Patient has interstitial pneumonia on the left, and sputum cultures were positive for MSSA. Currently covered with a combination of Zosyn, Levaquin and vancomycin. No fevers in the last 24 hours. Overall prognosis remains poor, he remains a full code at this time, may need to address this to again with the patient and his family. On 12/19/2017 patient seen in follow-up in the intensive care unit, is more alert today, and conversant. Not in any acute distress, remains on high flow oxygen, currently at 40 L/m minute, and FiO2 of 50%. He is Pleurx catheter connected to suction, and there is a continuous air leak noted, and there has been 280 of dark bloody pleural fluid in the Pleur-evac. His chest x-ray has been reviewed, and showed overall stable findings, with right-sided chest tube and persistent bilateral basilar hydropneumothorax. There is cardiomegaly with diffuse ground glass opacity bilaterally and this is likely to underlying interstitial pneumonia, than fluid overload. Fever, no chills, vital signs are stable. Lung sounds real fine crackles on the left, and pleural rub on the right. A pneumatic coverage includes Kefzol, Levaquin, IDservice is following. We had a meeting with the patient's last night, and patient's prognosis is poor to underlying metastatic malignancy. Patient's CODE STATUS has been changed to DO NOT RESUSCITATE, hospice has been consulted to meet with the family and discuss options of hospice/palliative care. Objective - Vital Signs Vital signs: Vital Signs Temp 98.8 F 12/19/17 08:00 Pulse 96 12/19/17 08:41 Resp 24 12/19/17 08:00 BP 124/60 12/19/17 08:00 Pulse Ox 94 L 12/19/17 08:25 Intake & Output 12/18/17 12/19/17 12/19/17 18:59 06:59 18:59 Intake Total 2410 1000 150 Output Total 1470 1650 250 Balance 940 -650 -100 Weight 92.3 kg 84 kg Intake: IV 1690 1000 150 Levofloxacin 750Mg-D5w 150 Pmx 750 mg In Dextrose/ Water 1 150ml.bag @ 100 mls/hr IVPB Q24H [facility] Rx#: [id number] Piperacillin-Tazobactam 3 150 100 .375 gm In Sodium Chloride 0.9% 100 ml @ 25 mls/hr IVPB Q8H [facility] Rx#: [id number] Sodium Chloride 0.9% 1, 890 900 150 000 ml @ 75 mls/hr IV . [id number] [facility] Rx#:[id number] Vancomycin 1,500 mg In 250 Sodium Chloride 0.9% 250 ml @ 125 mls/hr IVPB Q12H [facility] Rx#:[id number] Vancomycin 1,500 mg In 250 Sodium Chloride 0.9% 250 ml @ 125 mls/hr IVPB Q16H [facility] Rx#:[id number] Oral 720 Output: Chest Tube Drainage 150 75 Right Anterior Chest 150 75 Urine 1320 1575 250 Other: Voiding Method Indwelling Catheter Indwelling Catheter Indwelling Catheter - Exam No acute distress, oriented 3. The patient is a bit somnolent but does respond appropriately, currently on Airvo at 40 l/min, fio2 50% HEENT examination is grossly unremarkable. Mucous membranes are dry. No oral lesions. Neck supple. Full range of motion. No adenopathy thyromegaly or neck vein distention. Cardiovascular examination reveals regular rhythm rate. S1-S2 normal. No S3 or S4. No discernible murmur noted. The patient's heart rate is 80 Lungs reveal pleural rub over right lower lobe, scattered crackles on the left, Pleurx catheter to anterior right chest is connected to Pleur-evac and wall suction, continuous air leak noted, there is 280 of dark bloody pleural fluid is yesterday in the Pleur-evac Abdomen soft and bowel sounds are heard. No masses or tenderness. Johnson catheter in place. Extremities are intact. No cyanosis clubbing or edema. Skin is without rash or lesion. Neurologic examination is brief but nonfocal. - Labs CBC & Chem 7: 12/19/17 05:18 12/19/17 05:18 Labs: Abnormal Lab Results - Last 24 Hours (Table) 12/18/17 12/18/17 12/18/17 Range/Units 11:50 17:07 21:19 RBC (4.30-5.90) m/uL Hgb (13.0-17.5) gm/dL Hct (39.0-53.0) % RDW (11.5-15.5) % Lymphocytes # (1.0-4.8) k/uL Sodium (137-145) mmol/L Glucose (74-99) mg/dL POC Glucose (mg/dL) 100 H 170 H 201 H (75-99) mg/dL Calcium (8.4-10.2) mg/dL AST (17-59) U/L Total Protein (6.3-8.2) g/dL Albumin (3.5-5.0) g/dL 12/19/17 12/19/17 12/19/17 Range/Units 05:18 05:18 06:32 RBC 3.00 L (4.30-5.90) m/uL Hgb 8.3 L (13.0-17.5) gm/dL Hct 26.1 L (39.0-53.0) % RDW 17.7 H (11.5-15.5) % Lymphocytes # 0.6 L (1.0-4.8) k/uL Sodium 136 L (137-145) mmol/L Glucose 55 L (74-99) mg/dL POC Glucose (mg/dL) 54 L (75-99) mg/dL Calcium 8.1 L (8.4-10.2) mg/dL AST 70 H (17-59) U/L Total Protein 5.6 L (6.3-8.2) g/dL Albumin 2.5 L (3.5-5.0) g/dL 12/19/17 12/19/17 12/19/17 Range/Units 06:46 07:07 07:24 RBC (4.30-5.90) m/uL Hgb (13.0-17.5) gm/dL Hct (39.0-53.0) % RDW (11.5-15.5) % Lymphocytes # (1.0-4.8) k/uL Sodium (137-145) mmol/L Glucose (74-99) mg/dL POC Glucose (mg/dL) 64 L 104 H 132 H (75-99) mg/dL Calcium (8.4-10.2) mg/dL AST (17-59) U/L Total Protein (6.3-8.2) g/dL Albumin (3.5-5.0) g/dL Microbiology - Last 24 Hours (Table) 12/14/17 15:42 Blood Culture - Preliminary Blood No Growth after 96 hours 12/14/17 11:25 Blood Culture - Preliminary Blood No Growth after 96 hours 12/16/17 10:17 Blood Culture - Preliminary Blood No Growth after 48 hours 12/16/17 09:38 Blood Culture - Preliminary Blood No Growth after 48 hours 12/16/17 13:45 Gram Stain - Preliminary Pleural Fluid Body Fluid Culture - Preliminary 12/16/17 15:27 Gram Stain - Final Sputum Sputum Culture - Final Staphylococcus aureus Assessment and Plan Plan: Assessment: Hypoxemic respiratory failure secondary to bilateral pneumonia, today's chest x- ray has been reviewed and shows right-sided lacunar pleural effusion, with the right-sided Pleurx in place, diffuse increased pulmonary vascular markings likely related to interstitial pneumonia On 12/18/2017 patient seen again. Last night patient did change his mind about obtaining CT chest, and showed hydropneumothorax on the right with Pleurx catheter within the pleural space, extensive abnormal groundglass opacity within the left upper lobe and left lower lobe smaller left pleural effusion, related to left lung pneumonia. Right pleuralcatheter was placed to suction, and initially there was a mild air leak, which has stopped. We will obtain a follow-up chest x-ray. Sputum culture was positive for MSSA, and currently patient is covered with accommodation of Zosyn, Levaquin and vancomycin, no fevers and last 24 hours. On 12/19/2017 patient remains in the intensive care unit, requiring high flow oxygen, currently at 40 L/m, and FiO2 50%, there has been 280 mL of dark bloody pleural fluid since yesterday, and the Pleur-evac. There is a continuous air leak noted. ID service is following, and switch the IV antibiotics to and Levaquin. Chest x-ray has been reviewed, and shows persistent right-sided basilar hydropneumothorax, cardiomegaly with diffuse groundglass opacity bilaterally, consistent with infiltrates related to pneumonia. History of pancreatic carcinoma, status post recent chemotherapy Sepsis syndrome History of diabetes mellitus History of hyperlipidemia History of GERD Status post right-sided Pleurx catheter placement and wedge biopsy right lung, positive for adenocarcinoma. Status post decortication right lung History of neuropathy Plan: Continue current antibiotic coverage, no fever, no chills, sputum culture was positive for MSSA. Maintaining right Pleurx catheter to suction, there is continuous air leak, and there has been 280 mL of dark bloody pleural fluid and he since yesterday. Yesterday we discussed patient's status and prognosis with patient's and the patient, and overall prognosis is poor based on underlying metastatic malignancy. The decision was to switch to quit status to DO NOT RESUSCITATE, and hospice has been consulted to discuss options of palliative care/hospice with the patient and the family. I performed a history & physical examination of the patient and discussed their management with my nurse practitioner, Marii Franco. I reviewed the nurse practitioner's note and agree with the documented findings and plan of care. Lung sounds are positive for pleural rub breath sounds over right lower lobe, with diffuse crackles on the left. The findings and the impression was discussed with the patient. I attest to the documentation by the nurse practitioner. Time with Patient: Greater than 30
[2017-12-19] MEDS: GABAPENTIN 400 MG CAP PO SCH ×3 (10:00→22:06)
[2017-12-19] MEDS: MAGNESIUM SULFATE-D5W PMX 1 GM in DEXTROSE/WATER 1 100ML.BAG IVPB SCH ×2 (10:00→12:52)
[2017-12-19] MEDS: NYSTATIN 100,000 UNIT/ML SUSP 500,000 UNIT/5 ML CUP PO SCH ×4 (10:01→22:07)
[2017-12-19] MEDS: HEPARIN SODIUM,PORCINE 5,000 UNIT/ML 1 ML VIAL SQ SCH ×2 (10:01→22:06)
[2017-12-19] MEDS: FAMOTIDINE 20 MG TAB PO SCH ×2 (10:01→22:06)
[2017-12-19] MEDS: SALT AND SODA MOUTHWASH 1,000 ML PO SCH ×3 (10:01→17:08)
[2017-12-19] MEDS: LEVOFLOXACIN 750MG-D5W PMX 750 MG in DEXTROSE/WATER 1 150ML.BAG IVPB SCH (10:01)
[2017-12-19] MEDS: SERTRALINE 50 MG TAB PO SCH (10:01)
[2017-12-19 12:03] LABS: Glucose,Whole Blood 191 mg/dL (75-99)
--- NOTE | 2017-12-19 12:32 | P.PN ---
Subjective Dr. Ruiz and and patient discussed CODE STATUS patient is now a no code. Patient wants to continue present therapy until he is able to see his family. A put in a request for him hospital staff toxicologist to visit with family and patient. Plan is for hospice care Objective - Vital Signs Vital signs: Vital Signs Temp 98.8 F 12/19/17 08:00 Pulse 93 12/19/17 12:14 Resp 18 12/19/17 11:00 BP 141/76 12/19/17 11:00 Pulse Ox 97 12/19/17 11:00 Intake & Output 12/18/17 12/19/17 12/19/17 18:59 06:59 18:59 Intake Total 2410 1000 725 Output Total 1470 1650 555 Balance 940 -650 170 Weight 92.3 kg 84 kg Intake: IV 1690 1000 625 Levofloxacin 750Mg-D5w 150 150 Pmx 750 mg In Dextrose/ Water 1 150ml.bag @ 100 mls/hr IVPB Q24H [facility] Rx#: [id number] Magnesium Sulfate-D5w Pmx 100 1 gm In Dextrose/Water 1 100ml.bag @ 100 mls/hr IVPB Q1H [facility] Rx#: [id number] Piperacillin-Tazobactam 3 150 100 .375 gm In Sodium Chloride 0.9% 100 ml @ 25 mls/hr IVPB Q8H [facility] Rx#: [id number] Sodium Chloride 0.9% 1, 890 900 375 000 ml @ 75 mls/hr IV . [id number] [facility] Rx#:[id number] Vancomycin 1,500 mg In 250 Sodium Chloride 0.9% 250 ml @ 125 mls/hr IVPB Q12H [facility] Rx#:[id number] Vancomycin 1,500 mg In 250 Sodium Chloride 0.9% 250 ml @ 125 mls/hr IVPB Q16H [facility] Rx#:[id number] Intake, IV Titration 100 Amount Magnesium Sulfate-D5w Pmx 100 1 gm In Dextrose/Water 1 100ml.bag @ 100 mls/hr IVPB Q1H [facility] Rx#: [id number] Oral 720 Output: Chest Tube Drainage 150 75 Right Anterior Chest 150 75 Urine 1320 1575 555 Other: Voiding Method Indwelling Catheter Indwelling Catheter Indwelling Catheter - Constitutional General appearance: Present: mild distress - EENT Eyes: Present: PERRLA Ears: bilateral: normal - Neck Neck: Present: normal ROM - Respiratory Respiratory: right: diminished - Cardiovascular Rhythm: regular - Gastrointestinal General gastrointestinal: Present: soft - Integumentary Integumentary: Present: normal - Neurologic Neurologic: Present: CNII-XII intact - Musculoskeletal Musculoskeletal: Present: generalized weakness - Psychiatric Psychiatric: Present: A&O x's 3, appropriate affect, intact judgment & insight - Labs CBC & Chem 7: 12/19/17 05:18 12/19/17 05:18 Labs: Abnormal Lab Results - Last 24 Hours (Table) 12/18/17 12/18/17 12/19/17 Range/Units 17:07 21:19 05:18 RBC 3.00 L (4.30-5.90) m/uL Hgb 8.3 L (13.0-17.5) gm/dL Hct 26.1 L (39.0-53.0) % RDW 17.7 H (11.5-15.5) % Lymphocytes # 0.6 L (1.0-4.8) k/uL Sodium (137-145) mmol/L Glucose (74-99) mg/dL POC Glucose (mg/dL) 170 H 201 H (75-99) mg/dL Calcium (8.4-10.2) mg/dL AST (17-59) U/L Total Protein (6.3-8.2) g/dL Albumin (3.5-5.0) g/dL 12/19/17 12/19/17 12/19/17 Range/Units 05:18 06:32 06:46 RBC (4.30-5.90) m/uL Hgb (13.0-17.5) gm/dL Hct (39.0-53.0) % RDW (11.5-15.5) % Lymphocytes # (1.0-4.8) k/uL Sodium 136 L (137-145) mmol/L Glucose 55 L (74-99) mg/dL POC Glucose (mg/dL) 54 L 64 L (75-99) mg/dL Calcium 8.1 L (8.4-10.2) mg/dL AST 70 H (17-59) U/L Total Protein 5.6 L (6.3-8.2) g/dL Albumin 2.5 L (3.5-5.0) g/dL 12/19/17 12/19/17 12/19/17 Range/Units 07:07 07:24 11:52 RBC (4.30-5.90) m/uL Hgb (13.0-17.5) gm/dL Hct (39.0-53.0) % RDW (11.5-15.5) % Lymphocytes # (1.0-4.8) k/uL Sodium (137-145) mmol/L Glucose (74-99) mg/dL POC Glucose (mg/dL) 104 H 132 H 191 H (75-99) mg/dL Calcium (8.4-10.2) mg/dL AST (17-59) U/L Total Protein (6.3-8.2) g/dL Albumin (3.5-5.0) g/dL Microbiology - Last 24 Hours (Table) 12/16/17 09:38 Blood Culture - Preliminary Blood No Growth after 72 hours 12/16/17 13:45 Gram Stain - Preliminary Pleural Fluid Body Fluid Culture - Preliminary 12/14/17 15:42 Blood Culture - Preliminary Blood No Growth after 96 hours 12/14/17 11:25 Blood Culture - Preliminary Blood No Growth after 96 hours 12/16/17 10:17 Blood Culture - Preliminary Blood No Growth after 48 hours 12/16/17 15:27 Gram Stain - Final Sputum Sputum Culture - Final Staphylococcus aureus - Imaging and Cardiology Chest x-ray: report reviewed CT scan - chest: report reviewed Assessment and Plan Plan: Assessment Pneumonia with sepsis Staph aureus Hypoxic respiratory failure Hydropneumothorax with chest tube Dehydration Pancreatic cancer lung cancer adenocarcinoma post chemotherapy has Pleurx catheter Chronic anemia Plan Continue consultation with pulmonology infectious disease and oncology Plan is to continue present therapy until patient sees family Hospice consultation Continue present antibiotics Levaquin Cefazolin Hospital staff toxicologist consultation
[2017-12-19] MEDS: methylPREDNISolone SOD SUCCI 125 MG/2 ML VIAL IV SCH ×3 (12:51→23:45)
--- NOTE | 2017-12-19 13:05 | PN ---
PROGRESS NOTE DATE OF SERVICE: 12/19/2017 REASON FOR FOLLOWUP: Pneumonia, MSSA. INTERVAL HISTORY: The patient is currently afebrile. He has been complaining of shortness of breath. Denies having any chest pain. Still requiring high flow oxygen. O2 SATs have improved. Not on any pressor support. No nausea, no vomiting. No abdominal pain or any diarrhea. PHYSICAL EXAMINATION: Blood pressure 140/107 with a pulse of 90, temperature 98, he is 97% on 40% FiO2. General description is an elderly male lying in bed in no distress. RESPIRATORY SYSTEM: Unlabored breathing with decreased breath sounds at the base, no wheeze. HEART: S1, S2. Regular rate and rhythm. ABDOMEN: Soft, nontender. EXTREMITIES: No edema of the feet. LABS: Hemoglobin 8.8, white count of 10.0, BUN of 11, creatinine 0.70. DIAGNOSTIC IMPRESSION AND PLAN: Patient with pneumonia with methicillin-susceptible Staphylococcus aureus. Blood pressure has been negative. Currently on cefazolin and Levaquin which will be continued and continue supportive care. was present at the bedside. Questions were answered. MMODL / IJN: [id number] /
[2017-12-19] MEDS: ALPRAZolam 0.5 MG TAB PO PRN ×2 (15:17→22:06)
--- NOTE | 2017-12-19 16:46 | P.PN ---
Subjective Progress Note Date: 12/19/17 Principal diagnosis: pancreatic adenocarcinoma s/p 1st cycle of chemo Pt seen in f/u, he is on high flow O2, he has difficulty completing a sentence due to SOB, he does not feel his breathing is better or worse today, he continues to have mostly non-productive cough, no fever, appetite is fair, no nausea, vomiting, chest pain, abd cramping, he cannot remember his last BM, no swelling in the legs. Objective - Vital Signs Vital signs: Vital Signs Temp 98.2 F 12/19/17 12:00 Pulse 93 12/19/17 15:26 Resp 44 H 12/19/17 15:00 BP 141/77 12/19/17 15:00 Pulse Ox 95 12/19/17 15:00 Intake & Output 12/18/17 12/19/17 12/19/17 18:59 06:59 18:59 Intake Total 2410 1000 1465 Output Total 1470 1650 1245 Balance 940 -650 220 Weight 92.3 kg 84 kg Intake: IV 1690 1000 1050 Levofloxacin 750Mg-D5w 150 150 Pmx 750 mg In Dextrose/ Water 1 150ml.bag @ 100 mls/hr IVPB Q24H [facility] Rx#: [id number] Magnesium Sulfate-D5w Pmx 300 1 gm In Dextrose/Water 1 100ml.bag @ 100 mls/hr IVPB Q1H [facility] Rx#: [id number] Piperacillin-Tazobactam 3 150 100 .375 gm In Sodium Chloride 0.9% 100 ml @ 25 mls/hr IVPB Q8H [facility] Rx#: [id number] Sodium Chloride 0.9% 1, 890 900 600 000 ml @ 75 mls/hr IV . [id number] [facility] Rx#:[id number] Vancomycin 1,500 mg In 250 Sodium Chloride 0.9% 250 ml @ 125 mls/hr IVPB Q12H [facility] Rx#:[id number] Vancomycin 1,500 mg In 250 Sodium Chloride 0.9% 250 ml @ 125 mls/hr IVPB Q16H [facility] Rx#:[id number] Intake, IV Titration 100 Amount Magnesium Sulfate-D5w Pmx 100 1 gm In Dextrose/Water 1 100ml.bag @ 100 mls/hr IVPB Q1H [facility] Rx#: [id number] Oral 720 240 Lipid 75 Sodium Chloride 0.9% 1, 75 000 ml @ 75 mls/hr IV . [id number] [facility] Rx#:[id number] Output: Chest Tube Drainage 150 75 150 Right Anterior Chest 150 75 150 Urine 1320 1575 1095 Other: Voiding Method Indwelling Catheter Indwelling Catheter Indwelling Catheter - Constitutional General appearance: Present: cooperative, mild distress, thin - EENT Eyes: Present: anicteric sclerae, EOMI ENT: Present: hearing grossly normal - Respiratory Respiratory: right: diminished (lower 1/3 of lung), bilateral: rhonchi ( scattered) - Cardiovascular Heart sounds: normal: S1, S2 - Peripheral edema leg Peripheral Edema: bilateral: None - Gastrointestinal General gastrointestinal: Present: normal bowel sounds, soft. Absent: absent bowel sounds, decreased bowel sounds, distended, hepatomegaly, hyperactive bowel sounds, organomegaly, rigid, scaphoid, splenomegaly, tenderness, umbilical hernia, ventral hernia - Neurologic Neurologic: Present: CNII-XII intact - Musculoskeletal Musculoskeletal: Present: generalized weakness - Psychiatric Psychiatric: Present: A&O x's 3, appropriate affect, intact judgment & insight - Labs CBC & Chem 7: 12/19/17 05:18 12/19/17 05:18 Labs: Abnormal Lab Results - Last 24 Hours (Table) 12/18/17 12/18/17 12/19/17 Range/Units 17:07 21:19 05:18 RBC 3.00 L (4.30-5.90) m/uL Hgb 8.3 L (13.0-17.5) gm/dL Hct 26.1 L (39.0-53.0) % RDW 17.7 H (11.5-15.5) % Lymphocytes # 0.6 L (1.0-4.8) k/uL Sodium (137-145) mmol/L Glucose (74-99) mg/dL POC Glucose (mg/dL) 170 H 201 H (75-99) mg/dL Calcium (8.4-10.2) mg/dL AST (17-59) U/L Total Protein (6.3-8.2) g/dL Albumin (3.5-5.0) g/dL 12/19/17 12/19/17 12/19/17 Range/Units 05:18 06:32 06:46 RBC (4.30-5.90) m/uL Hgb (13.0-17.5) gm/dL Hct (39.0-53.0) % RDW (11.5-15.5) % Lymphocytes # (1.0-4.8) k/uL Sodium 136 L (137-145) mmol/L Glucose 55 L (74-99) mg/dL POC Glucose (mg/dL) 54 L 64 L (75-99) mg/dL Calcium 8.1 L (8.4-10.2) mg/dL AST 70 H (17-59) U/L Total Protein 5.6 L (6.3-8.2) g/dL Albumin 2.5 L (3.5-5.0) g/dL 12/19/17 12/19/17 12/19/17 Range/Units 07:07 07:24 11:52 RBC (4.30-5.90) m/uL Hgb (13.0-17.5) gm/dL Hct (39.0-53.0) % RDW (11.5-15.5) % Lymphocytes # (1.0-4.8) k/uL Sodium (137-145) mmol/L Glucose (74-99) mg/dL POC Glucose (mg/dL) 104 H 132 H 191 H (75-99) mg/dL Calcium (8.4-10.2) mg/dL AST (17-59) U/L Total Protein (6.3-8.2) g/dL Albumin (3.5-5.0) g/dL Microbiology - Last 24 Hours (Table) 12/14/17 11:25 Blood Culture - Preliminary Blood No Growth after 120 hours 12/16/17 10:17 Blood Culture - Preliminary Blood No Growth after 72 hours 12/16/17 09:38 Blood Culture - Preliminary Blood No Growth after 72 hours 12/16/17 13:45 Gram Stain - Preliminary Pleural Fluid Body Fluid Culture - Preliminary 12/14/17 15:42 Blood Culture - Preliminary Blood No Growth after 96 hours Assessment and Plan (1) Pancreatic adenocarcinoma Narrative/Plan: S/P 1st cycle of gem/abraxane. Treatment plans to follow based on pt recovery Current Visit: Yes Status: Acute Priority: High Code(s): C25.9 - MALIGNANT NEOPLASM OF PANCREAS, UNSPECIFIED SNOMED Code(s): 955240933 (2) Staphylococcus aureus pneumonia Narrative/Plan: Pt is on steroids, inhalers and abx, being treated and follwed by ID Current Visit: Yes Status: Acute Priority: High Code(s): J15.211 - PNEUMONIA DUE TO METHICILLIN SUSCEP STAPH SNOMED Code(s): 985992036 (3) Anemia aplastic aregenerative Narrative/Plan: Pt has had anemia for quite some time, exacerbated because of chemo. Iron studies were evaluated in Sept-high ferritin, low iron, normocytic, normochromic , suggestive of anemia of inflammation. No PRBCs today, CBC in AM. Current Visit: Yes Status: Chronic Priority: Medium Code(s): D61.9 - APLASTIC ANEMIA, UNSPECIFIED SNOMED Code(s): 894185347 (4) Pleural effusion Narrative/Plan: Malignant pleural effusion. S/P thoracentesis, pl fluid was positive for known pancreatic adeno. Pt diagnosis came from pleural biopsy so, no changes in Oncology plan at this time due to results. Current Visit: Yes Status: Acute Priority: Medium Code(s): J90 - PLEURAL EFFUSION, NOT ELSEWHERE CLASSIFIED SNOMED Code(s): 15412433
[2017-12-19 17:11] LABS: Glucose,Whole Blood 233 mg/dL (75-99)
[2017-12-19 20:47] LABS: Glucose,Whole Blood 353 mg/dL (75-99)
[2017-12-19] MEDS: INSULIN DETEMIR 100 UNIT/ML 10 ML VIAL SQ SCH (22:06)
[2017-12-20] MEDS: IPRATROPIUM-ALBUTEROL 3 ML NEB INHALATION SCH ×6 (04:04→23:08)
[2017-12-20 04:43] LABS: Glucose,Whole Blood 364 mg/dL (75-99)
[2017-12-20 05:43] LABS: Anisocytosis Slight; Basophils % (A) 0 %; Eosinophils % (A) 1 %; HGB 8.5 gm/dL (13.0-17.5); Hypochromasia Marked; Lymphocytes # (A) 0.3 k/uL (1.0-4.8); Lymphocytes % (A) 8 %; MCH 26.8 pg (25.0-35.0); MCHC 30.4 g/dL (31.0-37.0); MCV 88.1 fL (80.0-100.0); Mean Platelet Volume 7.2; Monocytes # (A) 0.1 k/uL (0-1.0); Monocytes % (A) 3 %; Neutrophils # (A) 3.4 k/uL (1.3-7.7); Neutrophils % (A) 88 %; Platelet Count 398 k/uL (150-450); RBC 3.18 m/uL (4.30-5.90); RDW 17.3 % (11.5-15.5); WBC 3.9 k/uL (3.8-10.6)
[2017-12-20 05:45] LABS: Glucose,Whole Blood 351 mg/dL (75-99)
[2017-12-20 06:10] LABS: ALT 47 U/L (21-72); AST 52 U/L (17-59); Albumin 2.6 g/dL (3.5-5.0); Alkaline Phosphatase 78 U/L (38-126); Anion Gap 6 mmol/L; Blood Urea Nitrogen 20 mg/dL (9-20); Calcium 8.4 mg/dL (8.4-10.2); Carbon Dioxide 27 mmol/L (22-30); Chloride 105 mmol/L (98-107); Glucose 324 mg/dL (74-99); Magnesium 2.4 mg/dL (1.6-2.3); Phosphorus 3.8 mg/dL (2.5-4.5); Potassium 4.5 mmol/L (3.5-5.1); Sodium 138 mmol/L (137-145); Total Bilirubin 0.2 mg/dL (0.2-1.3); Total Protein 5.9 g/dL (6.3-8.2)
[2017-12-20] MEDS ORDERED: INSULIN REGULAR BOLUS (FROM DRIP BAG) IV PRN (06:20)
[2017-12-20] MEDS: SODIUM CHLORIDE 0.9% 1,000 ML IV SCH ×2 (06:29→17:16)
[2017-12-20] MEDS: methylPREDNISolone SOD SUCCI 125 MG/2 ML VIAL IV SCH ×3 (06:29→18:37)
[2017-12-20] MEDS: INSULIN REGULAR 100 UNIT in SODIUM CHLORIDE 0.9% 100 ML IV SCH ×3 (07:12→22:51)
[2017-12-20 08:05] LABS: Glucose,Whole Blood 300 mg/dL (75-99)
[2017-12-20 09:10] LABS: Glucose,Whole Blood 289 mg/dL (75-99)
[2017-12-20] MEDS: HEPARIN SODIUM,PORCINE 5,000 UNIT/ML 1 ML VIAL SQ SCH ×2 (10:02→21:34)
[2017-12-20] MEDS: GABAPENTIN 400 MG CAP PO SCH ×3 (10:03→22:50)
[2017-12-20] MEDS: NYSTATIN 100,000 UNIT/ML SUSP 500,000 UNIT/5 ML CUP PO SCH ×4 (10:03→22:50)
[2017-12-20] MEDS: LEVOFLOXACIN 750 MG TAB PO SCH (10:05)
[2017-12-20] MEDS: FAMOTIDINE 20 MG TAB PO SCH ×2 (10:05→21:34)
[2017-12-20] MEDS: SERTRALINE 50 MG TAB PO SCH (10:06)
--- NOTE | 2017-12-20 10:19 | XR ---
EXAMINATION TYPE: XR chest 1V portable DATE OF EXAM: 12/20/2017 COMPARISON: 12/19/2017 HISTORY: Pneumothorax. Follow-up exam. TECHNIQUE: Single frontal view of the chest is obtained. FINDINGS: There is increasing size of the loculated right lateral lower lung pneumothorax. Surgical sutures are seen within the midlung. Thoracostomy tube appears to be slightly advanced in the interim . Lobulated masslike density abuts the right heart border. Small bilateral pleural effusions are seen . Interstitial diffuse patchy opacities are seen on the left. Cardia mediastinal silhouette is obscur ed. Generalized osseous demineralization is seen. IMPRESSION: Slight interval increase of the right basilar loculated hydropneumothorax with interval advancement of the thoracotomy tube. Stable masslike right basilar consolidation and patchy left-side d interstitial opacities.
[2017-12-20] MEDS: ceFAZolin IN SWFI 2 GM/20 ML SYRINGE IVP SCH ×2 (10:26→17:16)
[2017-12-20 10:28] LABS: Glucose,Whole Blood 283 mg/dL (75-99)
[2017-12-20] MEDS: SALT AND SODA MOUTHWASH 1,000 ML PO SCH ×3 (10:40→18:38)
--- NOTE | 2017-12-20 11:25 | P.PN ---
Subjective Patient tearful stating increase increasing problems with shortness of breath. Family at bedside. Patient is no code patient considering hospice care Objective - Vital Signs Vital signs: Vital Signs Temp 97.9 F 12/20/17 09:00 Pulse 80 12/20/17 11:00 Resp 26 H 12/20/17 11:00 BP 125/85 12/20/17 11:00 Pulse Ox 92 L 12/20/17 11:00 Intake & Output 12/19/17 12/20/17 12/20/17 18:59 06:59 18:59 Intake Total 1930 1020 773.309 Output Total 1770 1475 320 Balance 160 -455 453.309 Weight 83.9 kg 83.9 kg Intake: IV 1275 900 300 Levofloxacin 750Mg-D5w 150 Pmx 750 mg In Dextrose/ Water 1 150ml.bag @ 100 mls/hr IVPB Q24H [facility] Rx#: [id number] Magnesium Sulfate-D5w Pmx 300 1 gm In Dextrose/Water 1 100ml.bag @ 100 mls/hr IVPB Q1H [facility] Rx#: [id number] Sodium Chloride 0.9% 1, 825 900 300 000 ml @ 75 mls/hr IV . [id number] [facility] Rx#:[id number] Intake, IV Titration 100 73.309 Amount Insulin Regular 100 unit 73.309 In Sodium Chloride 0.9% 100 ml @ Per Protocol IV .Q0M [facility] Rx#:[id number] Magnesium Sulfate-D5w Pmx 100 1 gm In Dextrose/Water 1 100ml.bag @ 100 mls/hr IVPB Q1H [facility] Rx#: [id number] Oral 480 120 400 Lipid 75 Sodium Chloride 0.9% 1, 75 000 ml @ 75 mls/hr IV . [id number] [facility] Rx#:[id number] Output: Chest Tube Drainage 225 225 Right Anterior Chest 225 225 Drainage 30 110 Right Chest 30 110 Urine 1545 1220 210 Other: Voiding Method Indwelling Catheter Indwelling Catheter # Bowel Movements 1 - Constitutional General appearance: Present: mild distress - EENT Eyes: Present: PERRLA Ears: bilateral: normal - Neck Neck: Present: normal ROM - Respiratory Respiratory: right: diminished, left: CTA - Cardiovascular Rhythm: regular - Gastrointestinal General gastrointestinal: Present: soft - Integumentary Integumentary: Present: normal - Neurologic Neurologic: Present: CNII-XII intact - Musculoskeletal Musculoskeletal: Present: generalized weakness - Psychiatric Psychiatric: Present: A&O x's 3, appropriate affect, intact judgment & insight - Labs CBC & Chem 7: 12/20/17 05:11 12/20/17 05:11 Labs: Abnormal Lab Results - Last 24 Hours (Table) 12/19/17 12/19/17 12/19/17 Range/Units 11:52 16:58 20:35 RBC (4.30-5.90) m/uL Hgb (13.0-17.5) gm/dL Hct (39.0-53.0) % MCHC (31.0-37.0) g/dL RDW (11.5-15.5) % Lymphocytes # (1.0-4.8) k/uL Glucose (74-99) mg/dL POC Glucose (mg/dL) 191 H 233 H 353 H (75-99) mg/dL Magnesium (1.6-2.3) mg/dL Total Protein (6.3-8.2) g/dL Albumin (3.5-5.0) g/dL 12/19/17 12/20/17 12/20/17 Range/Units 21:29 04:31 05:11 RBC 3.18 L (4.30-5.90) m/uL Hgb 8.5 L (13.0-17.5) gm/dL Hct 28.0 L (39.0-53.0) % MCHC 30.4 L (31.0-37.0) g/dL RDW 17.3 H (11.5-15.5) % Lymphocytes # 0.3 L (1.0-4.8) k/uL Glucose (74-99) mg/dL POC Glucose (mg/dL) 364 H (75-99) mg/dL Magnesium 2.4 H (1.6-2.3) mg/dL Total Protein (6.3-8.2) g/dL Albumin (3.5-5.0) g/dL 12/20/17 12/20/17 12/20/17 Range/Units 05:11 05:32 07:54 RBC (4.30-5.90) m/uL Hgb (13.0-17.5) gm/dL Hct (39.0-53.0) % MCHC (31.0-37.0) g/dL RDW (11.5-15.5) % Lymphocytes # (1.0-4.8) k/uL Glucose 324 H (74-99) mg/dL POC Glucose (mg/dL) 351 H 300 H (75-99) mg/dL Magnesium 2.4 H (1.6-2.3) mg/dL Total Protein 5.9 L (6.3-8.2) g/dL Albumin 2.6 L (3.5-5.0) g/dL 12/20/17 12/20/17 Range/Units 08:59 10:16 RBC (4.30-5.90) m/uL Hgb (13.0-17.5) gm/dL Hct (39.0-53.0) % MCHC (31.0-37.0) g/dL RDW (11.5-15.5) % Lymphocytes # (1.0-4.8) k/uL Glucose (74-99) mg/dL POC Glucose (mg/dL) 289 H 283 H (75-99) mg/dL Magnesium (1.6-2.3) mg/dL Total Protein (6.3-8.2) g/dL Albumin (3.5-5.0) g/dL Microbiology - Last 24 Hours (Table) 12/16/17 13:45 Gram Stain - Final Pleural Fluid Body Fluid Culture - Final 12/14/17 15:42 Blood Culture - Preliminary Blood No Growth after 120 hours 12/14/17 11:25 Blood Culture - Preliminary Blood No Growth after 120 hours 12/16/17 10:17 Blood Culture - Preliminary Blood No Growth after 72 hours 12/16/17 09:38 Blood Culture - Preliminary Blood No Growth after 72 hours - Imaging and Cardiology Chest x-ray: report reviewed Assessment and Plan Plan: Assessment Pneumonia with sepsis staph aureus Hypoxic respiratory failure Hydropneumothorax right-sided with chest tube Dehydration Has Pleurx catheter History of pancreatic cancer lung cancer adenocarcinoma GERD Chronic anemia Diabetes type 2 Hyperlipidemia Moderate protein deficient malnutrition Plan Continued care in the intensive care until family reaches decision on hospice care Continue consultation with oncology infectious disease and pulmonary Patient continues on Levaquin and cefazolin
[2017-12-20 11:30] LABS: Glucose,Whole Blood 264 mg/dL (75-99)
[2017-12-20 12:16] LABS: Glucose,Whole Blood 217 mg/dL (75-99)
--- NOTE | 2017-12-20 13:18 | P.PN ---
Subjective Progress Note Date: 12/20/17 Principal diagnosis: Acute hypoxemic respiratory failure secondary to bilateral pneumonia Pulmonary/critical care consultation dated 12/16/2017 This is a 77-year-old white male well-known to me. He presented to the emergency department on December 14 with fever. He's been undergoing chemotherapy for pancreatic cancer with his last chemo about 14 days ago. He apparently presented to the oncology office for another round of chemotherapy was noted to have a high fever and sent to the emergency department for evaluation. He was evaluated in the ER on December 14. He was admitted to the hospital with a diagnosis of pneumonia/sepsis. The patient had cough and some phlegm production and apparently. He also has a history of a right Pleurx catheter in place and he has a Mediport for chemotherapy. The patient was admitted to the floor. I was only consulted apparently sometime this morning. His respiratory status to client he became hypotensive and hypoxemic and we transferred the patient to the ICU for further management. His chest x-ray shows bilateral infiltrates. The patient is responsive. A Johnson catheter was placed. The chest x-ray was reviewed. The patient also has a history of diabetes, gastroesophageal reflux disease, hyperlipidemia, and previous right- sided thoracentesis and thoracoscopic decortication of the right lung with right wedge biopsy. That apparently was positive for adenocarcinoma. On 12/17/2017 patient seen again in follow-up in the intensive care units is awake and alert, he remains on AIRVO at 50 L/m, and FiO2 of 50%, his pulse ox is 92-94%, patient did have febrile episodes last night, with T-max of 101.6F. Cultures were reviewed, urine, blood, oral fluid and sputum cultures are negative thus far, final cultures are pending. Patient had refused CT chest this morning, he states he does not want any more tests. He is covered with a combination of vancomycin and Zosyn. We will add Levaquin. His chest x-ray has been reviewed by Dr. Levy and shows loculated right lower lung pneumothorax no significant change, diffuse increased pulmonary vascular markings and diffuse increased lung markings in the left lung most likely related to interstitial pneumonia rather than fluid overload. Pleural fluid cytology is pending. Today's labs have been reviewed, Sada BC 6.9, hemoglobin is 8.4, sodium is 136, there is electrolytes and renal profile is within normal limits. Patient is weak, he has no appetite. Lung sounds are positive for diminished breath sounds over right lower lobe, and some scattered crackles on the left. On 12/18/2017 patient seen in follow-up in the intensive care unit, he remains on high flow oxygen, AIRVO at 40 L/m, and FiO2 of 60%, IV 0.9 normal saline at a rate of 75 ML per hour, patient is sleepy, but easily arousable to verbal stimuli, he denies acute distress, appears weak, pale and fatigued. Patient's Pleurx catheter has been connected to Pleur-evac and continuous wall suction this was done in view of a loculated pneumothorax on the right. After initial connection to suction, there was some air leak, which has now stopped. We will obtain a repeat chest x-ray now. There are diminished breath sounds on the right, left lung is positive for fine inspiratory crackles. Patient has interstitial pneumonia on the left, and sputum cultures were positive for MSSA. Currently covered with a combination of Zosyn, Levaquin and vancomycin. No fevers in the last 24 hours. Overall prognosis remains poor, he remains a full code at this time, may need to address this to again with the patient and his family. On 12/19/2017 patient seen in follow-up in the intensive care unit, is more alert today, and conversant. Not in any acute distress, remains on high flow oxygen, currently at 40 L/m minute, and FiO2 of 50%. He is Pleurx catheter connected to suction, and there is a continuous air leak noted, and there has been 280 of dark bloody pleural fluid in the Pleur-evac. His chest x-ray has been reviewed, and showed overall stable findings, with right-sided chest tube and persistent bilateral basilar hydropneumothorax. There is cardiomegaly with diffuse ground glass opacity bilaterally and this is likely to underlying interstitial pneumonia, than fluid overload. Fever, no chills, vital signs are stable. Lung sounds real fine crackles on the left, and pleural rub on the right. A pneumatic coverage includes Kefzol, Levaquin, IDservice is following. We had a meeting with the patient's last night, and patient's prognosis is poor to underlying metastatic malignancy. Patient's CODE STATUS has been changed to DO NOT RESUSCITATE, hospice has been consulted to meet with the family and discuss options of hospice/palliative care. On 12/20/2017 he seen in follow-up in the intensive care unit, remains on high flow oxygen, currently at 40 L/m, and FiO2 of 45%, his pulse ox is 95%, afebrile , hemodynamically stable, patient is dyspneic with any exertion, and he Does not want his oxygen to be laying down, he is afraid it would make more short of breath. lung sounds are coarse, but better air entry noted at the right base. Right-sided Pleurx catheter is connected to a Pleur-evac and wall suction, and there has been 100 mL of dark pleural fluid in the last 24 hours, there is a continuous air leak. His chest x-ray showed an interval increase of the right basilar loculated hydropneumothorax with interval advancement of the Pleurx catheter. There is stable left-sided patchy interstitial opacities right basilar consolidation. Pleural fluid cultures remain negative thus far, sputum culture was positive for MSSA. he remains on Kefzol, Levaquin, and ID service is following. We added IV Solu-Medrol, he is less congested on today's exam. Clinically patient has minimal improvement since yesterday, clinically. In view of that patient and the family decided to wait with the hospice enrollment at this time. He remains a DO NOT RESUSCITATE. Objective - Vital Signs Vital signs: Vital Signs Temp 97.9 F 12/20/17 09:00 Pulse 77 12/20/17 12:04 Resp 14 12/20/17 12:00 BP 109/71 12/20/17 12:00 Pulse Ox 97 12/20/17 12:00 Intake & Output 12/19/17 12/20/17 12/20/17 18:59 06:59 18:59 Intake Total 1930 1020 923.309 Output Total 1770 1475 410 Balance 160 -455 513.309 Weight 83.9 kg 83.9 kg Intake: IV 1275 900 450 Levofloxacin 750Mg-D5w 150 Pmx 750 mg In Dextrose/ Water 1 150ml.bag @ 100 mls/hr IVPB Q24H [facility] Rx#: [id number] Magnesium Sulfate-D5w Pmx 300 1 gm In Dextrose/Water 1 100ml.bag @ 100 mls/hr IVPB Q1H [facility] Rx#: [id number] Sodium Chloride 0.9% 1, 825 900 450 000 ml @ 75 mls/hr IV . [id number] [facility] Rx#:[id number] Intake, IV Titration 100 73.309 Amount Insulin Regular 100 unit 73.309 In Sodium Chloride 0.9% 100 ml @ Per Protocol IV .Q0M [facility] Rx#:[id number] Magnesium Sulfate-D5w Pmx 100 1 gm In Dextrose/Water 1 100ml.bag @ 100 mls/hr IVPB Q1H [facility] Rx#: [id number] Oral 480 120 400 Lipid 75 Sodium Chloride 0.9% 1, 75 000 ml @ 75 mls/hr IV . [id number] [facility] Rx#:[id number] Output: Chest Tube Drainage 225 225 Right Anterior Chest 225 225 Drainage 30 110 Right Chest 30 110 Urine 1545 1220 300 Other: Voiding Method Indwelling Catheter Indwelling Catheter # Bowel Movements 1 - Exam No acute distress, oriented 3. The patient is a bit somnolent but does respond appropriately, currently on Airvo at 40 l/min, fio2 50% HEENT examination is grossly unremarkable. Mucous membranes are dry. No oral lesions. Neck supple. Full range of motion. No adenopathy thyromegaly or neck vein distention. Cardiovascular examination reveals regular rhythm rate. S1-S2 normal. No S3 or S4. No discernible murmur noted. The patient's heart rate is 80 Lungs reveal pleural rub over right lower lobe, scattered crackles on the left, Pleurx catheter to anterior right chest is connected to Pleur-evac and wall suction, continuous air leak noted, there is 280 of dark bloody pleural fluid is yesterday in the Pleur-evac Abdomen soft and bowel sounds are heard. No masses or tenderness. Johnson catheter in place. Extremities are intact. No cyanosis clubbing or edema. Skin is without rash or lesion. Neurologic examination is brief but nonfocal. - Labs CBC & Chem 7: 12/20/17 05:11 12/20/17 05:11 Labs: Abnormal Lab Results - Last 24 Hours (Table) 12/19/17 12/19/17 12/19/17 Range/Units 16:58 20:35 21:29 RBC (4.30-5.90) m/uL Hgb (13.0-17.5) gm/dL Hct (39.0-53.0) % MCHC (31.0-37.0) g/dL RDW (11.5-15.5) % Lymphocytes # (1.0-4.8) k/uL Glucose (74-99) mg/dL POC Glucose (mg/dL) 233 H 353 H (75-99) mg/dL Magnesium 2.4 H (1.6-2.3) mg/dL Total Protein (6.3-8.2) g/dL Albumin (3.5-5.0) g/dL 12/20/17 12/20/17 12/20/17 Range/Units 04:31 05:11 05:11 RBC 3.18 L (4.30-5.90) m/uL Hgb 8.5 L (13.0-17.5) gm/dL Hct 28.0 L (39.0-53.0) % MCHC 30.4 L (31.0-37.0) g/dL RDW 17.3 H (11.5-15.5) % Lymphocytes # 0.3 L (1.0-4.8) k/uL Glucose 324 H (74-99) mg/dL POC Glucose (mg/dL) 364 H (75-99) mg/dL Magnesium 2.4 H (1.6-2.3) mg/dL Total Protein 5.9 L (6.3-8.2) g/dL Albumin 2.6 L (3.5-5.0) g/dL 12/20/17 12/20/17 12/20/17 Range/Units 05:32 07:54 08:59 RBC (4.30-5.90) m/uL Hgb (13.0-17.5) gm/dL Hct (39.0-53.0) % MCHC (31.0-37.0) g/dL RDW (11.5-15.5) % Lymphocytes # (1.0-4.8) k/uL Glucose (74-99) mg/dL POC Glucose (mg/dL) 351 H 300 H 289 H (75-99) mg/dL Magnesium (1.6-2.3) mg/dL Total Protein (6.3-8.2) g/dL Albumin (3.5-5.0) g/dL 12/20/17 12/20/17 12/20/17 Range/Units 10:16 11:19 12:05 RBC (4.30-5.90) m/uL Hgb (13.0-17.5) gm/dL Hct (39.0-53.0) % MCHC (31.0-37.0) g/dL RDW (11.5-15.5) % Lymphocytes # (1.0-4.8) k/uL Glucose (74-99) mg/dL POC Glucose (mg/dL) 283 H 264 H 217 H (75-99) mg/dL Magnesium (1.6-2.3) mg/dL Total Protein (6.3-8.2) g/dL Albumin (3.5-5.0) g/dL Microbiology - Last 24 Hours (Table) 12/16/17 10:17 Blood Culture - Preliminary Blood No Growth after 96 hours 12/16/17 09:38 Blood Culture - Preliminary Blood No Growth after 96 hours 12/16/17 13:45 Gram Stain - Final Pleural Fluid Body Fluid Culture - Final 12/14/17 15:42 Blood Culture - Preliminary Blood No Growth after 120 hours 12/14/17 11:25 Blood Culture - Preliminary Blood No Growth after 120 hours Assessment and Plan Plan: Assessment: Hypoxemic respiratory failure secondary to bilateral pneumonia, today's chest x- ray has been reviewed and shows right-sided lacunar pleural effusion, with the right-sided Pleurx in place, diffuse increased pulmonary vascular markings likely related to interstitial pneumonia On 12/18/2017 patient seen again. Last night patient did change his mind about obtaining CT chest, and showed hydropneumothorax on the right with Pleurx catheter within the pleural space, extensive abnormal groundglass opacity within the left upper lobe and left lower lobe smaller left pleural effusion, related to left lung pneumonia. Right pleuralcatheter was placed to suction, and initially there was a mild air leak, which has stopped. We will obtain a follow-up chest x-ray. Sputum culture was positive for MSSA, and currently patient is covered with accommodation of Zosyn, Levaquin and vancomycin, no fevers and last 24 hours. On 12/19/2017 patient remains in the intensive care unit, requiring high flow oxygen, currently at 40 L/m, and FiO2 50%, there has been 280 mL of dark bloody pleural fluid since yesterday, and the Pleur-evac. There is a continuous air leak noted. ID service is following, and switch the IV antibiotics to and Levaquin. Chest x-ray has been reviewed, and shows persistent right-sided basilar hydropneumothorax, cardiomegaly with diffuse groundglass opacity bilaterally, consistent with infiltrates related to pneumonia. On 12/20/2017 patient remains in the intensive care unit, still requiring high flow oxygen, but Pleurx catheter to wall suction, and there has been 100 mL of dark bloody pleural fluid in the last 24 hours, and there is a continuous air leak. Patient is generally weak, pale, and fatigue, has poor appetite, he has not been able to get up out of bed. Sputum cultures positive for MSSA, patient' s currently on Kefzol and Levaquin, yesterday we added Solu-Medrol. Chest x- ray showed slight interval increase of the right basilar hydropneumothorax stable patchy left sided interstitial opacities. History of pancreatic carcinoma, status post recent chemotherapy Sepsis syndrome History of diabetes mellitus History of hyperlipidemia History of GERD Status post right-sided Pleurx catheter placement and wedge biopsy right lung, positive for adenocarcinoma. Status post decortication right lung History of neuropathy Plan: Continue current antibiotic coverage, we will wean FiO2 down to 40%. Patient states he is quite comfortable on the high flow oxygen, and he is afraid rapid weaning of FiO2 will make him more dyspneic. No fever, no chills, MSSA in the sputum, ID service is following, patient continues on Levaquin. Continue with IV Solu-Medrol. Overall there has been very limited clinical improvement, and he and the family did decide to wait with the hospice enrollment. Overall prognosis is quite guarded. We'll continue to follow I performed a history & physical examination of the patient and discussed their management with my nurse practitioner, Marii Franco. I reviewed the nurse practitioner's note and agree with the documented findings and plan of care. Lung sounds are coarse. The findings and the impression was discussed with the patient. I attest to the documentation by the nurse practitioner. Time with Patient: Greater than 30
[2017-12-20 14:01] LABS: Glucose,Whole Blood 221 mg/dL (75-99)
[2017-12-20 15:03] LABS: Glucose,Whole Blood 223 mg/dL (75-99)
[2017-12-20 16:38] LABS: Glucose,Whole Blood 141 mg/dL (75-99)
[2017-12-20 17:23] LABS: Glucose,Whole Blood 122 mg/dL (75-99)
--- NOTE | 2017-12-20 18:00 | P.PN ---
Subjective Progress Note Date: 12/20/17 Principal diagnosis: pancreatic adenocarcinoma s/p 1st cycle of chemo Pt seen in f/u, he continues on high flow O2, difficulty completing a sentence, does not feel his breathing is better today then yesterday. He denies any new physical c/o on a 10 point ROS, no acute changes or pain to report Objective - Vital Signs Vital signs: Vital Signs Temp 97.7 F 12/20/17 16:00 Pulse 75 12/20/17 17:00 Resp 19 12/20/17 17:00 BP 108/70 12/20/17 17:00 Pulse Ox 96 12/20/17 17:00 Intake & Output 12/19/17 12/20/17 12/20/17 18:59 06:59 18:59 Intake Total 1930 1020 1358.690 Output Total 1770 1475 655 Balance 160 -455 703.690 Weight 83.9 kg 83.9 kg Intake: IV 1275 900 825 Levofloxacin 750Mg-D5w 150 Pmx 750 mg In Dextrose/ Water 1 150ml.bag @ 100 mls/hr IVPB Q24H [facility] Rx#: [id number] Magnesium Sulfate-D5w Pmx 300 1 gm In Dextrose/Water 1 100ml.bag @ 100 mls/hr IVPB Q1H [facility] Rx#: [id number] Sodium Chloride 0.9% 1, 825 900 825 000 ml @ 75 mls/hr IV . [id number] [facility] Rx#:[id number] Intake, IV Titration 100 133.690 Amount Insulin Regular 100 unit 133.690 In Sodium Chloride 0.9% 100 ml @ Per Protocol IV .Q0M [facility] Rx#:[id number] Magnesium Sulfate-D5w Pmx 100 1 gm In Dextrose/Water 1 100ml.bag @ 100 mls/hr IVPB Q1H [facility] Rx#: [id number] Oral 480 120 400 Lipid 75 Sodium Chloride 0.9% 1, 75 000 ml @ 75 mls/hr IV . [id number] [facility] Rx#:[id number] Output: Chest Tube Drainage 225 225 Right Anterior Chest 225 225 Drainage 30 170 Right Chest 30 170 Urine 1545 1220 485 Other: Voiding Method Indwelling Catheter Indwelling Catheter Indwelling Catheter # Bowel Movements 1 - Constitutional General appearance: Present: average body habitus, cooperative, mild distress - EENT Eyes: Present: anicteric sclerae, EOMI, normal appearance - Respiratory Respiratory: bilateral: diminished, rales (few, scattered) - Cardiovascular Heart sounds: normal: S1, S2 - Peripheral edema leg Peripheral Edema: bilateral: Trace - Gastrointestinal General gastrointestinal: Present: normal bowel sounds, soft - Integumentary Integumentary Comment(s): better color to cheeks today then yesterday - Neurologic Neurologic: Present: CNII-XII intact - Musculoskeletal Musculoskeletal: Present: generalized weakness - Psychiatric Psychiatric: Present: A&O x's 3, appropriate affect, intact judgment & insight - Labs CBC & Chem 7: 12/20/17 05:11 12/20/17 05:11 Labs: Abnormal Lab Results - Last 24 Hours (Table) 12/19/17 12/19/17 12/20/17 Range/Units 20:35 21:29 04:31 RBC (4.30-5.90) m/uL Hgb (13.0-17.5) gm/dL Hct (39.0-53.0) % MCHC (31.0-37.0) g/dL RDW (11.5-15.5) % Lymphocytes # (1.0-4.8) k/uL Glucose (74-99) mg/dL POC Glucose (mg/dL) 353 H 364 H (75-99) mg/dL Magnesium 2.4 H (1.6-2.3) mg/dL Total Protein (6.3-8.2) g/dL Albumin (3.5-5.0) g/dL 12/20/17 12/20/17 12/20/17 Range/Units 05:11 05:11 05:32 RBC 3.18 L (4.30-5.90) m/uL Hgb 8.5 L (13.0-17.5) gm/dL Hct 28.0 L (39.0-53.0) % MCHC 30.4 L (31.0-37.0) g/dL RDW 17.3 H (11.5-15.5) % Lymphocytes # 0.3 L (1.0-4.8) k/uL Glucose 324 H (74-99) mg/dL POC Glucose (mg/dL) 351 H (75-99) mg/dL Magnesium 2.4 H (1.6-2.3) mg/dL Total Protein 5.9 L (6.3-8.2) g/dL Albumin 2.6 L (3.5-5.0) g/dL 12/20/17 12/20/17 12/20/17 Range/Units 07:54 08:59 10:16 RBC (4.30-5.90) m/uL Hgb (13.0-17.5) gm/dL Hct (39.0-53.0) % MCHC (31.0-37.0) g/dL RDW (11.5-15.5) % Lymphocytes # (1.0-4.8) k/uL Glucose (74-99) mg/dL POC Glucose (mg/dL) 300 H 289 H 283 H (75-99) mg/dL Magnesium (1.6-2.3) mg/dL Total Protein (6.3-8.2) g/dL Albumin (3.5-5.0) g/dL 12/20/17 12/20/17 12/20/17 Range/Units 11:19 12:05 13:50 RBC (4.30-5.90) m/uL Hgb (13.0-17.5) gm/dL Hct (39.0-53.0) % MCHC (31.0-37.0) g/dL RDW (11.5-15.5) % Lymphocytes # (1.0-4.8) k/uL Glucose (74-99) mg/dL POC Glucose (mg/dL) 264 H 217 H 221 H (75-99) mg/dL Magnesium (1.6-2.3) mg/dL Total Protein (6.3-8.2) g/dL Albumin (3.5-5.0) g/dL 12/20/17 12/20/17 12/20/17 Range/Units 14:52 16:23 17:12 RBC (4.30-5.90) m/uL Hgb (13.0-17.5) gm/dL Hct (39.0-53.0) % MCHC (31.0-37.0) g/dL RDW (11.5-15.5) % Lymphocytes # (1.0-4.8) k/uL Glucose (74-99) mg/dL POC Glucose (mg/dL) 223 H 141 H 122 H (75-99) mg/dL Magnesium (1.6-2.3) mg/dL Total Protein (6.3-8.2) g/dL Albumin (3.5-5.0) g/dL Microbiology - Last 24 Hours (Table) 12/14/17 11:25 Blood Culture - Final Blood No Growth after 144 hours 12/16/17 10:17 Blood Culture - Preliminary Blood No Growth after 96 hours 12/16/17 09:38 Blood Culture - Preliminary Blood No Growth after 96 hours 12/16/17 13:45 Gram Stain - Final Pleural Fluid Body Fluid Culture - Final 12/14/17 15:42 Blood Culture - Preliminary Blood No Growth after 120 hours Assessment and Plan (1) Pancreatic adenocarcinoma Narrative/Plan: S/P 1st cycle of gem/abraxane. Treatment plans to follow based on pt recovery. Likely will require a dose adjustment. Current Visit: Yes Status: Acute Priority: High Code(s): C25.9 - MALIGNANT NEOPLASM OF PANCREAS, UNSPECIFIED SNOMED Code(s): 522602919 (2) Staphylococcus aureus pneumonia Narrative/Plan: Infection needs to cleared before pt can resume treatment. Pulmonary and ID reports reviewed daily Current Visit: Yes Status: Acute Priority: High Code(s): J15.211 - PNEUMONIA DUE TO METHICILLIN SUSCEP STAPH SNOMED Code(s): 576725119 (3) Anemia aplastic aregenerative Narrative/Plan: Hgb stable, no PRBCs needed Current Visit: Yes Status: Chronic Priority: Medium Code(s): D61.9 - APLASTIC ANEMIA, UNSPECIFIED SNOMED Code(s): 546836650 (4) Pleural effusion Narrative/Plan: Pulm managing chest tube and pulm meds. Current Visit: Yes Status: Acute Priority: Medium Code(s): J90 - PLEURAL EFFUSION, NOT ELSEWHERE CLASSIFIED SNOMED Code(s): 09633348 Plan: Unfortunately, pt presenting condition has been slow to improve. Agree with treatment plan and supportive care at this time.
[2017-12-20 18:47] LABS: Glucose,Whole Blood 155 mg/dL (75-99)
[2017-12-20 19:44] LABS: Glucose,Whole Blood 204 mg/dL (75-99)
[2017-12-20 20:49] LABS: Glucose,Whole Blood 225 mg/dL (75-99)
[2017-12-20] MEDS: INSULIN DETEMIR 100 UNIT/ML 10 ML VIAL SQ SCH (21:34)
[2017-12-20 21:48] LABS: Glucose,Whole Blood 229 mg/dL (75-99)
[2017-12-20 22:35] LABS: Glucose,Whole Blood 233 mg/dL (75-99)
[2017-12-20] MEDS: ALPRAZolam 0.5 MG TAB PO PRN (22:50)
[2017-12-20 23:48] LABS: Glucose,Whole Blood 197 mg/dL (75-99)
[2017-12-21] MEDS: methylPREDNISolone SOD SUCCI 125 MG/2 ML VIAL IV SCH ×4 (01:09→18:12)
[2017-12-21] MEDS: ceFAZolin IN SWFI 2 GM/20 ML SYRINGE IVP SCH ×3 (01:09→15:54)
[2017-12-21 01:11] LABS: Glucose,Whole Blood 161 mg/dL (75-99)
--- NOTE | 2017-12-21 01:15 | PN ---
PROGRESS NOTE DATE OF SERVICE: 12/20/2017. REASON FOR FOLLOWUP: MSSA pneumonia. INTERVAL HISTORY: The patient is afebrile. He is still complaining of shortness of breath. No chest pain. Could have some cough not bringing up sputum. No nausea, vomiting. No abdominal pain. No diarrhea. EXAMINATION: Blood pressure 126/63, pulse of 90, temperature of 97.7. He is 94% on some high flow exchanges. General description is a middle aged male up in the bed in no distress. Respiratory system: Unlabored breathing with decreased breath sounds in the bases. No wheeze. Heart S1, S2. Regular rate and rhythm. Abdomen soft. No tenderness. LABS: Hemoglobin 8.5, white count 3.9, BUN of 20, creatinine 0.79. DIAGNOSTIC IMPRESSION AND PLAN: Patient with MSSA pneumonia. Blood culture has been negative. Currently covered with Rocephin and Levaquin that will be continued for now. Family was present at the bedside. Their questions and concerns were answered. MMODL / IJN: [id number] /
[2017-12-21 02:08] LABS: Glucose,Whole Blood 145 mg/dL (75-99)
[2017-12-21 02:59] LABS: Glucose,Whole Blood 121 mg/dL (75-99)
[2017-12-21] MEDS: IPRATROPIUM-ALBUTEROL 3 ML NEB INHALATION SCH ×6 (03:13→23:04)
[2017-12-21 04:17] LABS: Glucose,Whole Blood 109 mg/dL (75-99)
[2017-12-21 05:23] LABS: Glucose,Whole Blood 136 mg/dL (75-99)
[2017-12-21] MEDS: SODIUM CHLORIDE 0.9% 1,000 ML IV SCH (06:05)
[2017-12-21 06:15] LABS: Glucose,Whole Blood 167 mg/dL (75-99)
[2017-12-21 07:17] LABS: Glucose,Whole Blood 159 mg/dL (75-99)
[2017-12-21 08:12] LABS: Glucose,Whole Blood 172 mg/dL (75-99)
--- NOTE | 2017-12-21 08:26 | XR ---
EXAMINATION TYPE: XR chest 1V portable DATE OF EXAM: 12/21/2017 HISTORY: Shortness of breath. COMPARISON: 12/20/2017 TECHNIQUE: Single view of the chest is submitted. FINDINGS: Demonstrated are scattered senescent parenchymal change. Scattered airspace infiltrates greatest throughout the left lung persist with associated pleural effu sions. Masslike consolidation right medial lung base unchanged. Loculated right lateral basilar hydropneumothorax again seen essentially unchanged. Right-sided chest tube unchanged. The heart is stable. Hilar and mediastinal structures are within normal limits. Degenerative changes are seen of the dorsal spine. IMPRESSION: 1. Stable chest with a loculated right basilar hydropneumothorax. 2. Masslike density right lung base persists. 3. Scattered airspace infiltrates throughout the left lung field unchanged.
[2017-12-21] MEDS: SERTRALINE 50 MG TAB PO SCH (09:05)
[2017-12-21] MEDS: SALT AND SODA MOUTHWASH 1,000 ML PO SCH ×3 (09:05→18:13)
[2017-12-21] MEDS: GABAPENTIN 400 MG CAP PO SCH ×3 (09:06→21:49)
[2017-12-21] MEDS: HEPARIN SODIUM,PORCINE 5,000 UNIT/ML 1 ML VIAL SQ SCH ×2 (09:06→21:48)
[2017-12-21] MEDS: FAMOTIDINE 20 MG TAB PO SCH ×2 (09:06→21:49)
[2017-12-21] MEDS: LEVOFLOXACIN 750 MG TAB PO SCH (09:06)
--- NOTE | 2017-12-21 09:23 | P.PN ---
Subjective Progress Note Date: 12/21/17 Principal diagnosis: Acute hypoxemic respiratory failure secondary to bilateral pneumonia Pulmonary/critical care consultation dated 12/16/2017 This is a 77-year-old white male well-known to me. He presented to the emergency department on December 14 with fever. He's been undergoing chemotherapy for pancreatic cancer with his last chemo about 14 days ago. He apparently presented to the oncology office for another round of chemotherapy was noted to have a high fever and sent to the emergency department for evaluation. He was evaluated in the ER on December 14. He was admitted to the hospital with a diagnosis of pneumonia/sepsis. The patient had cough and some phlegm production and apparently. He also has a history of a right Pleurx catheter in place and he has a Mediport for chemotherapy. The patient was admitted to the floor. I was only consulted apparently sometime this morning. His respiratory status to client he became hypotensive and hypoxemic and we transferred the patient to the ICU for further management. His chest x-ray shows bilateral infiltrates. The patient is responsive. A Johnson catheter was placed. The chest x-ray was reviewed. The patient also has a history of diabetes, gastroesophageal reflux disease, hyperlipidemia, and previous right- sided thoracentesis and thoracoscopic decortication of the right lung with right wedge biopsy. That apparently was positive for adenocarcinoma. On 12/17/2017 patient seen again in follow-up in the intensive care units is awake and alert, he remains on AIRVO at 50 L/m, and FiO2 of 50%, his pulse ox is 92-94%, patient did have febrile episodes last night, with T-max of 101.6F. Cultures were reviewed, urine, blood, oral fluid and sputum cultures are negative thus far, final cultures are pending. Patient had refused CT chest this morning, he states he does not want any more tests. He is covered with a combination of vancomycin and Zosyn. We will add Levaquin. His chest x-ray has been reviewed by Dr. Levy and shows loculated right lower lung pneumothorax no significant change, diffuse increased pulmonary vascular markings and diffuse increased lung markings in the left lung most likely related to interstitial pneumonia rather than fluid overload. Pleural fluid cytology is pending. Today's labs have been reviewed, Sada BC 6.9, hemoglobin is 8.4, sodium is 136, there is electrolytes and renal profile is within normal limits. Patient is weak, he has no appetite. Lung sounds are positive for diminished breath sounds over right lower lobe, and some scattered crackles on the left. On 12/18/2017 patient seen in follow-up in the intensive care unit, he remains on high flow oxygen, AIRVO at 40 L/m, and FiO2 of 60%, IV 0.9 normal saline at a rate of 75 ML per hour, patient is sleepy, but easily arousable to verbal stimuli, he denies acute distress, appears weak, pale and fatigued. Patient's Pleurx catheter has been connected to Pleur-evac and continuous wall suction this was done in view of a loculated pneumothorax on the right. After initial connection to suction, there was some air leak, which has now stopped. We will obtain a repeat chest x-ray now. There are diminished breath sounds on the right, left lung is positive for fine inspiratory crackles. Patient has interstitial pneumonia on the left, and sputum cultures were positive for MSSA. Currently covered with a combination of Zosyn, Levaquin and vancomycin. No fevers in the last 24 hours. Overall prognosis remains poor, he remains a full code at this time, may need to address this to again with the patient and his family. On 12/19/2017 patient seen in follow-up in the intensive care unit, is more alert today, and conversant. Not in any acute distress, remains on high flow oxygen, currently at 40 L/m minute, and FiO2 of 50%. He is Pleurx catheter connected to suction, and there is a continuous air leak noted, and there has been 280 of dark bloody pleural fluid in the Pleur-evac. His chest x-ray has been reviewed, and showed overall stable findings, with right-sided chest tube and persistent bilateral basilar hydropneumothorax. There is cardiomegaly with diffuse ground glass opacity bilaterally and this is likely to underlying interstitial pneumonia, than fluid overload. Fever, no chills, vital signs are stable. Lung sounds real fine crackles on the left, and pleural rub on the right. A pneumatic coverage includes Kefzol, Levaquin, IDservice is following. We had a meeting with the patient's last night, and patient's prognosis is poor to underlying metastatic malignancy. Patient's CODE STATUS has been changed to DO NOT RESUSCITATE, hospice has been consulted to meet with the family and discuss options of hospice/palliative care. On 12/20/2017 he seen in follow-up in the intensive care unit, remains on high flow oxygen, currently at 40 L/m, and FiO2 of 45%, his pulse ox is 95%, afebrile , hemodynamically stable, patient is dyspneic with any exertion, and he Does not want his oxygen to be laying down, he is afraid it would make more short of breath. lung sounds are coarse, but better air entry noted at the right base. Right-sided Pleurx catheter is connected to a Pleur-evac and wall suction, and there has been 100 mL of dark pleural fluid in the last 24 hours, there is a continuous air leak. His chest x-ray showed an interval increase of the right basilar loculated hydropneumothorax with interval advancement of the Pleurx catheter. There is stable left-sided patchy interstitial opacities right basilar consolidation. Pleural fluid cultures remain negative thus far, sputum culture was positive for MSSA. he remains on Kefzol, Levaquin, and ID service is following. We added IV Solu-Medrol, he is less congested on today's exam. Clinically patient has minimal improvement since yesterday, clinically. In view of that patient and the family decided to wait with the hospice enrollment at this time. He remains a DO NOT RESUSCITATE. On 12/21/2017 patient seen in follow-up. Remains on high flow oxygen, currently at 40 L, and FiO2 of 38%, he reports his breathing is slightly improved, lung sounds reveal the better aeration over right lung, with a few rales at the right base. With 60 mL of pleural fluid in the last 24 hours. There is continuous air leak, today's chest x-ray has been reviewed by Dr. Levy, and show stable findings with right-sided loculated hydropneumothorax , and just to show pneumonia on the left. His remains stable, patient is afebrile. Her an antibiotic coverage includes Kefzol and Levaquin. Objective - Vital Signs Vital signs: Vital Signs Temp 97.9 F 12/21/17 00:00 Pulse 81 12/21/17 08:00 Resp 29 H 12/21/17 08:00 BP 140/83 12/21/17 08:00 Pulse Ox 96 12/21/17 08:00 Intake & Output 12/20/17 12/21/17 12/21/17 18:59 06:59 18:59 Intake Total 1433.690 989.470 240.756 Output Total 685 1465 280 Balance 748.690 -475.530 -39.244 Weight 83.9 kg 85 kg Intake: IV 900 75 150 Sodium Chloride 0.9% 1, 900 75 150 000 ml @ 75 mls/hr IV . [id number] LUCY Rx#:[id number] Intake, IV Titration 133.690 914.470 90.756 Amount Insulin Regular 100 unit 133.690 89.470 15.756 In Sodium Chloride 0.9% 100 ml @ Per Protocol IV .Q0M LUCY Rx#:[id number] Sodium Chloride 0.9% 1, 825 75 000 ml @ 75 mls/hr IV . [id number] LUCY Rx#:[id number] Oral 400 Output: Drainage 170 60 Right Chest 170 60 Urine 515 1465 220 Other: Voiding Method Indwelling Catheter Indwelling Catheter # Voids 2 # Bowel Movements 1 - Exam No acute distress, oriented 3. The patient is a bit somnolent but does respond appropriately, currently on Airvo at 40 l/min, fio2 50% HEENT examination is grossly unremarkable. Mucous membranes are dry. No oral lesions. Neck supple. Full range of motion. No adenopathy thyromegaly or neck vein distention. Cardiovascular examination reveals regular rhythm rate. S1-S2 normal. No S3 or S4. No discernible murmur noted. The patient's heart rate is 80 Lungs reveal pleural rub over right lower lobe, scattered crackles on the right , Pleurx catheter to anterior right chest is connected to Pleur-evac and wall suction, continuous air leak noted, there is 280 of dark bloody pleural fluid is yesterday in the Pleur-evac Abdomen soft and bowel sounds are heard. No masses or tenderness. Johnson catheter in place. Extremities are intact. No cyanosis clubbing or edema. Skin is without rash or lesion. Neurologic examination is brief but nonfocal. - Labs CBC & Chem 7: 12/20/17 05:11 12/20/17 05:11 Labs: Abnormal Lab Results - Last 24 Hours (Table) 12/20/17 12/20/1718 Range/Units 10:16 11:19 12:05 POC Glucose (mg/dL) 283 H 264 H 217 H (75-99) mg/dL 12/20/17 12/20/17 12/20/17 Range/Units 13:50 14:52 16:23 POC Glucose (mg/dL) 221 H 223 H 141 H (75-99) mg/dL 12/20/17 12/20/17 12/20/17 Range/Units 17:12 18:35 19:33 POC Glucose (mg/dL) 122 H 155 H 204 H (75-99) mg/dL 12/20/17 12/20/17 12/20/17 Range/Units 20:37 21:37 22:24 POC Glucose (mg/dL) 225 H 229 H 233 H (75-99) mg/dL 12/20/17 12/21/17 12/21/17 Range/Units 23:37 00:59 01:56 POC Glucose (mg/dL) 197 H 161 H 145 H (75-99) mg/dL 12/21/17 12/21/17 12/21/17 Range/Units 02:48 04:06 05:11 POC Glucose (mg/dL) 121 H 109 H 136 H (75-99) mg/dL 12/21/17 12/21/17 12/21/17 Range/Units 06:04 07:06 08:00 POC Glucose (mg/dL) 167 H 159 H 172 H (75-99) mg/dL Microbiology - Last 24 Hours (Table) 12/14/17 15:42 Blood Culture - Final Blood No Growth after 144 hours 12/14/17 11:25 Blood Culture - Final Blood No Growth after 144 hours 12/16/17 10:17 Blood Culture - Preliminary Blood No Growth after 96 hours 12/16/17 09:38 Blood Culture - Preliminary Blood No Growth after 96 hours 12/16/17 13:45 Gram Stain - Final Pleural Fluid Body Fluid Culture - Final Assessment and Plan Plan: Assessment: Hypoxemic respiratory failure secondary to bilateral pneumonia, today's chest x- ray has been reviewed and shows right-sided lacunar pleural effusion, with the right-sided Pleurx in place, diffuse increased pulmonary vascular markings likely related to interstitial pneumonia On 12/18/2017 patient seen again. Last night patient did change his mind about obtaining CT chest, and showed hydropneumothorax on the right with Pleurx catheter within the pleural space, extensive abnormal groundglass opacity within the left upper lobe and left lower lobe smaller left pleural effusion, related to left lung pneumonia. Right pleuralcatheter was placed to suction, and initially there was a mild air leak, which has stopped. We will obtain a follow-up chest x-ray. Sputum culture was positive for MSSA, and currently patient is covered with accommodation of Zosyn, Levaquin and vancomycin, no fevers and last 24 hours. On 12/19/2017 patient remains in the intensive care unit, requiring high flow oxygen, currently at 40 L/m, and FiO2 50%, there has been 280 mL of dark bloody pleural fluid since yesterday, and the Pleur-evac. There is a continuous air leak noted. ID service is following, and switch the IV antibiotics to and Levaquin. Chest x-ray has been reviewed, and shows persistent right-sided basilar hydropneumothorax, cardiomegaly with diffuse groundglass opacity bilaterally, consistent with infiltrates related to pneumonia. On 12/20/2017 patient remains in the intensive care unit, still requiring high flow oxygen, but Pleurx catheter to wall suction, and there has been 100 mL of dark bloody pleural fluid in the last 24 hours, and there is a continuous air leak. Patient is generally weak, pale, and fatigue, has poor appetite, he has not been able to get up out of bed. Sputum cultures positive for MSSA, patient' s currently on Kefzol and Levaquin, yesterday we added Solu-Medrol. Chest x- ray showed slight interval increase of the right basilar hydropneumothorax stable patchy left sided interstitial opacities. On 12/21/2017 were able to decrease the FiO2 down to 38%, patient ports some improvement in his dyspnea, lung sounds reveal better aeration at the right base , with some limited crackles at the right base. Right Pleurx catheter output is decreasing, 60 mL in the last 24 hours, there is continuous air leak in the Pleur-evac. No fever, no chills, his cough dry, noncongested. Patient remains covered with Kefzol and Levaquin. History of pancreatic carcinoma, status post recent chemotherapy Sepsis syndrome History of diabetes mellitus History of hyperlipidemia History of GERD Status post right-sided Pleurx catheter placement and wedge biopsy right lung, positive for adenocarcinoma. Status post decortication right lung History of neuropathy Plan: We will switch the patient to 15 L high flow nasal cannula, continue current antibiotic coverage, continue current dose of IV Solu-Medrol, nebulized treatments. No fever, no chills and last 24 hours, cough, no chest congestion. Chest x-ray has been reviewed by Dr. Levy and shows stable findings of the loculated hydropneumothorax on the right, and left lung interstitial pneumonia without much change. Continue with supportive care, overall prognosis remains extremely guarded. I performed a history & physical examination of the patient and discussed their management with my nurse practitioner, Marii Franco. I reviewed the nurse practitioner's note and agree with the documented findings and plan of care. Lung sounds are coarse. The findings and the impression was discussed with the patient. I attest to the documentation by the nurse practitioner. Time with Patient: Greater than 30
[2017-12-21] MEDS: NYSTATIN 100,000 UNIT/ML SUSP 500,000 UNIT/5 ML CUP PO SCH ×4 (10:06→21:48)
[2017-12-21 10:12] LABS: Glucose,Whole Blood 189 mg/dL (75-99)
[2017-12-21 12:12] LABS: Glucose,Whole Blood 211 mg/dL (75-99)
[2017-12-21] MEDS: INSULIN REGULAR 100 UNIT in SODIUM CHLORIDE 0.9% 100 ML IV SCH ×2 (13:54→21:39)
[2017-12-21 14:08] LABS: Glucose,Whole Blood 264 mg/dL (75-99)
[2017-12-21 15:13] LABS: Glucose,Whole Blood 225 mg/dL (75-99)
[2017-12-21 15:17] LABS: Anisocytosis Slight; Basophils % (A) 0 %; Eosinophils # (A) 0.1 k/uL (0-0.7); Eosinophils % (A) 0 %; HCT 27.6 % (39.0-53.0); HGB 8.6 gm/dL (13.0-17.5); Hypochromasia Marked; Lymphocytes # (A) 0.4 k/uL (1.0-4.8); Lymphocytes % (A) 3 %; MCH 27.2 pg (25.0-35.0); MCV 87.7 fL (80.0-100.0); Mean Platelet Volume 7.5; Monocytes # (A) 0.5 k/uL (0-1.0); Monocytes % (A) 4 %; Neutrophils # (A) 11.9 k/uL (1.3-7.7); Neutrophils % (A) 92 %; Platelet Count 451 k/uL (150-450); RBC 3.15 m/uL (4.30-5.90); RDW 17.5 % (11.5-15.5); WBC 12.9 k/uL (3.8-10.6)
[2017-12-21 15:23] LABS: ALT 31 U/L (21-72); AST 44 U/L (17-59); Albumin 2.7 g/dL (3.5-5.0); Alkaline Phosphatase 71 U/L (38-126); Anion Gap 10 mmol/L; Blood Urea Nitrogen 34 mg/dL (9-20); Calcium 8.3 mg/dL (8.4-10.2); Carbon Dioxide 25 mmol/L (22-30); Chloride 108 mmol/L (98-107); Glucose 233 mg/dL (74-99); Magnesium 2.2 mg/dL (1.6-2.3); Phosphorus 2.6 mg/dL (2.5-4.5); Sodium 143 mmol/L (137-145); Total Bilirubin 0.1 mg/dL (0.2-1.3); Total Protein 6.1 g/dL (6.3-8.2)
[2017-12-21 16:09] LABS: Glucose,Whole Blood 210 mg/dL (75-99)
--- NOTE | 2017-12-21 17:16 | PN ---
PROGRESS NOTE DATE OF SERVICE: 12/21/2017 REASON FOR FOLLOWUP: MSSA pneumonia. INTERVAL HISTORY: The patient is afebrile. He seems to be breathing more comfortably. The patient denies having any chest pain. Cough has decreased in intensity. He is feeling overall better. No nausea, no vomiting, no abdominal pain and no diarrhea. PHYSICAL EXAMINATION: Blood pressure 144/79 with a pulse of 94, temperature 97.5. He is 96% on 15 L high-flow oxygen. General description is an elderly male up in the chair in no distress. RESPIRATORY SYSTEM: Unlabored breathing with decreased breath sounds in the bases. No wheeze. HEART: S1, S2. Regular rate and rhythm. ABDOMEN: Soft. No tenderness. LABS: Hemoglobin 8.3, white count 12.9, BUN of 34, creatinine 0.89. DIAGNOSTIC IMPRESSION AND PLAN: Patient with methicillin-susceptible Staphylococcus aeruginosa pneumonia. Patient at this time to continue with the cefazolin and Levaquin. He seems to have shown some clinical improvement. The patient will be monitored closely. Continue with supportive care. MMODL / IJN: [id number] /
[2017-12-21 17:41] LABS: Glucose,Whole Blood 186 mg/dL (75-99)
[2017-12-21 19:17] LABS: Glucose,Whole Blood 247 mg/dL (75-99)
[2017-12-21 20:18] LABS: Glucose,Whole Blood 268 mg/dL (75-99)
[2017-12-21 21:13] LABS: Glucose,Whole Blood 285 mg/dL (75-99)
[2017-12-21] MEDS: ALPRAZolam 0.5 MG TAB PO PRN (21:49)
[2017-12-21] MEDS: INSULIN DETEMIR 100 UNIT/ML 10 ML VIAL SQ SCH (21:49)
[2017-12-21 22:05] LABS: Glucose,Whole Blood 263 mg/dL (75-99)
[2017-12-21 23:18] LABS: Glucose,Whole Blood 218 mg/dL (75-99)
[2017-12-21 23:40] LABS: Glucose,Whole Blood 204 mg/dL (75-99)
[2017-12-22] MEDS: methylPREDNISolone SOD SUCCI 125 MG/2 ML VIAL IV SCH ×4 (00:12→17:41)
[2017-12-22] MEDS: ceFAZolin IN SWFI 2 GM/20 ML SYRINGE IVP SCH ×3 (00:13→17:28)
[2017-12-22 01:12] LABS: Glucose,Whole Blood 154 mg/dL (75-99)
[2017-12-22 02:21] LABS: Glucose,Whole Blood 124 mg/dL (75-99)
[2017-12-22] MEDS: IPRATROPIUM-ALBUTEROL 3 ML NEB INHALATION SCH ×6 (03:07→19:51)
[2017-12-22 03:15] LABS: Glucose,Whole Blood 116 mg/dL (75-99)
[2017-12-22 04:43] LABS: Glucose,Whole Blood 155 mg/dL (75-99)
[2017-12-22 05:38] LABS: Anisocytosis Slight; Basophils % (A) 0 %; Eosinophils % (A) 0 %; HCT 25.9 % (39.0-53.0); HGB 7.8 gm/dL (13.0-17.5); Hypochromasia Marked; Lymphocytes # (A) 0.3 k/uL (1.0-4.8); Lymphocytes % (A) 3 %; MCH 26.5 pg (25.0-35.0); MCHC 30.2 g/dL (31.0-37.0); MCV 87.8 fL (80.0-100.0); Mean Platelet Volume 7.2; Monocytes # (A) 0.3 k/uL (0-1.0); Monocytes % (A) 3 %; Neutrophils # (A) 10.1 k/uL (1.3-7.7); Neutrophils % (A) 93 %; Platelet Count 408 k/uL (150-450); RBC 2.95 m/uL (4.30-5.90); RDW 17.6 % (11.5-15.5); WBC 10.8 k/uL (3.8-10.6)
[2017-12-22 05:56] LABS: Glucose,Whole Blood 146 mg/dL (75-99)
[2017-12-22 06:03] LABS: ALT 27 U/L (21-72); AST 36 U/L (17-59); Albumin 2.5 g/dL (3.5-5.0); Alkaline Phosphatase 62 U/L (38-126); Anion Gap 6 mmol/L; Blood Urea Nitrogen 37 mg/dL (9-20); Calcium 8.2 mg/dL (8.4-10.2); Carbon Dioxide 25 mmol/L (22-30); Chloride 111 mmol/L (98-107); Glucose 145 mg/dL (74-99); Potassium 4.1 mmol/L (3.5-5.1); Sodium 142 mmol/L (137-145); Total Bilirubin 0.1 mg/dL (0.2-1.3); Total Protein 5.6 g/dL (6.3-8.2)
--- NOTE | 2017-12-22 06:08 | XR ---
EXAMINATION TYPE: XR chest 1V portable DATE OF EXAM: 12/22/2017 HISTORY: lung assessment. REFERENCE: Previous study dated 12/21/2017. FINDINGS: There is a MediPort in place on the right. There is a right pleural drain in place. There c ontinues to the a loculated hydropneumothorax on the right. This appears to have improved. The heart is enlarged. There is improved aeration of the left lung. IMPRESSION: 1. PERSISTENT, SMALL HYDROPNEUMOTHORAX ON THE RIGHT. 2. BIBASILAR AIRSPACE DISEASE. 3. IMPROVED AERATION OF THE LEFT LUNG. 4. CARDIOMEGALY.
[2017-12-22] MEDS: INSULIN REGULAR 100 UNIT in SODIUM CHLORIDE 0.9% 100 ML IV SCH ×4 (06:45→23:10)
[2017-12-22 07:19] LABS: Glucose,Whole Blood 111 mg/dL (75-99)
[2017-12-22 08:23] LABS: Glucose,Whole Blood 111 mg/dL (75-99)
[2017-12-22] MEDS: SODIUM CHLORIDE 0.9% 1,000 ML IV SCH ×2 (08:38→22:03)
[2017-12-22] MEDS: GABAPENTIN 400 MG CAP PO SCH ×3 (08:39→21:45)
[2017-12-22] MEDS: LEVOFLOXACIN 750 MG TAB PO SCH (08:39)
[2017-12-22] MEDS: HEPARIN SODIUM,PORCINE 5,000 UNIT/ML 1 ML VIAL SQ SCH ×2 (08:40→21:45)
[2017-12-22] MEDS: FAMOTIDINE 20 MG TAB PO SCH ×2 (08:40→21:45)
[2017-12-22] MEDS: SERTRALINE 50 MG TAB PO SCH (08:40)
[2017-12-22 09:19] LABS: Glucose,Whole Blood 135 mg/dL (75-99)
[2017-12-22 10:14] LABS: Glucose,Whole Blood 237 mg/dL (75-99)
[2017-12-22 10:53] LABS: Glucose,Whole Blood 278 mg/dL (75-99)
[2017-12-22] MEDS: NYSTATIN 100,000 UNIT/ML SUSP 500,000 UNIT/5 ML CUP PO SCH ×4 (11:13→21:45)
[2017-12-22] MEDS: SALT AND SODA MOUTHWASH 1,000 ML PO SCH ×3 (11:13→17:28)
[2017-12-22 12:08] LABS: Glucose,Whole Blood 230 mg/dL (75-99)
[2017-12-22 13:18] LABS: Glucose,Whole Blood 216 mg/dL (75-99)
[2017-12-22 14:16] LABS: Glucose,Whole Blood 269 mg/dL (75-99)
[2017-12-22 15:11] LABS: Glucose,Whole Blood 285 mg/dL (75-99)
[2017-12-22 16:27] LABS: Glucose,Whole Blood 246 mg/dL (75-99)
--- NOTE | 2017-12-22 16:39 | P.PN ---
Subjective Progress Note Date: 12/22/17 This is a 77-year-old white male well-known to me. He presented to the emergency department on December 14 with fever. He's been undergoing chemotherapy for pancreatic cancer with his last chemo about 14 days ago. He apparently presented to the oncology office for another round of chemotherapy was noted to have a high fever and sent to the emergency department for evaluation. He was evaluated in the ER on December 14. He was admitted to the hospital with a diagnosis of pneumonia/sepsis. The patient had cough and some phlegm production and apparently. He also has a history of a right Pleurx catheter in place and he has a Mediport for chemotherapy. The patient was admitted to the floor. I was only consulted apparently sometime this morning. His respiratory status to client he became hypotensive and hypoxemic and we transferred the patient to the ICU for further management. His chest x-ray shows bilateral infiltrates. The patient is responsive. A Johnson catheter was placed. The chest x-ray was reviewed. The patient also has a history of diabetes, gastroesophageal reflux disease, hyperlipidemia, and previous right- sided thoracentesis and thoracoscopic decortication of the right lung with right wedge biopsy. That apparently was positive for adenocarcinoma. On 12/17/2017 patient seen again in follow-up in the intensive care units is awake and alert, he remains on AIRVO at 50 L/m, and FiO2 of 50%, his pulse ox is 92-94%, patient did have febrile episodes last night, with T-max of 101.6F. Cultures were reviewed, urine, blood, oral fluid and sputum cultures are negative thus far, final cultures are pending. Patient had refused CT chest this morning, he states he does not want any more tests. He is covered with a combination of vancomycin and Zosyn. We will add Levaquin. His chest x-ray has been reviewed by Dr. Levy and shows loculated right lower lung pneumothorax no significant change, diffuse increased pulmonary vascular markings and diffuse increased lung markings in the left lung most likely related to interstitial pneumonia rather than fluid overload. Pleural fluid cytology is pending. Today's labs have been reviewed, Sada BC 6.9, hemoglobin is 8.4, sodium is 136, there is electrolytes and renal profile is within normal limits. Patient is weak, he has no appetite. Lung sounds are positive for diminished breath sounds over right lower lobe, and some scattered crackles on the left. On 12/18/2017 patient seen in follow-up in the intensive care unit, he remains on high flow oxygen, AIRVO at 40 L/m, and FiO2 of 60%, IV 0.9 normal saline at a rate of 75 ML per hour, patient is sleepy, but easily arousable to verbal stimuli, he denies acute distress, appears weak, pale and fatigued. Patient's Pleurx catheter has been connected to Pleur-evac and continuous wall suction this was done in view of a loculated pneumothorax on the right. After initial connection to suction, there was some air leak, which has now stopped. We will obtain a repeat chest x-ray now. There are diminished breath sounds on the right, left lung is positive for fine inspiratory crackles. Patient has interstitial pneumonia on the left, and sputum cultures were positive for MSSA. Currently covered with a combination of Zosyn, Levaquin and vancomycin. No fevers in the last 24 hours. Overall prognosis remains poor, he remains a full code at this time, may need to address this to again with the patient and his family. On 12/19/2017 patient seen in follow-up in the intensive care unit, is more alert today, and conversant. Not in any acute distress, remains on high flow oxygen, currently at 40 L/m minute, and FiO2 of 50%. He is Pleurx catheter connected to suction, and there is a continuous air leak noted, and there has been 280 of dark bloody pleural fluid in the Pleur-evac. His chest x-ray has been reviewed, and showed overall stable findings, with right-sided chest tube and persistent bilateral basilar hydropneumothorax. There is cardiomegaly with diffuse ground glass opacity bilaterally and this is likely to underlying interstitial pneumonia, than fluid overload. Fever, no chills, vital signs are stable. Lung sounds real fine crackles on the left, and pleural rub on the right. A pneumatic coverage includes Kefzol, Levaquin, IDservice is following. We had a meeting with the patient's last night, and patient's prognosis is poor to underlying metastatic malignancy. Patient's CODE STATUS has been changed to DO NOT RESUSCITATE, hospice has been consulted to meet with the family and discuss options of hospice/palliative care. On 12/20/2017 he seen in follow-up in the intensive care unit, remains on high flow oxygen, currently at 40 L/m, and FiO2 of 45%, his pulse ox is 95%, afebrile , hemodynamically stable, patient is dyspneic with any exertion, and he Does not want his oxygen to be laying down, he is afraid it would make more short of breath. lung sounds are coarse, but better air entry noted at the right base. Right-sided Pleurx catheter is connected to a Pleur-evac and wall suction, and there has been 100 mL of dark pleural fluid in the last 24 hours, there is a continuous air leak. His chest x-ray showed an interval increase of the right basilar loculated hydropneumothorax with interval advancement of the Pleurx catheter. There is stable left-sided patchy interstitial opacities right basilar consolidation. Pleural fluid cultures remain negative thus far, sputum culture was positive for MSSA. he remains on Kefzol, Levaquin, and ID service is following. We added IV Solu-Medrol, he is less congested on today's exam. Clinically patient has minimal improvement since yesterday, clinically. In view of that patient and the family decided to wait with the hospice enrollment at this time. He remains a DO NOT RESUSCITATE. On 12/21/2017 patient seen in follow-up. Remains on high flow oxygen, currently at 40 L, and FiO2 of 38%, he reports his breathing is slightly improved, lung sounds reveal the better aeration over right lung, with a few rales at the right base. With 60 mL of pleural fluid in the last 24 hours. There is continuous air leak, today's chest x-ray has been reviewed by Dr. Levy, and show stable findings with right-sided loculated hydropneumothorax , and just to show pneumonia on the left. His remains stable, patient is afebrile. Her an antibiotic coverage includes Kefzol and Levaquin. On 12/22/2017 I'm seeing this patient for a follow-up. I've noted some improvement in the patient's overall pulmonary status over the past 24 hours. Today's chest exit shows improvement in the left lung pulmonary infiltrate and there is also improvement in aeration. She is on high flow oxygen initially at 60% and this was cut down to 40% and I think we should be able to cut it down further to high flow oxygen probably at 15 L. A trial of high flow oxygen will be given to this patient today. He is able to speak up longer distances. His cough is noncongested. No chest pain. There is a Pleurx cath on the right side which is attached to suction and there is ongoing air leak. Output and the Pleurx catheter has been 105 mL over the past 24 hours. His oral intake is still low. He is however feeling better appetite today and he is gradually increasing his oral intake. He remains on IV Solu-Medrol on a triple antibiotic coverage utilizing a combination of vancomycin and Zosyn and Levaquin. Fluid balance is negative as the patient is producing adequate urine. No other complaints infusion. Family is at the bedside. We have kept the hospice referral on hold knowing that the patient was showing some limited signs of improvement and the patient wanted to continue with the treatment for now. Objective - Vital Signs Vital signs: Vital Signs Temp 98.1 F 12/22/17 16:00 Pulse 87 12/22/17 16:23 Resp 35 H 12/22/17 16:00 BP 134/76 12/22/17 16:00 Pulse Ox 98 12/22/17 16:00 Intake & Output 12/21/17 12/22/17 12/22/17 18:59 06:59 18:59 Intake Total 2490.111 4784.068 868.692 Output Total 875 1000 1229 Balance 142.917 28.068 -360.308 Weight 85 kg 82.6 kg Intake: IV 825 150 675 Sodium Chloride 0.9% 1, 825 150 675 000 ml @ 75 mls/hr IV . [id number] [facility]UC[facility] Rx#:[id number] Intake, IV Titration 192.917 878.068 193.692 Amount Insulin Regular 100 unit 117.917 128.068 118.692 In Sodium Chloride 0.9% 100 ml @ Per Protocol IV .Q0M LUC[facility] Rx#:[id number] Sodium Chloride 0.9% 1, 75 750 75 000 ml @ 75 mls/hr IV . [id number] LUC[facility] Rx#:[id number] Output: Chest Tube Drainage 40 Right Anterior Chest 40 Drainage 100 115 Right Chest 100 115 Urine 735 1000 1114 Other: Voiding Method Indwelling Catheter Indwelling Catheter Indwelling Catheter # Voids 2 # Bowel Movements 2 - Exam No acute distress, oriented 3. The patient is a bit somnolent but does respond appropriately, currently on Airvo at 40 l/min, HEENT examination is grossly unremarkable. Mucous membranes are dry. No oral lesions. Neck supple. Full range of motion. No adenopathy thyromegaly or neck vein distention. Cardiovascular examination reveals regular rhythm rate. S1-S2 normal. No S3 or S4. No discernible murmur noted. The patient's heart rate is 80 Lungs reveal pleural rub over right lower lobe, scattered crackles on the right , Pleurx catheter to anterior right chest is connected to Pleur-evac and wall suction, continuous air leak noted, there is 280 of dark bloody pleural fluid is yesterday in the Pleur-evac Abdomen soft and bowel sounds are heard. No masses or tenderness. Johnson catheter in place. Extremities are intact. No cyanosis clubbing or edema. Skin is without rash or lesion. Neurologic examination is brief but nonfocal. - Labs CBC & Chem 7: 12/22/17 05:11 12/22/17 05:11 Labs: Abnormal Lab Results - Last 24 Hours (Table) 12/21/17 12/21/17 12/21/17 Range/Units 17:30 19:07 20:06 WBC (3.8-10.6) k/uL RBC (4.30-5.90) m/uL Hgb (13.0-17.5) gm/dL Hct (39.0-53.0) % MCHC (31.0-37.0) g/dL RDW (11.5-15.5) % Neutrophils # (1.3-7.7) k/uL Lymphocytes # (1.0-4.8) k/uL Chloride (98-107) mmol/L BUN (9-20) mg/dL Glucose (74-99) mg/dL POC Glucose (mg/dL) 186 H 247 H 268 H (75-99) mg/dL Calcium (8.4-10.2) mg/dL Total Bilirubin (0.2-1.3) mg/dL Total Protein (6.3-8.2) g/dL Albumin (3.5-5.0) g/dL 12/21/17 12/21/17 12/21/17 Range/Units 21:01 21:54 23:06 WBC (3.8-10.6) k/uL RBC (4.30-5.90) m/uL Hgb (13.0-17.5) gm/dL Hct (39.0-53.0) % MCHC (31.0-37.0) g/dL RDW (11.5-15.5) % Neutrophils # (1.3-7.7) k/uL Lymphocytes # (1.0-4.8) k/uL Chloride (98-107) mmol/L BUN (9-20) mg/dL Glucose (74-99) mg/dL POC Glucose (mg/dL) 285 H 263 H 218 H (75-99) mg/dL Calcium (8.4-10.2) mg/dL Total Bilirubin (0.2-1.3) mg/dL Total Protein (6.3-8.2) g/dL Albumin (3.5-5.0) g/dL 12/21/17 12/22/17 12/22/17 Range/Units 23:29 01:00 02:10 WBC (3.8-10.6) k/uL RBC (4.30-5.90) m/uL Hgb (13.0-17.5) gm/dL Hct (39.0-53.0) % MCHC (31.0-37.0) g/dL RDW (11.5-15.5) % Neutrophils # (1.3-7.7) k/uL Lymphocytes # (1.0-4.8) k/uL Chloride (98-107) mmol/L BUN (9-20) mg/dL Glucose (74-99) mg/dL POC Glucose (mg/dL) 204 H 154 H 124 H (75-99) mg/dL Calcium (8.4-10.2) mg/dL Total Bilirubin (0.2-1.3) mg/dL Total Protein (6.3-8.2) g/dL Albumin (3.5-5.0) g/dL 12/22/17 12/22/17 12/22/17 Range/Units 03:04 04:32 05:11 WBC 10.8 H (3.8-10.6) k/uL RBC 2.95 L (4.30-5.90) m/uL Hgb 7.8 L (13.0-17.5) gm/dL Hct 25.9 L (39.0-53.0) % MCHC 30.2 L (31.0-37.0) g/dL RDW 17.6 H (11.5-15.5) % Neutrophils # 10.1 H (1.3-7.7) k/uL Lymphocytes # 0.3 L (1.0-4.8) k/uL Chloride (98-107) mmol/L BUN (9-20) mg/dL Glucose (74-99) mg/dL POC Glucose (mg/dL) 116 H 155 H (75-99) mg/dL Calcium (8.4-10.2) mg/dL Total Bilirubin (0.2-1.3) mg/dL Total Protein (6.3-8.2) g/dL Albumin (3.5-5.0) g/dL 12/22/17 12/22/17 12/22/17 Range/Units 05:11 05:44 07:07 WBC (3.8-10.6) k/uL RBC (4.30-5.90) m/uL Hgb (13.0-17.5) gm/dL Hct (39.0-53.0) % MCHC (31.0-37.0) g/dL RDW (11.5-15.5) % Neutrophils # (1.3-7.7) k/uL Lymphocytes # (1.0-4.8) k/uL Chloride 111 H (98-107) mmol/L BUN 37 H (9-20) mg/dL Glucose 145 H (74-99) mg/dL POC Glucose (mg/dL) 146 H 111 H (75-99) mg/dL Calcium 8.2 L (8.4-10.2) mg/dL Total Bilirubin 0.1 L (0.2-1.3) mg/dL Total Protein 5.6 L (6.3-8.2) g/dL Albumin 2.5 L (3.5-5.0) g/dL 12/22/17 12/22/17 12/22/17 Range/Units 08:11 09:07 10:02 WBC (3.8-10.6) k/uL RBC (4.30-5.90) m/uL Hgb (13.0-17.5) gm/dL Hct (39.0-53.0) % MCHC (31.0-37.0) g/dL RDW (11.5-15.5) % Neutrophils # (1.3-7.7) k/uL Lymphocytes # (1.0-4.8) k/uL Chloride (98-107) mmol/L BUN (9-20) mg/dL Glucose (74-99) mg/dL POC Glucose (mg/dL) 111 H 135 H 237 H (75-99) mg/dL Calcium (8.4-10.2) mg/dL Total Bilirubin (0.2-1.3) mg/dL Total Protein (6.3-8.2) g/dL Albumin (3.5-5.0) g/dL 12/22/17 12/22/17 12/22/17 Range/Units 10:42 11:57 13:07 WBC (3.8-10.6) k/uL RBC (4.30-5.90) m/uL Hgb (13.0-17.5) gm/dL Hct (39.0-53.0) % MCHC (31.0-37.0) g/dL RDW (11.5-15.5) % Neutrophils # (1.3-7.7) k/uL Lymphocytes # (1.0-4.8) k/uL Chloride (98-107) mmol/L BUN (9-20) mg/dL Glucose (74-99) mg/dL POC Glucose (mg/dL) 278 H 230 H 216 H (75-99) mg/dL Calcium (8.4-10.2) mg/dL Total Bilirubin (0.2-1.3) mg/dL Total Protein (6.3-8.2) g/dL Albumin (3.5-5.0) g/dL 12/22/17 12/22/17 12/22/17 Range/Units 14:04 15:00 16:16 WBC (3.8-10.6) k/uL RBC (4.30-5.90) m/uL Hgb (13.0-17.5) gm/dL Hct (39.0-53.0) % MCHC (31.0-37.0) g/dL RDW (11.5-15.5) % Neutrophils # (1.3-7.7) k/uL Lymphocytes # (1.0-4.8) k/uL Chloride (98-107) mmol/L BUN (9-20) mg/dL Glucose (74-99) mg/dL POC Glucose (mg/dL) 269 H 285 H 246 H (75-99) mg/dL Calcium (8.4-10.2) mg/dL Total Bilirubin (0.2-1.3) mg/dL Total Protein (6.3-8.2) g/dL Albumin (3.5-5.0) g/dL Microbiology - Last 24 Hours (Table) 12/16/17 10:17 Blood Culture - Final Blood No Growth after 144 hours 12/16/17 09:38 Blood Culture - Final Blood No Growth after 144 hours Assessment and Plan Plan: Assessment 1 Acute hypoxemic respiratory failure secondary to bilateral pneumonia, as the patient has malignancy within the right pleural space and the patient has a Pleurx catheter draining a malignant right-sided pleural effusions in addition to an extensive left lung consolidation typical of an underlying pneumonia. The patient was severely hypoxic and short of breath and initially there was constipation to proceed with hospice. However, he has demonstrated some limited improvement in his overall pulmonary status. On today's evaluation the chest x-ray shows improvement in left lung pulmonary infiltrate and the patient is on high flow oxygen which will be weaned down to 15 L of possible. The patient has ongoing air leak and the right-sided Pleurx catheter and the chest x -ray shows elevated pneumothorax, probably a loculated pneumothorax in the right lung base. The long-term prognosis obviously is poor. We have had a lengthy discussion with the family. We are seeking some improvement in the pulmonary status with antibiotics and bronchodilators and steroids. 2 History of pancreatic carcinoma, status post recent chemotherapy 3 Sepsis syndrome, improved with antibiotics and currently hemodynamically stable 4 History of diabetes mellitus 5 History of hyperlipidemia 6 History of GERD 7 Status post right-sided Pleurx catheter placement and wedge biopsy right lung , positive for adenocarcinoma. 8 Status post thoracoscopic right lung biopsy 9 History of neuropathy Plan We'll continue our attempts to wean down the FiO2. I'm not sure if we'll going to be successful for now. We'll try high flow oxygen at 15 L per minute nasal cannula and is unable to put him back on 40 L. Meanwhile, the patient be encouraged to use incentive spirometer. We'll keep the Pleurx catheter to suctioning. We'll monitor the output. Continue bronchodilators. Continue same antibiotic coverage. Repeat chest x-ray in the morning. In my opinion, the long-term prognosis extremely poor. As for the short-term prognosis, we are still considering hospice if we're unable to get this patient to a condition where the oxygenation improves. Family is very understandable. The patient feels that he is doing better compared to yesterday. The chest x-ray looks somewhat better than the left lung. Repeat chest x-ray in the morning. Continue our efforts to wean off FiO2. We'll follow.
[2017-12-22 17:45] LABS: Glucose,Whole Blood 261 mg/dL (75-99)
--- NOTE | 2017-12-22 17:46 | P.PN ---
Subjective Progress Note Date: 12/21/17 Principal diagnosis: Acute hypoxic respiratory failure secondary to bilateral pneumonia 77-year-old white male well-known to me. He presented to the emergency department on December 14 with fever. He's been undergoing chemotherapy for pancreatic cancer with his last chemo about 14 days ago. He apparently presented to the oncology office for another round of chemotherapy was noted to have a high fever and sent to the emergency department for evaluation. He was evaluated in the ER on December 14. He was admitted to the hospital with a diagnosis of pneumonia/sepsis. The patient had cough and some phlegm production and apparently. He also has a history of a right Pleurx catheter in place and he has a Mediport for chemotherapy. The patient was admitted to the floor. I was only consulted apparently sometime this morning. His respiratory status to client he became hypotensive and hypoxemic and we transferred the patient to the ICU for further management. His chest x-ray shows bilateral infiltrates. The patient is responsive. A Johnson catheter was placed. The chest x-ray was reviewed. The patient also has a history of diabetes, gastroesophageal reflux disease, hyperlipidemia, and previous right-sided thoracentesis and thoracoscopic decortication of the right lung with right wedge biopsy. That apparently was positive for adenocarcinoma. 12/21/2017 patient seen in follow-up. Remains on high flow oxygen, currently at 40 L, and FiO2 of 38%, he reports his breathing is slightly improved, lung sounds reveal the better aeration over right lung, with a few rales at the right base. With 60 mL of pleural fluid in the last 24 hours. There is continuous air leak, today's chest x-ray has been reviewed by Dr. Levy, and show stable findings with right-sided loculated hydropneumothorax, and just to show pneumonia on the left. His remains stable, patient is afebrile. Her an antibiotic coverage includes Kefzol and Levaquin. Objective - Vital Signs Vital signs: Vital Signs Temp 97.7 F 12/21/17 13:00 Pulse 92 12/21/17 13:00 Resp 35 H 12/21/17 13:00 BP 138/73 12/21/17 13:00 Pulse Ox 92 L 12/21/17 13:00 Intake & Output 12/20/17 12/21/17 12/21/17 18:59 06:59 18:59 Intake Total 1433.690 989.470 655.011 Output Total 685 1465 615 Balance 748.690 -475.530 40.011 Weight 83.9 kg 85 kg 85 kg Intake: IV 900 75 525 Sodium Chloride 0.9% 1, 900 75 525 000 ml @ 75 mls/hr IV . [id number] [facility] Rx#:[id number] Intake, IV Titration 133.690 914.470 130.011 Amount Insulin Regular 100 unit 133.690 89.470 55.011 In Sodium Chloride 0.9% 100 ml @ Per Protocol IV .Q0M [facility] Rx#:[id number] Sodium Chloride 0.9% 1, 825 75 000 ml @ 75 mls/hr IV . [id number] [facility] Rx#:[id number] Oral 400 Output: Drainage 170 100 Right Chest 170 100 Urine 515 1465 515 Other: Voiding Method Indwelling Catheter Indwelling Catheter Indwelling Catheter # Voids 2 # Bowel Movements 1 - Exam - Constitutional General appearance: Present: mild distress - EENT Eyes: Present: PERRLA Ears: bilateral: normal - Neck Neck: Present: normal ROM - Respiratory Respiratory: right: diminished, left: CTA - Cardiovascular Rhythm: regular - Gastrointestinal General gastrointestinal: Present: soft - Integumentary Integumentary: Present: normal - Neurologic Neurologic: Present: CNII-XII intact - Musculoskeletal Musculoskeletal: Present: generalized weakness - Labs CBC & Chem 7: 12/22/17 05:11 12/22/17 05:11 Labs: Abnormal Lab Results - Last 24 Hours (Table) 12/20/17 12/20/17 12/20/17 Range/Units 14:52 16:23 17:12 POC Glucose (mg/dL) 223 H 141 H 122 H (75-99) mg/dL 12/20/17 12/20/17 12/20/17 Range/Units 18:35 19:33 20:37 POC Glucose (mg/dL) 155 H 204 H 225 H (75-99) mg/dL 12/20/17 12/20/17 12/20/17 Range/Units 21:37 22:24 23:37 POC Glucose (mg/dL) 229 H 233 H 197 H (75-99) mg/dL 12/21/17 12/21/17 12/21/17 Range/Units 00:59 01:56 02:48 POC Glucose (mg/dL) 161 H 145 H 121 H (75-99) mg/dL 12/21/17 12/21/17 12/21/17 Range/Units 04:06 05:11 06:04 POC Glucose (mg/dL) 109 H 136 H 167 H (75-99) mg/dL 12/21/17 12/21/17 12/21/17 Range/Units 07:06 08:00 10:01 POC Glucose (mg/dL) 159 H 172 H 189 H (75-99) mg/dL 12/21/17 12/21/17 Range/Units 12:01 13:53 POC Glucose (mg/dL) 211 H 264 H (75-99) mg/dL Microbiology - Last 24 Hours (Table) 12/16/17 10:17 Blood Culture - Preliminary Blood No Growth after 120 hours 12/16/17 09:38 Blood Culture - Preliminary Blood No Growth after 120 hours 12/14/17 15:42 Blood Culture - Final Blood No Growth after 144 hours 12/14/17 11:25 Blood Culture - Final Blood No Growth after 144 hours 12/16/17 13:45 Gram Stain - Final Pleural Fluid Body Fluid Culture - Final Assessment and Plan Assessment: 1 Acute hypoxemic respiratory failure secondary to bilateral pneumonia, - as the patient has malignancy within the right pleural space and the patient has a Pleurx catheter draining a malignant right-sided pleural effusions in addition to an extensive left lung consolidation typical of an underlying pneumonia. The patient was severely hypoxic and short of breath and initially there was constipation to proceed with hospice. However, he has demonstrated some limited improvement in his overall pulmonary status. - On today's evaluation the chest x-ray shows improvement in left lung pulmonary infiltrate and the patient is on high flow oxygen which will be weaned down to 15 L of possible. The patient has ongoing air leak and the right -sided Pleurx catheter and the chest x-ray shows elevated pneumothorax, probably a loculated pneumothorax in the right lung base. The long-term prognosis obviously is poor. We have had a lengthy discussion with the family. We are seeking some improvement in the pulmonary status with antibiotics and bronchodilators and steroids. 2 History of pancreatic carcinoma, status post recent chemotherapy 3 Sepsis syndrome, improved with antibiotics and currently hemodynamically stable 4 History of diabetes mellitus 5 History of hyperlipidemia 6 History of GERD 7 Status post right-sided Pleurx catheter placement and wedge biopsy right lung, positive for adenocarcinoma. 8 Status post thoracoscopic right lung biopsy 9 History of neuropathy Plan We'll continue our attempts to wean down the FiO2. I'm not sure if we'll going to be successful for now. We'll try high flow oxygen at 15 L per minute nasal cannula and is unable to put him back on 40 L. Meanwhile, the patient be encouraged to use incentive spirometer. We'll keep the Pleurx catheter to suctioning. We'll monitor the output. Continue bronchodilators. Continue same antibiotic coverage. Repeat chest x-ray in the morning. In my opinion, the long-term prognosis extremely poor. As for the short-term prognosis, we are still considering hospice if we're unable to get this patient to a condition where the oxygenation improves. Family is very understandable. The patient feels that he is doing better compared to yesterday. The chest x-ray looks somewhat better than the left lung. Repeat chest x-ray in the morning. Continue our efforts to wean off FiO2. We'll follow. Time with Patient: Greater than 30
[2017-12-22 18:52] LABS: Glucose,Whole Blood 266 mg/dL (75-99)
[2017-12-22 19:49] LABS: Glucose,Whole Blood 205 mg/dL (75-99)
[2017-12-22 20:31] LABS: Glucose,Whole Blood 183 mg/dL (75-99)
[2017-12-22] MEDS ORDERED: INSULIN DETEMIR 100 UNIT/ML 10 ML VIAL SQ SCH (21:00)
[2017-12-22 21:12] LABS: Glucose,Whole Blood 158 mg/dL (75-99)
[2017-12-22] MEDS: ALPRAZolam 0.5 MG TAB PO PRN (21:45)
[2017-12-22 22:13] LABS: Glucose,Whole Blood 157 mg/dL (75-99)
[2017-12-22 22:56] LABS: Glucose,Whole Blood 130 mg/dL (75-99)
[2017-12-23 00:36] LABS: Glucose,Whole Blood 89 mg/dL (75-99)
[2017-12-23] MEDS: IPRATROPIUM-ALBUTEROL 3 ML NEB INHALATION SCH ×7 (00:46→23:38)
[2017-12-23 01:21] LABS: Glucose,Whole Blood 61 mg/dL (75-99)
[2017-12-23 02:06] LABS: Glucose,Whole Blood 74 mg/dL (75-99)
[2017-12-23 02:45] LABS: Glucose,Whole Blood 89 mg/dL (75-99)
[2017-12-23 03:57] LABS: Glucose,Whole Blood 64 mg/dL (75-99)
[2017-12-23 04:54] LABS: Glucose,Whole Blood 93 mg/dL (75-99)
[2017-12-23 05:35] LABS: Anisocytosis Slight; Basophils % (A) 0 %; Eosinophils % (A) 0 %; HCT 25.1 % (39.0-53.0); HGB 7.5 gm/dL (13.0-17.5); Hypochromasia Marked; Lymphocytes # (A) 0.4 k/uL (1.0-4.8); Lymphocytes % (A) 3 %; MCH 26.5 pg (25.0-35.0); MCV 88.2 fL (80.0-100.0); Mean Platelet Volume 7.4; Monocytes # (A) 1.1 k/uL (0-1.0); Monocytes % (A) 9 %; Neutrophils # (A) 9.9 k/uL (1.3-7.7); Neutrophils % (A) 86 %; Platelet Count 395 k/uL (150-450); RBC 2.84 m/uL (4.30-5.90); RDW 17.5 % (11.5-15.5); WBC 11.5 k/uL (3.8-10.6)
[2017-12-23 05:47] LABS: ALT 27 U/L (21-72); AST 30 U/L (17-59); Albumin 2.3 g/dL (3.5-5.0); Alkaline Phosphatase 54 U/L (38-126); Anion Gap 5 mmol/L; Blood Urea Nitrogen 36 mg/dL (9-20); Calcium 7.7 mg/dL (8.4-10.2); Carbon Dioxide 27 mmol/L (22-30); Chloride 110 mmol/L (98-107); Glucose 77 mg/dL (74-99); Potassium 4.2 mmol/L (3.5-5.1); Sodium 142 mmol/L (137-145); Total Bilirubin 0.1 mg/dL (0.2-1.3); Total Protein 5.2 g/dL (6.3-8.2)
[2017-12-23 06:11] LABS: Glucose,Whole Blood 81 mg/dL (75-99)
[2017-12-23] MEDS: SALT AND SODA MOUTHWASH 1,000 ML PO SCH ×3 (08:06→17:36)
[2017-12-23 08:10] LABS: Glucose,Whole Blood 125 mg/dL (75-99)
[2017-12-23] MEDS: GABAPENTIN 400 MG CAP PO SCH ×3 (08:12→21:32)
[2017-12-23] MEDS: LEVOFLOXACIN 750 MG TAB PO SCH (08:12)
[2017-12-23] MEDS: ceFAZolin IN SWFI 2 GM/20 ML SYRINGE IVP SCH ×3 (08:13→21:32)
[2017-12-23] MEDS: FAMOTIDINE 20 MG TAB PO SCH ×2 (08:13→21:32)
[2017-12-23] MEDS: NYSTATIN 100,000 UNIT/ML SUSP 500,000 UNIT/5 ML CUP PO SCH ×4 (08:13→21:32)
[2017-12-23] MEDS: HEPARIN SODIUM,PORCINE 5,000 UNIT/ML 1 ML VIAL SQ SCH ×2 (08:13→21:32)
[2017-12-23] MEDS: methylPREDNISolone SOD SUCCI 125 MG/2 ML VIAL IV SCH (08:14)
[2017-12-23 09:21] LABS: Glucose,Whole Blood 178 mg/dL (75-99)
[2017-12-23] MEDS ORDERED: FUROSEMIDE 10 MG/ML 4 ML VIAL IV STA (09:51)
--- NOTE | 2017-12-23 10:16 | XR ---
EXAMINATION TYPE: XR chest 1V DATE OF EXAM: 12/23/2017 HISTORY: pneumonia. REFERENCE: Previous study dated 12/22/2017. FINDINGS: There is a MediPort in place on the right. There is a right pleural drain in place. There c ontinues to be a small basilar pneumothorax. The heart is enlarged. There is bibasilar airspace disea se. There are small, bilateral effusions. IMPRESSION: NO SIGNIFICANT INTERVAL CHANGE IN THE APPEARANCE OF THE CHEST.
[2017-12-23 10:19] LABS: Glucose,Whole Blood 152 mg/dL (75-99)
[2017-12-23] MEDS: SERTRALINE 50 MG TAB PO SCH (10:28)
[2017-12-23 11:16] LABS: Glucose,Whole Blood 96 mg/dL (75-99)
[2017-12-23 12:15] LABS: Glucose,Whole Blood 112 mg/dL (75-99)
[2017-12-23 13:20] LABS: Glucose,Whole Blood 205 mg/dL (75-99)
--- NOTE | 2017-12-23 13:53 | P.PN ---
Subjective Progress Note Date: 12/23/17 This is a 77-year-old white male well-known to me. He presented to the emergency department on December 14 with fever. He's been undergoing chemotherapy for pancreatic cancer with his last chemo about 14 days ago. He apparently presented to the oncology office for another round of chemotherapy was noted to have a high fever and sent to the emergency department for evaluation. He was evaluated in the ER on December 14. He was admitted to the hospital with a diagnosis of pneumonia/sepsis. The patient had cough and some phlegm production and apparently. He also has a history of a right Pleurx catheter in place and he has a Mediport for chemotherapy. The patient was admitted to the floor. I was only consulted apparently sometime this morning. His respiratory status to client he became hypotensive and hypoxemic and we transferred the patient to the ICU for further management. His chest x-ray shows bilateral infiltrates. The patient is responsive. A Johnson catheter was placed. The chest x-ray was reviewed. The patient also has a history of diabetes, gastroesophageal reflux disease, hyperlipidemia, and previous right- sided thoracentesis and thoracoscopic decortication of the right lung with right wedge biopsy. That apparently was positive for adenocarcinoma. On 12/17/2017 patient seen again in follow-up in the intensive care units is awake and alert, he remains on AIRVO at 50 L/m, and FiO2 of 50%, his pulse ox is 92-94%, patient did have febrile episodes last night, with T-max of 101.6F. Cultures were reviewed, urine, blood, oral fluid and sputum cultures are negative thus far, final cultures are pending. Patient had refused CT chest this morning, he states he does not want any more tests. He is covered with a combination of vancomycin and Zosyn. We will add Levaquin. His chest x-ray has been reviewed by Dr. Levy and shows loculated right lower lung pneumothorax no significant change, diffuse increased pulmonary vascular markings and diffuse increased lung markings in the left lung most likely related to interstitial pneumonia rather than fluid overload. Pleural fluid cytology is pending. Today's labs have been reviewed, Sada BC 6.9, hemoglobin is 8.4, sodium is 136, there is electrolytes and renal profile is within normal limits. Patient is weak, he has no appetite. Lung sounds are positive for diminished breath sounds over right lower lobe, and some scattered crackles on the left. On 12/18/2017 patient seen in follow-up in the intensive care unit, he remains on high flow oxygen, AIRVO at 40 L/m, and FiO2 of 60%, IV 0.9 normal saline at a rate of 75 ML per hour, patient is sleepy, but easily arousable to verbal stimuli, he denies acute distress, appears weak, pale and fatigued. Patient's Pleurx catheter has been connected to Pleur-evac and continuous wall suction this was done in view of a loculated pneumothorax on the right. After initial connection to suction, there was some air leak, which has now stopped. We will obtain a repeat chest x-ray now. There are diminished breath sounds on the right, left lung is positive for fine inspiratory crackles. Patient has interstitial pneumonia on the left, and sputum cultures were positive for MSSA. Currently covered with a combination of Zosyn, Levaquin and vancomycin. No fevers in the last 24 hours. Overall prognosis remains poor, he remains a full code at this time, may need to address this to again with the patient and his family. On 12/19/2017 patient seen in follow-up in the intensive care unit, is more alert today, and conversant. Not in any acute distress, remains on high flow oxygen, currently at 40 L/m minute, and FiO2 of 50%. He is Pleurx catheter connected to suction, and there is a continuous air leak noted, and there has been 280 of dark bloody pleural fluid in the Pleur-evac. His chest x-ray has been reviewed, and showed overall stable findings, with right-sided chest tube and persistent bilateral basilar hydropneumothorax. There is cardiomegaly with diffuse ground glass opacity bilaterally and this is likely to underlying interstitial pneumonia, than fluid overload. Fever, no chills, vital signs are stable. Lung sounds real fine crackles on the left, and pleural rub on the right. A pneumatic coverage includes Kefzol, Levaquin, IDservice is following. We had a meeting with the patient's last night, and patient's prognosis is poor to underlying metastatic malignancy. Patient's CODE STATUS has been changed to DO NOT RESUSCITATE, hospice has been consulted to meet with the family and discuss options of hospice/palliative care. On 12/20/2017 he seen in follow-up in the intensive care unit, remains on high flow oxygen, currently at 40 L/m, and FiO2 of 45%, his pulse ox is 95%, afebrile , hemodynamically stable, patient is dyspneic with any exertion, and he Does not want his oxygen to be laying down, he is afraid it would make more short of breath. lung sounds are coarse, but better air entry noted at the right base. Right-sided Pleurx catheter is connected to a Pleur-evac and wall suction, and there has been 100 mL of dark pleural fluid in the last 24 hours, there is a continuous air leak. His chest x-ray showed an interval increase of the right basilar loculated hydropneumothorax with interval advancement of the Pleurx catheter. There is stable left-sided patchy interstitial opacities right basilar consolidation. Pleural fluid cultures remain negative thus far, sputum culture was positive for MSSA. he remains on Kefzol, Levaquin, and ID service is following. We added IV Solu-Medrol, he is less congested on today's exam. Clinically patient has minimal improvement since yesterday, clinically. In view of that patient and the family decided to wait with the hospice enrollment at this time. He remains a DO NOT RESUSCITATE. On 12/21/2017 patient seen in follow-up. Remains on high flow oxygen, currently at 40 L, and FiO2 of 38%, he reports his breathing is slightly improved, lung sounds reveal the better aeration over right lung, with a few rales at the right base. With 60 mL of pleural fluid in the last 24 hours. There is continuous air leak, today's chest x-ray has been reviewed by Dr. Levy, and show stable findings with right-sided loculated hydropneumothorax , and just to show pneumonia on the left. His remains stable, patient is afebrile. Her an antibiotic coverage includes Kefzol and Levaquin. On 12/22/2017 I'm seeing this patient for a follow-up. I've noted some improvement in the patient's overall pulmonary status over the past 24 hours. Today's chest exit shows improvement in the left lung pulmonary infiltrate and there is also improvement in aeration. She is on high flow oxygen initially at 60% and this was cut down to 40% and I think we should be able to cut it down further to high flow oxygen probably at 15 L. A trial of high flow oxygen will be given to this patient today. He is able to speak up longer distances. His cough is noncongested. No chest pain. There is a Pleurx cath on the right side which is attached to suction and there is ongoing air leak. Output and the Pleurx catheter has been 105 mL over the past 24 hours. His oral intake is still low. He is however feeling better appetite today and he is gradually increasing his oral intake. He remains on IV Solu-Medrol on a triple antibiotic coverage utilizing a combination of vancomycin and Zosyn and Levaquin. Fluid balance is negative as the patient is producing adequate urine. No other complaints infusion. Family is at the bedside. We have kept the hospice referral on hold knowing that the patient was showing some limited signs of improvement and the patient wanted to continue with the treatment for now. On 12/23/2017 I'm seeing this patient for a follow-up. The patient was able to tolerate high flow oxygen at 15 L for several hours yesterday and subsequently he was placed back on the Airvo at 40 L. The patient is stable. No fever chills or night sweats. Repeat chest x-ray from today shows gradual clearing of the left-sided pulmonary infiltrate. The patient has a pneumothorax on the right side which is a loculated pneumothorax. The patient has ongoing air leak and the pleural tube/Pleurx catheter and it is output in the order of 10 mL an hour through the Pleurx catheter. He is following commands and answering questions. He feels good. He had a breakfast this morning. He remains on the same antibiotic coverage. He is on a combination of IV Kefzol and oral Levaquin. No nausea. No vomiting. No abdominal pain. IV Solu Medrol will be gradually weaned down. The patient was on high-dose of the Medrol and this is caused significant steroid-induced hyperglycemia requiring insulin drip for blood sugar control. This morning the insulin drip was running at 19 units an hour. Note that the patient is also on Levemir insulin 50 units daily at bedtime. Renal function is stable and the patient's hemoglobin is also stable at 7.5. Objective - Vital Signs Vital signs: Vital Signs Temp 98.4 F 12/23/17 12:00 Pulse 90 12/23/17 13:00 Resp 20 12/23/17 13:00 BP 120/70 12/23/17 13:00 Pulse Ox 94 L 12/23/17 13:00 Intake & Output 12/22/17 12/23/17 12/23/17 18:59 06:59 18:59 Intake Total 6574.774 4143.053 248.55 Output Total 1404 1115 1286 Balance -360.058 -18.947 -1037.45 Weight 84.4 kg Intake: IV 825 675 230 Sodium Chloride 0.9% 1, 825 675 230 000 ml @ 20 mls/hr IV . Q24H [facility] Rx#:[id number] Intake, IV Titration 218.942 301.053 18.55 Amount Insulin Regular 100 unit 143.942 76.053 18.55 In Sodium Chloride 0.9% 100 ml @ Per Protocol IV .Q0M [facility] Rx#:[id number] Sodium Chloride 0.9% 1, 75 225 000 ml @ 20 mls/hr IV . Q24H [facility] Rx#:[id number] Oral 120 Output: Chest Tube Drainage 125 60 Right Anterior Chest 125 60 Drainage 115 0 Right Chest 115 0 Urine 0248 618 5530 Stool 1 Other: Voiding Method Indwelling Catheter Indwelling Catheter Indwelling Catheter # Bowel Movements 2 - Exam No acute distress, oriented 3. The patient is a bit somnolent but does respond appropriately, currently on Airvo at 40 l/min, HEENT examination is grossly unremarkable. Mucous membranes are dry. No oral lesions. Neck supple. Full range of motion. No adenopathy thyromegaly or neck vein distention. Cardiovascular examination reveals regular rhythm rate. S1-S2 normal. No S3 or S4. No discernible murmur noted. Lungs reveal pleural rub over right lower lobe, scattered crackles on the right , Pleurx catheter to anterior right chest is connected to Pleurovac and wall suction, continuous air leak noted, Abdomen soft and bowel sounds are heard. No masses or tenderness. Johnson catheter in place. Extremities are intact. No cyanosis clubbing or edema. Skin is without rash or lesion. Neurologic examination is brief but nonfocal. - Labs CBC & Chem 7: 12/23/17 04:17 12/23/17 04:17 Labs: Abnormal Lab Results - Last 24 Hours (Table) 12/22/17 12/22/17 12/22/17 Range/Units 14:04 15:00 16:16 WBC (3.8-10.6) k/uL RBC (4.30-5.90) m/uL Hgb (13.0-17.5) gm/dL Hct (39.0-53.0) % MCHC (31.0-37.0) g/dL RDW (11.5-15.5) % Neutrophils # (1.3-7.7) k/uL Lymphocytes # (1.0-4.8) k/uL Monocytes # (0-1.0) k/uL Chloride (98-107) mmol/L BUN (9-20) mg/dL POC Glucose (mg/dL) 269 H 285 H 246 H (75-99) mg/dL Calcium (8.4-10.2) mg/dL Total Bilirubin (0.2-1.3) mg/dL Total Protein (6.3-8.2) g/dL Albumin (3.5-5.0) g/dL 12/22/17 12/22/17 12/22/17 Range/Units 17:33 18:37 19:38 WBC (3.8-10.6) k/uL RBC (4.30-5.90) m/uL Hgb (13.0-17.5) gm/dL Hct (39.0-53.0) % MCHC (31.0-37.0) g/dL RDW (11.5-15.5) % Neutrophils # (1.3-7.7) k/uL Lymphocytes # (1.0-4.8) k/uL Monocytes # (0-1.0) k/uL Chloride (98-107) mmol/L BUN (9-20) mg/dL POC Glucose (mg/dL) 261 H 266 H 205 H (75-99) mg/dL Calcium (8.4-10.2) mg/dL Total Bilirubin (0.2-1.3) mg/dL Total Protein (6.3-8.2) g/dL Albumin (3.5-5.0) g/dL 12/22/17 12/22/17 12/22/17 Range/Units 20:20 21:01 22:02 WBC (3.8-10.6) k/uL RBC (4.30-5.90) m/uL Hgb (13.0-17.5) gm/dL Hct (39.0-53.0) % MCHC (31.0-37.0) g/dL RDW (11.5-15.5) % Neutrophils # (1.3-7.7) k/uL Lymphocytes # (1.0-4.8) k/uL Monocytes # (0-1.0) k/uL Chloride (98-107) mmol/L BUN (9-20) mg/dL POC Glucose (mg/dL) 183 H 158 H 157 H (75-99) mg/dL Calcium (8.4-10.2) mg/dL Total Bilirubin (0.2-1.3) mg/dL Total Protein (6.3-8.2) g/dL Albumin (3.5-5.0) g/dL 12/22/17 12/23/17 12/23/17 Range/Units 22:44 01:10 01:53 WBC (3.8-10.6) k/uL RBC (4.30-5.90) m/uL Hgb (13.0-17.5) gm/dL Hct (39.0-53.0) % MCHC (31.0-37.0) g/dL RDW (11.5-15.5) % Neutrophils # (1.3-7.7) k/uL Lymphocytes # (1.0-4.8) k/uL Monocytes # (0-1.0) k/uL Chloride (98-107) mmol/L BUN (9-20) mg/dL POC Glucose (mg/dL) 130 H 61 L 74 L (75-99) mg/dL Calcium (8.4-10.2) mg/dL Total Bilirubin (0.2-1.3) mg/dL Total Protein (6.3-8.2) g/dL Albumin (3.5-5.0) g/dL 12/23/17 12/23/17 12/23/17 Range/Units 03:45 04:17 04:17 WBC 11.5 H (3.8-10.6) k/uL RBC 2.84 L (4.30-5.90) m/uL Hgb 7.5 L (13.0-17.5) gm/dL Hct 25.1 L (39.0-53.0) % MCHC 30.0 L (31.0-37.0) g/dL RDW 17.5 H (11.5-15.5) % Neutrophils # 9.9 H (1.3-7.7) k/uL Lymphocytes # 0.4 L (1.0-4.8) k/uL Monocytes # 1.1 H (0-1.0) k/uL Chloride 110 H (98-107) mmol/L BUN 36 H (9-20) mg/dL POC Glucose (mg/dL) 64 L (75-99) mg/dL Calcium 7.7 L (8.4-10.2) mg/dL Total Bilirubin 0.1 L (0.2-1.3) mg/dL Total Protein 5.2 L (6.3-8.2) g/dL Albumin 2.3 L (3.5-5.0) g/dL 12/23/17 12/23/17 12/23/17 Range/Units 07:58 09:09 10:07 WBC (3.8-10.6) k/uL RBC (4.30-5.90) m/uL Hgb (13.0-17.5) gm/dL Hct (39.0-53.0) % MCHC (31.0-37.0) g/dL RDW (11.5-15.5) % Neutrophils # (1.3-7.7) k/uL Lymphocytes # (1.0-4.8) k/uL Monocytes # (0-1.0) k/uL Chloride (98-107) mmol/L BUN (9-20) mg/dL POC Glucose (mg/dL) 125 H 178 H 152 H (75-99) mg/dL Calcium (8.4-10.2) mg/dL Total Bilirubin (0.2-1.3) mg/dL Total Protein (6.3-8.2) g/dL Albumin (3.5-5.0) g/dL 12/23/17 12/23/17 Range/Units 12:03 13:08 WBC (3.8-10.6) k/uL RBC (4.30-5.90) m/uL Hgb (13.0-17.5) gm/dL Hct (39.0-53.0) % MCHC (31.0-37.0) g/dL RDW (11.5-15.5) % Neutrophils # (1.3-7.7) k/uL Lymphocytes # (1.0-4.8) k/uL Monocytes # (0-1.0) k/uL Chloride (98-107) mmol/L BUN (9-20) mg/dL POC Glucose (mg/dL) 112 H 205 H (75-99) mg/dL Calcium (8.4-10.2) mg/dL Total Bilirubin (0.2-1.3) mg/dL Total Protein (6.3-8.2) g/dL Albumin (3.5-5.0) g/dL Microbiology - Last 24 Hours (Table) 12/16/17 10:17 Blood Culture - Final Blood No Growth after 144 hours 12/16/17 09:38 Blood Culture - Final Blood No Growth after 144 hours Assessment and Plan Plan: Assessment 1 Acute hypoxemic respiratory failure secondary to bilateral pneumonia, as the patient has malignancy within the right pleural space and the patient has a Pleurx catheter draining a malignant right-sided pleural effusions in addition to an extensive left lung consolidation typical of an underlying pneumonia. The patient was severely hypoxic and short of breath and initially there was constipation to proceed with hospice. However, he has demonstrated some limited improvement in his overall pulmonary status. On today's evaluation the chest x-ray shows improvement in left lung pulmonary infiltrate and the patient is on high flow oxygen which will be weaned down to 15 L of possible. On today's evaluation of 12/23/2017, the patient will be tried again on high flow oxygen at 15 L. This was tried yesterday for a few hours. Chest x-ray shows gradual clearing of the left lung pneumonia. Unfortunately there is still marked pathology in the right side where the patient has a loculated pneumothorax and ongoing persistent air leak and the Pleurx catheter which is attached to the wall suction. Note that the patient has malignancy within the right pleural space and he is post thoracoscopic biopsy which confirmed malignancy with the pleural space involving the pleura, lung and the pleural fluid. 2 History of pancreatic carcinoma, status post recent chemotherapy 3 Sepsis syndrome, improved with antibiotics and currently hemodynamically stable 4 History of diabetes mellitus 5 History of hyperlipidemia 6 History of GERD 7 Status post right-sided Pleurx catheter placement and wedge biopsy right lung , positive for adenocarcinoma. 8 Status post thoracoscopic right lung biopsy 9 History of neuropathy Plan We'll continue our attempts to wean down the FiO2. Cut down the IV Solu Medrol to 40 mg every 24 hours. Titrate the insulin drip based on the blood sugar control. Cut down the IV fluids to KVO. Give the patient dose of Lasix 40 mg IV push. We'll transfer this patient to telemetry unit for further recuperation. CODE STATUS is DNR/DNI. Oncology is on the case. Prognosis obviously poor baseline above-mentioned comorbidities.
--- NOTE | 2017-12-23 15:14 | P.PN ---
Subjective Progress Note Date: 12/22/17 Principal diagnosis: Acute hypoxic respiratory failure secondary to bilateral pneumonia 77-year-old white male well-known to me. He presented to the emergency department on December 14 with fever. He's been undergoing chemotherapy for pancreatic cancer with his last chemo about 14 days ago. He apparently presented to the oncology office for another round of chemotherapy was noted to have a high fever and sent to the emergency department for evaluation. He was evaluated in the ER on December 14. He was admitted to the hospital with a diagnosis of pneumonia/sepsis. The patient had cough and some phlegm production and apparently. He also has a history of a right Pleurx catheter in place and he has a Mediport for chemotherapy. The patient was admitted to the floor. I was only consulted apparently sometime this morning. His respiratory status to client he became hypotensive and hypoxemic and we transferred the patient to the ICU for further management. His chest x-ray shows bilateral infiltrates. The patient is responsive. A Johnson catheter was placed. The chest x-ray was reviewed. The patient also has a history of diabetes, gastroesophageal reflux disease, hyperlipidemia, and previous right-sided thoracentesis and thoracoscopic decortication of the right lung with right wedge biopsy. That apparently was positive for adenocarcinoma. 12/21/2017 patient seen in follow-up. Remains on high flow oxygen, currently at 40 L, and FiO2 of 38%, he reports his breathing is slightly improved, lung sounds reveal the better aeration over right lung, with a few rales at the right base. With 60 mL of pleural fluid in the last 24 hours. There is continuous air leak, today's chest x-ray has been reviewed by Dr. Levy, and show stable findings with right-sided loculated hydropneumothorax, and just to show pneumonia on the left. His remains stable, patient is afebrile. Her an antibiotic coverage includes Kefzol and Levaquin. 12/22/2018 Patient is seen for a follow-up. Today's chest exit shows improvement in the left lung pulmonary infiltrate and there is also improvement in aeration; he is on high flow oxygen initially at 60% and this was cut down to 40%; per pulmonary service trial of high flow oxygen will be given to this patient today. He is able to speak up longer sentences. His cough is noncongested. No chest pain. There is a Pleurx cath on the right side which is attached to suction and there is ongoing air leak. Output and the Pleurx catheter has been 105 mL over the past 24 hours. He remains on IV Solu-Medrol on a triple antibiotic coverage utilizing a combination of vancomycin and Zosyn and Levaquin. Objective - Vital Signs Vital signs: Vital Signs Temp 98.1 F 12/22/17 16:00 Pulse 81 12/22/17 17:00 Resp 18 12/22/17 17:00 BP 131/85 12/22/17 17:00 Pulse Ox 98 12/22/17 17:00 Intake & Output 12/21/17 12/22/17 12/22/17 18:59 06:59 18:59 Intake Total 7843.603 0937.068 943.692 Output Total 875 1000 1304 Balance 142.917 28.068 -360.308 Weight 85 kg 82.6 kg Intake: IV 825 150 750 Sodium Chloride 0.9% 1, 825 150 750 000 ml @ 75 mls/hr IV . [id number] LUCY Rx#:[id number] Intake, IV Titration 192.917 878.068 193.692 Amount Insulin Regular 100 unit 117.917 128.068 118.692 In Sodium Chloride 0.9% 100 ml @ Per Protocol IV .Q0M LUCY Rx#:[id number] Sodium Chloride 0.9% 1, 75 750 75 000 ml @ 75 mls/hr IV . [id number] LUCY Rx#:[id number] Output: Chest Tube Drainage 40 Right Anterior Chest 40 Drainage 100 115 Right Chest 100 115 Urine 735 1000 1189 Other: Voiding Method Indwelling Catheter Indwelling Catheter Indwelling Catheter # Voids 2 # Bowel Movements 2 - Exam - Constitutional General appearance: Present: mild distress - EENT Eyes: Present: PERRLA Ears: bilateral: normal - Neck Neck: Present: normal ROM - Respiratory Respiratory: right: diminished, left: CTA - Cardiovascular Rhythm: regular - Gastrointestinal General gastrointestinal: Present: soft - Integumentary Integumentary: Present: normal - Neurologic Neurologic: Present: CNII-XII intact - Musculoskeletal Musculoskeletal: Present: generalized weakness - Labs CBC & Chem 7: 12/23/17 04:17 12/23/17 04:17 Labs: Abnormal Lab Results - Last 24 Hours (Table) 12/21/17 12/21/17 12/21/17 Range/Units 19:07 20:06 21:01 WBC (3.8-10.6) k/uL RBC (4.30-5.90) m/uL Hgb (13.0-17.5) gm/dL Hct (39.0-53.0) % MCHC (31.0-37.0) g/dL RDW (11.5-15.5) % Neutrophils # (1.3-7.7) k/uL Lymphocytes # (1.0-4.8) k/uL Chloride (98-107) mmol/L BUN (9-20) mg/dL Glucose (74-99) mg/dL POC Glucose (mg/dL) 247 H 268 H 285 H (75-99) mg/dL Calcium (8.4-10.2) mg/dL Total Bilirubin (0.2-1.3) mg/dL Total Protein (6.3-8.2) g/dL Albumin (3.5-5.0) g/dL 12/21/17 12/21/17 12/21/17 Range/Units 21:54 23:06 23:29 WBC (3.8-10.6) k/uL RBC (4.30-5.90) m/uL Hgb (13.0-17.5) gm/dL Hct (39.0-53.0) % MCHC (31.0-37.0) g/dL RDW (11.5-15.5) % Neutrophils # (1.3-7.7) k/uL Lymphocytes # (1.0-4.8) k/uL Chloride (98-107) mmol/L BUN (9-20) mg/dL Glucose (74-99) mg/dL POC Glucose (mg/dL) 263 H 218 H 204 H (75-99) mg/dL Calcium (8.4-10.2) mg/dL Total Bilirubin (0.2-1.3) mg/dL Total Protein (6.3-8.2) g/dL Albumin (3.5-5.0) g/dL 12/22/17 12/22/17 12/22/17 Range/Units 01:00 02:10 03:04 WBC (3.8-10.6) k/uL RBC (4.30-5.90) m/uL Hgb (13.0-17.5) gm/dL Hct (39.0-53.0) % MCHC (31.0-37.0) g/dL RDW (11.5-15.5) % Neutrophils # (1.3-7.7) k/uL Lymphocytes # (1.0-4.8) k/uL Chloride (98-107) mmol/L BUN (9-20) mg/dL Glucose (74-99) mg/dL POC Glucose (mg/dL) 154 H 124 H 116 H (75-99) mg/dL Calcium (8.4-10.2) mg/dL Total Bilirubin (0.2-1.3) mg/dL Total Protein (6.3-8.2) g/dL Albumin (3.5-5.0) g/dL 12/22/17 12/22/17 12/22/17 Range/Units 04:32 05:11 05:11 WBC 10.8 H (3.8-10.6) k/uL RBC 2.95 L (4.30-5.90) m/uL Hgb 7.8 L (13.0-17.5) gm/dL Hct 25.9 L (39.0-53.0) % MCHC 30.2 L (31.0-37.0) g/dL RDW 17.6 H (11.5-15.5) % Neutrophils # 10.1 H (1.3-7.7) k/uL Lymphocytes # 0.3 L (1.0-4.8) k/uL Chloride 111 H (98-107) mmol/L BUN 37 H (9-20) mg/dL Glucose 145 H (74-99) mg/dL POC Glucose (mg/dL) 155 H (75-99) mg/dL Calcium 8.2 L (8.4-10.2) mg/dL Total Bilirubin 0.1 L (0.2-1.3) mg/dL Total Protein 5.6 L (6.3-8.2) g/dL Albumin 2.5 L (3.5-5.0) g/dL 12/22/17 12/22/17 12/22/17 Range/Units 05:44 07:07 08:11 WBC (3.8-10.6) k/uL RBC (4.30-5.90) m/uL Hgb (13.0-17.5) gm/dL Hct (39.0-53.0) % MCHC (31.0-37.0) g/dL RDW (11.5-15.5) % Neutrophils # (1.3-7.7) k/uL Lymphocytes # (1.0-4.8) k/uL Chloride (98-107) mmol/L BUN (9-20) mg/dL Glucose (74-99) mg/dL POC Glucose (mg/dL) 146 H 111 H 111 H (75-99) mg/dL Calcium (8.4-10.2) mg/dL Total Bilirubin (0.2-1.3) mg/dL Total Protein (6.3-8.2) g/dL Albumin (3.5-5.0) g/dL 12/22/17 12/22/17 12/22/17 Range/Units 09:07 10:02 10:42 WBC (3.8-10.6) k/uL RBC (4.30-5.90) m/uL Hgb (13.0-17.5) gm/dL Hct (39.0-53.0) % MCHC (31.0-37.0) g/dL RDW (11.5-15.5) % Neutrophils # (1.3-7.7) k/uL Lymphocytes # (1.0-4.8) k/uL Chloride (98-107) mmol/L BUN (9-20) mg/dL Glucose (74-99) mg/dL POC Glucose (mg/dL) 135 H 237 H 278 H (75-99) mg/dL Calcium (8.4-10.2) mg/dL Total Bilirubin (0.2-1.3) mg/dL Total Protein (6.3-8.2) g/dL Albumin (3.5-5.0) g/dL 12/22/17 12/22/17 12/22/17 Range/Units 11:57 13:07 14:04 WBC (3.8-10.6) k/uL RBC (4.30-5.90) m/uL Hgb (13.0-17.5) gm/dL Hct (39.0-53.0) % MCHC (31.0-37.0) g/dL RDW (11.5-15.5) % Neutrophils # (1.3-7.7) k/uL Lymphocytes # (1.0-4.8) k/uL Chloride (98-107) mmol/L BUN (9-20) mg/dL Glucose (74-99) mg/dL POC Glucose (mg/dL) 230 H 216 H 269 H (75-99) mg/dL Calcium (8.4-10.2) mg/dL Total Bilirubin (0.2-1.3) mg/dL Total Protein (6.3-8.2) g/dL Albumin (3.5-5.0) g/dL 12/22/17 12/22/17 12/22/17 Range/Units 15:00 16:16 17:33 WBC (3.8-10.6) k/uL RBC (4.30-5.90) m/uL Hgb (13.0-17.5) gm/dL Hct (39.0-53.0) % MCHC (31.0-37.0) g/dL RDW (11.5-15.5) % Neutrophils # (1.3-7.7) k/uL Lymphocytes # (1.0-4.8) k/uL Chloride (98-107) mmol/L BUN (9-20) mg/dL Glucose (74-99) mg/dL POC Glucose (mg/dL) 285 H 246 H 261 H (75-99) mg/dL Calcium (8.4-10.2) mg/dL Total Bilirubin (0.2-1.3) mg/dL Total Protein (6.3-8.2) g/dL Albumin (3.5-5.0) g/dL Microbiology - Last 24 Hours (Table) 12/16/17 10:17 Blood Culture - Final Blood No Growth after 144 hours 12/16/17 09:38 Blood Culture - Final Blood No Growth after 144 hours Assessment and Plan Assessment: 1 Acute hypoxemic respiratory failure secondary to bilateral pneumonia, - as the patient has malignancy within the right pleural space and the patient has a Pleurx catheter draining a malignant right-sided pleural effusions in addition to an extensive left lung consolidation typical of an underlying pneumonia. The patient was severely hypoxic and short of breath and initially there was constipation to proceed with hospice. However, he has demonstrated some limited improvement in his overall pulmonary status. - On today's evaluation the chest x-ray shows improvement in left lung pulmonary infiltrate and the patient is on high flow oxygen which will be weaned down to 15 L of possible. The patient has ongoing air leak and the right -sided Pleurx catheter and the chest x-ray shows elevated pneumothorax, probably a loculated pneumothorax in the right lung base. The long-term prognosis obviously is poor. We have had a lengthy discussion with the family. We are seeking some improvement in the pulmonary status with antibiotics and bronchodilators and steroids. 2 History of pancreatic carcinoma, status post recent chemotherapy 3 Sepsis syndrome, improved with antibiotics and currently hemodynamically stable 4 History of diabetes mellitus 5 History of hyperlipidemia 6 History of GERD 7 Status post right-sided Pleurx catheter placement and wedge biopsy right lung, positive for adenocarcinoma. 8 Status post thoracoscopic right lung biopsy 9 History of neuropathy Plan We'll continue our attempts to wean down the FiO2. I'm not sure if we'll going to be successful for now. We'll try high flow oxygen at 15 L per minute nasal cannula and is unable to put him back on 40 L. Meanwhile, the patient be encouraged to use incentive spirometer. We'll keep the Pleurx catheter to suctioning. We'll monitor the output. Continue bronchodilators. Continue same antibiotic coverage. Repeat chest x-ray in the morning. In my opinion, the long-term prognosis extremely poor. As for the short-term prognosis, we are still considering hospice if we're unable to get this patient to a condition where the oxygenation improves. Family is very understandable. The patient feels that he is doing better compared to yesterday. The chest x-ray looks somewhat better than the left lung. Repeat chest x-ray in the morning. Continue our efforts to wean off FiO2. We'll follow. Time with Patient: Greater than 30
[2017-12-23 17:33] LABS: Glucose,Whole Blood 193 mg/dL (75-99)
[2017-12-23] MEDS: SODIUM CHLORIDE 0.9% 1,000 ML IV SCH (17:35)
[2017-12-23] MEDS: INSULIN ASPART 100 UNIT/ML 1 ML 10 ML VIAL SQ SCH ×2 (17:36→21:32)
[2017-12-23 21:15] LABS: Glucose,Whole Blood 328 mg/dL (75-99)
[2017-12-23] MEDS ORDERED: INSULIN ASPART 100 UNIT/ML 1 ML 10 ML VIAL SQ ONE (21:22)
[2017-12-23] MEDS: ALPRAZolam 0.5 MG TAB PO PRN (21:32)
[2017-12-23] MEDS: INSULIN DETEMIR 100 UNIT/ML 10 ML VIAL SQ SCH (21:33)
[2017-12-24 02:01] LABS: Glucose,Whole Blood 157 mg/dL (75-99)
[2017-12-24] MEDS: IPRATROPIUM-ALBUTEROL 3 ML NEB INHALATION SCH ×6 (03:18→23:17)
[2017-12-24] MEDS: SODIUM CHLORIDE 0.9% 1,000 ML IV SCH ×2 (03:25→12:07)
[2017-12-24] MEDS: ceFAZolin IN SWFI 2 GM/20 ML SYRINGE IVP SCH ×3 (05:14→20:47)
[2017-12-24 06:28] LABS: Glucose,Whole Blood 69 mg/dL (75-99)
[2017-12-24] MEDS: INSULIN ASPART 100 UNIT/ML 1 ML 10 ML VIAL SQ SCH ×4 (06:30→20:48)
[2017-12-24 06:40] LABS: Anisocytosis Slight; Basophils % (A) 0 %; Eosinophils # (A) 0.1 k/uL (0-0.7); Eosinophils % (A) 1 %; HCT 28.2 % (39.0-53.0); HGB 8.7 gm/dL (13.0-17.5); Hypochromasia Moderate; Lymphocytes # (A) 0.8 k/uL (1.0-4.8); Lymphocytes % (A) 8 %; MCH 26.8 pg (25.0-35.0); MCHC 30.9 g/dL (31.0-37.0); MCV 86.8 fL (80.0-100.0); Mean Platelet Volume 7.3; Monocytes # (A) 0.8 k/uL (0-1.0); Monocytes % (A) 8 %; Neutrophils # (A) 8.3 k/uL (1.3-7.7); Neutrophils % (A) 82 %; Platelet Count 395 k/uL (150-450); RBC 3.25 m/uL (4.30-5.90); RDW 17.9 % (11.5-15.5); WBC 10.1 k/uL (3.8-10.6)
[2017-12-24 06:47] LABS: Glucose,Whole Blood 64 mg/dL (75-99)
[2017-12-24 07:09] LABS: Glucose,Whole Blood 80 mg/dL (75-99)
[2017-12-24 07:15] LABS: ALT 57 U/L (21-72); AST 63 U/L (17-59); Albumin 2.5 g/dL (3.5-5.0); Alkaline Phosphatase 65 U/L (38-126); Anion Gap 5 mmol/L; Carbon Dioxide 32 mmol/L (22-30); Chloride 104 mmol/L (98-107); Glucose 65 mg/dL (74-99); Potassium 4.1 mmol/L (3.5-5.1); Sodium 141 mmol/L (137-145); Total Bilirubin 0.2 mg/dL (0.2-1.3); Total Protein 5.5 g/dL (6.3-8.2)
--- NOTE | 2017-12-24 07:18 | PN ---
PROGRESS NOTE DATE OF SERVICE: 12/23/2017 REASON FOR FOLLOWUP: MSSA complicated pneumonia. INTERVAL HISTORY: The patient is currently afebrile. He is breathing more comfortably. Oxygen requirement down to 6 L. Denies having any chest pain. Occasional cough. No abdominal pain and no diarrhea. PHYSICAL EXAMINATION: Blood pressure 122/64, pulse of 82, temperature 97.6, he is 98% on 5 L nasal cannula. General description is an elderly male, up in the bed in no distress. RESPIRATORY SYSTEM: Unlabored breathing with decreased breath sounds in the base, with no wheeze. HEART: S1, S2. Regular rate and rhythm. ABDOMEN: Soft, no tenderness. LABS: Hemoglobin is 7.5, white count of 11.5 with a BUN of 36, creatinine 0.78. DIAGNOSTIC IMPRESSION AND PLAN: Patient with methicillin-susceptible Staphylococcus aureus complicated pneumonia in a patient who did have underlying pleural effusion on the right side. Patient slowly clinically responding to cefazolin and Levaquin. In view of extensive pneumonia, he may benefit from IV antibiotic therapy. Discharge discussed further with the case hardener. Continue supportive care. MMODL / IJN: [id number] /
[2017-12-24 07:32] LABS: Blood Urea Nitrogen 33 mg/dL (9-20)
[2017-12-24] MEDS: HEPARIN SODIUM,PORCINE 5,000 UNIT/ML 1 ML VIAL SQ SCH ×2 (08:47→20:48)
[2017-12-24] MEDS: methylPREDNISolone SOD SUCCI 40 MG/ML 1 ML VIAL IV SCH (08:47)
[2017-12-24] MEDS: NYSTATIN 100,000 UNIT/ML SUSP 500,000 UNIT/5 ML CUP PO SCH ×4 (08:48→20:48)
[2017-12-24] MEDS: GABAPENTIN 400 MG CAP PO SCH ×3 (08:48→20:49)
[2017-12-24] MEDS: FAMOTIDINE 20 MG TAB PO SCH ×2 (08:48→20:49)
[2017-12-24] MEDS: SERTRALINE 50 MG TAB PO SCH (08:48)
[2017-12-24] MEDS: LEVOFLOXACIN 750 MG TAB PO SCH (08:48)
[2017-12-24 11:19] VITALS: BMI 24.2
[2017-12-24 12:06] LABS: Glucose,Whole Blood 202 mg/dL (75-99)
[2017-12-24] MEDS: SALT AND SODA MOUTHWASH 1,000 ML PO SCH ×3 (12:18→15:45)
--- NOTE | 2017-12-24 12:59 | P.PN ---
Subjective Noted improvement to patient sitting at bedside in attendance. Patient's plan is to go to [facility] for rehab considering discontinuing chemotherapy. Patient remains no code patient Objective - Vital Signs Vital signs: Vital Signs Temp 97.4 F L 12/24/17 08:00 Pulse 90 12/24/17 12:48 Resp 18 12/24/17 08:00 BP 119/64 12/24/17 08:00 Pulse Ox 98 12/24/17 08:00 Intake & Output 12/23/17 12/24/17 12/24/17 18:59 06:59 18:59 Intake Total 348.55 120 240 Output Total 1994 1280 Balance -1646.45 -1160 240 Weight 83.3 kg 83.3 kg Intake: IV 330 20 Sodium Chloride 0.9% 1, 330 20 000 ml @ 20 mls/hr IV . Q24H [facility]UC[facility] Rx#:[id number] Intake, IV Titration 18.55 100 Amount Insulin Regular 100 unit 18.55 In Sodium Chloride 0.9% 100 ml @ Per Protocol IV .Q0M LUCY Rx#:[id number] Sodium Chloride 0.9% 1, 100 000 ml @ 20 mls/hr IV . Q24H LUCY Rx#:[id number] Oral 240 Output: Chest Tube Drainage 70 30 Right Anterior Chest 70 30 Urine 1925 1250 Other: Voiding Method Indwelling Catheter Indwelling Catheter Indwelling Catheter # Voids 2 # Bowel Movements 1 - Constitutional General appearance: Present: mild distress - EENT Eyes: Present: PERRLA Ears: bilateral: normal - Neck Neck: Present: normal ROM - Respiratory Respiratory: right: diminished, left: CTA - Cardiovascular Rhythm: regular - Gastrointestinal General gastrointestinal: Present: soft - Integumentary Integumentary: Present: normal - Neurologic Neurologic: Present: CNII-XII intact - Musculoskeletal Musculoskeletal: Present: generalized weakness - Psychiatric Psychiatric: Present: A&O x's 3, appropriate affect, intact judgment & insight - Labs CBC & Chem 7: 12/24/17 06:01 12/24/17 06:01 Labs: Abnormal Lab Results - Last 24 Hours (Table) 12/23/17 12/23/17 12/23/17 Range/Units 13:08 17:22 21:03 RBC (4.30-5.90) m/uL Hgb (13.0-17.5) gm/dL Hct (39.0-53.0) % MCHC (31.0-37.0) g/dL RDW (11.5-15.5) % Neutrophils # (1.3-7.7) k/uL Lymphocytes # (1.0-4.8) k/uL Carbon Dioxide (22-30) mmol/L BUN (9-20) mg/dL Glucose (74-99) mg/dL POC Glucose (mg/dL) 205 H 193 H 328 H (75-99) mg/dL Calcium (8.4-10.2) mg/dL AST (17-59) U/L Total Protein (6.3-8.2) g/dL Albumin (3.5-5.0) g/dL 12/24/17 12/24/17 12/24/17 Range/Units 02:01 06:01 06:01 RBC 3.25 L (4.30-5.90) m/uL Hgb 8.7 L (13.0-17.5) gm/dL Hct 28.2 L (39.0-53.0) % MCHC 30.9 L (31.0-37.0) g/dL RDW 17.9 H (11.5-15.5) % Neutrophils # 8.3 H (1.3-7.7) k/uL Lymphocytes # 0.8 L (1.0-4.8) k/uL Carbon Dioxide 32 H (22-30) mmol/L BUN 33 H (9-20) mg/dL Glucose 65 L (74-99) mg/dL POC Glucose (mg/dL) 157 H (75-99) mg/dL Calcium 8.0 L (8.4-10.2) mg/dL AST 63 H (17-59) U/L Total Protein 5.5 L (6.3-8.2) g/dL Albumin 2.5 L (3.5-5.0) g/dL 12/24/17 12/24/17 12/24/17 Range/Units 06:27 06:46 11:49 RBC (4.30-5.90) m/uL Hgb (13.0-17.5) gm/dL Hct (39.0-53.0) % MCHC (31.0-37.0) g/dL RDW (11.5-15.5) % Neutrophils # (1.3-7.7) k/uL Lymphocytes # (1.0-4.8) k/uL Carbon Dioxide (22-30) mmol/L BUN (9-20) mg/dL Glucose (74-99) mg/dL POC Glucose (mg/dL) 69 L 64 L 202 H (75-99) mg/dL Calcium (8.4-10.2) mg/dL AST (17-59) U/L Total Protein (6.3-8.2) g/dL Albumin (3.5-5.0) g/dL - Imaging and Cardiology Chest x-ray: report reviewed Assessment and Plan Plan: Assessment Acute hypoxic respiratory failure secondary to bilateral pneumonia with sepsis with staph aureus Hydropneumothorax with chest tube History of diabetes type 2 Hyperlipidemia GERD Right-sided Pleurx of lung cancer positive for adenocarcinoma Pancreatic cancer Chronic anemia Malnutrition moderate protein deficiency Plan Patient remains no code patient hopeful discharge to [facility] when pneumonia has cleared Continue consultation with infectious disease pulmonology and Dr. Dotson
--- NOTE | 2017-12-24 13:01 | P.PN ---
Subjective Progress Note Date: 12/24/17 Principal diagnosis: Acute hypoxemic respiratory failure secondary to bilateral pneumonia Pulmonary/critical care consultation dated 12/16/2017 This is a 77-year-old white male well-known to me. He presented to the emergency department on December 14 with fever. He's been undergoing chemotherapy for pancreatic cancer with his last chemo about 14 days ago. He apparently presented to the oncology office for another round of chemotherapy was noted to have a high fever and sent to the emergency department for evaluation. He was evaluated in the ER on December 14. He was admitted to the hospital with a diagnosis of pneumonia/sepsis. The patient had cough and some phlegm production and apparently. He also has a history of a right Pleurx catheter in place and he has a Mediport for chemotherapy. The patient was admitted to the floor. I was only consulted apparently sometime this morning. His respiratory status to client he became hypotensive and hypoxemic and we transferred the patient to the ICU for further management. His chest x-ray shows bilateral infiltrates. The patient is responsive. A Johnson catheter was placed. The chest x-ray was reviewed. The patient also has a history of diabetes, gastroesophageal reflux disease, hyperlipidemia, and previous right- sided thoracentesis and thoracoscopic decortication of the right lung with right wedge biopsy. That apparently was positive for adenocarcinoma. On 12/17/2017 patient seen again in follow-up in the intensive care units is awake and alert, he remains on AIRVO at 50 L/m, and FiO2 of 50%, his pulse ox is 92-94%, patient did have febrile episodes last night, with T-max of 101.6F. Cultures were reviewed, urine, blood, oral fluid and sputum cultures are negative thus far, final cultures are pending. Patient had refused CT chest this morning, he states he does not want any more tests. He is covered with a combination of vancomycin and Zosyn. We will add Levaquin. His chest x-ray has been reviewed by Dr. Levy and shows loculated right lower lung pneumothorax no significant change, diffuse increased pulmonary vascular markings and diffuse increased lung markings in the left lung most likely related to interstitial pneumonia rather than fluid overload. Pleural fluid cytology is pending. Today's labs have been reviewed, Sada BC 6.9, hemoglobin is 8.4, sodium is 136, there is electrolytes and renal profile is within normal limits. Patient is weak, he has no appetite. Lung sounds are positive for diminished breath sounds over right lower lobe, and some scattered crackles on the left. On 12/18/2017 patient seen in follow-up in the intensive care unit, he remains on high flow oxygen, AIRVO at 40 L/m, and FiO2 of 60%, IV 0.9 normal saline at a rate of 75 ML per hour, patient is sleepy, but easily arousable to verbal stimuli, he denies acute distress, appears weak, pale and fatigued. Patient's Pleurx catheter has been connected to Pleur-evac and continuous wall suction this was done in view of a loculated pneumothorax on the right. After initial connection to suction, there was some air leak, which has now stopped. We will obtain a repeat chest x-ray now. There are diminished breath sounds on the right, left lung is positive for fine inspiratory crackles. Patient has interstitial pneumonia on the left, and sputum cultures were positive for MSSA. Currently covered with a combination of Zosyn, Levaquin and vancomycin. No fevers in the last 24 hours. Overall prognosis remains poor, he remains a full code at this time, may need to address this to again with the patient and his family. On 12/19/2017 patient seen in follow-up in the intensive care unit, is more alert today, and conversant. Not in any acute distress, remains on high flow oxygen, currently at 40 L/m minute, and FiO2 of 50%. He is Pleurx catheter connected to suction, and there is a continuous air leak noted, and there has been 280 of dark bloody pleural fluid in the Pleur-evac. His chest x-ray has been reviewed, and showed overall stable findings, with right-sided chest tube and persistent bilateral basilar hydropneumothorax. There is cardiomegaly with diffuse ground glass opacity bilaterally and this is likely to underlying interstitial pneumonia, than fluid overload. Fever, no chills, vital signs are stable. Lung sounds real fine crackles on the left, and pleural rub on the right. A pneumatic coverage includes Kefzol, Levaquin, IDservice is following. We had a meeting with the patient's last night, and patient's prognosis is poor to underlying metastatic malignancy. Patient's CODE STATUS has been changed to DO NOT RESUSCITATE, hospice has been consulted to meet with the family and discuss options of hospice/palliative care. On 12/20/2017 he seen in follow-up in the intensive care unit, remains on high flow oxygen, currently at 40 L/m, and FiO2 of 45%, his pulse ox is 95%, afebrile , hemodynamically stable, patient is dyspneic with any exertion, and he Does not want his oxygen to be laying down, he is afraid it would make more short of breath. lung sounds are coarse, but better air entry noted at the right base. Right-sided Pleurx catheter is connected to a Pleur-evac and wall suction, and there has been 100 mL of dark pleural fluid in the last 24 hours, there is a continuous air leak. His chest x-ray showed an interval increase of the right basilar loculated hydropneumothorax with interval advancement of the Pleurx catheter. There is stable left-sided patchy interstitial opacities right basilar consolidation. Pleural fluid cultures remain negative thus far, sputum culture was positive for MSSA. he remains on Kefzol, Levaquin, and ID service is following. We added IV Solu-Medrol, he is less congested on today's exam. Clinically patient has minimal improvement since yesterday, clinically. In view of that patient and the family decided to wait with the hospice enrollment at this time. He remains a DO NOT RESUSCITATE. On 12/21/2017 patient seen in follow-up. Remains on high flow oxygen, currently at 40 L, and FiO2 of 38%, he reports his breathing is slightly improved, lung sounds reveal the better aeration over right lung, with a few rales at the right base. With 60 mL of pleural fluid in the last 24 hours. There is continuous air leak, today's chest x-ray has been reviewed by Dr. Levy, and show stable findings with right-sided loculated hydropneumothorax , and just to show pneumonia on the left. His remains stable, patient is afebrile. Her an antibiotic coverage includes Kefzol and Levaquin. On 12/22/2017 I'm seeing this patient for a follow-up. I've noted some improvement in the patient's overall pulmonary status over the past 24 hours. Today's chest exit shows improvement in the left lung pulmonary infiltrate and there is also improvement in aeration. She is on high flow oxygen initially at 60% and this was cut down to 40% and I think we should be able to cut it down further to high flow oxygen probably at 15 L. A trial of high flow oxygen will be given to this patient today. He is able to speak up longer distances. His cough is noncongested. No chest pain. There is a Pleurx cath on the right side which is attached to suction and there is ongoing air leak. Output and the Pleurx catheter has been 105 mL over the past 24 hours. His oral intake is still low. He is however feeling better appetite today and he is gradually increasing his oral intake. He remains on IV Solu-Medrol on a triple antibiotic coverage utilizing a combination of vancomycin and Zosyn and Levaquin. Fluid balance is negative as the patient is producing adequate urine. No other complaints infusion. Family is at the bedside. We have kept the hospice referral on hold knowing that the patient was showing some limited signs of improvement and the patient wanted to continue with the treatment for now. On 12/23/2017 I'm seeing this patient for a follow-up. The patient was able to tolerate high flow oxygen at 15 L for several hours yesterday and subsequently he was placed back on the Airvo at 40 L. The patient is stable. No fever chills or night sweats. Repeat chest x-ray from today shows gradual clearing of the left-sided pulmonary infiltrate. The patient has a pneumothorax on the right side which is a loculated pneumothorax. The patient has ongoing air leak and the pleural tube/Pleurx catheter and it is output in the order of 10 mL an hour through the Pleurx catheter. He is following commands and answering questions. He feels good. He had a breakfast this morning. He remains on the same antibiotic coverage. He is on a combination of IV Kefzol and oral Levaquin. No nausea. No vomiting. No abdominal pain. IV Solu Medrol will be gradually weaned down. The patient was on high-dose of the Medrol and this is caused significant steroid-induced hyperglycemia requiring insulin drip for blood sugar control. This morning the insulin drip was running at 19 units an hour. Note that the patient is also on Levemir insulin 50 units daily at bedtime. Renal function is stable and the patient's hemoglobin is also stable at 7.5. On 12/24/2017 patient seen in follow-up on selective care unit, currently is awake and alert, in no acute distress, O2 is down to 5 L per high flow nasal cannula, and his pulse ox 98%, no fever, no chills, hemodynamically stable, right-sided Pleurix catheter continues to be to wall suction, and there is continuous air leak. Pleural fluid cultures have remained negative. Sputum culture showed MSSA, patient is currently on Levaquin and Kefzol. Lung sounds reveal coarse rales and bilateral bases. Is have been reviewed, WBCs 10.1, hemoglobin is 8.7, sodium is 141, potassium is 4.1, chloride is 104 CO2 is 32, B1 is 33 creatinine 0.81. To give patient a dose of IV Lasix, patient is in - 2800 mL fluid balance over the last 24 hours. Clinically patient is improving, he is more awake, alert, and conversant. Is tolerating oral intake. No nausea no vomiting no diarrhea. Objective - Vital Signs Vital signs: Vital Signs Temp 97.4 F L 12/24/17 08:00 Pulse 90 12/24/17 12:48 Resp 18 12/24/17 08:00 BP 119/64 12/24/17 08:00 Pulse Ox 98 12/24/17 08:00 Intake & Output 12/23/17 12/24/17 12/24/17 18:59 06:59 18:59 Intake Total 348.55 120 240 Output Total 1994 1280 Balance -1646.45 -1160 240 Weight 83.3 kg 83.3 kg Intake: IV 330 20 Sodium Chloride 0.9% 1, 330 20 000 ml @ 20 mls/hr IV . Q24H LUCY Rx#:[id number] Intake, IV Titration 18.55 100 Amount Insulin Regular 100 unit 18.55 In Sodium Chloride 0.9% 100 ml @ Per Protocol IV .Q0M LUCY Rx#:[id number] Sodium Chloride 0.9% 1, 100 000 ml @ 20 mls/hr IV . Q24H LUCY Rx#:[id number] Oral 240 Output: Chest Tube Drainage 70 30 Right Anterior Chest 70 30 Urine 1925 1250 Other: Voiding Method Indwelling Catheter Indwelling Catheter Indwelling Catheter # Voids 2 # Bowel Movements 1 - Exam No acute distress, oriented 3. The patient is awake and alert, on 5 L per high flow nasal cannula HEENT examination is grossly unremarkable. Mucous membranes are dry. No oral lesions. Neck supple. Full range of motion. No adenopathy thyromegaly or neck vein distention. Cardiovascular examination reveals regular rhythm rate. S1-S2 normal. No S3 or S4. No discernible murmur noted. The patient's heart rate is 80 Lungs reveal , scattered crackles at the bases, Pleurx catheter to anterior right chest is connected to Pleur-evac and wall suction, continuous air leak noted, Abdomen soft and bowel sounds are heard. No masses or tenderness. Johnson catheter in place. Extremities are intact. No cyanosis clubbing or edema. Skin is without rash or lesion. Neurologic examination is brief but nonfocal. - Labs CBC & Chem 7: 12/24/17 06:01 12/24/17 06:01 Labs: Abnormal Lab Results - Last 24 Hours (Table) 12/23/17 12/23/17 12/23/17 Range/Units 13:08 17:22 21:03 RBC (4.30-5.90) m/uL Hgb (13.0-17.5) gm/dL Hct (39.0-53.0) % MCHC (31.0-37.0) g/dL RDW (11.5-15.5) % Neutrophils # (1.3-7.7) k/uL Lymphocytes # (1.0-4.8) k/uL Carbon Dioxide (22-30) mmol/L BUN (9-20) mg/dL Glucose (74-99) mg/dL POC Glucose (mg/dL) 205 H 193 H 328 H (75-99) mg/dL Calcium (8.4-10.2) mg/dL AST (17-59) U/L Total Protein (6.3-8.2) g/dL Albumin (3.5-5.0) g/dL 12/24/17 12/24/17 12/24/17 Range/Units 02:01 06:01 06:01 RBC 3.25 L (4.30-5.90) m/uL Hgb 8.7 L (13.0-17.5) gm/dL Hct 28.2 L (39.0-53.0) % MCHC 30.9 L (31.0-37.0) g/dL RDW 17.9 H (11.5-15.5) % Neutrophils # 8.3 H (1.3-7.7) k/uL Lymphocytes # 0.8 L (1.0-4.8) k/uL Carbon Dioxide 32 H (22-30) mmol/L BUN 33 H (9-20) mg/dL Glucose 65 L (74-99) mg/dL POC Glucose (mg/dL) 157 H (75-99) mg/dL Calcium 8.0 L (8.4-10.2) mg/dL AST 63 H (17-59) U/L Total Protein 5.5 L (6.3-8.2) g/dL Albumin 2.5 L (3.5-5.0) g/dL 12/24/17 12/24/17 12/24/17 Range/Units 06:27 06:46 11:49 RBC (4.30-5.90) m/uL Hgb (13.0-17.5) gm/dL Hct (39.0-53.0) % MCHC (31.0-37.0) g/dL RDW (11.5-15.5) % Neutrophils # (1.3-7.7) k/uL Lymphocytes # (1.0-4.8) k/uL Carbon Dioxide (22-30) mmol/L BUN (9-20) mg/dL Glucose (74-99) mg/dL POC Glucose (mg/dL) 69 L 64 L 202 H (75-99) mg/dL Calcium (8.4-10.2) mg/dL AST (17-59) U/L Total Protein (6.3-8.2) g/dL Albumin (3.5-5.0) g/dL Assessment and Plan Plan: Assessment: Hypoxemic respiratory failure secondary to bilateral pneumonia, today's chest x- ray has been reviewed and shows right-sided lacunar pleural effusion, with the right-sided Pleurx in place, diffuse increased pulmonary vascular markings likely related to interstitial pneumonia On 12/18/2017 patient seen again. Last night patient did change his mind about obtaining CT chest, and showed hydropneumothorax on the right with Pleurx catheter within the pleural space, extensive abnormal groundglass opacity within the left upper lobe and left lower lobe smaller left pleural effusion, related to left lung pneumonia. Right pleuralcatheter was placed to suction, and initially there was a mild air leak, which has stopped. We will obtain a follow-up chest x-ray. Sputum culture was positive for MSSA, and currently patient is covered with accommodation of Zosyn, Levaquin and vancomycin, no fevers and last 24 hours. On 12/19/2017 patient remains in the intensive care unit, requiring high flow oxygen, currently at 40 L/m, and FiO2 50%, there has been 280 mL of dark bloody pleural fluid since yesterday, and the Pleur-evac. There is a continuous air leak noted. ID service is following, and switch the IV antibiotics to and Levaquin. Chest x-ray has been reviewed, and shows persistent right-sided basilar hydropneumothorax, cardiomegaly with diffuse groundglass opacity bilaterally, consistent with infiltrates related to pneumonia. On 12/20/2017 patient remains in the intensive care unit, still requiring high flow oxygen, but Pleurx catheter to wall suction, and there has been 100 mL of dark bloody pleural fluid in the last 24 hours, and there is a continuous air leak. Patient is generally weak, pale, and fatigue, has poor appetite, he has not been able to get up out of bed. Sputum cultures positive for MSSA, patient' s currently on Kefzol and Levaquin, yesterday we added Solu-Medrol. Chest x- ray showed slight interval increase of the right basilar hydropneumothorax stable patchy left sided interstitial opacities. On 12/21/2017 were able to decrease the FiO2 down to 38%, patient ports some improvement in his dyspnea, lung sounds reveal better aeration at the right base , with some limited crackles at the right base. Right Pleurx catheter output is decreasing, 60 mL in the last 24 hours, there is continuous air leak in the Pleur-evac. No fever, no chills, his cough dry, noncongested. Patient remains covered with Kefzol and Levaquin. History of pancreatic carcinoma, status post recent chemotherapy Sepsis syndrome History of diabetes mellitus History of hyperlipidemia History of GERD Status post right-sided Pleurx catheter placement and wedge biopsy right lung, positive for adenocarcinoma. Status post decortication right lung History of neuropathy Plan: Continue current antibiotic coverage, continue IV steroids at 40 mg daily, continue nebulized bronchodilators. Yesterday we gave the patient a dose of Lasix, he is maintaining negative fluid balance, FiO2 is down to 5 L, continue weaning FiO2, increase activity as tolerated, encourage deep breathing and coughing. I performed a history & physical examination of the patient and discussed their management with my nurse practitioner, Marii Franco. I reviewed the nurse practitioner's note and agree with the documented findings and plan of care. Lung sounds are coarse. The findings and the impression was discussed with the patient. I attest to the documentation by the nurse practitioner. Time with Patient: Less than 30
--- NOTE | 2017-12-24 13:54 | P.PN ---
Subjective Progress Note Date: 12/24/17 Principal diagnosis: Pneumonia Patient sitting up in chair and showing slow improvement. no acute distress on hi flow-5L today. at bedside Objective - Vital Signs Vital signs: Vital Signs Temp 97.4 F L 12/24/17 08:00 Pulse 90 12/24/17 12:59 Resp 18 12/24/17 08:00 BP 119/64 12/24/17 08:00 Pulse Ox 98 12/24/17 08:00 Intake & Output 12/23/17 12/24/17 12/24/17 18:59 06:59 18:59 Intake Total 348.55 120 240 Output Total 1994 1280 Balance -1646.45 -1160 240 Weight 83.3 kg 83.3 kg Intake: IV 330 20 Sodium Chloride 0.9% 1, 330 20 000 ml @ 20 mls/hr IV . Q24H [facility] Rx#:[id number] Intake, IV Titration 18.55 100 Amount Insulin Regular 100 unit 18.55 In Sodium Chloride 0.9% 100 ml @ Per Protocol IV .Q0M LUCY Rx#:[id number] Sodium Chloride 0.9% 1, 100 000 ml @ 20 mls/hr IV . Q24H LUCY Rx#:[id number] Oral 240 Output: Chest Tube Drainage 70 30 Right Anterior Chest 70 30 Urine 1925 1250 Other: Voiding Method Indwelling Catheter Indwelling Catheter Indwelling Catheter # Voids 2 # Bowel Movements 1 - Exam Constitutional General appearance: Present: average body habitus, cooperative, mild distress - EENT Eyes: Present: anicteric sclerae, EOMI, normal appearance - Respiratory Respiratory: bilateral: diminished, rales (few, scattered) - Pleurex drain intact - Cardiovascular Heart sounds: normal: S1, S2 - Peripheral edema leg Peripheral Edema: bilateral: Trace - Gastrointestinal General gastrointestinal: Present: normal bowel sounds, soft - Integumentary Integumentary Comment(s): better color to cheeks today then yesterday - Neurologic Neurologic: Present: CNII-XII intact - Musculoskeletal Musculoskeletal: Present: generalized weakness - Psychiatric Psychiatric: Present: A&O x's 3, appropriate affect, intact judgment & insight - Labs CBC & Chem 7: 12/24/17 06:01 12/24/17 06:01 Labs: Abnormal Lab Results - Last 24 Hours (Table) 12/23/17 12/23/17 12/24/17 Range/Units 17:22 21:03 02:01 RBC (4.30-5.90) m/uL Hgb (13.0-17.5) gm/dL Hct (39.0-53.0) % MCHC (31.0-37.0) g/dL RDW (11.5-15.5) % Neutrophils # (1.3-7.7) k/uL Lymphocytes # (1.0-4.8) k/uL Carbon Dioxide (22-30) mmol/L BUN (9-20) mg/dL Glucose (74-99) mg/dL POC Glucose (mg/dL) 193 H 328 H 157 H (75-99) mg/dL Calcium (8.4-10.2) mg/dL AST (17-59) U/L Total Protein (6.3-8.2) g/dL Albumin (3.5-5.0) g/dL 12/24/17 12/24/17 12/24/17 Range/Units 06:01 06:01 06:27 RBC 3.25 L (4.30-5.90) m/uL Hgb 8.7 L (13.0-17.5) gm/dL Hct 28.2 L (39.0-53.0) % MCHC 30.9 L (31.0-37.0) g/dL RDW 17.9 H (11.5-15.5) % Neutrophils # 8.3 H (1.3-7.7) k/uL Lymphocytes # 0.8 L (1.0-4.8) k/uL Carbon Dioxide 32 H (22-30) mmol/L BUN 33 H (9-20) mg/dL Glucose 65 L (74-99) mg/dL POC Glucose (mg/dL) 69 L (75-99) mg/dL Calcium 8.0 L (8.4-10.2) mg/dL AST 63 H (17-59) U/L Total Protein 5.5 L (6.3-8.2) g/dL Albumin 2.5 L (3.5-5.0) g/dL 12/24/17 12/24/17 Range/Units 06:46 11:49 RBC (4.30-5.90) m/uL Hgb (13.0-17.5) gm/dL Hct (39.0-53.0) % MCHC (31.0-37.0) g/dL RDW (11.5-15.5) % Neutrophils # (1.3-7.7) k/uL Lymphocytes # (1.0-4.8) k/uL Carbon Dioxide (22-30) mmol/L BUN (9-20) mg/dL Glucose (74-99) mg/dL POC Glucose (mg/dL) 64 L 202 H (75-99) mg/dL Calcium (8.4-10.2) mg/dL AST (17-59) U/L Total Protein (6.3-8.2) g/dL Albumin (3.5-5.0) g/dL Assessment and Plan Plan: Assessment and Plan (1) Pancreatic adenocarcinoma with metastatic disease as below - Pulmonary Following and makes mention to the concern for still underlying severe pathology evidenced with loculated pneumothorax and ongoing persistent air leak and the Pleurx catheter. - Malignancy within right pleural space and confirmed biopsy revealing malignancy within pleural space which involves the pleura, lung and the pleural fluid. Narrative/Plan: - metastatic malignancy within the right pleural space - S/P 1st cycle of gem/abraxane. - Treatment plans to follow based on pt recovery. Likely will require a dose adjustment. - will see Dr. Dotson at Discharge Current Visit: Yes Status: Acute Priority: High Code(s): C25.9 - MALIGNANT NEOPLASM OF PANCREAS, UNSPECIFIED SNOMED Code(s): 495627307 (2) Staphylococcus aureus pneumonia Narrative/Plan: - Infection needs to cleared before pt can resume treatment. Pulmonary and ID reports reviewed daily - Appears to improving daily Current Visit: Yes Status: Acute Priority: High Code(s): J15.211 - PNEUMONIA DUE TO METHICILLIN SUSCEP STAPH SNOMED Code(s): 420832886 (3) Anemia aplastic aregenerative Narrative/Plan: - Hgb stable, no PRBCs needed Current Visit: Yes Status: Chronic Priority: Medium Code(s): D61.9 - APLASTIC ANEMIA, UNSPECIFIED SNOMED Code(s): 205906092 (4) Pleural effusion Narrative/Plan: - Pulm managing Current Visit: Yes Status: Acute Priority: Medium Code(s): J90 - PLEURAL EFFUSION, NOT ELSEWHERE CLASSIFIED SNOMED Code(s): 37755230 (5) Chronic Illness Myopathy - Up in chair - Increase activity for muscle atrophy and stamina - PT/OT - Continue Incentive Spirometer - Performance has declined with infection and discussed with patient and importance of increasing performance status to be eligible to resume chemotherapy when acute illness fully recovers. (6) Acute Hypoxic Respiratory Failure - Secondary to bilateral pneumonia - Pleurx catheter draining a malignant right-sided pleural effusions in addition to an extensive left lung consolidation typical of an underlying pneumonia. - Greatly improved since admission, slow improvement. Severe hypoxemia on admission, was under the care of ICU - 12/23/18 - chest x-ray shows improvement in left lung pulmonary infiltrate maintaining on 5L high flow oxygen Carole Vega NP
[2017-12-24 16:32] LABS: Glucose,Whole Blood 341 mg/dL (75-99)
--- NOTE | 2017-12-24 19:54 | PN ---
PROGRESS NOTE DATE OF SERVICE: 12/24/2017 REASON FOR FOLLOWUP: MSSA pneumonia. INTERVAL HISTORY: The patient is currently afebrile. He has been breathing comfortably. Denies having any chest pain. Occasional cough which is dry in nature. No abdominal pain and no diarrhea. PHYSICAL EXAMINATION: Blood pressure is 130/63 with a pulse of 98, temperature 97.9. He is 98% on 4 L nasal cannula. General description is an elderly male up in the bed in no distress. RESPIRATORY SYSTEM: Unlabored breathing with decreased breath sounds at the base. No wheeze. HEART: S1, S2. Regular rate and rhythm. ABDOMEN: Soft. No tenderness. LABS: Hemoglobin 8.7, white count 10.1. DIAGNOSTIC IMPRESSION AND PLAN: Patient with methicillin-susceptible Staphylococcus aeruginosa pneumonia, currently on cefazolin and Levaquin. The patient seems to have clinical improvement. Will try to arrange for IV Rocephin 2 grams daily for about 10 days depending on clinical response and close outpatient followup. Family present at bedside. Questions were answered. MMODL / IJN: [id number] /
[2017-12-24 20:40] LABS: Glucose,Whole Blood 355 mg/dL (75-99)
[2017-12-24] MEDS: INSULIN DETEMIR 100 UNIT/ML 10 ML VIAL SQ SCH (20:47)
[2017-12-24] MEDS: ALPRAZolam 0.5 MG TAB PO PRN (20:55)
[2017-12-25 02:16] LABS: Glucose,Whole Blood 252 mg/dL (75-99)
[2017-12-25] MEDS: IPRATROPIUM-ALBUTEROL 3 ML NEB INHALATION SCH ×6 (03:33→23:56)
[2017-12-25] MEDS: ceFAZolin IN SWFI 2 GM/20 ML SYRINGE IVP SCH ×3 (04:13→20:17)
[2017-12-25 06:03] LABS: Glucose,Whole Blood 190 mg/dL (75-99)
[2017-12-25] MEDS: INSULIN ASPART 100 UNIT/ML 1 ML 10 ML VIAL SQ SCH ×4 (06:58→21:58)
[2017-12-25] MEDS: SALT AND SODA MOUTHWASH 1,000 ML PO SCH ×3 (09:15→16:02)
[2017-12-25] MEDS: SERTRALINE 50 MG TAB PO SCH (09:25)
[2017-12-25] MEDS: GABAPENTIN 400 MG CAP PO SCH ×3 (09:25→21:57)
[2017-12-25] MEDS: LEVOFLOXACIN 750 MG TAB PO SCH (09:25)
[2017-12-25] MEDS: HEPARIN SODIUM,PORCINE 5,000 UNIT/ML 1 ML VIAL SQ SCH ×2 (09:25→20:18)
[2017-12-25] MEDS: methylPREDNISolone SOD SUCCI 40 MG/ML 1 ML VIAL IV SCH (09:25)
[2017-12-25] MEDS: NYSTATIN 100,000 UNIT/ML SUSP 500,000 UNIT/5 ML CUP PO SCH ×4 (09:25→21:58)
[2017-12-25] MEDS: FAMOTIDINE 20 MG TAB PO SCH ×2 (09:25→20:18)
[2017-12-25] MEDS: SODIUM CHLORIDE 0.9% 1,000 ML IV SCH (09:26)
--- NOTE | 2017-12-25 11:04 | P.PN ---
Subjective Progress Note Date: 12/25/17 Principal diagnosis: Acute hypoxemic respiratory failure secondary to bilateral pneumonia Pulmonary/critical care consultation dated 12/16/2017 This is a 77-year-old white male well-known to me. He presented to the emergency department on December 14 with fever. He's been undergoing chemotherapy for pancreatic cancer with his last chemo about 14 days ago. He apparently presented to the oncology office for another round of chemotherapy was noted to have a high fever and sent to the emergency department for evaluation. He was evaluated in the ER on December 14. He was admitted to the hospital with a diagnosis of pneumonia/sepsis. The patient had cough and some phlegm production and apparently. He also has a history of a right Pleurx catheter in place and he has a Mediport for chemotherapy. The patient was admitted to the floor. I was only consulted apparently sometime this morning. His respiratory status to client he became hypotensive and hypoxemic and we transferred the patient to the ICU for further management. His chest x-ray shows bilateral infiltrates. The patient is responsive. A Johnson catheter was placed. The chest x-ray was reviewed. The patient also has a history of diabetes, gastroesophageal reflux disease, hyperlipidemia, and previous right- sided thoracentesis and thoracoscopic decortication of the right lung with right wedge biopsy. That apparently was positive for adenocarcinoma. On 12/17/2017 patient seen again in follow-up in the intensive care units is awake and alert, he remains on AIRVO at 50 L/m, and FiO2 of 50%, his pulse ox is 92-94%, patient did have febrile episodes last night, with T-max of 101.6F. Cultures were reviewed, urine, blood, oral fluid and sputum cultures are negative thus far, final cultures are pending. Patient had refused CT chest this morning, he states he does not want any more tests. He is covered with a combination of vancomycin and Zosyn. We will add Levaquin. His chest x-ray has been reviewed by Dr. Levy and shows loculated right lower lung pneumothorax no significant change, diffuse increased pulmonary vascular markings and diffuse increased lung markings in the left lung most likely related to interstitial pneumonia rather than fluid overload. Pleural fluid cytology is pending. Today's labs have been reviewed, Sada BC 6.9, hemoglobin is 8.4, sodium is 136, there is electrolytes and renal profile is within normal limits. Patient is weak, he has no appetite. Lung sounds are positive for diminished breath sounds over right lower lobe, and some scattered crackles on the left. On 12/18/2017 patient seen in follow-up in the intensive care unit, he remains on high flow oxygen, AIRVO at 40 L/m, and FiO2 of 60%, IV 0.9 normal saline at a rate of 75 ML per hour, patient is sleepy, but easily arousable to verbal stimuli, he denies acute distress, appears weak, pale and fatigued. Patient's Pleurx catheter has been connected to Pleur-evac and continuous wall suction this was done in view of a loculated pneumothorax on the right. After initial connection to suction, there was some air leak, which has now stopped. We will obtain a repeat chest x-ray now. There are diminished breath sounds on the right, left lung is positive for fine inspiratory crackles. Patient has interstitial pneumonia on the left, and sputum cultures were positive for MSSA. Currently covered with a combination of Zosyn, Levaquin and vancomycin. No fevers in the last 24 hours. Overall prognosis remains poor, he remains a full code at this time, may need to address this to again with the patient and his family. On 12/19/2017 patient seen in follow-up in the intensive care unit, is more alert today, and conversant. Not in any acute distress, remains on high flow oxygen, currently at 40 L/m minute, and FiO2 of 50%. He is Pleurx catheter connected to suction, and there is a continuous air leak noted, and there has been 280 of dark bloody pleural fluid in the Pleur-evac. His chest x-ray has been reviewed, and showed overall stable findings, with right-sided chest tube and persistent bilateral basilar hydropneumothorax. There is cardiomegaly with diffuse ground glass opacity bilaterally and this is likely to underlying interstitial pneumonia, than fluid overload. Fever, no chills, vital signs are stable. Lung sounds real fine crackles on the left, and pleural rub on the right. A pneumatic coverage includes Kefzol, Levaquin, IDservice is following. We had a meeting with the patient's last night, and patient's prognosis is poor to underlying metastatic malignancy. Patient's CODE STATUS has been changed to DO NOT RESUSCITATE, hospice has been consulted to meet with the family and discuss options of hospice/palliative care. On 12/20/2017 he seen in follow-up in the intensive care unit, remains on high flow oxygen, currently at 40 L/m, and FiO2 of 45%, his pulse ox is 95%, afebrile , hemodynamically stable, patient is dyspneic with any exertion, and he Does not want his oxygen to be laying down, he is afraid it would make more short of breath. lung sounds are coarse, but better air entry noted at the right base. Right-sided Pleurx catheter is connected to a Pleur-evac and wall suction, and there has been 100 mL of dark pleural fluid in the last 24 hours, there is a continuous air leak. His chest x-ray showed an interval increase of the right basilar loculated hydropneumothorax with interval advancement of the Pleurx catheter. There is stable left-sided patchy interstitial opacities right basilar consolidation. Pleural fluid cultures remain negative thus far, sputum culture was positive for MSSA. he remains on Kefzol, Levaquin, and ID service is following. We added IV Solu-Medrol, he is less congested on today's exam. Clinically patient has minimal improvement since yesterday, clinically. In view of that patient and the family decided to wait with the hospice enrollment at this time. He remains a DO NOT RESUSCITATE. On 12/21/2017 patient seen in follow-up. Remains on high flow oxygen, currently at 40 L, and FiO2 of 38%, he reports his breathing is slightly improved, lung sounds reveal the better aeration over right lung, with a few rales at the right base. With 60 mL of pleural fluid in the last 24 hours. There is continuous air leak, today's chest x-ray has been reviewed by Dr. Levy, and show stable findings with right-sided loculated hydropneumothorax , and just to show pneumonia on the left. His remains stable, patient is afebrile. Her an antibiotic coverage includes Kefzol and Levaquin. On 12/22/2017 I'm seeing this patient for a follow-up. I've noted some improvement in the patient's overall pulmonary status over the past 24 hours. Today's chest exit shows improvement in the left lung pulmonary infiltrate and there is also improvement in aeration. She is on high flow oxygen initially at 60% and this was cut down to 40% and I think we should be able to cut it down further to high flow oxygen probably at 15 L. A trial of high flow oxygen will be given to this patient today. He is able to speak up longer distances. His cough is noncongested. No chest pain. There is a Pleurx cath on the right side which is attached to suction and there is ongoing air leak. Output and the Pleurx catheter has been 105 mL over the past 24 hours. His oral intake is still low. He is however feeling better appetite today and he is gradually increasing his oral intake. He remains on IV Solu-Medrol on a triple antibiotic coverage utilizing a combination of vancomycin and Zosyn and Levaquin. Fluid balance is negative as the patient is producing adequate urine. No other complaints infusion. Family is at the bedside. We have kept the hospice referral on hold knowing that the patient was showing some limited signs of improvement and the patient wanted to continue with the treatment for now. On 12/23/2017 I'm seeing this patient for a follow-up. The patient was able to tolerate high flow oxygen at 15 L for several hours yesterday and subsequently he was placed back on the Airvo at 40 L. The patient is stable. No fever chills or night sweats. Repeat chest x-ray from today shows gradual clearing of the left-sided pulmonary infiltrate. The patient has a pneumothorax on the right side which is a loculated pneumothorax. The patient has ongoing air leak and the pleural tube/Pleurx catheter and it is output in the order of 10 mL an hour through the Pleurx catheter. He is following commands and answering questions. He feels good. He had a breakfast this morning. He remains on the same antibiotic coverage. He is on a combination of IV Kefzol and oral Levaquin. No nausea. No vomiting. No abdominal pain. IV Solu Medrol will be gradually weaned down. The patient was on high-dose of the Medrol and this is caused significant steroid-induced hyperglycemia requiring insulin drip for blood sugar control. This morning the insulin drip was running at 19 units an hour. Note that the patient is also on Levemir insulin 50 units daily at bedtime. Renal function is stable and the patient's hemoglobin is also stable at 7.5. On 12/24/2017 patient seen in follow-up on selective care unit, currently is awake and alert, in no acute distress, O2 is down to 5 L per high flow nasal cannula, and his pulse ox 98%, no fever, no chills, hemodynamically stable, right-sided Pleurix catheter continues to be to wall suction, and there is continuous air leak. Pleural fluid cultures have remained negative. Sputum culture showed MSSA, patient is currently on Levaquin and Kefzol. Lung sounds reveal coarse rales and bilateral bases. Is have been reviewed, WBCs 10.1, hemoglobin is 8.7, sodium is 141, potassium is 4.1, chloride is 104 CO2 is 32, B1 is 33 creatinine 0.81. To give patient a dose of IV Lasix, patient is in - 2800 mL fluid balance over the last 24 hours. Clinically patient is improving, he is more awake, alert, and conversant. Is tolerating oral intake. No nausea no vomiting no diarrhea. On 12/25/2017 patient seen in follow-up on selective care unit, he is clinically improving, FiO2 is down to 2 L and his pulse ox is 98%, awake and alert, oriented 3, no acute distress. He remains afebrile. A combination of Kefzol and Levaquin, sputum cultures were positive for MSSA. ID service is following. Vital signs are stable, lung sounds are positive for coarse rales at the right lower base,clear on the left. Right Pleurx catheter was disconnected from suction, chest tube output has been decreasing, and is down to 70 mL over last 24 hours. We'll discontinue suction, we'll repeat chest x- ray this afternoon. Objective - Vital Signs Vital signs: Vital Signs Temp 97.1 F L 12/25/17 04:00 Pulse 90 12/25/17 08:32 Resp 18 12/25/17 04:00 BP 133/77 12/25/17 04:00 Pulse Ox 98 12/25/17 08:23 Intake & Output 12/24/17 12/25/17 12/25/17 18:59 06:59 18:59 Intake Total 920 Output Total 650 1370 Balance 270 -1370 Weight 83.3 kg 83.3 kg Intake: Oral 920 Output: Chest Tube Drainage 0 70 Right Anterior Chest 0 70 Urine 650 1300 Other: Voiding Method Indwelling Catheter Indwelling Catheter - Exam No acute distress, oriented 3. The patient is awake and alert, on 2 L per high flow nasal cannula HEENT examination is grossly unremarkable. Mucous membranes are dry. No oral lesions. Neck supple. Full range of motion. No adenopathy thyromegaly or neck vein distention. Cardiovascular examination reveals regular rhythm rate. S1-S2 normal. No S3 or S4. No discernible murmur noted. The patient's heart rate is 80 Lungs reveal , scattered crackles at the right base, Pleurx catheter to anterior right chest is connected to Pleur-evac and wall suction, continuous air leak noted, Abdomen soft and bowel sounds are heard. No masses or tenderness. Johnson catheter in place. Extremities are intact. No cyanosis clubbing or edema. Skin is without rash or lesion. Neurologic examination is brief but nonfocal. - Labs CBC & Chem 7: 12/24/17 06:01 12/24/17 06:01 Labs: Abnormal Lab Results - Last 24 Hours (Table) 12/24/17 12/24/17 12/24/17 Range/Units 11:49 16:29 20:33 POC Glucose (mg/dL) 202 H 341 H 355 H (75-99) mg/dL 12/25/17 12/25/17 Range/Units 02:03 06:00 POC Glucose (mg/dL) 252 H 190 H (75-99) mg/dL Microbiology - Last 24 Hours (Table) 12/16/17 13:45 Fungal Culture - Preliminary Pleural Fluid Assessment and Plan Plan: Assessment: Hypoxemic respiratory failure secondary to bilateral pneumonia, today's chest x- ray has been reviewed and shows right-sided lacunar pleural effusion, with the right-sided Pleurx in place, diffuse increased pulmonary vascular markings likely related to interstitial pneumonia On 12/18/2017 patient seen again. Last night patient did change his mind about obtaining CT chest, and showed hydropneumothorax on the right with Pleurx catheter within the pleural space, extensive abnormal groundglass opacity within the left upper lobe and left lower lobe smaller left pleural effusion, related to left lung pneumonia. Right pleuralcatheter was placed to suction, and initially there was a mild air leak, which has stopped. We will obtain a follow-up chest x-ray. Sputum culture was positive for MSSA, and currently patient is covered with accommodation of Zosyn, Levaquin and vancomycin, no fevers and last 24 hours. On 12/19/2017 patient remains in the intensive care unit, requiring high flow oxygen, currently at 40 L/m, and FiO2 50%, there has been 280 mL of dark bloody pleural fluid since yesterday, and the Pleur-evac. There is a continuous air leak noted. ID service is following, and switch the IV antibiotics to and Levaquin. Chest x-ray has been reviewed, and shows persistent right-sided basilar hydropneumothorax, cardiomegaly with diffuse groundglass opacity bilaterally, consistent with infiltrates related to pneumonia. On 12/20/2017 patient remains in the intensive care unit, still requiring high flow oxygen, but Pleurx catheter to wall suction, and there has been 100 mL of dark bloody pleural fluid in the last 24 hours, and there is a continuous air leak. Patient is generally weak, pale, and fatigue, has poor appetite, he has not been able to get up out of bed. Sputum cultures positive for MSSA, patient' s currently on Kefzol and Levaquin, yesterday we added Solu-Medrol. Chest x- ray showed slight interval increase of the right basilar hydropneumothorax stable patchy left sided interstitial opacities. On 12/21/2017 were able to decrease the FiO2 down to 38%, patient ports some improvement in his dyspnea, lung sounds reveal better aeration at the right base , with some limited crackles at the right base. Right Pleurx catheter output is decreasing, 60 mL in the last 24 hours, there is continuous air leak in the Pleur-evac. No fever, no chills, his cough dry, noncongested. Patient remains covered with Kefzol and Levaquin. On 12/25/2017 patient continues to improve, FiO2 is down to 2 L, he denies any dyspnea, no fever or chills, vital signs remain stable. Right Pleurx chest tube output is decreasing, down to 70 mL over last 24 hours, patient has been treated with IV antibiotics and there has been evidence of MSSA in his sputum. Clinically he is improving. Right Pleurx catheter continues to have a continuous air leak, we will discontinue the suction, repeat chest x-ray this afternoon History of pancreatic carcinoma, status post recent chemotherapy Sepsis syndrome History of diabetes mellitus History of hyperlipidemia History of GERD Status post right-sided Pleurx catheter placement and wedge biopsy right lung, positive for adenocarcinoma. Status post decortication right lung History of neuropathy Plan: Discontinue the wall suction, repeat chest x-ray at 2:00 this afternoon, if chest x-ray shows no pneumothorax, we will leave it off suction. Probably disconnect the Pleur-evac tomorrow, clinically patient is improving, no fever no chills, vital signs remain stable, FiO2 is down to 2 L. Increase activity as tolerated. Possible discharge to subacute rehab in the next 24 hours, if patient remains stable. I performed a history & physical examination of the patient and discussed their management with my nurse practitioner, Marii Franco. I reviewed the nurse practitioner's note and agree with the documented findings and plan of care. Lung sounds are coarse crackles. The findings and the impression was discussed with the patient. I attest to the documentation by the nurse practitioner. Time with Patient: Less than 30
--- NOTE | 2017-12-25 12:17 | P.PN ---
Subjective Patient up in room ambulating with assist with walker. Discussed case with pulmonology. Plan is to remove chest tube and continue with Pleurx. Patient has been cleared for IV Rocephin for home. Plan is discharged to [facility] when arrangements complete Objective - Vital Signs Vital signs: Vital Signs Temp 97.1 F L 12/25/17 04:00 Pulse 88 12/25/17 11:56 Resp 18 12/25/17 04:00 BP 133/77 12/25/17 04:00 Pulse Ox 98 12/25/17 08:23 Intake & Output 12/24/17 12/25/17 12/25/17 18:59 06:59 18:59 Intake Total 920 Output Total 650 1370 Balance 270 -1370 Weight 83.3 kg 83.3 kg Intake: Oral 920 Output: Chest Tube Drainage 0 70 Right Anterior Chest 0 70 Urine 650 1300 Other: Voiding Method Indwelling Catheter Indwelling Catheter - Constitutional General appearance: Present: mild distress - EENT Eyes: Present: PERRLA Ears: bilateral: normal - Neck Neck: Present: normal ROM - Respiratory Respiratory: right: diminished, left: CTA - Cardiovascular Rhythm: regular - Gastrointestinal General gastrointestinal: Present: soft - Integumentary Integumentary: Present: normal - Neurologic Neurologic: Present: CNII-XII intact - Musculoskeletal Musculoskeletal: Present: generalized weakness - Psychiatric Psychiatric: Present: A&O x's 3, appropriate affect, intact judgment & insight - Labs CBC & Chem 7: 12/24/17 06:01 12/24/17 06:01 Labs: Abnormal Lab Results - Last 24 Hours (Table) 12/24/17 12/24/17 12/25/17 Range/Units 16:29 20:33 02:03 POC Glucose (mg/dL) 341 H 355 H 252 H (75-99) mg/dL 12/25/17 Range/Units 06:00 POC Glucose (mg/dL) 190 H (75-99) mg/dL Microbiology - Last 24 Hours (Table) 12/16/17 13:45 Fungal Culture - Preliminary Pleural Fluid - Imaging and Cardiology Chest x-ray: report reviewed Assessment and Plan Plan: Assessment Acute hypoxic respiratory failure secondary to bilateral pneumonia with sepsis staph aureus Hydropneumothorax with chest tube History of pancreatic cancer post recent chemotherapy Adenocarcinoma the lung History of diabetes type 2 Hyperlipidemia GERD Right-sided Pleurx catheter Chronic anemia Malnutrition moderate protein deficiency Plan Pulmonology's plan is to remove chest tube repeat chest x-ray Continue with Pleurx IV Rocephin at home Transfer to [facility] when arrangements complete Continued consultation with oncology
--- NOTE | 2017-12-25 13:35 | XR ---
EXAMINATION TYPE: XR chest 2V DATE OF EXAM: 12/25/2017 COMPARISON: Chest x-ray from 2 days ago and older studies HISTORY: Loculated pneumothorax progress study. TECHNIQUE: Frontal and lateral views of the chest are obtained. FINDINGS: There is stable right internal jugular Mediport catheter. There is stable right basilar ch est tube. There is persistent hydropneumothorax lateral right lung base. There is persistent medial r ight basilar opacity. Background chronic parenchymal change remains present. Left lung remains clear. Perhaps subtle right-sided volume loss is stable. Cardiac silhouette size is stable and enlarged. Os seous structures remain demineralized. IMPRESSION: Overall stable findings, right lateral basilar hydropneumothorax with right-sided chest tube.
[2017-12-25 16:32] LABS: Glucose,Whole Blood 357 mg/dL (75-99)
[2017-12-25 21:16] LABS: Glucose,Whole Blood 475 mg/dL (75-99)
[2017-12-25 21:16] LABS: Glucose,Whole Blood 473 mg/dL (75-99)
[2017-12-25] MEDS: ALPRAZolam 0.5 MG TAB PO PRN (21:57)
[2017-12-25] MEDS: INSULIN DETEMIR 100 UNIT/ML 10 ML VIAL SQ SCH (21:58)
--- NOTE | 2017-12-25 23:25 | PN ---
PROGRESS NOTE DATE OF SERVICE: 12/25/2017. REASON FOR FOLLOWUP: MSSA pneumonia. INTERVAL HISTORY: The patient is afebrile. He has been breathing more comfortably. Denies significant chest pain or shortness of breath. No cough. No abdominal pain, no diarrhea. EXAMINATION: Blood pressure 124/64 with a pulse of 90, temperature 98, he is 96% on 3 L nasal cannula. General description is an elderly male up in the bed in no distress. Respiratory system, unlabored breathing with decreased breath sounds at the bases. No wheeze. Heart S1, S2. Regular rate and rhythm. Abdomen soft, nontender. LABS: Hemoglobin 8.2, white count 10.1, as of yesterday. DIAGNOSTIC IMPRESSION AND PLAN: Patient with MSSA pneumonia complicated, seemed to be slowly clinically improving on cefazolin and Levaquin. The patient will be transitioned to Rocephin 2 g daily for another week or 10 days on discharge with close outpatient followup. Continue supportive care. MMODL / IJN: [id number] /
[2017-12-26] MEDS: IPRATROPIUM-ALBUTEROL 3 ML NEB INHALATION SCH ×4 (04:03→17:07)
[2017-12-26] MEDS: ceFAZolin IN SWFI 2 GM/20 ML SYRINGE IVP SCH ×2 (05:52→13:01)
[2017-12-26 06:31] LABS: Glucose,Whole Blood 165 mg/dL (75-99)
[2017-12-26] MEDS: INSULIN ASPART 100 UNIT/ML 1 ML 10 ML VIAL SQ SCH ×3 (06:37→17:27)
--- NOTE | 2017-12-26 08:46 | XR ---
EXAMINATION TYPE: XR chest 2V DATE OF EXAM: 12/26/2017 COMPARISON: 12/25/2017 INDICATION: Hydropneumothorax TECHNIQUE: Frontal and lateral views of the chest are obtained. FINDINGS: The heart size is normal. The pulmonary vasculature is normal. There is a right pleural fluid collection. Right-sided chest tube is present extending posteriorly a nd above the level of the right hilum. Right suprahilar increased lung markings are present. A port i s present on the right with the tip in the superior vena cava region. A posterior loculated pneumotho rax may be present. Air-fluid levels present posteriorly as well. IMPRESSION: 1. Stable loculated posterior hydropneumothorax.
[2017-12-26] MEDS: NYSTATIN 100,000 UNIT/ML SUSP 500,000 UNIT/5 ML CUP PO SCH ×2 (09:25→13:01)
[2017-12-26] MEDS: FAMOTIDINE 20 MG TAB PO SCH (09:25)
[2017-12-26] MEDS: LEVOFLOXACIN 750 MG TAB PO SCH (09:25)
[2017-12-26] MEDS: SERTRALINE 50 MG TAB PO SCH (09:25)
[2017-12-26] MEDS: GABAPENTIN 400 MG CAP PO SCH ×2 (09:25→16:46)
[2017-12-26] MEDS: methylPREDNISolone SOD SUCCI 40 MG/ML 1 ML VIAL IV SCH (09:26)
[2017-12-26] MEDS: HEPARIN SODIUM,PORCINE 5,000 UNIT/ML 1 ML VIAL SQ SCH (09:26)
[2017-12-26 09:31] VITALS: RESP 16; TEMP 97.5
[2017-12-26 11:37] LABS: Glucose,Whole Blood 293 mg/dL (75-99)
[2017-12-26] MEDS: SALT AND SODA MOUTHWASH 1,000 ML PO SCH ×2 (13:00→13:01)
[2017-12-26] MEDS: SODIUM CHLORIDE 0.9% 1,000 ML IV SCH (13:01)
--- NOTE | 2017-12-26 14:49 | P.PN ---
Subjective Progress Note Date: 12/26/17 Principal diagnosis: Acute hypoxemic respiratory failure secondary to bilateral pneumonia Pulmonary/critical care consultation dated 12/16/2017 This is a 77-year-old white male well-known to me. He presented to the emergency department on December 14 with fever. He's been undergoing chemotherapy for pancreatic cancer with his last chemo about 14 days ago. He apparently presented to the oncology office for another round of chemotherapy was noted to have a high fever and sent to the emergency department for evaluation. He was evaluated in the ER on December 14. He was admitted to the hospital with a diagnosis of pneumonia/sepsis. The patient had cough and some phlegm production and apparently. He also has a history of a right Pleurx catheter in place and he has a Mediport for chemotherapy. The patient was admitted to the floor. I was only consulted apparently sometime this morning. His respiratory status to client he became hypotensive and hypoxemic and we transferred the patient to the ICU for further management. His chest x-ray shows bilateral infiltrates. The patient is responsive. A Johnson catheter was placed. The chest x-ray was reviewed. The patient also has a history of diabetes, gastroesophageal reflux disease, hyperlipidemia, and previous right- sided thoracentesis and thoracoscopic decortication of the right lung with right wedge biopsy. That apparently was positive for adenocarcinoma. On 12/17/2017 patient seen again in follow-up in the intensive care units is awake and alert, he remains on AIRVO at 50 L/m, and FiO2 of 50%, his pulse ox is 92-94%, patient did have febrile episodes last night, with T-max of 101.6F. Cultures were reviewed, urine, blood, oral fluid and sputum cultures are negative thus far, final cultures are pending. Patient had refused CT chest this morning, he states he does not want any more tests. He is covered with a combination of vancomycin and Zosyn. We will add Levaquin. His chest x-ray has been reviewed by Dr. Levy and shows loculated right lower lung pneumothorax no significant change, diffuse increased pulmonary vascular markings and diffuse increased lung markings in the left lung most likely related to interstitial pneumonia rather than fluid overload. Pleural fluid cytology is pending. Today's labs have been reviewed, Sada BC 6.9, hemoglobin is 8.4, sodium is 136, there is electrolytes and renal profile is within normal limits. Patient is weak, he has no appetite. Lung sounds are positive for diminished breath sounds over right lower lobe, and some scattered crackles on the left. On 12/18/2017 patient seen in follow-up in the intensive care unit, he remains on high flow oxygen, AIRVO at 40 L/m, and FiO2 of 60%, IV 0.9 normal saline at a rate of 75 ML per hour, patient is sleepy, but easily arousable to verbal stimuli, he denies acute distress, appears weak, pale and fatigued. Patient's Pleurx catheter has been connected to Pleur-evac and continuous wall suction this was done in view of a loculated pneumothorax on the right. After initial connection to suction, there was some air leak, which has now stopped. We will obtain a repeat chest x-ray now. There are diminished breath sounds on the right, left lung is positive for fine inspiratory crackles. Patient has interstitial pneumonia on the left, and sputum cultures were positive for MSSA. Currently covered with a combination of Zosyn, Levaquin and vancomycin. No fevers in the last 24 hours. Overall prognosis remains poor, he remains a full code at this time, may need to address this to again with the patient and his family. On 12/19/2017 patient seen in follow-up in the intensive care unit, is more alert today, and conversant. Not in any acute distress, remains on high flow oxygen, currently at 40 L/m minute, and FiO2 of 50%. He is Pleurx catheter connected to suction, and there is a continuous air leak noted, and there has been 280 of dark bloody pleural fluid in the Pleur-evac. His chest x-ray has been reviewed, and showed overall stable findings, with right-sided chest tube and persistent bilateral basilar hydropneumothorax. There is cardiomegaly with diffuse ground glass opacity bilaterally and this is likely to underlying interstitial pneumonia, than fluid overload. Fever, no chills, vital signs are stable. Lung sounds real fine crackles on the left, and pleural rub on the right. A pneumatic coverage includes Kefzol, Levaquin, IDservice is following. We had a meeting with the patient's last night, and patient's prognosis is poor to underlying metastatic malignancy. Patient's CODE STATUS has been changed to DO NOT RESUSCITATE, hospice has been consulted to meet with the family and discuss options of hospice/palliative care. On 12/20/2017 he seen in follow-up in the intensive care unit, remains on high flow oxygen, currently at 40 L/m, and FiO2 of 45%, his pulse ox is 95%, afebrile , hemodynamically stable, patient is dyspneic with any exertion, and he Does not want his oxygen to be laying down, he is afraid it would make more short of breath. lung sounds are coarse, but better air entry noted at the right base. Right-sided Pleurx catheter is connected to a Pleur-evac and wall suction, and there has been 100 mL of dark pleural fluid in the last 24 hours, there is a continuous air leak. His chest x-ray showed an interval increase of the right basilar loculated hydropneumothorax with interval advancement of the Pleurx catheter. There is stable left-sided patchy interstitial opacities right basilar consolidation. Pleural fluid cultures remain negative thus far, sputum culture was positive for MSSA. he remains on Kefzol, Levaquin, and ID service is following. We added IV Solu-Medrol, he is less congested on today's exam. Clinically patient has minimal improvement since yesterday, clinically. In view of that patient and the family decided to wait with the hospice enrollment at this time. He remains a DO NOT RESUSCITATE. On 12/21/2017 patient seen in follow-up. Remains on high flow oxygen, currently at 40 L, and FiO2 of 38%, he reports his breathing is slightly improved, lung sounds reveal the better aeration over right lung, with a few rales at the right base. With 60 mL of pleural fluid in the last 24 hours. There is continuous air leak, today's chest x-ray has been reviewed by Dr. Levy, and show stable findings with right-sided loculated hydropneumothorax , and just to show pneumonia on the left. His remains stable, patient is afebrile. Her an antibiotic coverage includes Kefzol and Levaquin. On 12/22/2017 I'm seeing this patient for a follow-up. I've noted some improvement in the patient's overall pulmonary status over the past 24 hours. Today's chest exit shows improvement in the left lung pulmonary infiltrate and there is also improvement in aeration. She is on high flow oxygen initially at 60% and this was cut down to 40% and I think we should be able to cut it down further to high flow oxygen probably at 15 L. A trial of high flow oxygen will be given to this patient today. He is able to speak up longer distances. His cough is noncongested. No chest pain. There is a Pleurx cath on the right side which is attached to suction and there is ongoing air leak. Output and the Pleurx catheter has been 105 mL over the past 24 hours. His oral intake is still low. He is however feeling better appetite today and he is gradually increasing his oral intake. He remains on IV Solu-Medrol on a triple antibiotic coverage utilizing a combination of vancomycin and Zosyn and Levaquin. Fluid balance is negative as the patient is producing adequate urine. No other complaints infusion. Family is at the bedside. We have kept the hospice referral on hold knowing that the patient was showing some limited signs of improvement and the patient wanted to continue with the treatment for now. On 12/23/2017 I'm seeing this patient for a follow-up. The patient was able to tolerate high flow oxygen at 15 L for several hours yesterday and subsequently he was placed back on the Airvo at 40 L. The patient is stable. No fever chills or night sweats. Repeat chest x-ray from today shows gradual clearing of the left-sided pulmonary infiltrate. The patient has a pneumothorax on the right side which is a loculated pneumothorax. The patient has ongoing air leak and the pleural tube/Pleurx catheter and it is output in the order of 10 mL an hour through the Pleurx catheter. He is following commands and answering questions. He feels good. He had a breakfast this morning. He remains on the same antibiotic coverage. He is on a combination of IV Kefzol and oral Levaquin. No nausea. No vomiting. No abdominal pain. IV Solu Medrol will be gradually weaned down. The patient was on high-dose of the Medrol and this is caused significant steroid-induced hyperglycemia requiring insulin drip for blood sugar control. This morning the insulin drip was running at 19 units an hour. Note that the patient is also on Levemir insulin 50 units daily at bedtime. Renal function is stable and the patient's hemoglobin is also stable at 7.5. On 12/24/2017 patient seen in follow-up on selective care unit, currently is awake and alert, in no acute distress, O2 is down to 5 L per high flow nasal cannula, and his pulse ox 98%, no fever, no chills, hemodynamically stable, right-sided Pleurix catheter continues to be to wall suction, and there is continuous air leak. Pleural fluid cultures have remained negative. Sputum culture showed MSSA, patient is currently on Levaquin and Kefzol. Lung sounds reveal coarse rales and bilateral bases. Is have been reviewed, WBCs 10.1, hemoglobin is 8.7, sodium is 141, potassium is 4.1, chloride is 104 CO2 is 32, B1 is 33 creatinine 0.81. To give patient a dose of IV Lasix, patient is in - 2800 mL fluid balance over the last 24 hours. Clinically patient is improving, he is more awake, alert, and conversant. Is tolerating oral intake. No nausea no vomiting no diarrhea. On 12/25/2017 patient seen in follow-up on selective care unit, he is clinically improving, FiO2 is down to 2 L and his pulse ox is 98%, awake and alert, oriented 3, no acute distress. He remains afebrile. A combination of Kefzol and Levaquin, sputum cultures were positive for MSSA. ID service is following. Vital signs are stable, lung sounds are positive for coarse rales at the right lower base,clear on the left. Right Pleurx catheter was disconnected from suction, chest tube output has been decreasing, and is down to 70 mL over last 24 hours. We'll discontinue suction, we'll repeat chest x- ray this afternoon. On 12/26/2017 patient seen in follow-up on selective care unit, he is calm and comfortable, sitting up in the recliner, in no acute distress. No fever or chills, room air pulse ox is 91%, hemodynamically stable, lung sounds are positive for some limited crackles at the right base. Patient continues on a combination of Kefzol and Levaquin for sputum cultures positive for MSSA. Pleur -evac remains off suction, repeat chest x-ray has been reviewed by Dr. Jefferson, shows stable loculated posterior hydropneumothorax. Clinically patient continues to improve. No acute events overnight, no specific complaints. Her perspective patient is stable for discharge to [facility] and rehab today. His continue the Pleur-evac, The Pleurx catheter, and tape to the chest wall. Patient may drain the Pleurx catheter as needed. Patient and his decided to stop the chemotherapy treatments, they're considering hospice in the near future, for now they want to proceed with rehab placement, with the goal of improving patient's strength and possibly returning home Objective - Vital Signs Vital signs: Vital Signs Temp 97.5 F L 12/26/17 09:20 Pulse 82 12/26/17 12:26 Resp 16 12/26/17 12:10 BP 118/55 12/26/17 11:30 Pulse Ox 91 L 12/26/17 12:10 Intake & Output 12/25/17 12/26/17 12/26/17 18:59 06:59 18:59 Intake Total 420 10 480 Output Total 0 2600 0 Balance 420 -2590 480 Weight 84.5 kg Intake: IV 10 .9 10 Oral 420 480 Output: Chest Tube Drainage 0 0 0 Right Anterior Chest 0 0 0 Urine 2600 Other: Voiding Method Indwelling Catheter Indwelling Catheter Indwelling Catheter # Voids 1 # Bowel Movements 1 0 - Exam No acute distress, oriented 3. The patient is awake and alert, on 2 L per high flow nasal cannula HEENT examination is grossly unremarkable. Mucous membranes are dry. No oral lesions. Neck supple. Full range of motion. No adenopathy thyromegaly or neck vein distention. Cardiovascular examination reveals regular rhythm rate. S1-S2 normal. No S3 or S4. No discernible murmur noted. The patient's heart rate is 80 Lungs reveal , scattered crackles at the right base, Pleurx catheter to anterior right chest is connected to Pleur-evac and wall suction, continuous air leak noted, Abdomen soft and bowel sounds are heard. No masses or tenderness. Johnson catheter in place. Extremities are intact. No cyanosis clubbing or edema. Skin is without rash or lesion. Neurologic examination is brief but nonfocal. - Labs CBC & Chem 7: 12/24/17 06:01 12/24/17 06:01 Labs: Abnormal Lab Results - Last 24 Hours (Table) 12/25/17 12/25/17 12/25/17 Range/Units 16:30 21:11 21:12 POC Glucose (mg/dL) 357 H 473 H 475 H (75-99) mg/dL 12/26/17 12/26/17 Range/Units 06:30 11:35 POC Glucose (mg/dL) 165 H 293 H (75-99) mg/dL Assessment and Plan Plan: Assessment: Hypoxemic respiratory failure secondary to bilateral pneumonia, today's chest x- ray has been reviewed and shows right-sided lacunar pleural effusion, with the right-sided Pleurx in place, diffuse increased pulmonary vascular markings likely related to interstitial pneumonia On 12/18/2017 patient seen again. Last night patient did change his mind about obtaining CT chest, and showed hydropneumothorax on the right with Pleurx catheter within the pleural space, extensive abnormal groundglass opacity within the left upper lobe and left lower lobe smaller left pleural effusion, related to left lung pneumonia. Right pleuralcatheter was placed to suction, and initially there was a mild air leak, which has stopped. We will obtain a follow-up chest x-ray. Sputum culture was positive for MSSA, and currently patient is covered with accommodation of Zosyn, Levaquin and vancomycin, no fevers and last 24 hours. On 12/19/2017 patient remains in the intensive care unit, requiring high flow oxygen, currently at 40 L/m, and FiO2 50%, there has been 280 mL of dark bloody pleural fluid since yesterday, and the Pleur-evac. There is a continuous air leak noted. ID service is following, and switch the IV antibiotics to and Levaquin. Chest x-ray has been reviewed, and shows persistent right-sided basilar hydropneumothorax, cardiomegaly with diffuse groundglass opacity bilaterally, consistent with infiltrates related to pneumonia. On 12/20/2017 patient remains in the intensive care unit, still requiring high flow oxygen, but Pleurx catheter to wall suction, and there has been 100 mL of dark bloody pleural fluid in the last 24 hours, and there is a continuous air leak. Patient is generally weak, pale, and fatigue, has poor appetite, he has not been able to get up out of bed. Sputum cultures positive for MSSA, patient' s currently on Kefzol and Levaquin, yesterday we added Solu-Medrol. Chest x- ray showed slight interval increase of the right basilar hydropneumothorax stable patchy left sided interstitial opacities. On 12/21/2017 were able to decrease the FiO2 down to 38%, patient ports some improvement in his dyspnea, lung sounds reveal better aeration at the right base , with some limited crackles at the right base. Right Pleurx catheter output is decreasing, 60 mL in the last 24 hours, there is continuous air leak in the Pleur-evac. No fever, no chills, his cough dry, noncongested. Patient remains covered with Kefzol and Levaquin. On 12/25/2017 patient continues to improve, FiO2 is down to 2 L, he denies any dyspnea, no fever or chills, vital signs remain stable. Right Pleurx chest tube output is decreasing, down to 70 mL over last 24 hours, patient has been treated with IV antibiotics and there has been evidence of MSSA in his sputum. Clinically he is improving. Right Pleurx catheter continues to have a continuous air leak, we will discontinue the suction, repeat chest x-ray this afternoon History of pancreatic carcinoma, status post recent chemotherapy Sepsis syndrome History of diabetes mellitus History of hyperlipidemia History of GERD Status post right-sided Pleurx catheter placement and wedge biopsy right lung, positive for adenocarcinoma. Status post decortication right lung History of neuropathy Plan: Today's chest x-ray has been reviewed by Dr. Jefferson, shows stable right hydropneumothorax, has not increased in size, clinically patient remains stable , no recurrent fever or chills, FiO2 down to room air. From pulmonary perspective patient is stable to transfer to [facility] rehab today. He has was decided to not have any more chemotherapy, and we'll consider hospice in the near future, for now what to proceed with rehab placement in hopes of increasing basilar strength and returning home. Continue Pleur-evac, the Pleurx catheter to the chest wall, and patient may drain it as needed. I performed a history & physical examination of the patient and discussed their management with my nurse practitioner, Marii Franco. I reviewed the nurse practitioner's note and agree with the documented findings and plan of care. Lung sounds are coarse crackles. The findings and the impression was discussed with the patient. I attest to the documentation by the nurse practitioner. Time with Patient: Less than 30
[2017-12-26 16:03] VITALS: BP 138/77; PULSE 100
--- NOTE | 2017-12-26 16:27 | P.DS ---
Providers Date of admission: 12/14/17 13:24 Expected date of discharge: 12/26/17 Attending physician: Devin Sotelo Consults: 12/14/17 13:25 Consult Physician Routine Consulting Provider: Tam Dotson Consult Reason/Comments: Stage IV pancreatic cancer, fever Do you want consulting provider notified?: Yes 12/14/17 15:02 Consult Physician Urgent Consulting Provider: Dallin Hazel Consult Reason/Comments: sepsis Do you want consulting provider notified?: Yes 12/16/17 07:53 Consult Physician Urgent Consulting Provider: Jose Montejo Consult Reason/Comments: SOB Do you want consulting provider notified?: Yes Primary care physician: Devin Ruiz Hospital Course: Final Diagnoses: Hypoxemic respiratory failure secondary to MSSA bilateral pneumonia, right- sided lacunar pleural effusion, with the right-sided Pleurx in place, interstitial pneumonia, adenocarcinoma-lung. History of pancreatic carcinoma, status post recent chemotherapy Sepsis syndrome History of diabetes mellitus History of hyperlipidemia History of GERD Status post right-sided Pleurx catheter placement and wedge biopsy right lung, positive for adenocarcinoma. Status post decortication right lung Hospital course: This is a 77-year-old white male well-known to me. He presented to the emergency department on December 14 with fever. He's been undergoing chemotherapy for pancreatic cancer with his last chemo about 14 days ago. He apparently presented to the oncology office for another round of chemotherapy was noted to have a high fever and sent to the emergency department for evaluation. He was evaluated in the ER on December 14. He was admitted to the hospital with a diagnosis of pneumonia/sepsis. The patient had cough and some phlegm production and apparently. He also has a history of a right Pleurx catheter in place and he has a Mediport for chemotherapy. The patient was admitted to the floor. I was only consulted apparently sometime this morning. His respiratory status to client he became hypotensive and hypoxemic and we transferred the patient to the ICU for further management. His chest x-ray shows bilateral infiltrates. The patient is responsive. A Johnson catheter was placed. The chest x-ray was reviewed. The patient also has a history of diabetes, gastroesophageal reflux disease, hyperlipidemia, and previous right-sided thoracentesis and thoracoscopic decortication of the right lung with right wedge biopsy. That apparently was positive for adenocarcinoma. Evaluated by oncology, pulmonary and ID. Maintained on a high flow oxygen, AIRVO, antibiotics, nebulized bronchodilators. Sputum cultures positive for MSSA. Continued on IV antibiotics. Significant clinical improvement. Chest x- ray shows stable loculated posterior hydropneumothorax. Pulmonary had a meeting with the patient's last night, and patient's prognosis is poor to underlying metastatic malignancy. Patient's CODE STATUS has been changed to DO NOT RESUSCITATE, hospice has been consulted to meet with the family and discuss options of hospice/palliative care. Patient and his decided to stop the chemotherapy treatments, they're considering hospice in the near future, for now they want to proceed with rehab placement, with the goal of improving patient's strength and possibly returning home. Patient has been cleared for discharge. Patient is being discharged to [facility] subacute rehab in stable condition with guarded prognosis. EXAM: GEN: Alert nourished 3, no acute distress. CVS: Regular S1 and S2. LUNGS : Respiratory effort unlabored, diminished bilateral bases. ABD: Soft, nontender , positive bowel sounds. Neuro: No focal deficits. The impression and plan of care has been dictated as directed. : I performed a history and examination of this patient, discussed the same with the dictator. I agree with the dictator's note ,documented as a scribe. Any additional findings or plans will be noted. Time taken: 35 minutes Patient Condition at Discharge: Stable Plan - Discharge Summary Discharge Rx Participant: No New Discharge Prescriptions: New Acetaminophen Tab [Tylenol] 650 mg PO Q6HR PRN tab PRN Reason: Mild Pain Or Fever > 100.5 Insulin Detemir [Levemir] 50 unit SQ HS syr INSULIN LISPRO (HumaLOG) [humaLOG] 0 unit SQ ACHS #1 vial Ipratropium-Albuterol Nebulize [Duoneb 0.5 mg-3 mg/3 ml Soln] 3 ml INHALATION QID #1 ampul.neb Nystatin 100,000 Unit/ml Susp [Mycostatin Oral Susp] 500,000 unit PO QID #20 cup predniSONE 10 mg PO DIRECTED #30 tab cefTRIAXone [Rocephin] 2,000 mg IVP Q24HR #10 syr Continue Lansoprazole 30 mg PO DAILY Tamsulosin [Flomax] 0.4 mg PO PC-BRKFST #30 cap.er.24h Cyanocobalamin (Vitamin B-12) [Vitamin B-12] 1,000 mcg PO DAILY Gabapentin 800 mg PO TID Megestrol [Megace] 400 mg PO QAM Pyridoxine HCl (Vitamin B6) [Vitamin B-6] 100 mg PO DAILY Sertraline [Zoloft] 50 mg PO HS Melatonin 5 mg PO HS ALPRAZolam [Xanax] 0.5 mg PO BID PRN #6 tab PRN Reason: anxiety Glucerna Shake 1 can PO TID #0 Discontinued Atorvastatin Calcium [Lipitor] 10 mg PO DAILY Insulin Lispro [humaLOG Kwikpen] See Protocol SQ AC-TID Insulin Glargine,Hum.rec.anlog [Lantus Solostar] 74 units SQ DAILY Benzonatate [Tessalon Perles] 100 mg PO Q8H PRN PRN Reason: Cough Discharge Medication List Lansoprazole 30 mg PO DAILY 09/21/17 [History] Tamsulosin [Flomax] 0.4 mg PO PC-BRKFST #30 cap.er.24h 10/06/17 [Rx] Cyanocobalamin (Vitamin B-12) [Vitamin B-12] 1,000 mcg PO DAILY 12/14/17 [ History] Gabapentin 800 mg PO TID 12/14/17 [History] Megestrol [Megace] 400 mg PO QAM 12/14/17 [History] Pyridoxine HCl (Vitamin B6) [Vitamin B-6] 100 mg PO DAILY 12/14/17 [History] Sertraline [Zoloft] 50 mg PO HS 12/14/17 [History] Melatonin 5 mg PO HS 12/15/17 [History] ALPRAZolam [Xanax] 0.5 mg PO BID PRN #6 tab 12/26/17 [Rx] Acetaminophen Tab [Tylenol] 650 mg PO Q6HR PRN tab 12/26/17 [Rx] Glucerna Shake 1 can PO TID #0 12/26/17 [Rx] INSULIN LISPRO (HumaLOG) [humaLOG] 0 unit SQ ACHS #1 vial 12/26/17 [Rx] Insulin Detemir [Levemir] 50 unit SQ HS syr 12/26/17 [Rx] Ipratropium-Albuterol Nebulize [Duoneb 0.5 mg-3 mg/3 ml Soln] 3 ml INHALATION QID #1 ampul.neb 12/26/17 [Rx] Nystatin 100,000 Unit/ml Susp [Mycostatin Oral Susp] 500,000 unit PO QID #20 cup 12/26/17 [Rx] cefTRIAXone [Rocephin] 2,000 mg IVP Q24HR #10 syr 12/26/17 [Rx] predniSONE 10 mg PO DIRECTED #30 tab 12/26/17 [Rx] Follow up Appointment(s)/Referral(s): Devin Ruiz MD [Primary Care Provider] - 3 Days (After DC from subacute rehab ) Tam Dotson MD [STAFF PHYSICIAN] - As Needed Dallin Hazel MD [STAFF PHYSICIAN] - 1 Week Cade Levy MD [STAFF PHYSICIAN] - 2 Weeks Activity/Diet/Wound Care/Special Instructions: [place]-Pleurex catheters-IV ABX antibiotics as per ID Sodium is a mouthwash 3 times a day when necessary cbc,bmp in days
[2017-12-26 16:55] LABS: Glucose,Whole Blood 403 mg/dL (75-99)
--- NOTE | 2017-12-26 18:17 | PN ---
PROGRESS NOTE DATE OF SERVICE: 12/26/2017 REASON FOR FOLLOWUP: MSSA pneumonia complicated possible empyema. INTERVAL HISTORY: The patient is currently afebrile. He has been breathing comfortably. The patient denies having any chest pain. Occasional cough. Currently breathing comfortably on room air. No nausea. No vomiting. No abdominal pain. No diarrhea. PHYSICAL EXAMINATION: Blood pressure 132/77 with a pulse of 100, temperature 98. He is 93% on room air. General description is an elderly male up in the chair in no distress. RESPIRATORY SYSTEM: Unlabored breathing. Some decreased breath sounds at the bases. No wheeze. HEART: S1, S2. Regular rate and rhythm. ABDOMEN: Soft. No tenderness. LABS: No new labs have been obtained today. DIAGNOSTIC IMPRESSION AND PLAN: Patient with methicillin-susceptible Staphylococcus aeruginosa pneumonia that seems to have shown clinical improvement on the cefazolin and Levaquin. We will transition him to Rocephin 2 grams daily for another 7 to 10 days to finish his course of therapy in view of his extensive pneumonia and underlying immunocompromised status. Continue with supportive care. MMODL / IJN: [id number] /
== END 2017-12-26 17:35 | DRG 871 ==
LOC: EC 10:55 → 3NMEDONC 13:24 → 2SICU 12-16 09:52 → 3SCARD 12-24 00:56
PROVIDERS: ADMIT Family Medicine; ATTEND Family Medicine
DX: A41.01 Sepsis due to Methicillin susceptible Staphylococcus aureus (principal); J15.211 Pneumonia due to Methicillin susceptible Staphylococcus aureus; J96.01 Acute respiratory failure with hypoxia; C25.9 Malignant neoplasm of pancreas, unspecified; J91.0 Malignant pleural effusion; C78.01 Secondary malignant neoplasm of right lung; E87.2 Acidosis; J94.2 Hemothorax; B37.0 Candidal stomatitis; D61.9 Aplastic anemia, unspecified; E44.0 Moderate protein-calorie malnutrition; J84.9 Interstitial pulmonary disease, unspecified; J93.82 Other air leak; Z51.5 Encounter for palliative care; Z66 Do not resuscitate; L89.152 Pressure ulcer of sacral region, stage 2; I95.9 Hypotension, unspecified; E11.40 Type 2 diabetes mellitus with diabetic neuropathy, unspecified; E11.65 Type 2 diabetes mellitus with hyperglycemia; D51.3 Other dietary vitamin B12 deficiency anemia; D64.81 Anemia due to antineoplastic chemotherapy; E86.0 Dehydration; T45.1X5A Adverse effect of antineoplastic and immunosuppressive drugs, initial encounter; E11.319 Type 2 diabetes mellitus with unspecified diabetic retinopathy without macular edema; K59.00 Constipation, unspecified; M19.90 Unspecified osteoarthritis, unspecified site; D50.9 Iron deficiency anemia, unspecified; K21.9 Gastro-esophageal reflux disease without esophagitis; T38.0X5A Adverse effect of glucocorticoids and synthetic analogues, initial encounter; E78.5 Hyperlipidemia, unspecified; R29.6 Repeated falls; Y95 Nosocomial condition; Z79.4 Long term (current) use of insulin; Z79.818 Long term (current) use of other agents affecting estrogen receptors and estrogen levels; Z79.899 Other long term (current) drug therapy; Z88.2 Allergy status to sulfonamides; Z91.048 Other nonmedicinal substance allergy status; Z87.891 Personal history of nicotine dependence; Z87.81 Personal history of (healed) traumatic fracture; Z96.611 Presence of right artificial shoulder joint; Z98.42 Cataract extraction status, left eye; Z98.41 Cataract extraction status, right eye; Z96.1 Presence of intraocular lens; Z80.0 Family history of malignant neoplasm of digestive organs
CPT/HCPCS: 36415; 36600; 71045; 71046; 71260; 76705; 80053; 80202; 81001; 82805; 82945; 83036; 83605; 83615; 83690; 83735; 84100; 84157; 85025; 85610; 85730; 87040; 87070; 87077; 87086; 87102; 87116; 87186; 87205; 87206; 87252; 87449; 87496; 87498; 87502; 87529; 87634; 87798; 88108; 88305; 89050; 93005; 94640; 94760; 96361; 96365; 96366; 96367; 99285